=== PATIENT | male | born 1955 | race Caucasian/White ===

== ENCOUNTER 2016-09-02 08:07 | Emergency (ER) | payer MEDICAID ==
--- NOTE | 2016-09-02 08:26 | ER Document Report ---
ED General Pain - General Chief Complaint: Low Back Pain Stated Complaint: BACK PAIN Notes: The patient is a 61-year-old male, past medical history CAD, HTN, presents with her days of right lower back pain, worse when he presses and moves. He has had this in the past when he was lifting heavy weights. He denies any urinary symptoms, hematuria, dysuria, saddle anesthesia, change in bowel or bladder, difficulty walking, numbness, tingling, tearing sensation, fevers or history of IVDA. TRAVEL OUTSIDE OF THE [place] IN LAST 30 DAYS: No - Related Data Allergies/Adverse Reactions: No Known Allergies Allergy (Verified 09/02/16 08:11) Past Medical History - General Information source: Patient - Social History Smoking Status: Current Every Day Smoker Chew tobacco use (# tins/day): No Frequency of alcohol use: None Drug Abuse: None Family History: Reviewed & Not Pertinent Patient has suicidal ideation: No Patient has homicidal ideation: No - Past Medical History Cardiac Medical History: Reports: Hx Atrial Fibrillation, Hx Congestive Heart Failure, Hx Coronary Artery Disease, Hx Heart Attack, Hx Hypercholesterolemia, Hx Hypertension Past Surgical History: Reports: Hx Cardiac Catheterization, Hx Cholecystectomy, Hx Coronary Stent, Hx Oral Surgery, Hx Orthopedic Surgery, Hx Tonsillectomy - Immunizations Hx Diphtheria, Pertussis, Tetanus Vaccination: Yes Review of Systems - Review of Systems Notes: REVIEW OF SYSTEMS: CONSTITUTIONAL: -fevers, -chills EENT: -eye pain, -difficulty swallowing, -nasal congestion CARDIOVASCULAR:-chest pain, -syncope. RESPIRATORY: -cough, -SOB GASTROINTESTINAL: -abdominal pain, - nausea, -vomiting, -diarrhea GENITOURINARY: -dysuria, -hematuria MUSCULOSKELETAL: +back pain, -neck pain SKIN: -rash or skin lesions. HEMATOLOGIC: -easy bruising or bleeding. LYMPHATIC: -swollen, enlarged glands. NEUROLOGICAL: -altered mental status or loss of consciousness, -headache, - neurologic symptoms PSYCHIATRIC: -anxiety, -depression. ALL OTHER SYSTEMS REVIEWED AND NEGATIVE. Physical Exam - Vital signs Vitals: Temp Pulse Resp BP Pulse Ox 98.9 F 78 16 171/111 H 98 09/02/16 08:12 09/02/16 08:12 09/02/16 08:12 09/02/16 08:12 09/02/16 08:12 - Notes Notes: PHYSICAL EXAMINATION: GENERAL: Well-appearing, well-nourished and in no acute distress. HEAD: Atraumatic, normocephalic. EYES: Pupils equal round and reactive to light, extraocular movements intact, sclera anicteric, conjunctiva are normal. ENT: nares patent, oropharynx clear without exudates. Moist mucous membranes. NECK: Normal range of motion, supple without lymphadenopathy LUNGS: Breath sounds clear to auscultation bilaterally and equal. No wheezes rales or rhonchi. HEART: Regular rate and rhythm without murmurs ABDOMEN: Soft, nontender, normoactive bowel sounds. No guarding, no rebound. No masses appreciated. EXTREMITIES: Normal range of motion, no pitting or edema. No cyanosis. Tenderness over right lower back. No midline tenderness. NEUROLOGICAL: Cranial nerves grossly intact. Normal speech, normal gait. Normal sensory, motor, and reflex exams. PSYCH: Normal mood, normal affect. SKIN: Warm, Dry, normal turgor, no rashes or lesions noted. Course - Re-evaluation Re-evalutation: Symptoms atypical for kidney stone. Bedside ultrasound does not show any evidence of AAA or aortic dissection. No red flag signs for low back pain. We' ll treat with anti-inflammatories and lidocaine patch with follow-up at his primary care physician. Instructed patient to have his blood pressure checked by his primary care physician because it is high today. - Vital Signs Vital signs: Temp Pulse Resp BP Pulse Ox 98.9 F 78 16 171/111 H 98 09/02/16 08:12 09/02/16 08:12 09/02/16 08:12 09/02/16 08:12 09/02/16 08:12 Discharge - Discharge Clinical Impression: Back pain Qualifiers: Back pain location: low back pain Chronicity: unspecified Back pain laterality : right Sciatica presence: without sciatica Qualified Code(s): M54.5 - Low back pain Condition: Good Disposition: HOME, SELF-CARE Additional Instructions: LOW BACK PAIN: Three out of every four people will have an episode of disabling back pain during their lifetime. Most commonly the pain is due to straining of the muscles and ligaments in the low back. Usual treatment includes: (1) Rest on a firm surface. Avoid lying on your stomach. (2) Ice pack the painful area. After a few days, gentle heat may be used intermittently to relax the area, or ice packs can be continued. (3) Medication may be needed -- muscle relaxers and antiinflammatory medicines are commonly used. (4) As the back improves, exercises are prescribed to strengthen the back and abdominal muscles. Your doctor will advise you on the proper care for your back at each stage in your recovery. You may be better in a few days -- or healing may take several weeks. If new symptoms of a "herniated disc" (radiation of pain, numbness, or tingling down the back of the leg or weakness in the leg) occur, you should be re-examined. Further testing may be necessary. ICE PACKS: Apply ice packs frequently against the painful area. Many different schedules are recommended, such as "20 minutes on, 20 minutes off" or "one hour ice, two hours rest." If you need to work, you may need to go longer between ice treatments. You should plan to have the area ice packed AT LEAST one fourth of the time. The ice should be applied over the wrap, tape, or splint, or over a layer of cloth -- not directly against the skin. Some ice bags have a built-in cloth and can be put directly on the skin. WARM PACKS: After approximately two days, apply gentle heat (such as a heating pad or hot water bottle) for about 20 to 30 minutes about every two hours -- at least four times daily. Warmth and elevation will help you make a more rapid recovery , and will ease the pain considerably. Do not use HOT heat, and never apply heat for longer than 30 minutes. The continuous heat can invisibly damage skin and muscles -- even when no burn is seen on the surface. Damaged muscles can make you MORE sore. FOLLOW-UP CARE: If you have been referred to a physician for follow-up care, call the physician s office for an appointment as you were instructed or within the next two days. If you experience worsening or a significant change in your symptoms, notify the physician immediately or return to the Emergency Department at any time for re-evaluation. Prescriptions: Lidocaine [Lidoderm] 1 each TP DAILY PRN #10 adh..patch PRN Reason:
[2016-09-02] MEDS ORDERED: IBUPROFEN 600 MG TABLET PO ONE (08:39)
[2016-09-02 09:43] LABS: APPEARANCE,URINE SLIGHTLY-CLOUDY; BILIRUBIN,URINE NEGATIVE (NEGATIVE); GLUCOSE, URINE NEGATIVE (NEGATIVE); KETONES,URINE NEGATIVE (NEGATIVE); LEUKOCYTE ESTERASE,URINE NEGATIVE (NEGATIVE); NITRITE,URINE NEGATIVE (NEGATIVE); PROTEIN,URINE 30 mg/dL (NEGATIVE); URINE SPECIFIC GRAVITY 1.028; UROBILINOGEN,URINE NEGATIVE mg/dL (<2.0)
[2016-09-02 10:13] VITALS: BP 141/96
== END 2016-09-02 10:12 | disposition home or self-care (01) ==
LOC: ER 08:07
DX: M54.5 Low back pain (principal); I25.10 Atherosclerotic heart disease of native coronary artery without angina pectoris; I25.2 Old myocardial infarction; I10 Essential (primary) hypertension; F17.200 Nicotine dependence, unspecified, uncomplicated; Z98.61 Coronary angioplasty status
CPT/HCPCS: 99283; 81001; J3490

== ENCOUNTER → 2016-09-11 | Outpatient (CLI) | payer MEDICAID ==
[2016-09-11 12:27] LABS: APPEARANCE,URINE SLIGHTLY-CLOUDY; BILIRUBIN,URINE NEGATIVE (NEGATIVE); GLUCOSE, URINE NEGATIVE (NEGATIVE); KETONES,URINE NEGATIVE (NEGATIVE); LEUKOCYTE ESTERASE,URINE NEGATIVE (NEGATIVE); NITRITE,URINE NEGATIVE (NEGATIVE); PROTEIN,URINE 30 mg/dL (NEGATIVE); URINE SPECIFIC GRAVITY 1.017; UROBILINOGEN,URINE NEGATIVE mg/dL (<2.0)
[2016-09-11 12:38] LABS: ABSOLUTE BASOPHILS # (AUTO) 0.1 10^3/uL (0.0-0.2); ABSOLUTE EOSINOPHILS # (AUTO) 0.1 10^3/uL (0.0-0.6); ABSOLUTE MONOCYTES (AUTO) 0.6 10^3/uL (0.1-1.4); ABSOLUTE NEUT (AUTO) 4.8 10^3/uL (1.7-8.2); BASOPHILS % (AUTO) 0.8 % (0-2); EOSINOPHILS % (AUTO) 1.8 % (0-6); HEMATOCRIT 49.1 % (37.9-51.0); HEMOGLOBIN 16.2 g/dL (13.5-17.0); HGB HCT DIFFERENCE -0.5; LYMPHOCYTES % (AUTO) 26.1 % (13-45); MEAN CORPUSCULAR HEMOGLOBIN 31.4 pg (27.0-33.4); MEAN CORPUSCULAR VOLUME 95 fl (80-97); MONOCYTES % (AUTO) 7.9 % (3-13); RED BLOOD COUNT 5.17 10^6/uL (4.35-5.55); RED CELL DISTRIBUTION WIDTH 14.3 % (11.5-14.0); SEGMENTED NEUTROPHILS % (AUTO) 63.4 % (42-78); WHITE BLOOD COUNT 7.5 10^3/uL (4.0-10.5)
[2016-09-11 12:44] LABS: ANION GAP 13 (5-19); BLOOD UREA NITROGEN 16 mg/dL (7-20); CALCIUM 9.8 mg/dL (8.4-10.2); CARBON DIOXIDE 29 mmol/L (22-30); CHLORIDE 101 mmol/L (98-107); CREATININE RESULT 1.45 mg/dL (0.52-1.25); GLUCOSE 115 mg/dL (75-110); POTASSIUM 4.2 mmol/L (3.6-5.0)
--- NOTE | 2016-09-11 18:55 | EKG REPORT ---
SEVERITY:- ABNORMAL ECG - ATRIAL FIBRILLATION, V-RATE 67-99 BORDERLINE T WAVE ABNORMALITIES PROLONGED QT INTERVAL : Confirmed by: Elijah Adams MD 11-Sep-2016 18:54:38
== END ==
LOC: OD 11:14
PROVIDERS: ATTEND Orthopaedic Surgery
DX: Z01.810 Encounter for preprocedural cardiovascular examination (principal); Z01.811 Encounter for preprocedural respiratory examination; Z01.818 Encounter for other preprocedural examination; Z79.899 Other long term (current) drug therapy; M17.11 Unilateral primary osteoarthritis, right knee
CPT/HCPCS: 36415; 71020; 80048; 81001; 85025; 93005; 93010

== ENCOUNTER 2016-10-20 08:05 | Emergency (ER) | payer MEDICAID ==
[2016-10-20 09:05] LABS: APPEARANCE,URINE CLEAR; BILIRUBIN,URINE NEGATIVE (NEGATIVE); GLUCOSE, URINE NEGATIVE (NEGATIVE); KETONES,URINE NEGATIVE (NEGATIVE); LEUKOCYTE ESTERASE,URINE NEGATIVE (NEGATIVE); NITRITE,URINE NEGATIVE (NEGATIVE); PROTEIN,URINE NEGATIVE (NEGATIVE); URINE SPECIFIC GRAVITY 1.017; UROBILINOGEN,URINE NEGATIVE mg/dL (<2.0)
[2016-10-20] MEDS ORDERED: KETOROLAC TROMETHAMINE 60 MG/2 ML SDV IM ONE (09:46)
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
[2016-10-20 10:46] LABS: CHLAM PCR NOT DETECTED (NOT DETECT)
[2016-10-20 11:18] VITALS: BP 140/93
== END 2016-10-20 10:45 | disposition home or self-care (01) ==
LOC: ER 08:05
DX: N50.811 Right testicular pain (principal); N43.3 Hydrocele, unspecified; R30.0 Dysuria
CPT/HCPCS: 99284; 96372; 81001; 87491; 87591; 76870; 93976; J1885

== ENCOUNTER 2016-10-29 01:55 | Emergency (ER) | payer MEDICAID ==
[2016-10-29] MEDS ORDERED: LIDOCAINE 5% (700 MG) TRANSDERMAL ADH..PATCH TP ONE (03:44)
[2016-10-29] MEDS ORDERED: KETOROLAC TROMETHAMINE 60 MG/2 ML SDV IM ONE (03:45)
--- NOTE | 2016-10-29 03:45 | ER Document Report ---
ED General - General Chief Complaint: Knee Pain Stated Complaint: RIGHT KNEE PAIN Notes: Patient is a 61-year-old male who frequently visits the emergency department for pain-related complaints who presents with right knee pain. He is scheduled for surgery next month states that the pain was worse tonight and prevented him from sleeping so he came into the emergency department. He also complains of chronic bilateral perilumbar spine low back pain which she states is unchanged today but he thought he would mention it since he was here in the emergency department. She describes the pain as a radiating constant, dull, throbbing pain. States that walking on the knee or moving it worsens the pain. He has been trying tramadol for pain without improvement. Denies any urinary incontinence or retention, weakness, numbness, or difficulty with ambulation. He denies any fever or IV drug use. TRAVEL OUTSIDE OF THE [place] IN LAST 30 DAYS: No - Related Data Allergies/Adverse Reactions: No Known Allergies Allergy (Verified 10/20/16 08:11) Past Medical History - General Information source: Patient - Social History Smoking Status: Never Smoker Chew tobacco use (# tins/day): No Frequency of alcohol use: None Drug Abuse: None Lives with: Alone Family History: Reviewed & Not Pertinent Patient has suicidal ideation: No Patient has homicidal ideation: No - Past Medical History Cardiac Medical History: Reports: Hx Atrial Fibrillation, Hx Congestive Heart Failure, Hx Coronary Artery Disease, Hx Heart Attack, Hx Hypercholesterolemia, Hx Hypertension Renal/ Medical History: Denies: Hx Peritoneal Dialysis Past Surgical History: Reports: Hx Cardiac Catheterization, Hx Cholecystectomy, Hx Coronary Stent, Hx Oral Surgery, Hx Orthopedic Surgery, Hx Tonsillectomy - Immunizations Hx Diphtheria, Pertussis, Tetanus Vaccination: Yes Review of Systems - Review of Systems Notes: Constitutional: Negative for fever. HENT: Negative for sore throat. Eyes: Negative for visual changes. Cardiovascular: Negative for chest pain. Respiratory: Negative for shortness of breath. Gastrointestinal: Negative for abdominal pain, vomiting or diarrhea. Genitourinary: Negative for dysuria. Musculoskeletal: Positive for chronic back and right knee pain Skin: Negative for rash. Neurological: Negative for headaches, weakness or numbness. 10 point ROS negative except as marked above and in HPI. Physical Exam - Vital signs Vitals: Temp Pulse Resp BP Pulse Ox 97.4 F 89 17 101/64 96 10/29/16 02:14 10/29/16 02:14 10/29/16 02:14 10/29/16 02:14 10/29/16 02:14 Interpretation: Normal Notes: PHYSICAL EXAMINATION: GENERAL: Well-appearing, well-nourished and in no acute distress. HEAD: Atraumatic, normocephalic. EYES: sclera anicteric, conjunctiva are normal. ENT: Moist mucous membranes. NECK: Normal range of motion LUNGS: Normal work of breathing HEART: 2+ radial pulses bilaterally EXTREMITIES: no pitting or edema. No cyanosis. Normal flexion and extension of the knees bilaterally. Back: Diffuse bilateral dony-lumbar back pain without midline tenderness NEUROLOGICAL:5 out of 5 strength both distally and proximally bilateral lower extremities. 2+ patellar reflexes bilaterally. No clonus. Sensation grossly intact in the bilateral lower extremities. Patient is able to ambulate without difficulty. PSYCH: Normal mood, normal affect. SKIN: Warm, Dry, normal turgor, no rashes or lesions noted. Course - Re-evaluation Re-evalutation: 10/29/16 03:42 No evidence of a septic joint, gout flare, dislocation, or fracture on exam. This is patient's chronic right knee pain unchanged today. He is scheduled to have surgery next month. Vitals wnl. At this time, I do not see an indication for labs or further imaging. He does have trace edema in the bilateral lower extremities that is equal and symmetric and I do not suspect an acute DVT. I have reviewed our chronic pain policy with the patient. Will discharge with conservative measures, return precautions, and follow-up recommendations. - Vital Signs Vital signs: Temp Pulse Resp BP Pulse Ox 97.4 F 72 16 107/67 95 10/29/16 04:26 10/29/16 04:26 10/29/16 04:26 10/29/16 04:26 10/29/16 04:26 Discharge - Discharge Clinical Impression: Chronic pain of right knee Condition: Good Disposition: HOME, SELF-CARE Additional Instructions: You were seen today for chronic right knee pain. You should continue to take anti-inflammatories such as ibuprofen 600 mg every 6 hours. Continue to apply ice or heat to the area is much your able. Please follow-up with your primary care physician if you do not have improving your symptoms in the next 1-2 weeks. Please return immediately if you develop weakness, numbness, spreading redness from the area, or any other symptoms that are concerning to you. Referrals: CHEMA MARINELLI MD [Primary Care Provider] - Follow up as needed DAMARIS MINER MD [ACTIVE STAFF] - Follow up as needed
[2016-10-29 04:28] VITALS: BP 107/67
== END 2016-10-29 04:23 | disposition home or self-care (01) ==
LOC: ER 01:55
DX: G89.29 Other chronic pain (principal); M25.562 Pain in left knee; M54.9 Dorsalgia, unspecified; I48.91 Unspecified atrial fibrillation; I50.9 Heart failure, unspecified; I25.10 Atherosclerotic heart disease of native coronary artery without angina pectoris; E78.00 Pure hypercholesterolemia, unspecified; I11.0 Hypertensive heart disease with heart failure; Z90.49 Acquired absence of other specified parts of digestive tract; I25.2 Old myocardial infarction
CPT/HCPCS: 99283; 96372; J1885; J3490

== ENCOUNTER 2016-12-08 17:08 | Emergency (ER) | payer MEDICAID ==
--- NOTE | 2016-12-08 18:04 | ER Document Report ---
ED Medical Screen (RME) - General Chief Complaint: Fall Injury Stated Complaint: FALL BACK PAIN Notes: This 61-year-old male patient comes emergency room complaining of to 3 day history of weakness of the legs, and 1 day history of weakness to his arms. He said for last 2-3 days he has uses arms to get up. He was feeling short of breath and when he tried to get up today his legs gave out and he fell to the floor making his chronic back pain worse. He states he saw Dr. Stephen last week , and needs surgery on the right knee. The patient has 2 medical record numbers, this was found when looking at prior films. He stated he had had an MRI here recently, but I cannot find that under either of the medical record entries. The patient receives 60 oxycodone 5 mg tablets on a monthly basis from his primary care provider. I have greeted and performed a rapid initial assessment of this patient. A comprehensive ED assessment and evaluation of the patient, analysis of test results and completion of the medical decision making process will be conducted by additional ED providers. TRAVEL OUTSIDE OF THE [place] IN LAST 30 DAYS: No - Related Data Allergies/Adverse Reactions: No Known Allergies Allergy (Verified 12/08/16 17:36) Past Medical History - Past Medical History Cardiac Medical History: Reports: Hx Atrial Fibrillation, Hx Congestive Heart Failure, Hx Coronary Artery Disease, Hx Heart Attack, Hx Hypercholesterolemia, Hx Hypertension Renal/ Medical History: Denies: Hx Peritoneal Dialysis Past Surgical History: Reports: Hx Cardiac Catheterization, Hx Cholecystectomy, Hx Coronary Stent, Hx Oral Surgery, Hx Orthopedic Surgery, Hx Tonsillectomy - Immunizations Hx Diphtheria, Pertussis, Tetanus Vaccination: Yes Physical Exam - Vital signs Vitals: Temp Pulse Resp BP Pulse Ox 97.9 F 88 16 175/106 H 97 12/08/16 17:36 12/08/16 17:36 12/08/16 17:36 12/08/16 17:36 12/08/16 17:36 Course - Vital Signs Vital signs: Temp Pulse Resp BP Pulse Ox 97.9 F 88 16 175/106 H 97 12/08/16 17:36 12/08/16 17:36 12/08/16 17:36 12/08/16 17:36 12/08/16 17:36 - Laboratory Result Diagrams: 12/08/16 18:15 12/08/16 18:15 Laboratory results interpreted by me: 12/08/16 12/08/16 18:15 18:15 RDW 14.2 H Plt Count 115 L BUN 21 H Creatine Kinase 47 L Total Protein 5.8 L
[2016-12-08 18:29] LABS: ABSOLUTE BASOPHILS # (AUTO) 0.1 10^3/uL (0.0-0.2); ABSOLUTE EOSINOPHILS # (AUTO) 0.1 10^3/uL (0.0-0.6); ABSOLUTE LYMPHOCYTES (AUTO) 2.4 10^3/uL (0.5-4.7); ABSOLUTE MONOCYTES (AUTO) 0.7 10^3/uL (0.1-1.4); ABSOLUTE NEUT (AUTO) 5.7 10^3/uL (1.7-8.2); BASOPHILS % (AUTO) 0.6 % (0-2); EOSINOPHILS % (AUTO) 0.9 % (0-6); HEMATOCRIT 42.7 % (37.9-51.0); HEMOGLOBIN 14.9 g/dL (13.5-17.0); LYMPHOCYTES % (AUTO) 26.6 % (13-45); MEAN CORPUSCULAR HEMOGLOBIN 33.3 pg (27.0-33.4); MEAN CORPUSCULAR VOLUME 95 fl (80-97); MONOCYTES % (AUTO) 7.9 % (3-13); RED BLOOD COUNT 4.48 10^6/uL (4.35-5.55); RED CELL DISTRIBUTION WIDTH 14.2 % (11.5-14.0); WHITE BLOOD COUNT 8.9 10^3/uL (4.0-10.5)
[2016-12-08 18:45] LABS: ALANINE AMINOTRANSFERASE 45 U/L (21-72); ALBUMIN 4.1 g/dL (3.5-5.0); ALKALINE PHOSPHATASE 110 U/L (38-126); ANION GAP 14 (5-19); ASPARTATE AMINO TRANSFERASE 23 U/L (17-59); BILIRUBIN,DIRECT 0.2 mg/dL (0.0-0.4); BILIRUBIN,TOTAL 0.7 mg/dL (0.2-1.3); BLOOD UREA NITROGEN 21 mg/dL (7-20); CALCIUM 9.4 mg/dL (8.4-10.2); CARBON DIOXIDE 24 mmol/L (22-30); CHLORIDE 105 mmol/L (98-107); CREATINE KINASE 47 U/L (55-170); CREATININE RESULT 1.06 mg/dL (0.52-1.25); GLUCOSE 104 mg/dL (75-110); POTASSIUM 4.3 mmol/L (3.6-5.0); SODIUM 142.9 mmol/L (137-145); TOTAL PROTEIN 5.8 g/dL (6.3-8.2)
[2016-12-08] MEDS ORDERED: OXYCODONE-ACETAMINOPHEN 5-325 MG TABLET PO ONE (19:39)
[2016-12-08] MEDS ORDERED: OXYCODONE HCL IR 5 MG TABLET PO ONE (21:39)
--- NOTE | 2016-12-08 21:49 | ER Document Report ---
ED Fall - General Chief Complaint: Fall Injury Stated Complaint: FALL BACK PAIN Mode of Arrival: Ambulatory Information source: Patient TRAVEL OUTSIDE OF THE [place] IN LAST 30 DAYS: No - HPI Patient complains to provider of: weakness and pain Notes: Patient arrives today with complaints of generalized weakness for the last few days. He states that he just feels weak in general. He has a history of chronic neck and back pain. He sees a doctor prescribes him 60 Percocet each month here for his chronic pain. He states that earlier today was attempting to get up because he felt somewhat weak he fell to the ground and injured his lower back. He denies increased low back pain states the pain radiates down both of his legs. He denies any bowel or bladder dysfunction. He has a history of congestive heart failure and A. fib and is currently on Primaxin. He denies any fevers. He denies any numbness or tingling to the lower extremities. He denies any blurred or loss vision. No headache. He denies any chest pain. He does report some slightly worsening shortness of breath when he lays down. This been off for the last few days. He does report that his doctor recently increased his Lasix due to this. - Related data Allergies/Adverse Reactions: No Known Allergies Allergy (Verified 12/08/16 17:36) Past Medical History - Social History Smoking Status: Unknown if Ever Smoked Family History: Reviewed & Not Pertinent Patient has suicidal ideation: No Patient has homicidal ideation: No - Past Medical History Cardiac Medical History: Reports: Hx Atrial Fibrillation, Hx Congestive Heart Failure, Hx Coronary Artery Disease, Hx Heart Attack, Hx Hypercholesterolemia, Hx Hypertension Renal/ Medical History: Denies: Hx Peritoneal Dialysis Past Surgical History: Reports: Hx Cardiac Catheterization, Hx Cholecystectomy, Hx Coronary Stent, Hx Oral Surgery, Hx Orthopedic Surgery, Hx Tonsillectomy - Immunizations Hx Diphtheria, Pertussis, Tetanus Vaccination: Yes Review of Systems - Review of Systems -: Yes All other systems reviewed and negative Physical Exam - Vital signs Vitals: Temp Pulse Resp BP Pulse Ox 97.9 F 88 16 175/106 H 97 12/08/16 17:36 12/08/16 17:36 12/08/16 17:36 12/08/16 17:36 12/08/16 17:36 - Notes Notes: GENERAL: alert, cooperative, nontoxic, no distress. HEAD: normocephalic, atraumatic EYES: conjunctiva pink without discharge, no external redness or swelling. EARS: no external swelling, no external redness NOSE: atraumatic, no external swelling MOUTH/THROAT: mucous membranes moist and pink, posterior pharynx without erythema, swelling, exudate. No trismus or drooling. NECK: soft, supple, full range of motion, no meningismus. CHEST: no distress, lungs clear and equal throughout. No wheezing, rales, rhonchi. CARDIAC: Irregular rhythm, no murmur, normal capillary refill, normal pulses. No peripheral edema noted. ABDOMEN: Soft, nontender. No mass. RECTAL: Patient had light brown colored stool. The patient has normal rectal tone on exam. There was no mass or tenderness on rectal exam. BACK: full range of motion, no CVA tenderness. Patient has mild tenderness palpation in the midline lumbar spine. There is no step-offs or crepitus. Patient has 5 out of 5 flexion and extension of his lower extremities bilaterally. EXTREMITIES: full range of motion of all extremities. No redness, no swelling. NEURO: alert and oriented A&Ox3, no focal deficits, full range of motion of all extremities. Patellar and Achilles reflexes are +2 bilaterally. The patient has normal sensation with no saddle anesthesia. PYSCH: appropriate mood, affect. Patient is cooperative. SKIN: pink, warm, dry, no rash. Course - Re-evaluation Re-evalutation: 12/08/16 23:18 The patient is nontoxic. Stable vitals. Patient has a history of A. fib and congestive heart failure. He states that when he lays flat. What short of breath. He denies any chest pain. Tender fevers. Complains of some mild generalized weakness as well. He states that he fell and injured his back due to his generalized weakness. He has no bowel or bladder dysfunction and has no sign of cauda equina or epidural abscess or bleed. He normal rectal tone. No blood within his stool. EKG is unremarkable with A. fib without RVR. This is chronic for this patient. Chest x-ray shows no acute abnormality. CT of the lumbar spine shows no acute abnormality. Patient states that he is feeling better at this time and would like to go home. He needs to follow-up with his primary care doctor at next available appointment. Prescribe him prednisone for possible radiculopathy. She'll follow up sooner if he develops increased pain, high fever, difficulty controlling his bowels or his bladder, chest pain, severe difficulty breathing, or any further concerns. The patient is noted to have elevated blood pressure during today's emergency department visit. The patient was informed of this finding. The patient was instructed that this may be related to pre-hypertension and requires further evaluation with a primary care provider. The patient has no hypertensive symptoms at this time. The patient's emergency department workup and current diagnosis were explained to the patient and or family. Follow-up instructions were provided. Medications if prescribed were discussed. Instructions for when to return to the emergency department including specific worrisome symptoms were discussed with the patient and/or family. - Vital Signs Vital signs: Temp Pulse Resp BP Pulse Ox 97.9 F 88 16 186/124 H 95 12/08/16 17:36 12/08/16 17:36 12/08/16 22:31 12/08/16 22:31 12/08/16 22:31 - Laboratory Result Diagrams: 12/08/16 18:15 12/08/16 18:15 Laboratory results interpreted by me: 12/08/16 12/08/16 12/08/16 18:15 18:15 18:15 RDW 14.2 H Plt Count 115 L BUN 21 H Creatine Kinase 47 L NT-Pro-B Natriuret Pep 2790 H Total Protein 5.8 L - Diagnostic Test Radiology reviewed: Image reviewed, Reports reviewed - Chest x-ray negative. CT of the lumbar spine without acute findings. - EKG Interpretation by Sc EKG shows normal: QRS Complexes, ST-T Waves Rate: Normal Rhythm: A.Fib When compared to previous EKG there are: No significant change - 09/11/16 Discharge - Discharge Clinical Impression: Lumbar radiculopathy Chronic congestive heart failure Qualifiers: Congestive heart failure type: unspecified congestive heart failure type Qualified Code(s): I50.9 - Heart failure, unspecified Atrial fibrillation Qualifiers: Atrial fibrillation type: unspecified Qualified Code(s): I48.91 - Unspecified atrial fibrillation Disposition: HOME, SELF-CARE Instructions: Congestive Heart Failure ([facility]), Radiculopathy ([facility]) Additional Instructions: Take medications as prescribed. Follow-up with your doctor at the next available appointment for reevaluation. Follow-up sooner for chest pain, difficulty breathing, difficulty controlling her bowels or bladder, weakness in her legs, or any further concerns. Your blood pressure was elevated during today's visit. Have this rechecked with your doctor. Prescriptions: Prednisone 60 mg PO DAILY #15 tablet Forms: Elevated Blood Pressure
[2016-12-08 21:54] LABS: PROTHROMBIN TIME 13.3 SEC (11.4-15.4)
[2016-12-08 21:55] LABS: PARTIAL THROMBOPLASTIN TIME 33.6 SEC (23.5-35.8)
[2016-12-08 22:18] LABS: TROPONIN I 0.02 ng/mL
[2016-12-08] MEDS ORDERED: CLONIDINE HCL 0.1 MG TABLET PO ONE (22:47)
[2016-12-08] MEDS ORDERED: PREDNISONE 20 MG TABLET PO ONE (23:21)
--- NOTE | 2016-12-08 23:35 | EKG REPORT ---
SEVERITY:- ABNORMAL ECG - ATRIAL FIBRILLATION, V-RATE 75-103 : Confirmed by: Ernesto Schmitz 08-Dec-2016 23:34:51
[2016-12-08 23:50] VITALS: BP 172/126
== END 2016-12-08 23:49 | disposition home or self-care (01) ==
LOC: ER 17:08
DX: M54.16 Radiculopathy, lumbar region (principal); I50.9 Heart failure, unspecified; I48.91 Unspecified atrial fibrillation; R53.1 Weakness; G89.29 Other chronic pain; M54.9 Dorsalgia, unspecified; M54.2 Cervicalgia; E78.00 Pure hypercholesterolemia, unspecified; I11.0 Hypertensive heart disease with heart failure; I25.2 Old myocardial infarction
CPT/HCPCS: 93005; 99285; 36415; 82550; 85025; 85610; 85730; 82272; 80053; 84484; 83880; 71020; 72131; 93010; J3490 ×2; J7512

== ENCOUNTER 2016-12-23 11:39 | Emergency (ER) | payer MEDICAID ==
[2016-12-23 11:43] VITALS: BP 108/70
[2016-12-23] MEDS ORDERED: SULFAMETHOXAZOLE/TRIMETHOPRIM 800-160 MG TABLET PO ONE (12:22)
[2016-12-23] MEDS ORDERED: OXYCODONE-ACETAMINOPHEN 5-325 MG TABLET PO ONE (12:22)
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
== END 2016-12-23 12:33 | disposition home or self-care (01) ==
LOC: ER 11:39
DX: J40 Bronchitis, not specified as acute or chronic (principal); J32.9 Chronic sinusitis, unspecified; S80.212A Abrasion, left knee, initial encounter; V19.9XXA Pedal cyclist (driver) (passenger) injured in unspecified traffic accident, initial encounter; J02.9 Acute pharyngitis, unspecified; R05 Cough; R06.2 Wheezing; R09.81 Nasal congestion; R68.83 Chills (without fever); I25.10 Atherosclerotic heart disease of native coronary artery without angina pectoris; I25.2 Old myocardial infarction; I48.91 Unspecified atrial fibrillation; I10 Essential (primary) hypertension; Z79.02 Long term (current) use of antithrombotics/antiplatelets; Z86.14 Personal history of Methicillin resistant Staphylococcus aureus infection; Z72.0 Tobacco use; Z98.61 Coronary angioplasty status
CPT/HCPCS: 99282; J3490

== ENCOUNTER 2017-01-29 20:23 | Emergency (ER) | payer MEDICAID ==
--- NOTE | 2017-01-29 21:17 | RADIOLOGY REPORT (SQ) ---
EXAM DESCRIPTION: KNEE RIGHT 2 VIEWS COMPLETED DATE/TIME: 01/29/2017 9:00 pm REASON FOR STUDY: pain COMPARISON: 04/23/2016. NUMBER OF VIEWS: Two views. TECHNIQUE: AP and lateral radiographic images acquired of the right knee. LIMITATIONS: None. FINDINGS: MINERALIZATION: Normal. BONES: No acute fracture or dislocation. Degenerative changes with joint space narrowing and osteoph ytes, particularly in the medial compartment and patellofemoral compartment. No worrisome bone lesio ns. JOINT: No effusion. SOFT TISSUES: No soft tissue swelling. No radio-opaque foreign body. OTHER: No other significant finding. IMPRESSION: DEGENERATIVE JOINT DISEASE. NO ACUTE FINDINGS. TECHNICAL DOCUMENTATION: JOB ID: [id number] [employer]- All Rights Reserved
[2017-01-29] MEDS ORDERED: NAPROXEN 250 MG TABLET PO ONE (21:36)
--- NOTE | 2017-01-29 21:37 | ER Document Report ---
HPI - HPI Onset: Just prior to arrival Onset/Duration: Sudden Quality of pain: Achy, Sharp, Stabbing Pain Level: 5 Context: Patient is a 61-year-old male who presents emergency department complaining of right medial knee pain after buckled while he was walking today denies any fall or trauma. Been able to ambulate at his baseline. Patient with known osteoarthritis of the right knee requiring knee replacement scheduled with [facility] he states within a month. Otherwise he states that he can bend and extend his knee without any pain. Associated Symptoms: Body/muscle aches, Weakness. denies: Leg swelling - REPRODUCTIVE Reproductive: DENIES: : - DERM Skin Color: Normal Past Medical History - Social History Smoking Status: Never Smoker Chew tobacco use (# tins/day): No Frequency of alcohol use: None Drug Abuse: None Family History: Reviewed & Not Pertinent Patient has suicidal ideation: No Patient has homicidal ideation: No - Past Medical History Cardiac Medical History: Reports: Hx Atrial Fibrillation, Hx Congestive Heart Failure, Hx Coronary Artery Disease, Hx Heart Attack, Hx Hypercholesterolemia, Hx Hypertension Renal/ Medical History: Denies: Hx Peritoneal Dialysis Past Surgical History: Reports: Hx Cardiac Catheterization, Hx Cholecystectomy, Hx Coronary Stent, Hx Oral Surgery, Hx Orthopedic Surgery, Hx Tonsillectomy - Immunizations Hx Diphtheria, Pertussis, Tetanus Vaccination: Yes Vertical Provider Document - CONSTITUTIONAL Agree With Documented VS: Yes Exam Limitations: No Limitations General Appearance: WD/WN, No Apparent Distress - INFECTION CONTROL TRAVEL OUTSIDE OF THE [place] IN LAST 30 DAYS: No - RESPIRATORY O2 Sat by Pulse Oximetry: 99 - CARDIOVASCULAR Pulses: Normal: Popliteal, Dorsalis pedis - MUSCULOSKELETAL/EXTREMETIES Musculoskeletal/Extremeties: MAEW, FROM, Non-Tender, No Edema. negative: Eccymosis - NEURO Level of Consciousness: Awake, Alert, Appropriate Motor/Sensory: No Motor Deficit, No Sensory Deficit - DERM Integumentary: Warm, Dry, No Rash Course - Re-evaluation Re-evalutation: 01/30/17 08:39 Patient is a 61-year-old male who is hemodynamic stable, no acute distress and afebrile. No evidence of fracture or effusion on x-ray. Osteoarthritis evident. Discussed with patient to continue taking anti-inflammatories and follow-up with primary care and orthopedics. - Vital Signs Vital signs: Temp Pulse Resp BP Pulse Ox 97.5 F 98 16 168/89 H 99 01/29/17 20:30 01/29/17 20:30 01/29/17 20:30 01/29/17 20:32 01/29/17 20:30 - Diagnostic Test Radiology reviewed: Image reviewed, Reports reviewed Discharge - Discharge Clinical Impression: Knee pain, chronic Condition: Good Disposition: HOME, SELF-CARE Instructions: Ice & Elevation ([facility]), Arthritis ([facility]) Additional Instructions: Please follow up with Dr. Miner for scheduling regarding you knee replacement procedure Referrals: CHEMA MARINELLI MD [Primary Care Provider] - Follow up as needed DAMARIS MINER MD [ACTIVE STAFF] - Follow up in 1 week
[2017-01-29 22:54] VITALS: BP 173/105
== END 2017-01-29 21:55 | disposition home or self-care (01) ==
LOC: ER 20:23
DX: M25.561 Pain in right knee (principal); G89.29 Other chronic pain; M79.1 Myalgia; I48.91 Unspecified atrial fibrillation; I50.9 Heart failure, unspecified; I25.10 Atherosclerotic heart disease of native coronary artery without angina pectoris; E78.00 Pure hypercholesterolemia, unspecified; I11.0 Hypertensive heart disease with heart failure; I25.2 Old myocardial infarction; Z90.49 Acquired absence of other specified parts of digestive tract
CPT/HCPCS: 99283; 73560; J3490

== ENCOUNTER 2017-05-26 11:18 | Emergency (ER) | payer MEDICAID ==
--- NOTE | 2017-05-26 11:49 | ER Document Report ---
ED Medical Screen (RME) - General Chief Complaint: Low Back Pain Stated Complaint: BACK PAIN, HEADACHE Time Seen by Provider: 05/26/17 11:47 Notes: Patient is experiencing trouble breathing for the past couple of weeks. He was seen for the same problem here about 2 weeks ago and had his Lasix increased in dose. Patient also says he has been having left-sided chest pain for a long time and they continue. He is known to have atrial fibrillation. Also complains of back pain and headache, but these are chronic problems. No nausea or vomiting. No diarrhea. No fever. Never smoked. PMH atrial fibrillation and coronary stent. Hypertension. MRSA. TRAVEL OUTSIDE OF THE [place] IN LAST 30 DAYS: No - Related Data Allergies/Adverse Reactions: No Known Allergies Allergy (Verified 05/26/17 11:25) Past Medical History - Social History Frequency of alcohol use: None Drug Abuse: None Family history: Reviewed & Not Pertinent - Past Medical History Cardiac Medical History: Reports: Hx Atrial Fibrillation, Hx Congestive Heart Failure, Hx Coronary Artery Disease, Hx Heart Attack, Hx Hypercholesterolemia, Hx Hypertension Renal/ Medical History: Denies: Hx Peritoneal Dialysis Past Surgical History: Reports: Hx Cardiac Catheterization, Hx Cholecystectomy, Hx Coronary Stent, Hx Oral Surgery, Hx Orthopedic Surgery - Right Knee, Right Thumb, Hx Tonsillectomy - Immunizations Hx Diphtheria, Pertussis, Tetanus Vaccination: Yes History of Influenza Vaccine for 05/2017 - 10/2017 Season: No Physical Exam - Vital signs Vitals: Temp Pulse Resp BP Pulse Ox 97.5 F 66 20 182/114 H 100 05/26/17 11:29 05/26/17 11:29 05/26/17 11:29 05/26/17 11:29 05/26/17 11:29 Course - Vital Signs Vital signs: Temp Pulse Resp BP Pulse Ox 97.5 F 66 20 182/114 H 100 05/26/17 11:29 05/26/17 11:29 05/26/17 11:29 05/26/17 11:29 05/26/17 11:29
[2017-05-26 12:38] LABS: APPEARANCE,URINE CLEAR; BILIRUBIN,URINE NEGATIVE (NEGATIVE); GLUCOSE, URINE NEGATIVE (NEGATIVE); KETONES,URINE NEGATIVE (NEGATIVE); LEUKOCYTE ESTERASE,URINE NEGATIVE (NEGATIVE); NITRITE,URINE NEGATIVE (NEGATIVE); PROTEIN,URINE NEGATIVE (NEGATIVE); URINE SPECIFIC GRAVITY 1.009; UROBILINOGEN,URINE NEGATIVE mg/dL (<2.0)
[2017-05-26 12:48] LABS: ABSOLUTE EOSINOPHILS # (AUTO) 0.1 10^3/uL (0.0-0.6); ABSOLUTE LYMPHOCYTES (AUTO) 1.8 10^3/uL (0.5-4.7); ABSOLUTE MONOCYTES (AUTO) 0.6 10^3/uL (0.1-1.4); ABSOLUTE NEUT (AUTO) 3.1 10^3/uL (1.7-8.2); BASOPHILS % (AUTO) 0.7 % (0-2); EOSINOPHILS % (AUTO) 1.5 % (0-6); HEMOGLOBIN 15.6 g/dL (13.5-17.0); HGB HCT DIFFERENCE 2.8; LYMPHOCYTES % (AUTO) 31.9 % (13-45); MEAN CORPUSCULAR HEMOGLOBIN 33.5 pg (27.0-33.4); MEAN CORPUSCULAR HGB CONC 35.4 g/dL (32.0-36.0); MEAN CORPUSCULAR VOLUME 95 fl (80-97); MONOCYTES % (AUTO) 10.6 % (3-13); RED BLOOD COUNT 4.66 10^6/uL (4.35-5.55); RED CELL DISTRIBUTION WIDTH 13.6 % (11.5-14.0); SEGMENTED NEUTROPHILS % (AUTO) 55.3 % (42-78); WHITE BLOOD COUNT 5.7 10^3/uL (4.0-10.5)
--- NOTE | 2017-05-26 12:49 | ER Document Report ---
ED General - General Chief Complaint: Low Back Pain Stated Complaint: BACK PAIN, HEADACHE Time Seen by Provider: 05/26/17 11:47 Mode of Arrival: Ambulatory Information source: Patient Notes: 62-year-old male history of chronic neck pain back pain chest pain presents with complaints of chest back and neck pain. Patient states this is similar to his previous pains, he does note that his Lasix was increased 2 weeks prior for similar complaint. He denies any fevers or chills denies any trauma states the pain is a throbbing sensation in his chest TRAVEL OUTSIDE OF THE [place] IN LAST 30 DAYS: No - HPI Onset: Other - 2 week duration intermittent has happened before Onset/Duration: Intermittent Quality of pain: Achy Severity: Mild Pain Level: 1 Associated symptoms: Body/muscle aches, Chest pain, Headache Exacerbated by: Movement Relieved by: Denies Similar symptoms previously: Yes Recently seen / treated by doctor: Yes - Related Data Allergies/Adverse Reactions: No Known Allergies Allergy (Verified 05/26/17 11:25) Past Medical History - Social History Smoking Status: Never Smoker Cigarette use (# per day): No Chew tobacco use (# tins/day): No Smoking Education Provided: No Frequency of alcohol use: None Drug Abuse: None Family History: Reviewed & Not Pertinent Patient has suicidal ideation: No Patient has homicidal ideation: No - Past Medical History Cardiac Medical History: Reports: Hx Atrial Fibrillation, Hx Congestive Heart Failure, Hx Coronary Artery Disease, Hx Heart Attack, Hx Hypercholesterolemia, Hx Hypertension Renal/ Medical History: Denies: Hx Peritoneal Dialysis Past Surgical History: Reports: Hx Cardiac Catheterization, Hx Cholecystectomy, Hx Coronary Stent, Hx Oral Surgery, Hx Orthopedic Surgery - Right Knee, Right Thumb, Hx Tonsillectomy - Immunizations Hx Diphtheria, Pertussis, Tetanus Vaccination: Yes Review of Systems - Review of Systems Notes: REVIEW OF SYSTEMS: CONSTITUTIONAL : Denies fever, chills, or sweats. Denies recent illness. EENT: Denies eye, ear, throat, or mouth pain or symptoms. Denies nasal or sinus congestion or discharge. Denies throat, tongue, or mouth swelling or difficulty swallowing. CARDIOVASCULAR: Admits to chest pain RESPIRATORY: Denies cough, cold, or chest congestion. Denies shortness of breath, difficulty breathing, or wheezing. GASTROINTESTINAL: Denies abdominal pain or distention. Denies nausea, vomiting , or diarrhea. Denies blood in vomitus, stools, or per rectum. Denies black, tarry stools. Denies constipation. GENITOURINARY: Denies difficulty urinating, painful urination, burning, frequency, blood in urine, or discharge. MUSCULOSKELETAL: Admits neck and back pain SKIN: Denies rash, lesions or sores. HEMATOLOGIC : Denies easy bruising or bleeding. LYMPHATIC: Denies swollen, enlarged glands. NEUROLOGICAL: Denies confusion or altered mental status. Denies passing out or loss of consciousness. Denies dizziness or lightheadedness. Denies headache. Denies weakness or paralysis or loss of use of either side. Denies problems with gait or speech. Denies sensory loss, numbness, or tingling. Denies seizures. PSYCHIATRIC: Denies anxiety or stress. Denies depression, suicidal ideation, or homicidal ideation. ALL OTHER SYSTEMS REVIEWED AND NEGATIVE. Dictation was performed using [employer] voice recognition software PHYSICAL EXAMINATION: GENERAL: Well-appearing, well-nourished and in no acute distress. HEAD: Atraumatic, normocephalic. EYES: Pupils equal round and reactive to light, extraocular movements intact, sclera anicteric, conjunctiva are normal. ENT: Nares patent, oropharynx clear without exudates. Moist mucous membranes. NECK: Normal range of motion, supple without lymphadenopathy patient has tenderness with range of motion LUNGS: Breath sounds clear to auscultation bilaterally and equal. No wheezes rales or rhonchi. HEART: Regular rate and rhythm without murmurs ABDOMEN: Soft, nontender, nondistended abdomen. No guarding, no rebound. No masses appreciated. Musculoskeletal: Normal range of motion, no pitting or edema. No cyanosis. NEUROLOGICAL: Cranial nerves grossly intact. Normal speech, normal gait. Normal sensory, motor exams PSYCH: Normal mood, normal affect. SKIN: Warm, Dry, normal turgor, no rashes or lesions noted. Physical Exam - Vital signs Vitals: Temp Pulse Resp BP Pulse Ox 97.5 F 66 20 182/114 H 100 05/26/17 11:29 05/26/17 11:29 05/26/17 11:29 05/26/17 11:29 05/26/17 11:29 Course - Re-evaluation Re-evalutation: 05/26/17 12:49 Patient was initially seen in the hallway, given complaint of chest pain even though this is chronic he was immediately moved to a main side bed with monitor , nitroglycerin has been ordered for his chest pain 05/26/17 15:04 Patient has been evaluated in the emergency department cardiac enzymes were negative. Lab work otherwise is benign, patient repeatedly states that the only thing that gets rid of his chest pain is Dilaudid. Patient's main complaint when he arrived was a pinched nerve in the will be treated for this with anti-inflammatories and is otherwise stable for discharge Patient has been instructed that he must see a 1st pressman on web press immediately states he will do so he defers on admission at this time After performing a Medical Screening Examination, I estimate there is LOW risk for RUPTURED ESOPHAGUS, PNEUMOTHORAX, PULMONARY EMBOLISM, ACUTE CORONARY SYNDROME, OR THORACIC AORTIC DISSECTION, thus I consider the discharge disposition reasonable. I have reevaluated this patient multiple times and no significant life threatening changes are noted. The patient and I have discussed the diagnosis and risks, and we agree with discharging home with close follow-up. We also discussed returning to the Emergency Department immediately if new or worsening symptoms occur. We have discussed the symptoms which are most concerning (e.g., bloody sputum, worsening pain or shortness of breath) that necessitate immediate return. - Vital Signs Vital signs: Temp Pulse Resp BP Pulse Ox 97.5 F 66 20 154/100 H 97 05/26/17 11:29 05/26/17 11:29 05/26/17 14:30 05/26/17 14:30 05/26/17 14:30 - Laboratory Result Diagrams: 05/26/17 11:50 05/26/17 11:50 Laboratory results interpreted by me: 05/26/17 05/26/17 05/26/17 11:50 11:50 11:50 MCH 33.5 H Plt Count 87 L NT-Pro-B Natriuret Pep 1850 H Total Protein 6.1 L - Diagnostic Test Radiology reviewed: Image reviewed, Reports reviewed - EKG Interpretation by Me EKG shows normal: Sinus rhythm, [place], Intervals, QRS Complexes Discharge - Discharge Clinical Impression: Chronic chest pain, Neck pain Condition: Stable Disposition: HOME, SELF-CARE Instructions: Muscle Strain ([facility]), Chest Pain of Unclear Cause ([facility]) Referrals: SNEHAL VELÁSQUEZ MD [ACTIVE STAFF] - Follow up tomorrow
[2017-05-26 12:52] LABS: ALANINE AMINOTRANSFERASE 52 U/L (21-72); ALKALINE PHOSPHATASE 93 U/L (38-126); ANION GAP 9 (5-19); ASPARTATE AMINO TRANSFERASE 33 U/L (17-59); BILIRUBIN,DIRECT 0.4 mg/dL (0.0-0.4); BILIRUBIN,TOTAL 0.8 mg/dL (0.2-1.3); BLOOD UREA NITROGEN 13 mg/dL (7-20); CALCIUM 9.6 mg/dL (8.4-10.2); CARBON DIOXIDE 26 mmol/L (22-30); CHLORIDE 106 mmol/L (98-107); CREATININE RESULT 1.04 mg/dL (0.52-1.25); GLUCOSE 106 mg/dL (75-110); POTASSIUM 4.5 mmol/L (3.6-5.0); SODIUM 140.8 mmol/L (137-145); TOTAL PROTEIN 6.1 g/dL (6.3-8.2)
--- NOTE | 2017-05-26 13:05 | RADIOLOGY REPORT (SQ) ---
EXAM DESCRIPTION: CHEST PA/LAT COMPLETED DATE/TIME: 05/26/2017 12:53 pm REASON FOR STUDY: Short of breath COMPARISON: 04/26/2017 NUMBER OF VIEWS: Two view. TECHNIQUE: Frontal and lateral radiographic views of the chest acquired. LIMITATIONS: None. FINDINGS: LUNGS AND PLEURA: No opacities, masses or pneumothorax. No pleural effusion. MEDIASTINUM AND HILAR STRUCTURES: No masses. No contour abnormalities. HEART AND VASCULAR STRUCTURES: Heart enlarged without failure. Aorta normal for age. BONES: No acute findings. HARDWARE: None in the chest. OTHER: No other significant finding. IMPRESSION: CARDIAC ENLARGEMENT WITHOUT FAILURE. TECHNICAL DOCUMENTATION: JOB ID: [id number] [employer]- All Rights Reserved
[2017-05-26] MEDS: NITROGLYCERIN 0.4 MG/TAB 25 TAB/BOTTLE SL PRN ×2 (13:06→13:13)
[2017-05-26 13:10] LABS: CREATINE KINASE MB 1.56 ng/mL (<4.55); TROPONIN I 0.016 ng/mL
[2017-05-26] MEDS ORDERED: KETOROLAC TROMETHAMINE INJ/PF 30 MG/1 ML SDV IV ONE (13:33)
[2017-05-26] MEDS ORDERED: KETOROLAC TROMETHAMINE 60 MG/2 ML SDV IM ONE (13:41)
[2017-05-26] MEDS ORDERED: CYCLOBENZAPRINE HCL 10 MG TABLET PO ONE (15:07)
[2017-05-26 15:18] VITALS: BP 154/110
--- NOTE | 2017-05-26 18:15 | EKG REPORT ---
SEVERITY:- ABNORMAL ECG - ATRIAL FIBRILLATION, V-RATE 49-81 : Confirmed by: Stacia Woods MD 26-May-2017 18:14:58
== END 2017-05-26 15:18 | disposition home or self-care (01) ==
LOC: ER 11:18
DX: G89.29 Other chronic pain (principal); R07.9 Chest pain, unspecified; M54.2 Cervicalgia; M54.5 Low back pain; R51 Headache; G58.9 Mononeuropathy, unspecified; I50.9 Heart failure, unspecified; I11.0 Hypertensive heart disease with heart failure; Z79.899 Other long term (current) drug therapy; Z95.5 Presence of coronary angioplasty implant and graft
CPT/HCPCS: 93005; 99284; 96372; 36415; 82553; 85025; 80053; 81001; 84484; 83880; 71020; 93010; J3490 ×2; J1885

== ENCOUNTER 2017-07-23 10:11 | Emergency (ER) | payer MEDICAID ==
[2017-07-23 10:42] VITALS: BP 154/102
--- NOTE | 2017-07-23 10:54 | ER Document Report ---
ED Medical Screen (RME) - General Chief Complaint: Shortness Of Breath Stated Complaint: COUGH Time Seen by Provider: 07/23/17 10:44 Mode of Arrival: Ambulatory Information source: Patient Notes: Patient presents complaining of shortness of breath for the past 2 weeks with cough that started yesterday. Patient states cough is been occasionally productive. Patient additionally complains of right lower back pain and knee pain. Patient does have a history of congestive heart failure and does feel as though he is retaining some fluid. Patient does state that he feels like his clothes are fitting tighter. TRAVEL OUTSIDE OF THE [place] IN LAST 30 DAYS: No - Related Data Allergies/Adverse Reactions: No Known Allergies Allergy (Verified 07/23/17 10:14) Past Medical History - Social History Chew tobacco use (# tins/day): No Frequency of alcohol use: None Drug Abuse: None Family history: Reviewed & Not Pertinent - Past Medical History Cardiac Medical History: Reports: Hx Atrial Fibrillation, Hx Congestive Heart Failure, Hx Coronary Artery Disease, Hx Heart Attack, Hx Hypercholesterolemia, Hx Hypertension Renal/ Medical History: Denies: Hx Peritoneal Dialysis Past Surgical History: Reports: Hx Cardiac Catheterization, Hx Cholecystectomy, Hx Coronary Stent, Hx Oral Surgery, Hx Orthopedic Surgery - Right Knee, Right Thumb, Hx Tonsillectomy - Immunizations Hx Diphtheria, Pertussis, Tetanus Vaccination: Yes History of Influenza Vaccine for 05/2017 - 10/2017 Season: No Physical Exam - Vital signs Vitals: Temp Pulse Resp BP Pulse Ox 97.7 F 49 L 20 165/119 H 98 07/23/17 10:16 07/23/17 10:16 07/23/17 10:16 07/23/17 10:16 07/23/17 10:16 - Respiratory Respiratory status: No respiratory distress Chest status: Nontender Breath sounds: Nonproductive cough - Back Back: Tender - Right lower lumbar tenderness Course - Vital Signs Vital signs: Temp Pulse Resp BP Pulse Ox 97.7 F 56 L 18 154/102 H 99 07/23/17 10:16 07/23/17 10:41 07/23/17 10:41 07/23/17 10:41 07/23/17 10:41
[2017-07-23 11:24] LABS: ABSOLUTE BASOPHILS # (AUTO) 0.1 10^3/uL (0.0-0.2); ABSOLUTE EOSINOPHILS # (AUTO) 0.1 10^3/uL (0.0-0.6); ABSOLUTE LYMPHOCYTES (AUTO) 1.1 10^3/uL (0.5-4.7); ABSOLUTE MONOCYTES (AUTO) 0.5 10^3/uL (0.1-1.4); ABSOLUTE NEUT (AUTO) 3.5 10^3/uL (1.7-8.2); BASOPHILS % (AUTO) 1.1 % (0-2); HEMATOCRIT 42.6 % (37.9-51.0); HGB HCT DIFFERENCE 2.4; MEAN CORPUSCULAR HGB CONC 35.2 g/dL (32.0-36.0); MEAN CORPUSCULAR VOLUME 94 fl (80-97); MONOCYTES % (AUTO) 9.6 % (3-13); RED BLOOD COUNT 4.54 10^6/uL (4.35-5.55); RED CELL DISTRIBUTION WIDTH 13.7 % (11.5-14.0); SEGMENTED NEUTROPHILS % (AUTO) 66.3 % (42-78); WHITE BLOOD COUNT 5.3 10^3/uL (4.0-10.5)
--- NOTE | 2017-07-23 11:43 | RADIOLOGY REPORT (SQ) ---
EXAM DESCRIPTION: CHEST PA/LAT COMPLETED DATE/TIME: 07/23/2017 11:25 am REASON FOR STUDY: cough, dyspnea COMPARISON: 05/26/2017 EXAM PARAMETERS: NUMBER OF VIEWS: two views TECHNIQUE: Digital Frontal and Lateral radiographic views of the chest acquired. RADIATION DOSE: NA LIMITATIONS: none FINDINGS: LUNGS AND PLEURA: No opacities, masses or pneumothorax. No pleural effusion. MEDIASTINUM AND HILAR STRUCTURES: No masses or contour abnormalities. HEART AND VASCULAR STRUCTURES: Cardiomegaly. There is no failure BONES: No acute findings. HARDWARE: None in the chest. OTHER: No other significant finding. IMPRESSION: Cardiomegaly without failure. TECHNICAL DOCUMENTATION: JOB ID: [id number] [employer]- All Rights Reserved
[2017-07-23 11:50] LABS: ALANINE AMINOTRANSFERASE 45 U/L (21-72); ALBUMIN 3.9 g/dL (3.5-5.0); ALKALINE PHOSPHATASE 106 U/L (38-126); ANION GAP 13 (5-19); ASPARTATE AMINO TRANSFERASE 48 U/L (17-59); BILIRUBIN,DIRECT 0.5 mg/dL (0.0-0.4); BILIRUBIN,TOTAL 1.2 mg/dL (0.2-1.3); BLOOD UREA NITROGEN 17 mg/dL (7-20); CALCIUM 9.3 mg/dL (8.4-10.2); CARBON DIOXIDE 23 mmol/L (22-30); CHLORIDE 108 mmol/L (98-107); CREATINE KINASE 141 U/L (55-170); CREATININE RESULT 1.06 mg/dL (0.52-1.25); GLUCOSE 91 mg/dL (75-110); MAGNESIUM 1.8 mg/dL (1.6-2.3); POTASSIUM 4.3 mmol/L (3.6-5.0); SODIUM 143.9 mmol/L (137-145); TOTAL PROTEIN 6.2 g/dL (6.3-8.2)
[2017-07-23 12:00] LABS: CREATINE KINASE MB 1.34 ng/mL (<4.55); TROPONIN I 0.021 ng/mL
[2017-07-23 12:02] LABS: APPEARANCE,URINE SLIGHTLY-CLOUDY; BILIRUBIN,URINE NEGATIVE (NEGATIVE); GLUCOSE, URINE NEGATIVE (NEGATIVE); KETONES,URINE NEGATIVE (NEGATIVE); LEUKOCYTE ESTERASE,URINE NEGATIVE (NEGATIVE); NITRITE,URINE NEGATIVE (NEGATIVE); PROTEIN,URINE 30 mg/dL (NEGATIVE); URINE SPECIFIC GRAVITY 1.027
[2017-07-23] MEDS ORDERED: GUAIFENESIN/D-METHORPHAN (200-20 MG) SYRUP 10 ML PO ONE (12:40)
[2017-07-23] MEDS ORDERED: IPRATROPIUM/ALBUTEROL 0.5-2.5 MG/3 ML AMPUL NEB ONE (12:40)
[2017-07-23] MEDS ORDERED: KETOROLAC TROMETHAMINE 60 MG/2 ML SDV IM ONE (12:40)
--- NOTE | 2017-07-23 12:42 | ER Document Report ---
ED Respiratory Problem - General Chief Complaint: Shortness Of Breath Stated Complaint: COUGH Time Seen by Provider: 07/23/17 10:44 Mode of Arrival: Ambulatory Information source: Patient Notes: Patient is a 62-year-old male who presents to the ER today for cough, shortness of breath 1 week. Patient has a history of congestive heart failure states that he has been having to sleep on 3 pillows recently. He denies any lower extremity swelling, chest pain fever, chills, runny nose or sore throat. He denies having any breathing treatments at home or inhalers to use. TRAVEL OUTSIDE OF THE [place] IN LAST 30 DAYS: No - Related Data Allergies/Adverse Reactions: No Known Allergies Allergy (Verified 07/23/17 10:14) Past Medical History - General Information source: Patient - Social History Smoking Status: Never Smoker Chew tobacco use (# tins/day): No Frequency of alcohol use: None Drug Abuse: None Family History: Reviewed & Not Pertinent Patient has suicidal ideation: No Patient has homicidal ideation: No - Past Medical History Cardiac Medical History: Reports: Hx Atrial Fibrillation, Hx Congestive Heart Failure, Hx Coronary Artery Disease, Hx Heart Attack, Hx Hypercholesterolemia, Hx Hypertension Renal/ Medical History: Denies: Hx Peritoneal Dialysis Past Surgical History: Reports: Hx Cardiac Catheterization, Hx Cholecystectomy, Hx Coronary Stent, Hx Oral Surgery, Hx Orthopedic Surgery - Right Knee, Right Thumb, Hx Tonsillectomy - Immunizations Hx Diphtheria, Pertussis, Tetanus Vaccination: Yes Review of Systems - Review of Systems Constitutional: No symptoms reported EENT: No symptoms reported Cardiovascular: No symptoms reported Respiratory: See HPI Gastrointestinal: No symptoms reported Genitourinary: No symptoms reported Male Genitourinary: No symptoms reported Musculoskeletal: No symptoms reported Skin: No symptoms reported Hematologic/Lymphatic: No symptoms reported Neurological/Psychological: No symptoms reported Physical Exam - Vital signs Vitals: Temp Pulse Resp BP Pulse Ox 97.7 F 49 L 20 165/119 H 98 07/23/17 10:16 07/23/17 10:16 07/23/17 10:16 07/23/17 10:16 07/23/17 10:16 - Notes Notes: PHYSICAL EXAMINATION: GENERAL: Is in no acute distress. HEAD: Atraumatic, normocephalic. EYES: Pupils equal round and reactive to light, extraocular movements intact, sclera anicteric, conjunctiva are normal. ENT: ear canals without erythema or foreign body, TMs [place] with good bony landmarks, nares patent, oropharynx clear without exudates. Moist mucous membranes. airway patent NECK: Normal range of motion, supple without lymphadenopathy LUNGS: CTAB and equal. No wheezes rales or rhonchi. HEART: Regular rate and rhythm without murmurs ABDOMEN: Soft, no tenderness. No guarding, no rebound BACK: no vertebral tenderness, normal ROM GI/: no CVA tenderness EXTREMITIES: Normal range of motion, no pitting edema. No cyanosis. NEUROLOGICAL: Cranial nerves grossly intact. Normal sensory/motor exams. PSYCH: Normal mood, normal affect. SKIN: Warm, Dry, normal turgor, no rashes or lesions noted Course - Re-evaluation Re-evalutation: 07/23/17 14:03 Chest x-ray reports no acute vascularization or abnormality with cardiomegaly. BNP is elevated at 2000, however the rest of his blood work is unremarkable today. Patient feels better after breathing treatment and cough medication. I will advise him to continue cough medication and breathing treatments and follow -up with his primary care provider. - Vital Signs Vital signs: Temp Pulse Resp BP Pulse Ox 97.7 F 56 L 18 154/102 H 99 07/23/17 10:16 07/23/17 10:41 07/23/17 10:41 07/23/17 10:41 07/23/17 10:41 - Laboratory Result Diagrams: 07/23/17 11:06 07/23/17 11:06 Laboratory results interpreted by me: 07/23/17 07/23/17 07/23/17 11:06 11:06 11:06 Plt Count 105 L Chloride 108 H Direct Bilirubin 0.5 H NT-Pro-B Natriuret Pep 2010 H Total Protein 6.2 L Urine Protein Urine Urobilinogen 07/23/17 11:30 Plt Count Chloride Direct Bilirubin NT-Pro-B Natriuret Pep Total Protein Urine Protein 30 H Urine Urobilinogen 4.0 H Discharge - Discharge Clinical Impression: Bronchitis, Shortness of breath Condition: Stable Disposition: HOME, SELF-CARE Additional Instructions: Return immediately for any new or worsening symptoms. Follow up with primary care provider, call tomorrow to make followup appointment. Prescriptions: Hydrocodone Bit/Homatropine [Hycodan Syrup 5-1.5 mg/5 ml Ud Cup] 5 ml PO Q4HP PRN #120 ml PRN Reason:
--- NOTE | 2017-07-23 13:31 | EKG REPORT ---
SEVERITY:- ABNORMAL ECG - ATRIAL FIBRILLATION, V-RATE 50-71 : Confirmed by: Elijah Adams MD 23-Jul-2017 13:30:28
[2017-07-23] MEDS ORDERED: ALBUTEROL SULFATE HFA (90 MCG/PUFF) 8 GM MDI (1 MDI/ER DISP) IH PRN (14:04)
== END 2017-07-23 14:20 | disposition home or self-care (01) ==
LOC: ER 10:11
DX: J40 Bronchitis, not specified as acute or chronic (principal); R06.02 Shortness of breath; R05 Cough; I50.9 Heart failure, unspecified
CPT/HCPCS: 93005; 94640; 99285; 96372; 36415; 82553; 82550; 83735; 85025; 80053; 81001; 84484; 83880; 71020; 93010; J1885; J3490; J7620

== ENCOUNTER 2017-08-25 22:35 | Emergency (ER) | payer MEDICAID ==
--- NOTE | 2017-08-25 23:19 | ER Document Report ---
ED Medical Screen (RME) - General Chief Complaint: Leg Pain Stated Complaint: LEFT LEG PAIN,EYES BURNING Time Seen by Provider: 08/25/17 23:11 Notes: 62-year-old male, he states his chief complaint is itchy watery eyes, however when asked he admits that he has been feeling short of breath, he has had intermittent chest pain. He denies current chest pain but admits he feels a little bit short of breath. He states he was given a combination anti-cold/ allergy medication which he took 3 times a day because of his itchy eyes. TRAVEL OUTSIDE OF THE [place] IN LAST 30 DAYS: No - Related Data Allergies/Adverse Reactions: No Known Allergies Allergy (Verified 07/23/17 10:14) Past Medical History - Social History Family history: Reviewed & Not Pertinent - Past Medical History Cardiac Medical History: Reports: Hx Atrial Fibrillation, Hx Congestive Heart Failure, Hx Coronary Artery Disease, Hx Heart Attack, Hx Hypercholesterolemia, Hx Hypertension Renal/ Medical History: Denies: Hx Peritoneal Dialysis Past Surgical History: Reports: Hx Cardiac Catheterization, Hx Cholecystectomy, Hx Coronary Stent, Hx Oral Surgery, Hx Orthopedic Surgery - Right Knee, Right Thumb, Hx Tonsillectomy - Immunizations Hx Diphtheria, Pertussis, Tetanus Vaccination: Yes History of Influenza Vaccine for 05/2017 - 10/2017 Season: No Physical Exam - Vital signs Vitals: Temp Pulse Resp BP Pulse Ox 97.5 F 58 L 20 167/58 H 97 08/25/17 22:36 08/25/17 22:36 08/25/17 22:36 08/25/17 22:36 08/25/17 22:36 - Respiratory Respiratory status: No respiratory distress Breath sounds: Normal. No: Decreased air movement, Wheezing - Cardiovascular Rhythm: Irregularly irregular, Tachycardia Course - Re-evaluation Re-evalutation: On auscultation patient in atrial fibrillation with rapid ventricular response, probably the cause of his symptom of shortness of breath and chest pain. Patient probably has this aggravated by the fact that he took 3 separate doses of a once a day cold/allergy medication which also has Sudafed in addition to 10 mg of loratadine. - Vital Signs Vital signs: Temp Pulse Resp BP Pulse Ox 97.5 F 58 L 20 167/58 H 97 08/25/17 22:36 08/25/17 22:36 08/25/17 22:36 08/25/17 22:36 08/25/17 22:36
--- NOTE | 2017-08-25 23:54 | ER Document Report ---
ED General - General Chief Complaint: Leg Pain Stated Complaint: LEFT LEG PAIN,EYES BURNING Time Seen by Provider: 08/25/17 23:11 Notes: Patient is a 62-year-old male presents with complaint of his eyes burning for last several days. Also has a little left knee pain. Patient says regards any pain he has chronic right and left knee pain. He says usually his right knee is worse than his left but over last 24 hours his left knee has been hurting him more. He says he has chronic arthritis and has been told that he needs a replacement surgeries. He denies any new injuries. Denies any leg swelling or edema. He denies any history of DVTs. His eye pain he says been going for just over 24 hours. She said some redness of the eyes. This morning when he woke up he had matting and yellow drainage from his eyes. He has had some nasal congestion is well some cold-like symptoms. No recent trauma to the eyes. No foreign bodies. He does have a history of atrial fibrillation. He did take 3 Sudafed tablets as well as loratadine tablets today. Since taking the Sudafed is noticed that his heart rate and blood pressure have been much higher. He is not currently on blood thinning medications. He said he used to be on Pradaxa but at his last admission febrile he was told that he can no longer be on his blood thinners and therefore has been taken off of them. He said no strokelike symptoms in relation to this. He is found to have some A. fib with RVR in triage. Patient admits that she has been taking cold medicine. He said he took 3 tablets of pseudoephedrine earlier today because he thought it might help with his eye burning and pain but since then his heart has been racing and his blood pressure has been high. TRAVEL OUTSIDE OF THE [place] IN LAST 30 DAYS: No - Related Data Allergies/Adverse Reactions: No Known Allergies Allergy (Verified 07/23/17 10:14) Past Medical History - Social History Smoking Status: Never Smoker Chew tobacco use (# tins/day): No Frequency of alcohol use: None Drug Abuse: None Family History: Reviewed & Not Pertinent Patient has suicidal ideation: No Patient has homicidal ideation: No - Past Medical History Cardiac Medical History: Reports: Hx Atrial Fibrillation, Hx Congestive Heart Failure, Hx Coronary Artery Disease, Hx Heart Attack, Hx Hypercholesterolemia, Hx Hypertension Renal/ Medical History: Denies: Hx Peritoneal Dialysis Past Surgical History: Reports: Hx Cardiac Catheterization, Hx Cholecystectomy, Hx Coronary Stent, Hx Oral Surgery, Hx Orthopedic Surgery - Right Knee, Right Thumb, Hx Tonsillectomy - Immunizations Hx Diphtheria, Pertussis, Tetanus Vaccination: Yes Review of Systems - Review of Systems Notes: My Normal Review Basic REVIEW OF SYSTEMS: CONSTITUTIONAL : Denies fever, chills, or sweats. EENT: eye pain, nasal congestion CARDIOVASCULAR: Has chronic chest pain which he says is unchanged RESPIRATORY: Denies cough, cold, or chest congestion. Denies shortness of breath, difficulty breathing, or wheezing. GASTROINTESTINAL: Denies abdominal pain. Denies nausea, vomiting, or diarrhea. MUSCULOSKELETAL: Denies neck or back pain or joint pain or swelling. SKIN: Denies rash or skin lesions. NEUROLOGICAL: Denies altered mental status or loss of consciousness. Denies headache. Denies weakness or paralysis or loss of use of either side. Denies problems with gait or speech. Denies sensory or motor loss. ALL OTHER SYSTEMS REVIEWED AND NEGATIVE. Physical Exam - Vital signs Vitals: Temp Pulse Resp BP Pulse Ox 97.5 F 58 L 20 167/58 H 97 08/25/17 22:36 08/25/17 22:36 08/25/17 22:36 08/25/17 22:36 08/25/17 22:36 - Notes Notes: General Appearance: Well nourished, alert, cooperative, no acute distress, mild obvious discomfort. Vitals: reviewed, See vital signs table. Head: no swelling or tenderness to the head Eyes: No conjunctival erythema. Some yellowish drainage from both eyes is worse on the left. Corneas clear. Left intraocular pressure Via Kip-Pen is 18. Right intraocular pressure Via Kip-Pen 17. Mouth: No decreasd moisture Throat: No tonsillar inflammation, No airway obstruction, No lymphadenopathy Neck: Supple, no neck tenderness, No thyromegaly Lungs: No wheezing, No rales, No rhonci, No accessory muscle use, good air exchange bilaterally. Heart: Normal rate, Regular rythm, No murmur, no rub Abdomen: Normal BS, soft, No rigidity, No abdominal tenderness, No guarding, no rebound, no abdominal masses, no organomegaly Extremities: strength 5/5 in all extremities, good pulses in all extremities, no reproducible tenderness palpation in the left knee. Some pain with range of motion of left knee. No pain to palpation of thigh or calf or foot., no edema. Skin: warm, dry, appropriate color, no rash Neuro: speech clear, oriented x 3, normal affect, responds appropriately to questions. Course - Re-evaluation Re-evalutation: 08/26/17 06:18 I suspect that the patient's elevated heart rate and blood pressure related to all the Sudafed he took. I did give him a dose of Lopressor and this did help control his heart rate. He still has some hypertension. I will give him a dose hydrochlorothiazide. I talked about the importance of avoiding Sudafed. He does have what appears to be conjunctivitis. He has redness to his eyes with some drainage. I will give him Polytrim eyedrops to take at home. Patient did mention in triage she has chest pain when he was asked. Patient tells me this chest pain is chronic and he always has a. He says he used to actually take Dilaudid every day for it but then was recently switched to Ultram. Cardiac enzymes are negative. EKG does not show any concerning findings. He again says that his chest pain is like his chronic chest pain he has had for years and is not any worse than his baseline. Encouraged patient return to ER immediately if he has worsening chest pain or change in chest pain , difficulty breathing, or if he feels unwell. I encouraged him to avoid Sudafed. I encourage him return to ER if he has fevers or any further concerns. Patient agrees with plan will be discharged home. Dictation of this chart was performed using voice recognition software; therefore, there may be some unintended grammatical errors. - Vital Signs Vital signs: Temp Pulse Resp BP Pulse Ox 97.5 F 58 L 12 172/110 H 98 08/25/17 22:36 08/25/17 22:36 08/26/17 02:04 08/26/17 02:04 08/26/17 02:04 - Laboratory Result Diagrams: 08/26/17 00:14 08/26/17 00:14 Laboratory results interpreted by me: 08/26/17 08/26/17 00:14 00:14 Hgb 18.0 H Hct 52.0 H Plt Count 128 L Glucose 134 H Calcium 10.3 H - EKG Interpretation by Me Additional EKG results interpreted by me: 08/25/17 23:54 EKG is reviewed and interpreted by me. EKG shows A. fib with rate of [address] segment elevation or depression. Patient does have what appears to be an intraventricular conduction delay which is similar to what he had on his old EKG from July 23, 2017. QRS duration is within normal range. QTc interval is borderline. Discharge - Discharge Clinical Impression: Conjunctivitis Qualifiers: Conjunctivitis type: acute Acute conjunctivitis type: unspecified Laterality: bilateral Qualified Code(s): H10.33 - Unspecified acute conjunctivitis, bilateral Knee pain, acute Qualifiers: Laterality: left Qualified Code(s): M25.562 - Pain in left knee Hypertension Qualifiers: Hypertension type: unspecified Qualified Code(s): I10 - Essential (primary) hypertension Atrial fibrillation Qualifiers: Atrial fibrillation type: chronic Qualified Code(s): I48.2 - Chronic atrial fibrillation Condition: Good Disposition: HOME, SELF-CARE Additional Instructions: Please stop using the Sudafed cold medicine. This will make your blood pressure go up and make her heart rate fast. Please use eyedrops as one drop in each eye every 4 hours. Please return to the ER immediately if you have chest pain, difficulty breathing, or feel unwell. Please follow-up with your doctor in 2 days. Forms: Return to Work
[2017-08-26] MEDS ORDERED: TETRACAINE HCL 0.5% OPH SOLN 2 ML OU ONE (00:03)
[2017-08-26] MEDS ORDERED: METOPROLOL TARTRATE PF/INJ 5 MG/5 ML SDV IV ONE (00:05)
[2017-08-26 00:32] LABS: ABSOLUTE BASOPHILS # (AUTO) 0.1 10^3/uL (0.0-0.2); ABSOLUTE EOSINOPHILS # (AUTO) 0.1 10^3/uL (0.0-0.6); ABSOLUTE LYMPHOCYTES (AUTO) 2.1 10^3/uL (0.5-4.7); ABSOLUTE MONOCYTES (AUTO) 0.8 10^3/uL (0.1-1.4); EOSINOPHILS % (AUTO) 0.8 % (0-6); TOTAL CELLS COUNTED % (AUTO) 100 %
[2017-08-26 00:35] LABS: ABSOLUTE NEUT (AUTO) 5.7 10^3/uL (1.7-8.2); BASOPHILS % (AUTO) 0.7 % (0-2); LYMPHOCYTES % (AUTO) 24.3 % (13-45); MEAN CORPUSCULAR HEMOGLOBIN 32.7 pg (27.0-33.4); MEAN CORPUSCULAR HGB CONC 34.6 g/dL (32.0-36.0); MEAN CORPUSCULAR VOLUME 95 fl (80-97); MONOCYTES % (AUTO) 9.5 % (3-13); PLATELET COUNT 128 10^3/uL (150-450); RED BLOOD COUNT 5.51 10^6/uL (4.35-5.55); RED CELL DISTRIBUTION WIDTH 13.9 % (11.5-14.0); SEGMENTED NEUTROPHILS % (AUTO) 64.7 % (42-78); WHITE BLOOD COUNT 8.8 10^3/uL (4.0-10.5)
[2017-08-26 00:43] LABS: ALANINE AMINOTRANSFERASE 49 U/L (21-72); ALBUMIN 4.7 g/dL (3.5-5.0); ALKALINE PHOSPHATASE 117 U/L (38-126); ANION GAP 15 (5-19); ASPARTATE AMINO TRANSFERASE 39 U/L (17-59); BILIRUBIN,DIRECT 0.3 mg/dL (0.0-0.4); BILIRUBIN,TOTAL 1.1 mg/dL (0.2-1.3); BLOOD UREA NITROGEN 16 mg/dL (7-20); CALCIUM 10.3 mg/dL (8.4-10.2); CARBON DIOXIDE 26 mmol/L (22-30); CHLORIDE 101 mmol/L (98-107); CREATINE KINASE 60 U/L (55-170); GLUCOSE 134 mg/dL (75-110); MAGNESIUM 1.7 mg/dL (1.6-2.3); POTASSIUM 3.8 mmol/L (3.6-5.0); SODIUM 141.7 mmol/L (137-145); TOTAL PROTEIN 7.1 g/dL (6.3-8.2)
[2017-08-26 00:54] LABS: CREATINE KINASE MB 1.46 ng/mL (<4.55); TROPONIN I 0.025 ng/mL
--- NOTE | 2017-08-26 01:09 | RADIOLOGY REPORT (SQ) ---
EXAM DESCRIPTION: CHEST SINGLE VIEW CLINICAL HISTORY: 62 years, Male, shortness of breath, chest pain COMPARISON: 11.30.17 LIMITATIONS: None. FINDINGS: Adequate lung volume and clear parenchyma. Mild enlargement of the cardiac silhouette. IMPRESSION: No acute cardiopulmonary findings. 2011 [employer]- All Rights Reserved
[2017-08-26] MEDS ORDERED: HYDROCHLOROTHIAZIDE 25 MG TABLET PO ONE (02:02)
[2017-08-26] MEDS ORDERED: POLYMYXIN B SULFATE/TMP OPH SOLN (10 ML/ER DISP) OU PRN (02:05)
[2017-08-26 02:19] VITALS: BP 172/110
--- NOTE | 2017-08-26 10:26 | EKG REPORT ---
SEVERITY:- ABNORMAL ECG - ATRIAL FIBRILLATION, V-RATE 65-[address] DEPRESSION, ANTEROLATERAL LEADS : Confirmed by: Ernesto Schmitz 26-Aug-2017 10:26:01
== END 2017-08-26 02:26 | disposition home or self-care (01) ==
LOC: ER 22:35
DX: H10.33 Unspecified acute conjunctivitis, bilateral (principal); M25.562 Pain in left knee; I11.0 Hypertensive heart disease with heart failure; I48.2 Chronic atrial fibrillation; I48.91 Unspecified atrial fibrillation; I50.9 Heart failure, unspecified; E78.00 Pure hypercholesterolemia, unspecified; I25.2 Old myocardial infarction
CPT/HCPCS: 93005; 99284; 96374; 36415; 82553; 82550; 83735; 85025; 80053; 84484; 71045; 93010; J3490 ×4

== ENCOUNTER 2017-10-19 18:18 | Emergency (ER) | payer MEDICAID ==
[2017-10-19] MEDS ORDERED: PENICILLIN V POTASSIUM 500 MG TABLET PO ONE (19:47)
[2017-10-19] MEDS ORDERED: LIDOCAINE 2% VISCOUS SOLN 20 ML UDCUP PO ONE (19:47)
[2017-10-19 19:53] VITALS: BP 172/92
--- NOTE | 2017-10-19 19:55 | ER Document Report ---
ED Oral Problem - General Chief Complaint: Toothache Stated Complaint: TOOTHACE Time Seen by Provider: 10/19/17 18:55 Mode of Arrival: Ambulatory Information source: Patient Notes: 62-year-old male presents to ED for complaint of dental pain to tooth #8. He states the filling fell out of his tooth today and his pain has become severe. This tooth is obviously decayed not a recent filling dropped out. He states he has not been going to his primary doctor in at least 5 months. States he does not have insurance at this time. TRAVEL OUTSIDE OF THE [place] IN LAST 30 DAYS: No - HPI Patient complains to provider of: Toothache Onset: Yesterday Onset: Gradual Quality of pain: Sharp, Throbbing Severity: Severe Pain Level: 5 Context: Other - Dental decay tooth that Associated symptoms: Toothache Worsened by: Cold Similar symptoms previously: Yes Recently seen / treated by doctor/dentist: No - Related Data Allergies/Adverse Reactions: No Known Allergies Allergy (Verified 10/19/17 18:18) Past Medical History - General Information source: Patient - Social History Smoking Status: Never Smoker Cigarette use (# per day): No Chew tobacco use (# tins/day): No Smoking Education Provided: No Frequency of alcohol use: None Drug Abuse: None Occupation: Disabled Lives with: Alone Family History: Reviewed & Not Pertinent Patient has suicidal ideation: No Patient has homicidal ideation: No - Past Medical History Cardiac Medical History: Reports: Hx Atrial Fibrillation, Hx Congestive Heart Failure, Hx Coronary Artery Disease, Hx Heart Attack, Hx Hypercholesterolemia, Hx Hypertension Pulmonary Medical History: Reports: None EENT Medical History: Reports: None Neurological Medical History: Reports: None Endocrine Medical History: Reports: None Renal/ Medical History: Reports: None Malignancy Medical History: Reports None GI Medical History: Reports: None Musculoskeltal Medical History: Reports None Skin Medical History: Reports None Psychiatric Medical History: Reports: None Traumatic Medical History: Reports: None Infectious Medical History: Reports: None Past Surgical History: Reports: Hx Cardiac Catheterization, Hx Cholecystectomy, Hx Coronary Stent, Hx Oral Surgery, Hx Orthopedic Surgery - Right Knee, Right Thumb, Hx Tonsillectomy - Immunizations Hx Diphtheria, Pertussis, Tetanus Vaccination: Yes Review of Systems - Review of Systems Notes: Constitutional: [PRESENT: as per HPI. ABSENT: chills, fever(s), headache(s), weight gain, weight loss] Eyes: [ABSENT: visual disturbances] Ears: [ABSENT: hearing changes] Nasopharyngeal: Dental decay to tooth #8. Patient has redness to the gums confounding tooth #8. Patient states he lost a filling out of this tooth. This does not look like a filling but the actual decayed tooth. Cardiovascular: [ABSENT: chest pain, dyspnea on exertion, edema, orthropnea, palpitations] Respiratory: [ABSENT: cough, hemoptysis] Gastrointestinal: [ABSENT: abdominal pain, constipation, diarrhea, hematemesis, hematochezia, nausea, vomiting] Genitourinary: [ABSENT: dysuria, hematuria] Musculoskeletal: [ABSENT: joint swelling] Integumentary: [ABSENT: rash, wounds] Neurological: [ABSENT: abnormal gait, abnormal speech, confusion, dizziness, focal weakness, syncope] Psychiatric: [ABSENT: anxiety, depression, homicidal ideation, suicidal ideation ] Endocrine: [ABSENT: cold intolerance, heat intolerance, menstrual abnormalities , polydipsia, polyuria] Hematologic/Lymphatic: [ABSENT: easy bleeding, easy bruising, lymphadenopathy] Physical Exam - Vital signs Vitals: Temp Pulse Resp BP Pulse Ox 97.7 F 70 18 181/122 H 98 10/19/17 18:44 10/19/17 18:44 10/19/17 18:44 10/19/17 18:44 10/19/17 18:44 - Notes Notes: PHYSICAL EXAMINATION: GENERAL: Well-appearing, well-nourished and in no acute distress. HEAD: Atraumatic, normocephalic. EYES: Pupils equal round and reactive to light, extraocular movements intact, sclera anicteric, conjunctiva are normal. ENT: Nares patent, oropharynx clear without exudates. Moist mucous membranes. Tooth #8 dictate large portion of the tooth missing. NECK: Normal range of motion, supple without lymphadenopathy LUNGS: Breath sounds clear to auscultation bilaterally and equal. No wheezes rales or rhonchi. HEART: Regular rate and rhythm without murmurs ABDOMEN: Soft, nontender, nondistended abdomen. No guarding, no rebound. No masses appreciated. Musculoskeletal: Normal range of motion, no pitting or edema. No cyanosis. NEUROLOGICAL: Cranial nerves grossly intact. Normal speech, normal gait. Normal sensory, motor exams PSYCH: Normal mood, normal affect. SKIN: Warm, Dry, normal turgor, no rashes or lesions noted. Course - Re-evaluation Re-evalutation: 10/20/17 01:05 Patient treated with Penicillin VK and viscous lidocaine for his dental pain. Patient was instructed on use of the lidocaine by placing small amount on his finger and rub it to the tooth and around the gums. Patient verbalized understanding of this instructions. Patient did receive relief from his dental pain with his lidocaine. Patient states he will follow-up with the dentist as soon as possible. - Vital Signs Vital signs: Temp Pulse Resp BP Pulse Ox 97.7 F 70 18 172/92 H 98 10/19/17 18:44 10/19/17 18:44 10/19/17 18:44 10/19/17 19:44 10/19/17 18:44 Discharge - Discharge Clinical Impression: dental pain tooth #8 HTN (hypertension) Qualifiers: Hypertension type: unspecified Qualified Code(s): I10 - Essential (primary) hypertension Condition: Stable Disposition: HOME, SELF-CARE Instructions: Family Physicians / Practices Additional Instructions: HIGH BLOOD PRESSURE, NOT TREAT: When your blood pressure was taken today it was elevated. Today's reading was __171/102 . We do not think you need to have your blood pressure treated today. Sometimes, stress or illness causes a temporary elevation of your blood pressure. We suggest that you get your blood pressure measured again during the next few days to see if this elevated blood pressure is more than a temporary abnormality. If your blood pressure is greater than 150/90 on each occasion, you must have treatment. Some simple things you can do to help are: If you have blood pressure medicine but aren't using it regularly, start taking it again. Get some aerobic exercise for at least 20 minutes on a daily basis. (See your doctor before beginning a new exercise program.) Eat a low-fat diet. Lose excess weight. Avoid salty foods and avoid adding salt to any of the foods you eat. Avoid diet pills, decongestants, "energizing" herbs, and other medicines that elevate blood pressure. If left untreated, hypertension greatly enhances your risk for developing heart disease and strokes. Please don't ignore this problem. TOOTHACHE: Your pain is due to dental decay. The tooth must be repaired in order for you to feel better. You will, therefore, be referred to a dentist. We do not have dentists on the staff at [facility]. Severe swelling or drainage around a tooth usually means a dental abscess. This also requires evaluation and treatment by the dentist, but antibiotics may be prescribed while awaiting dental treatment. You should be rechecked immediately if you develop major swelling of the face, increasing pain, a lump in the jaw or gums, headache, difficulty swallowing, or fever. PENICILLIN V K: You have been given a prescription for Penicillin VK. Your physician has determined that this is the best antibiotic for your condition. Pen VK can be taken with meals, however more of the antibiotic gets into the bloodstream if it's taken on an empty stomach. Penicillin usually has no side effects. However, allergy to penicillins is common. If you have had an allergic reaction to any drug of the penicillin family, you should never take any other penicillin. Notify your doctor at once if you develop hives, itching, swelling, faintness, or shortness of breath. You have been given a syringe full of viscous lidocaine pit. Please put a small amount on your finger and rub it on the gums and tooth that is hurting. You can do this every 3-4 hours. Please follow-up with the dentist as soon as possible. FOLLOW-UP CARE: You have been referred for follow-up care to the dentists listed below. Call the dentists office for an appointment as you were instructed or within the next two days. If you experience worsening or a significant change in your symptoms, notify the physician immediately or return to the Emergency Department at any time for re-evaluation. [facility] [address] [place], [place] [facility] [address] [place] [address] Formerly [facility] [address] [facility] [address] [facility]. [facility] [address] [email or web address] [address] [address] [place] [address] Thursday- 8:00am to 5:00 pm Will see patients from other [facility]. Charges based on income and family size and accepts Medicare, Medicaid, and Insurances Will pull molars [facility], [facility]. [id number] Hours of Operation 8:00 am - 4:30 pm weekdays The following dental offices accept Medicaid: [facility] Dr. Blood Dr. Islas Dr. Vaz Dr. Neal Prem Harrell, Jaky, and Eric oral surgery Dr. Hills ([place]) Dr. Mayberry ([place]) [facility] Drs. Moreno ([place]) Dr. Lassiter ([place]) [facility] Dr. Agustin ([place]) Drs. Sepulveda and ([place]) Medicaid Care Line Prescriptions: Penicillin V Potassium [Penicillin Vk 500 mg Tablet] 500 mg PO QID #28 tablet Forms: Elevated Blood Pressure
== END 2017-10-19 20:09 | disposition home or self-care (01) ==
LOC: ER 18:18
DX: K08.9 Disorder of teeth and supporting structures, unspecified (principal); I11.0 Hypertensive heart disease with heart failure; I48.91 Unspecified atrial fibrillation; I50.9 Heart failure, unspecified; I25.2 Old myocardial infarction; Z90.49 Acquired absence of other specified parts of digestive tract
CPT/HCPCS: 99282; J3490 ×2

== ENCOUNTER 2017-12-16 11:27 | Emergency (ER) | payer MEDICAID ==
[2017-12-16 11:37] VITALS: BP 144/94
--- NOTE | 2017-12-16 12:12 | ER Document Report ---
ED Medical Screen (RME) - General Chief Complaint: Chest Pain Stated Complaint: CHEST PAIN Time Seen by Provider: 12/16/17 12:10 Notes: Patient states that he feels he has a MRSA lesion on his face. He also states that he has had chest pain and shortness of breath and has had to sleep sitting up. He states he does have a history of congestive heart failure. TRAVEL OUTSIDE OF THE [place] IN LAST 30 DAYS: No - Related Data Allergies/Adverse Reactions: No Known Allergies Allergy (Verified 10/19/17 18:18) Past Medical History - Social History Chew tobacco use (# tins/day): No Frequency of alcohol use: None Family history: Reviewed & Not Pertinent - Past Medical History Cardiac Medical History: Reports: Hx Atrial Fibrillation, Hx Congestive Heart Failure, Hx Coronary Artery Disease, Hx Heart Attack, Hx Hypercholesterolemia, Hx Hypertension Renal/ Medical History: Denies: Hx Peritoneal Dialysis Past Surgical History: Reports: Hx Cardiac Catheterization, Hx Cholecystectomy, Hx Coronary Stent, Hx Oral Surgery, Hx Orthopedic Surgery - Right Knee, Right Thumb, Hx Tonsillectomy - Immunizations Hx Diphtheria, Pertussis, Tetanus Vaccination: Yes History of Influenza Vaccine for 05/2017 - 10/2017 Season: No Physical Exam - Vital signs Vitals: Temp Pulse Resp BP Pulse Ox 97.5 F 55 L 17 144/94 H 97 12/16/17 11:35 12/16/17 11:35 12/16/17 11:35 12/16/17 11:35 12/16/17 11:35 Course - Vital Signs Vital signs: Temp Pulse Resp BP Pulse Ox 97.5 F 55 L 17 144/94 H 97 12/16/17 11:35 12/16/17 11:35 12/16/17 11:35 12/16/17 11:35 12/16/17 11:35
[2017-12-16 12:42] LABS: ABSOLUTE BASOPHILS # (AUTO) 0.1 10^3/uL (0.0-0.2); ABSOLUTE EOSINOPHILS # (AUTO) 0.1 10^3/uL (0.0-0.6); ABSOLUTE MONOCYTES (AUTO) 0.7 10^3/uL (0.1-1.4); BASOPHILS % (AUTO) 0.9 % (0-2); EOSINOPHILS % (AUTO) 1.4 % (0-6); HEMATOCRIT 48.2 % (37.9-51.0); HEMOGLOBIN 16.7 g/dL (13.5-17.0); LYMPHOCYTES % (AUTO) 25.1 % (13-45); MEAN CORPUSCULAR HEMOGLOBIN 32.9 pg (27.0-33.4); MEAN CORPUSCULAR HGB CONC 34.6 g/dL (32.0-36.0); MEAN CORPUSCULAR VOLUME 95 fl (80-97); MONOCYTES % (AUTO) 8.7 % (3-13); PLATELET COUNT 119 10^3/uL (150-450); RED BLOOD COUNT 5.08 10^6/uL (4.35-5.55); RED CELL DISTRIBUTION WIDTH 14.4 % (11.5-14.0); SEGMENTED NEUTROPHILS % (AUTO) 63.9 % (42-78); TOTAL CELLS COUNTED % (AUTO) 100 %; WHITE BLOOD COUNT 7.8 10^3/uL (4.0-10.5)
--- NOTE | 2017-12-16 12:50 | EKG REPORT ---
SEVERITY:- ABNORMAL ECG - ATRIAL FIBRILLATION, V-RATE 42-57 : Confirmed by: Elijah Adams MD 16-Dec-2017 12:49:52
[2017-12-16 13:00] LABS: ALANINE AMINOTRANSFERASE 45 U/L (21-72); ALBUMIN 4.2 g/dL (3.5-5.0); ALKALINE PHOSPHATASE 106 U/L (38-126); ANION GAP 12 (5-19); ASPARTATE AMINO TRANSFERASE 29 U/L (17-59); BILIRUBIN,DIRECT 0.3 mg/dL (0.0-0.4); BILIRUBIN,TOTAL 0.7 mg/dL (0.2-1.3); BLOOD UREA NITROGEN 21 mg/dL (7-20); CALCIUM 10.1 mg/dL (8.4-10.2); CARBON DIOXIDE 25 mmol/L (22-30); CHLORIDE 105 mmol/L (98-107); GLUCOSE 108 mg/dL (75-110); POTASSIUM 4.9 mmol/L (3.6-5.0); SODIUM 142.4 mmol/L (137-145); TOTAL PROTEIN 6.6 g/dL (6.3-8.2)
--- NOTE | 2017-12-16 13:06 | RADIOLOGY REPORT (SQ) ---
EXAM DESCRIPTION: CHEST 2 VIEWS COMPLETED DATE/TIME: 12/16/2017 12:34 pm REASON FOR STUDY: cp/sob COMPARISON: 07/23/2017 and EXAM PARAMETERS: NUMBER OF VIEWS: two views TECHNIQUE: Digital Frontal and Lateral radiographic views of the chest acquired. RADIATION DOSE: NA LIMITATIONS: none FINDINGS: LUNGS AND PLEURA: No opacities, masses or pneumothorax. No pleural effusion. MEDIASTINUM AND HILAR STRUCTURES: No masses or contour abnormalities. HEART AND VASCULAR STRUCTURES: Stable cardiomegaly. No overt CHF or pleural fluid. BONES: No acute findings. HARDWARE: None in the chest. OTHER: No other significant finding. IMPRESSION: Stable cardiomegaly. No overt CHF. TECHNICAL DOCUMENTATION: JOB ID: [id number] [employer]- All Rights Reserved Reading location - IP/workstation name: [email or web address]
[2017-12-16 13:12] LABS: TROPONIN I 0.024 ng/mL
== END 2017-12-16 15:30 | disposition left against medical advice (07) ==
LOC: ER 11:27
DX: R07.9 Chest pain, unspecified (principal); R06.02 Shortness of breath; I10 Essential (primary) hypertension; I25.10 Atherosclerotic heart disease of native coronary artery without angina pectoris; I25.2 Old myocardial infarction; Z95.5 Presence of coronary angioplasty implant and graft; Z53.20 Procedure and treatment not carried out because of patient's decision for unspecified reasons
CPT/HCPCS: 36415; 71046; 80053; 83880; 84484; 85025; 93005; 93010; 99281

== ENCOUNTER 2017-12-17 12:00 | Emergency (ER) | payer MEDICAID ==
[2017-12-17] MEDS ORDERED: FUROSEMIDE 40 MG TABLET PO ONE (12:50)
--- NOTE | 2017-12-17 12:53 | ER Document Report ---
ED Medical Screen (RME) - General Chief Complaint: Skin Problem Stated Complaint: POSSIBLE FACIAL SORES Time Seen by Provider: 12/17/17 12:50 Notes: RME DISCLOSURE I have seen this patient as part of a Rapid Medical Evaluation and, if applicable, placed any initially appropriate orders. The patient will be seen and fully evaluated, including a full history and physical exam, by a provider ( in Main ED or Fast Track) when a room becomes available. 62-year-old male PMH CHF MRSA here with complaints of shortness of breath progressively worsening for about 1 week now. He states that the symptoms started when he stopped taking his "water pill" approximately 1-2 weeks ago. He also states that he took a tizanidine yesterday and has noticed his breathing significantly worsened. He has no chest pain discomfort or tightness. He came here yesterday and had blood work and chest x-ray performed however he got tired of waiting so he walked out and left before seeing the main provider. He was called this morning and told to come back. He also complains of a sore to the left side of his face and is concerned it may be MRSA. The sore has been there for 2 months now. TRAVEL OUTSIDE OF THE [place] IN LAST 30 DAYS: No - Related Data Allergies/Adverse Reactions: No Known Allergies Allergy (Verified 10/19/17 18:18) Past Medical History - Social History Family history: Reviewed & Not Pertinent - Past Medical History Cardiac Medical History: Reports: Hx Atrial Fibrillation, Hx Congestive Heart Failure, Hx Coronary Artery Disease, Hx Heart Attack, Hx Hypercholesterolemia, Hx Hypertension Renal/ Medical History: Denies: Hx Peritoneal Dialysis Past Surgical History: Reports: Hx Cardiac Catheterization, Hx Cholecystectomy, Hx Coronary Stent, Hx Oral Surgery, Hx Orthopedic Surgery - Right Knee, Right Thumb, Hx Tonsillectomy - Immunizations Hx Diphtheria, Pertussis, Tetanus Vaccination: Yes History of Influenza Vaccine for 05/2017 - 10/2017 Season: No Physical Exam - Vital signs Vitals: Pulse Resp BP Pulse Ox 40 L 17 124/81 96 12/17/17 12:05 12/17/17 12:05 12/17/17 12:05 12/17/17 12:05 Course - Vital Signs Vital signs: Temp Pulse Resp BP Pulse Ox 40 L 17 124/81 96 12/17/17 12:05 12/17/17 12:05 12/17/17 12:05 12/17/17 12:05
[2017-12-17 13:42] LABS: TROPONIN I 0.035 ng/mL
--- NOTE | 2017-12-17 14:51 | ER Document Report ---
ED General - General Chief Complaint: Skin Problem Stated Complaint: POSSIBLE FACIAL SORES Time Seen by Provider: 12/17/17 12:50 Mode of Arrival: Ambulatory Information source: Patient Notes: History of complain: 62 years old male, call back to come to the ED because of elevated BNP. He was seen yesterday and triaged but could not come back for a time of 3 hours, he said he left without being seen. But the blood work were done, BNP came back elevated therefore he was called back. He states that he has been having shortness of breath on laying down for the last few weeks. He has stopped taking his Lasix 2 weeks ago, because he was urinating too much. Otherwise denies any chest pain. Denies any other constitutional symptoms. He also on blood thinner for atrial fibrillation. Has a small chronic wound on the left side of the face. REVIEW OF SYSTEMS: CONSTITUTIONAL : Denies fever, chills, or sweats. Denies recent illness. EENT: Denies eye, ear, throat, or mouth pain or symptoms. Denies nasal or sinus congestion or discharge. Denies throat, tongue, or mouth swelling or difficulty swallowing. CARDIOVASCULAR: Denies chest pain. Denies palpitations or racing or irregular heart beat. Denies ankle edema. RESPIRATORY: Denies cough, cold, or chest congestion. Denies shortness of breath, difficulty breathing, or wheezing. GASTROINTESTINAL: Denies abdominal pain or distention. Denies nausea, vomiting , or diarrhea. Denies blood in vomitus, stools, or per rectum. Denies black, tarry stools. Denies constipation. GENITOURINARY: Denies difficulty urinating, painful urination, burning, frequency, blood in urine, or discharge. MUSCULOSKELETAL: Denies back or neck pain or stiffness. Denies joint pain or swelling. SKIN: Denies rash, lesions or sores. HEMATOLOGIC : Denies easy bruising or bleeding. LYMPHATIC: Denies swollen, enlarged glands. NEUROLOGICAL: Denies confusion or altered mental status. Denies passing out or loss of consciousness. Denies dizziness or lightheadedness. Denies headache. Denies weakness or paralysis or loss of use of either side. Denies problems with gait or speech. Denies sensory loss, numbness, or tingling. Denies seizures. PSYCHIATRIC: Denies anxiety or stress. Denies depression, suicidal ideation, or homicidal ideation. ALL OTHER SYSTEMS REVIEWED AND NEGATIVE. Dictation was performed using [employer] voice recognition software PHYSICAL EXAMINATION: GENERAL: Well-appearing, well-nourished and in no acute distress. HEAD: Atraumatic, normocephalic. EYES: Pupils equal round and reactive to light, extraocular movements intact, sclera anicteric, conjunctiva are normal. ENT: Nares patent, oropharynx clear without exudates. Moist mucous membranes. NECK: Normal range of motion, supple without lymphadenopathy LUNGS: Breath sounds clear to auscultation bilaterally and equal. No wheezes rales or rhonchi. HEART: Regular rate and rhythm without murmurs ABDOMEN: Soft, nontender, nondistended abdomen. No guarding, no rebound. No masses appreciated. Musculoskeletal: Normal range of motion, no pitting or edema. No cyanosis. NEUROLOGICAL: Cranial nerves grossly intact. Normal speech, normal gait. Normal sensory, motor exams PSYCH: Normal mood, normal affect. SKIN: Warm, Dry, normal turgor, no rashes or lesions noted. TRAVEL OUTSIDE OF THE [place] IN LAST 30 DAYS: No - HPI Onset: Last week Onset/Duration: Gradual Quality of pain: denies: No pain, Achy, Burning, Cramping, Dull, Fullness, Pressure, Sharp, Stabbing, Throbbing, Other Severity: None Pain Level: Denies Associated symptoms: denies: None, Allergy/hay fever, Body/muscle aches, Chest pain, Chills, Nonproductive cough, Productive cough, Diarrhea, Drooling, Earache , Fever, Headache, Hoarseness, Hurts to breath, Leg swelling, Nausea, Vomiting, Rhinnorhea, Sinus pain/drainage, Shortness of breath, Slow to respond, Sore throat, Sweating, Weakness, Other Relieved by: denies: Denies, Supine, Sitting, Standing, Remaining still, Antacids, Food, Other - Related Data Allergies/Adverse Reactions: No Known Allergies Allergy (Verified 10/19/17 18:18) Past Medical History - General Information source: Patient - Social History Smoking Status: Never Smoker Frequency of alcohol use: None Drug Abuse: None Family History: Reviewed & Not Pertinent Patient has suicidal ideation: No Patient has homicidal ideation: No - Past Medical History Cardiac Medical History: Reports: Hx Atrial Fibrillation, Hx Congestive Heart Failure, Hx Coronary Artery Disease, Hx Heart Attack, Hx Hypercholesterolemia, Hx Hypertension Renal/ Medical History: Denies: Hx Peritoneal Dialysis Past Surgical History: Reports: Hx Cardiac Catheterization, Hx Cholecystectomy, Hx Coronary Stent, Hx Oral Surgery, Hx Orthopedic Surgery - Right Knee, Right Thumb, Hx Tonsillectomy - Immunizations Hx Diphtheria, Pertussis, Tetanus Vaccination: Yes Review of Systems - Review of Systems Constitutional: denies: No symptoms reported, See HPI, Chills, Diaphoresis, Fever, Malaise, Weakness, Other, Weight gain, Weight loss, Recent illness EENT: denies: No symptoms reported, See HPI, Eye pain, Eye discharge, Blurred vision, Tearing, Double vision, Ear pain, Ear discharge, Nose pain, Nose congestion, Nose discharge, Sinus pressure, Sinus discharge, Throat pain, Difficulty swallowing, Throat swelling, Mouth pain, Mouth swelling, Dental problem, Vertigo, Other Cardiovascular: Orthopnea, Dyspnea. denies: No symptoms reported, See HPI, Chest pain, Palpitations, Heart racing, Syncope, Dizziness, Lightheaded, Edema, Other, Paroxysmal Nocturnal Dysp Respiratory: denies: No symptoms reported, See HPI, Cough, Hurts to breathe, Hemoptysis, Short of breath, Sputum, Stridor, Wheezing, Other Gastrointestinal: denies: No symptoms reported, See HPI, Abdomen distended, Abdominal pain, Diarrhea, Nausea, Vomiting, Constipation, Blood streaked bowels , Poor appetite, Poor fluid intake, Blood in vomit, Black stools, Rectal bleeding, Last bowel movement, Fecal incontinence, Other Genitourinary: denies: No symptoms reported, See HPI, Burning, Dysuria, Discharge, Frequency, Flank pain, Hematuria, Incontinence, Pain, Urgency, Retention, Other Hematologic/Lymphatic: denies: No symptoms reported, See HPI, Anemia, Blood clots, Easy bleeding, Easy bruising, Enlarged lymph nodes, Swollen glands, Other Neurological/Psychological: denies: No symptoms reported, See HPI, Confusion, Dementia, Depression, Hallucinations, Anxiety, Homicidal ideation, Sensory change, Weakness, Gait changes, Loss of power, Paralysis, Seizure, Lost consciousness, Headaches, Speech impairment, Numbness, Suicidal ideation, Tingling, Tremor, Other Physical Exam - Vital signs Vitals: Pulse Resp BP Pulse Ox 40 L 17 124/81 96 12/17/17 12:05 12/17/17 12:05 12/17/17 12:05 12/17/17 12:05 Course - Re-evaluation Re-evalutation: 12/17/17 14:49 He was given Lasix in the ER and had urinated multiple times. Does not feel any chest pain or shortness of breath and wished to go home. - Vital Signs Vital signs: Temp Pulse Resp BP Pulse Ox 40 L 17 124/81 96 12/17/17 12:05 12/17/17 12:05 12/17/17 12:05 12/17/17 12:05 - Laboratory Laboratory results interpreted by me: 12/17/17 13:04 NT-Pro-B Natriuret Pep 2540 H - EKG Interpretation by Me Rhythm: A.Fib - Atrial fibrillation at the rate of 54 bpm normal axis, no acute ST elevation ST depression T-wave inversion noted. Discharge - Discharge Clinical Impression: Chronic congestive heart failure Qualifiers: Heart failure type: combined systolic and diastolic Qualified Code(s): I50.42 - Chronic combined systolic (congestive) and diastolic (congestive) heart failure Atrial fibrillation Qualifiers: Atrial fibrillation type: chronic Qualified Code(s): I48.2 - Chronic atrial fibrillation Open wound of face Qualifiers: Encounter type: initial encounter Qualified Code(s): S01.80XA - Unspecified open wound of other part of head, initial encounter Condition: Fair Disposition: HOME, SELF-CARE Instructions: Congestive Heart Failure ([facility]) Prescriptions: Cephalexin Monohydrate [Keflex 500 mg Capsule] 500 mg PO QID #20 capsule Furosemide [Lasix 40 mg Tablet] 40 mg PO QAM #30 tablet Rivaroxaban [Xarelto 15 mg Tablet] 15 mg PO DAILY #30 tablet
[2017-12-17 15:30] VITALS: BP 108/86
--- NOTE | 2017-12-17 18:53 | EKG REPORT ---
SEVERITY:- ABNORMAL ECG - ATRIAL FIBRILLATION, V-RATE 41-64 PROLONGED QT INTERVAL : Confirmed by: Elijah Adams MD 17-Dec-2017 18:52:48
== END 2017-12-17 15:30 | disposition home or self-care (01) ==
LOC: ER 12:00
DX: S01.80XA Unspecified open wound of other part of head, initial encounter (principal); I48.2 Chronic atrial fibrillation; I50.42 Chronic combined systolic (congestive) and diastolic (congestive) heart failure; R06.02 Shortness of breath; R79.89 Other specified abnormal findings of blood chemistry; X58.XXXA Exposure to other specified factors, initial encounter; Z79.01 Long term (current) use of anticoagulants; I10 Essential (primary) hypertension; I25.2 Old myocardial infarction
CPT/HCPCS: 93005; 99284; 36415; 84484; 83880; 93010; J3490

== ENCOUNTER 2018-01-17 16:22 | Emergency (ER) | payer MEDICAID ==
[2018-01-17] MEDS ORDERED: ONDANSETRON 4 MG TAB.RAPDIS PO ONE (16:56)
[2018-01-17] MEDS ORDERED: OXYCODONE HCL IR 5 MG TABLET PO ONE (16:56)
--- NOTE | 2018-01-17 16:57 | ER Document Report ---
ED Medical Screen (RME) - General Chief Complaint: Abdominal Pain Stated Complaint: ABDOMINAL PAIN Time Seen by Provider: 01/17/18 16:53 Notes: RAPID MEDICAL EVALUATION DISCLOSURE I have seen this patient as part of a Rapid Medical Evaluation and, if applicable, placed any initially appropriate orders. The patient will be seen and fully evaluated, including a full history and physical exam, by a provider ( in Main ED or Fast Track) when a room becomes available. 62-year-old male PMH pancreatitis here with complaints of epigastric abdominal pain that started this morning when he woke up. He has not had any nausea vomiting diarrhea fevers chills with it. It is not worse with eating. His gallbladder was removed several years ago. EXAM Mild epigastric TTP No peritoneal signs TRAVEL OUTSIDE OF THE [place] IN LAST 30 DAYS: No - Related Data Allergies/Adverse Reactions: No Known Allergies Allergy (Verified 10/19/17 18:18) Past Medical History - Social History Family history: Reviewed & Not Pertinent - Past Medical History Cardiac Medical History: Reports: Hx Atrial Fibrillation, Hx Congestive Heart Failure, Hx Coronary Artery Disease, Hx Heart Attack, Hx Hypercholesterolemia, Hx Hypertension Renal/ Medical History: Denies: Hx Peritoneal Dialysis Past Surgical History: Reports: Hx Cardiac Catheterization, Hx Cholecystectomy, Hx Coronary Stent, Hx Oral Surgery, Hx Orthopedic Surgery - Right Knee, Right Thumb, Hx Tonsillectomy - Immunizations Hx Diphtheria, Pertussis, Tetanus Vaccination: Yes History of Influenza Vaccine for 05/2017 - 10/2017 Season: No Physical Exam - Vital signs Vitals: Temp Pulse Resp BP Pulse Ox 97.7 F 84 20 126/67 H 97 01/17/18 16:28 01/17/18 16:28 01/17/18 16:28 01/17/18 16:28 01/17/18 16:28 Course - Vital Signs Vital signs: Temp Pulse Resp BP Pulse Ox 97.7 F 84 20 126/67 H 97 01/17/18 16:28 01/17/18 16:28 01/17/18 16:28 01/17/18 16:28 01/17/18 16:28
[2018-01-17 18:01] LABS: ABSOLUTE BASOPHILS # (AUTO) 0.1 10^3/uL (0.0-0.2); ABSOLUTE EOSINOPHILS # (AUTO) 0.1 10^3/uL (0.0-0.6); ABSOLUTE LYMPHOCYTES (AUTO) 2.2 10^3/uL (0.5-4.7); BASOPHILS % (AUTO) 0.6 % (0-2); EOSINOPHILS % (AUTO) 0.8 % (0-6); HEMATOCRIT 48.5 % (37.9-51.0); HEMOGLOBIN 16.7 g/dL (13.5-17.0); LYMPHOCYTES % (AUTO) 18.1 % (13-45); MEAN CORPUSCULAR HEMOGLOBIN 32.5 pg (27.0-33.4); MEAN CORPUSCULAR HGB CONC 34.5 g/dL (32.0-36.0); MEAN CORPUSCULAR VOLUME 94 fl (80-97); MONOCYTES % (AUTO) 7.9 % (3-13); PLATELET COUNT 113 10^3/uL (150-450); RED BLOOD COUNT 5.15 10^6/uL (4.35-5.55); RED CELL DISTRIBUTION WIDTH 13.6 % (11.5-14.0); SEGMENTED NEUTROPHILS % (AUTO) 72.6 % (42-78); TOTAL CELLS COUNTED % (AUTO) 100 %; WHITE BLOOD COUNT 12.4 10^3/uL (4.0-10.5)
[2018-01-17] MEDS ORDERED: MORPHINE SULFATE 10 MG/ML INJ IV ONE (18:01)
--- NOTE | 2018-01-17 18:08 | ER Document Report ---
ED GI/ - General Chief Complaint: Abdominal Pain Stated Complaint: ABDOMINAL PAIN Time Seen by Provider: 01/17/18 16:53 Notes: The patient is a 62-year-old male, past medical history hypertension, CHF, cholecystectomy 5 years ago, presents with worsening midline abdominal pain that started after he flexed his abdomen. He tried Excedrin without much relief of his symptoms. He felt similar pain when he required gallbladder removal. Patient denies nausea, vomiting, fevers, diarrhea, constipation, flank pain, urinary symptoms or rash. TRAVEL OUTSIDE OF THE [place] IN LAST 30 DAYS: No - Related Data Allergies/Adverse Reactions: No Known Allergies Allergy (Verified 10/19/17 18:18) Past Medical History - General Information source: Patient - Social History Smoking Status: Never Smoker Chew tobacco use (# tins/day): No Frequency of alcohol use: None Drug Abuse: None Family History: Reviewed & Not Pertinent Patient has suicidal ideation: No Patient has homicidal ideation: No - Past Medical History Cardiac Medical History: Reports: Hx Atrial Fibrillation, Hx Congestive Heart Failure, Hx Coronary Artery Disease, Hx Heart Attack, Hx Hypercholesterolemia, Hx Hypertension Renal/ Medical History: Denies: Hx Peritoneal Dialysis Past Surgical History: Reports: Hx Cardiac Catheterization, Hx Cholecystectomy, Hx Coronary Stent, Hx Oral Surgery, Hx Orthopedic Surgery - Right Knee, Right Thumb, Hx Tonsillectomy - Immunizations Hx Diphtheria, Pertussis, Tetanus Vaccination: Yes Review of Systems - Review of Systems Notes: REVIEW OF SYSTEMS: CONSTITUTIONAL: -fevers, -chills EENT: -eye pain, -difficulty swallowing, -nasal congestion CARDIOVASCULAR: -chest pain, -syncope. RESPIRATORY: -cough, -SOB GASTROINTESTINAL: +abdominal pain, -nausea, -vomiting, -diarrhea GENITOURINARY: -dysuria, -hematuria MUSCULOSKELETAL: -back pain, -neck pain SKIN: -rash or skin lesions. HEMATOLOGIC: -easy bruising or bleeding. LYMPHATIC: -swollen, enlarged glands. NEUROLOGICAL: -altered mental status or loss of consciousness, -headache, - neurologic symptoms PSYCHIATRIC: -anxiety, -depression. ALL OTHER SYSTEMS REVIEWED AND NEGATIVE. Physical Exam - Vital signs Vitals: Temp Pulse Resp BP Pulse Ox 97.7 F 84 20 126/67 H 97 01/17/18 16:28 01/17/18 16:28 01/17/18 16:28 01/17/18 16:28 01/17/18 16:28 - Notes Notes: PHYSICAL EXAMINATION: GENERAL: Well-appearing, well-nourished and in no acute distress. HEAD: Atraumatic, normocephalic. EYES: Pupils equal round and reactive to light, extraocular movements intact, sclera anicteric, conjunctiva are normal. ENT: nares patent, oropharynx clear without exudates. Moist mucous membranes. NECK: Normal range of motion, supple without lymphadenopathy LUNGS: Breath sounds clear to auscultation bilaterally and equal. No wheezes rales or rhonchi. HEART: Regular rate and rhythm without murmurs ABDOMEN: Soft, moderate midline abdominal tenderness, reducible ventral hernia, normoactive bowel sounds. No guarding, no rebound. No masses appreciated. EXTREMITIES: Normal range of motion, no pitting or edema. No cyanosis. NEUROLOGICAL: Cranial nerves grossly intact. Normal speech, normal gait. Normal sensory and motor exams. PSYCH: Normal mood, normal affect. SKIN: Warm, Dry, normal turgor, no rashes or lesions noted. Course - Re-evaluation Re-evalutation: Patient with midline tenderness and guarding on exam. CT of the pelvis did not show any acute intra-abdominal abnormalities. It did show evidence of a possible pancreatic mass versus cyst and ultrasound was recommended. Ultrasound was unable to visualize the pancreas and MRI as an outpatient was recommended. This was discussed extensively with the patient, especially about the possibility of pancreatic cancer and the need for an MRI. He understands and will follow up with his primary care physician, Dr. Marinelli, Thursday. Provided him a copy of his CAT scan and ultrasound reads. Rest of blood work is unremarkable, other than a slight leukocytosis, which is nonspecific at this time without fever or focal source of infection. Patient's pain is under control and he is tolerating fluids by mouth without any nausea or vomiting. He does have a ventral hernia since his surgery 5 years ago and this is reducible. Told him to follow-up with the surgeon if this becomes an issue. - Vital Signs Vital signs: Temp Pulse Resp BP Pulse Ox 97.7 F 84 20 126/67 H 97 01/17/18 16:28 01/17/18 16:28 01/17/18 16:48 01/17/18 16:28 01/17/18 16:28 - Laboratory Result Diagrams: 01/17/18 17:44 01/17/18 17:44 Laboratory results interpreted by me: 01/17/18 01/17/18 01/17/18 17:44 17:44 18:35 WBC 12.4 H Plt Count 113 L Absolute Neutrophils 9.0 H Creatinine 1.29 H Est GFR (Non-Af Amer) 56 L Urine Protein 30 H Urine Bilirubin SMALL H Urine Urobilinogen 4.0 H - Diagnostic Test Radiology reviewed: Image reviewed, Reports reviewed Radiology results interpreted by me: CT A/P: 1. 3 CM LOW-ATTENUATION LESION IN THE DISTAL BODY OF THE PANCREAS. DIFFICULT TO DETERMINE IF THIS IS A CYST OR SOLID LESION. WOULD RECOMMEND ULTRASOUND OF THE ABDOMEN TO EVALUATE THE PANCREAS. IF ULTRASOUND IS NOT DEFINITIVE, THEN OUTPATIENT MRI OF THE PANCREAS MAY BE NECESSARY. 2. CORTICAL CYSTS IN BOTH KIDNEYS. 3. FATTY INFILTRATION OF THE LIVER. 4. NO OTHER SIGNIFICANT OR ACUTE FINDING IN THE ABDOMEN OR PELVIS ON CT SCAN WITH IV CONTRAST. RUQ US: Discharge - Discharge Clinical Impression: Pancreatic mass Abdominal pain Qualifiers: Abdominal location: unspecified location Qualified Code(s): R10.9 - Unspecified abdominal pain Condition: Stable Disposition: HOME, SELF-CARE Additional Instructions: Your CAT scan shows a possible pancreatic mass. You may have pancreatic cancer or a pancreatic cyst and you must schedule a outpatient MRI with your primary care physician on Thursday. Take Motrin for pain and oral morphine for severe pain. Return for any worsening pain or any other concerns. ABDOMINAL PAIN: There are many causes of abdominal pain. Pain can mean a serious problem requiring surgery (such as appendicitis). It can also be an innocent problem that goes away on its own (such as a viral infection). Often, time must pass to determine the cause of pain. The physician does not feel that hospitalization is necessary, at present. Things may change within the next 24 hours. Call the doctor or come back for re- examination if any problems occur, such as: (1) Pain that becomes more severe, steady, or becomes concentrated in one specific area. Also, pain that is more severe with movement or coughing. (2) Vomiting that persists or becomes more frequent. (3) Blood in the vomitus, urine, or bowel movements. Blood in the stool may have a tarry or black appearance. (4) Shaking chills or fever greater than 100 degrees F. (5) The abdomen becomes more distended or swollen. (6) Bowel movements cease. (7) Failure to improve as expected. NORMAL EXAM AND WORKUP: At this time, your examination and workup show no significant abnormality. No significant abnormal physical findings are noted. All laboratory, EKG, and imaging (x-ray, CT scans, ultrasound) studies that were ordered show no significant abnormality. Although your examination and all studies that were ordered showed no significant abnormal finding, there are no examinations and no studies that are 100% accurate. There is always the possibility that some abnormality could exist and not be detected with physical examination or within the limits and capabilities of laboratory and other studies. You should return or follow up as you were instructed on your visit today for further evaluation if your symptoms do not resolve. PAIN MEDICATION INJECTION: You have received an injection of a pain medication. You should experience significant pain relief within 45 minutes. This drug is a narcotic - - it will impair your judgement, slow your reaction time and make you sleepy ( as well as relieve your pain). Narcotics also can cause nausea. You should not drive, work with machinery, or perform any task requiring mental alertness until all effects of the medication are gone -- six to eight hours. Do not take any alcohol, or sedatives, and do not take any other medication without checking with your physician. ORAL NARCOTIC MEDICATION: You have been given a prescription for pain control. This medication is a narcotic. It's best taken with food, as nausea can result if taken on an empty stomach. Don't operate machinery or drive within six hours of taking this medication. Do not combine this medicine with alcohol, or with any medication which can cause sedation (such as cold tablets or sleeping pills) unless you get permission from the physician. Narcotics tend to cause constipation. If possible, drink plenty of fluids and eat a diet high in fiber and fruits. Please be aware that prescription narcotics also have the potential for abuse. People become addicted to these medications because of the general sense of wellbeing that they induce. This feeling along with a significant reduction in tension, anxiety, and aggression provides a stimulating seductive quality to these drugs. Once your pain is under control, we encourage you to discard your unused narcotics. FOLLOW-UP CARE: If you have been referred to a physician for follow-up care, call the physician s office for an appointment as you were instructed or within the next two days. If you experience worsening or a significant change in your symptoms, notify the physician immediately or return to the Emergency Department at any time for re-evaluation. Prescriptions: Morphine Sulfate [Morphine Ir 15 Mg Tablet] 15 mg PO Q4H PRN #10 tablet PRN Reason: Forms: Elevated Blood Pressure Referrals: CHEMA MARINELLI MD [Primary Care Provider] - Follow up tomorrow
[2018-01-17 18:13] LABS: ALANINE AMINOTRANSFERASE 48 U/L (21-72); ALBUMIN 3.9 g/dL (3.5-5.0); ALKALINE PHOSPHATASE 111 U/L (38-126); ASPARTATE AMINO TRANSFERASE 32 U/L (17-59); BILIRUBIN,DIRECT 0.3 mg/dL (0.0-0.4); BILIRUBIN,TOTAL 0.8 mg/dL (0.2-1.3); BLOOD UREA NITROGEN 19 mg/dL (7-20); CALCIUM 9.6 mg/dL (8.4-10.2); CARBON DIOXIDE 26 mmol/L (22-30); GLUCOSE 110 mg/dL (75-110); LIPASE 104.1 U/L (23-300); POTASSIUM 4.6 mmol/L (3.6-5.0); SODIUM 142.1 mmol/L (137-145); TOTAL PROTEIN 6.3 g/dL (6.3-8.2)
[2018-01-17 18:15] LABS: ANION GAP 10 (5-19); CHLORIDE 106 mmol/L (98-107)
[2018-01-17 19:00] LABS: APPEARANCE,URINE CLEAR; BILIRUBIN,URINE SMALL (NEGATIVE); COLOR,URINE AMBER; GLUCOSE, URINE NEGATIVE (NEGATIVE); KETONES,URINE NEGATIVE (NEGATIVE); LEUKOCYTE ESTERASE,URINE NEGATIVE (NEGATIVE); NITRITE,URINE NEGATIVE (NEGATIVE); PROTEIN,URINE 30 mg/dL (NEGATIVE); URINE SPECIFIC GRAVITY 1.028
--- NOTE | 2018-01-17 19:04 | RADIOLOGY REPORT (SQ) ---
EXAM DESCRIPTION: CT ABD/PELVIS WITH IV ONLY COMPLETED DATE/TIME: 01/17/2018 6:45 pm REASON FOR STUDY: Sudden onset of midline abd pain COMPARISON: None. TECHNIQUE: CT scan of the abdomen and pelvis performed using helical scanning technique with dynamic intravenous contrast injection. No oral contrast. Images reviewed with lung, soft tissue, and bone windows. Reconstructed coronal and sagittal MPR images reviewed. Delayed images for evaluation of the urinary system also acquired. All images stored on PACS. All CT scanners at this facility use dose modulation, iterative reconstruction, and/or weight based d osing when appropriate to reduce radiation dose to as low as reasonably achievable (ALARA). [facility]: Dose Right [facility]: CareDose [facility]: Dose Right [facility]: Teradose 4D [facility]: Acousticeye CONTRAST TYPE AND DOSE: contrast/concentration: Isovue 370.00 mg/ml; Total Contrast Delivered: 99.0 ml; Total Saline Delivered: 62.0 ml RENAL FUNCTION: BUN 19 creatinine 1.29. RADIATION DOSE: CT Rad equipment meets quality standard of care and radiation dose reduction techniq ues were employed. CTDIvol: 17.0 - 19.4 mGy. DLP: 2066 mGy-cm.. LIMITATIONS: None. FINDINGS: LOWER CHEST: No significant findings. No nodules or infiltrates. LIVER: Normal size. Diffuse fatty infiltration. No masses. No dilated ducts. SPLEEN: Normal size. No focal lesions. PANCREAS: 3 cm low-attenuation lesion in the distal body (axial series 3, image 30 and series 5, imag e 33). . No significant calcifications. No adjacent inflammation or peripancreatic fluid collections . Pancreatic duct not dilated. GALLBLADDER: Surgically absent. ADRENAL GLANDS: No significant masses or asymmetry. RIGHT KIDNEY AND URETER: Cortical cyst. No solid masses. No significant calcifications. No hydro nephrosis or hydroureter. LEFT KIDNEY AND URETER: Cortical cyst. No solid masses. No significant calcifications. No hydron ephrosis or hydroureter. AORTA AND VESSELS: No aneurysm. No dissection. Renal arteries, SMA, celiac without stenosis. RETROPERITONEUM: No retroperitoneal adenopathy, hemorrhage or masses. BOWEL AND PERITONEAL CAVITY: No masses or inflammatory changes. No free fluid or peritoneal masses. APPENDIX: Not visualized. PELVIS: No mass. No free fluid. Normal bladder. ABDOMINAL WALL: No masses. No hernias. BONES: No significant or acute findings. OTHER: No other significant finding. IMPRESSION: 1. 3 CM LOW-ATTENUATION LESION IN THE DISTAL BODY OF THE PANCREAS. DIFFICULT TO DETERMINE IF THIS IS A CYST OR SOLID LESION. WOULD RECOMMEND ULTRASOUND OF THE ABDOMEN TO EVALUATE THE PANCREAS. IF ULT RASOUND IS NOT DEFINITIVE, THEN OUTPATIENT MRI OF THE PANCREAS MAY BE NECESSARY. 2. CORTICAL CYSTS IN BOTH KIDNEYS. 3. FATTY INFILTRATION OF THE LIVER. 4. NO OTHER SIGNIFICANT OR ACUTE FINDING IN THE ABDOMEN OR PELVIS ON CT SCAN WITH IV CONTRAST. TECHNICAL DOCUMENTATION: JOB ID: [id number] Quality ID # [id number]: Final reports with documentation of one or more dose reduction techniques (e.g., Au tomated exposure control, adjustment of the mA and/or kV according to patient size, use of iterative reconstruction technique) 2010 [employer]- All Rights Reserved Reading location - IP/workstation name: [email or web address]
--- NOTE | 2018-01-17 20:24 | RADIOLOGY REPORT (SQ) ---
EXAM DESCRIPTION: U/S ABDOMEN LTD W/DOPPLER COMPLETED DATE/TIME: 01/17/2018 8:11 pm REASON FOR STUDY: pancreatic mass vs. cyst on CT COMPARISON: CT dated 01/17/2018. TECHNIQUE: Dynamic and static grayscale images acquired of the right upper quadrant and recorded on PACS. Additional selected color Doppler and spectral images recorded. LIMITATIONS: Study limited due to acoustical interference from fat or from air in the bowel. FINDINGS: PANCREAS: Obscured. LIVER: Echotexture is coarse with increased echogenicity consistent with fatty infiltration. No mass es. LIVER VASCULATURE: Normal directional flow of the main portal vein and hepatic veins. GALLBLADDER: Surgically absent. ULTRASOUND-DETECTED MCNALLY'S SIGN: Negative. INTRAHEPATIC DUCTS AND COMMON DUCT: CBD and intrahepatic ducts normal caliber. No filling defects. INFERIOR VENA CAVA: Normal flow. AORTA: Obscured. RIGHT KIDNEY: Normal size. Normal echogenicity. No solid or suspicious masses. No hydronephros is. No calcifications. PERITONEAL CAVITY AND RIGHT PLEURAL SPACE: No ascites or effusions. OTHER: No other significant finding. IMPRESSION: LIMITED STUDY. FATTY LIVER. THE PANCREAS IS COMPLETELY OBSCURED. WOULD CONSIDER OUTPA TIENT MRI OF THE PANCREAS FOR FURTHER EVALUATION OF THE CT FINDINGS. TECHNICAL DOCUMENTATION: JOB ID: [id number] [employer]- All Rights Reserved Reading location - IP/workstation name: [email or web address]
[2018-01-17] MEDS ORDERED: MORPHINE SULFATE SR 15 MG TABLET PO ONE (20:41)
[2018-01-17 21:12] VITALS: BP 138/83
== END 2018-01-17 21:04 | disposition home or self-care (01) ==
LOC: ER 16:22
DX: K86.9 Disease of pancreas, unspecified (principal); R10.9 Unspecified abdominal pain; I10 Essential (primary) hypertension; I11.0 Hypertensive heart disease with heart failure; E78.00 Pure hypercholesterolemia, unspecified; I48.91 Unspecified atrial fibrillation; Z90.49 Acquired absence of other specified parts of digestive tract; I25.2 Old myocardial infarction
CPT/HCPCS: 99284; 96374; 36415; 83690; 85025; 80053; 81001; 76705; 93976; 74177; S0119; J3490 ×2; J2270

== ENCOUNTER 2018-01-19 15:22 | Emergency (ER) | payer MEDICAID ==
[2018-01-19 15:28] VITALS: BP 142/87
[2018-01-19] MEDS ORDERED: FENTANYL CITRATE INJ/PF 100 MCG/2 ML AMPUL IM ONE (16:32)
--- NOTE | 2018-01-19 16:34 | ER Document Report ---
ED GI/ - General Chief Complaint: Abdominal Pain Stated Complaint: ABDOMINAL PAIN, LOW BACK PAIN Time Seen by Provider: 01/19/18 16:23 Notes: 62 years old male with a history of pancreatic lesion, presents with abdominal pain. This is his third visit within a week. He states he ran out of his morphine 15 mg tablet. Subsequently started having increasing pain over the mid abdomen. No nausea vomiting diarrhea fever chills or other constitutional symptoms. I have greeted and performed a rapid initial assessment of this patient. A comprehensive ED assessment and evaluation of the patient, analysis of test results and completion of the medical decision making process will be conducted by additional ED providers. PHYSICAL EXAMINATION: GENERAL: Well-appearing, well-nourished and in no acute distress. HEAD: Atraumatic, normocephalic. EYES: Pupils equal round extraocular movements intact, conjunctiva are normal. ENT: Nares patent NECK: Normal range of motion LUNGS: No respiratory distress Musculoskeletal: Normal range of motion NEUROLOGICAL: Normal speech, normal gait. PSYCH: Normal mood, normal affect. SKIN: Warm, Dry, normal turgor, no rashes or lesions noted. TRAVEL OUTSIDE OF THE [place] IN LAST 30 DAYS: No - Related Data Allergies/Adverse Reactions: No Known Allergies Allergy (Verified 01/19/18 16:11) Past Medical History - Social History Smoking Status: Unknown if Ever Smoked Chew tobacco use (# tins/day): No Smoking Education Provided: No Frequency of alcohol use: Rare Drug Abuse: None Lives with: Family Family History: Reviewed & Not Pertinent - Past Medical History Cardiac Medical History: Reports: Hx Atrial Fibrillation, Hx Congestive Heart Failure, Hx Coronary Artery Disease, Hx Heart Attack, Hx Hypercholesterolemia, Hx Hypertension Renal/ Medical History: Denies: Hx Peritoneal Dialysis Past Surgical History: Reports: Hx Cardiac Catheterization, Hx Cholecystectomy, Hx Coronary Stent, Hx Oral Surgery, Hx Orthopedic Surgery - Right Knee, Right Thumb, Hx Tonsillectomy - Immunizations Hx Diphtheria, Pertussis, Tetanus Vaccination: Yes Physical Exam - Vital signs Vitals: Temp Pulse Resp BP Pulse Ox 97.7 F 85 18 142/87 H 97 01/19/18 15:27 01/19/18 15:27 01/19/18 15:27 01/19/18 15:27 01/19/18 15:27 Course - Vital Signs Vital signs: Temp Pulse Resp BP Pulse Ox 97.7 F 85 18 142/87 H 97 01/19/18 15:27 01/19/18 15:27 01/19/18 15:27 01/19/18 15:27 01/19/18 15:27 - Laboratory Result Diagrams: 01/19/18 16:45 01/19/18 16:45 Laboratory results interpreted by me: 01/19/18 01/19/18 16:45 16:45 Plt Count 106 L Glucose 144 H Discharge - Discharge Clinical Impression: Abdominal pain Disposition: ELOPED Referrals: CHEMA MARINELLI MD [Primary Care Provider] - Follow up as needed
[2018-01-19 17:00] LABS: ABSOLUTE BASOPHILS # (AUTO) 0.1 10^3/uL (0.0-0.2); ABSOLUTE EOSINOPHILS # (AUTO) 0.1 10^3/uL (0.0-0.6); ABSOLUTE MONOCYTES (AUTO) 0.9 10^3/uL (0.1-1.4); ABSOLUTE NEUT (AUTO) 5.5 10^3/uL (1.7-8.2); BASOPHILS % (AUTO) 1.1 % (0-2); EOSINOPHILS % (AUTO) 1.1 % (0-6); HEMATOCRIT 48.7 % (37.9-51.0); HEMOGLOBIN 16.9 g/dL (13.5-17.0); LYMPHOCYTES % (AUTO) 23.6 % (13-45); MEAN CORPUSCULAR HEMOGLOBIN 32.7 pg (27.0-33.4); MEAN CORPUSCULAR HGB CONC 34.6 g/dL (32.0-36.0); MEAN CORPUSCULAR VOLUME 94 fl (80-97); MONOCYTES % (AUTO) 10.5 % (3-13); PLATELET COUNT 106 10^3/uL (150-450); RED BLOOD COUNT 5.16 10^6/uL (4.35-5.55); RED CELL DISTRIBUTION WIDTH 13.8 % (11.5-14.0); SEGMENTED NEUTROPHILS % (AUTO) 63.7 % (42-78); TOTAL CELLS COUNTED % (AUTO) 100 %; WHITE BLOOD COUNT 8.7 10^3/uL (4.0-10.5)
[2018-01-19] MEDS ORDERED: MORPHINE SULFATE IR 15 MG TABLET PO ONE (17:06)
[2018-01-19 17:31] LABS: ALANINE AMINOTRANSFERASE 39 U/L (21-72); ALBUMIN 4.3 g/dL (3.5-5.0); ALKALINE PHOSPHATASE 105 U/L (38-126); ANION GAP 14 (5-19); ASPARTATE AMINO TRANSFERASE 30 U/L (17-59); BILIRUBIN,DIRECT 0.3 mg/dL (0.0-0.4); BILIRUBIN,TOTAL 1.3 mg/dL (0.2-1.3); BLOOD UREA NITROGEN 20 mg/dL (7-20); CALCIUM 9.7 mg/dL (8.4-10.2); CARBON DIOXIDE 29 mmol/L (22-30); CHLORIDE 99 mmol/L (98-107); GLUCOSE 144 mg/dL (75-110); LIPASE 93.1 U/L (23-300); POTASSIUM 4.1 mmol/L (3.6-5.0); SODIUM 142.1 mmol/L (137-145); TOTAL PROTEIN 6.8 g/dL (6.3-8.2)
--- NOTE | 2018-01-20 03:19 | ER Document Report ---
ED General - General Chief Complaint: Abdominal Pain Stated Complaint: ABDOMINAL PAIN, LOW BACK PAIN Time Seen by Provider: 01/19/18 16:23 TRAVEL OUTSIDE OF THE [place] IN LAST 30 DAYS: No - HPI Patient complains to provider of: Abdominal pain Notes: Patient coming in for epigastric abdominal pain ongoing for greater than the last 24 hours. Patient was recently seen in the ER had a CT scan performed showing pancreatic mass cancer versus cyst patient states that he was given morphine for his pain control however is taken of the morphine at this time and is requesting more states he did see his PCP today however his PCP did not give him any further pain medication. Patient denies any fever chills nausea vomiting diarrhea denies any recent travel. Patient is resting comfortably in her hallway bed without any signs of obvious distress - Related Data Allergies/Adverse Reactions: No Known Allergies Allergy (Verified 01/19/18 16:11) Past Medical History - Social History Smoking Status: Never Smoker Chew tobacco use (# tins/day): No Frequency of alcohol use: None Drug Abuse: None Family History: Reviewed & Not Pertinent Patient has suicidal ideation: No Patient has homicidal ideation: No - Past Medical History Cardiac Medical History: Reports: Hx Atrial Fibrillation, Hx Congestive Heart Failure, Hx Coronary Artery Disease, Hx Heart Attack, Hx Hypercholesterolemia, Hx Hypertension Renal/ Medical History: Denies: Hx Peritoneal Dialysis Past Surgical History: Reports: Hx Cardiac Catheterization, Hx Cholecystectomy, Hx Coronary Stent, Hx Oral Surgery, Hx Orthopedic Surgery - Right Knee, Right Thumb, Hx Tonsillectomy - Immunizations Hx Diphtheria, Pertussis, Tetanus Vaccination: Yes Review of Systems - Review of Systems Constitutional: No symptoms reported EENT: No symptoms reported Cardiovascular: No symptoms reported Respiratory: No symptoms reported Gastrointestinal: Abdominal pain Genitourinary: No symptoms reported Male Genitourinary: No symptoms reported Musculoskeletal: No symptoms reported Skin: No symptoms reported Hematologic/Lymphatic: No symptoms reported Neurological/Psychological: No symptoms reported -: Yes All other systems reviewed and negative Physical Exam - Vital signs Vitals: Temp Pulse Resp BP Pulse Ox 97.7 F 85 18 142/87 H 97 01/19/18 15:27 01/19/18 15:27 01/19/18 15:27 01/19/18 15:27 01/19/18 15:27 Interpretation: Normal - General General appearance: Appears well, Alert - HEENT Head: Normocephalic, Atraumatic Eyes: Normal Pupils: PERRL - Respiratory Respiratory status: No respiratory distress Chest status: Nontender Breath sounds: Normal Chest palpation: Normal - Cardiovascular Rhythm: Regular Heart sounds: Normal auscultation Murmur: No - Abdominal Inspection: Normal Distension: No distension Bowel sounds: Normal Tenderness: Nontender Organomegaly: No organomegaly - Back Back: Normal, Nontender - Extremities General upper extremity: Normal inspection, Nontender, Normal color, Normal ROM , Normal temperature General lower extremity: Normal inspection, Nontender, Normal color, Normal ROM , Normal temperature, Normal weight bearing. No: Riddhi's sign - Neurological Neuro grossly intact: Yes Cognition: Normal Orientation: AAOx4 [place] Coma Scale Eye Opening: Spontaneous [place] Coma Scale Verbal: Oriented [place] Coma Scale Motor: Obeys Commands [place] Coma Scale Total: 15 Speech: Normal Motor strength normal: LUE, RUE, LLE, RLE Sensory: Normal - Psychological Associated symptoms: Normal affect, Normal mood - Skin Skin Temperature: Warm Skin Moisture: Dry Skin Color: Normal Course - Re-evaluation Re-evalutation: 01/20/18 03:17 Patient states he is mostly here in ER for refill of his pain medications. I explained to the patient he recently received narcotic pain medications here that we would not be able to refill those however I did offer to the patient did contact his PCP to set up a pain management schedule. I did discuss the patient with Dr. Sol who does admit that he saw the patient today and did not give him certain about drug-seeking behavior. Reviewed patient's Patient presents with a painful complaint patients history was evaluated on [place] database for prescription medications. Database that should patient receive Ultram at the beginning of the month and has multiple refills PCP states that he could continue with these refills for Ultram and continue with the MRI of his pancreas. Prior to explained to the patient that we would not be able to give any more pain medication patient eloped from the ER. Laboratory studies did not show any significant pathology. The patient presents with abdominal pain without signs of peritonitis or other life- threatening or serious etiology. The patient appears stable for discharge and has been instructed to return immediately if the symptoms worsen in any way, or in 8-12hr if not improved for re-evaluation. The patient has been instructed to return if the symptoms worsen or change in any way. - Vital Signs Vital signs: Temp Pulse Resp BP Pulse Ox 97.7 F 85 18 142/87 H 97 01/19/18 15:27 01/19/18 15:27 01/19/18 15:27 01/19/18 15:27 01/19/18 15:27 - Laboratory Result Diagrams: 01/19/18 16:45 01/19/18 16:45 Laboratory results interpreted by me: 01/19/18 01/19/18 16:45 16:45 Plt Count 106 L Glucose 144 H Discharge - Discharge Clinical Impression: Abdominal pain Qualifiers: Abdominal location: epigastric Qualified Code(s): R10.13 - Epigastric pain Disposition: ELOPED Referrals: CHEMA MARINELLI MD [Primary Care Provider] - Follow up as needed
== END 2018-01-19 22:40 | disposition left against medical advice (07) ==
LOC: ER 15:22
DX: R10.13 Epigastric pain (principal); I25.10 Atherosclerotic heart disease of native coronary artery without angina pectoris; I10 Essential (primary) hypertension; Z90.49 Acquired absence of other specified parts of digestive tract; Z95.5 Presence of coronary angioplasty implant and graft; Z53.20 Procedure and treatment not carried out because of patient's decision for unspecified reasons
CPT/HCPCS: 99281; 96372; 36415; 83690; 85025; 80076; 80048; 84484; J3010

== ENCOUNTER → 2018-01-21 | Outpatient (CLI) | payer MEDICAID ==
--- NOTE | 2018-01-22 13:54 | RADIOLOGY REPORT (SQ) ---
EXAM DESCRIPTION: MRI ABDOMEN COMBO COMPLETED DATE/TIME: 01/21/2018 9:15 pm REASON FOR STUDY: D49.0 NEOPLASM OF UNSPECIFIED BEHAVIOR OF DIGESTIVE SYSTEM D49.0 NEOPLASM OF UNSP ECIFIED BEHAVIOR OF DIGESTIVE SYSTEM COMPARISON: CT abdomen pelvis 01/17/2018 Abdominal ultrasound 01/17/2018 TECHNIQUE: Multiplanar multisequence imaging performed without and with contrast including sagittal, axial and coronal T2, axial T1, axial gradient fat sat T1, axial, sagittal and coronal fat sat T1 po st contrast. CONTRAST TYPE AND DOSE: 20 mL Prohance. RENAL FUNCTION: GFR > 60. LIMITATIONS: None. FINDINGS: LIVER: Normal size. No masses. No dilated ducts. CBD normal. SPLEEN: Normal size. Remnant of an old splenic laceration with a band of hemosiderin signal along th e mid 3rd of the spleen best shown on coronal image 67. PANCREAS: No peripancreatic fluid or inflammation on today's study. Along the inferior aspect of the pancreatic tail, a 3.5 x 2.7 cm complex cyst with peripheral rim enhancement is present. There is i ntermediate signal on T1, intermediate to high signal on T2 with peripheral rim enhancement. This co uld represent sequela of old pancreatitis with complex residual cyst. Sequela of trauma is possible. Pancreatic tail neoplasm could not be excluded. GALLBLADDER: Surgically absent ADRENAL GLANDS: No significant masses or asymmetry. RIGHT KIDNEY AND URETER: No masses. No hydronephrosis. 4 cm cyst right lower pole kidney. LEFT KIDNEY AND URETER: No masses. No hydronephrosis. 3.4 cm cyst left mid pole kidney AORTA AND VESSELS: No aneurysm. No dissection. Renal arteries, SMA, celiac without stenosis. RETROPERITONEUM: No retroperitoneal adenopathy, hemorrhage or masses. BOWEL: Limited view unremarkable ABDOMINAL WALL AND PERITONEUM: No hernias. No free fluid. BONES: No acute or significant findings. OTHER: No other significant finding. IMPRESSION: Old splenic laceration with hemosiderin staining. 3.5 x 2.7 cm complex cystic lesion in the inferior aspect pancreatic tail. This could represent a pa ncreatic chronic pseudocyst. Sequela of pancreatic trauma is possible. Pancreatic neoplasm could no t be excluded. Comparison with any old or outside CT exams would be useful TECHNICAL DOCUMENTATION: JOB ID: [id number] [employer]- All Rights Reserved Reading location - IP/workstation name: [email or web address]
== END ==
LOC: RAD 20:20
PROVIDERS: ATTEND Family Medicine
DX: D49.0 Neoplasm of unspecified behavior of digestive system (principal)
CPT/HCPCS: 74183; 82565

== ENCOUNTER 2018-03-26 08:32 | Emergency (ER) | payer MEDICAID ==
[2018-03-26 08:38] VITALS: BP 131/91
--- NOTE | 2018-03-26 08:47 | ER Document Report ---
HPI - HPI Patient complains to provider of: Dental pain Onset: Other Onset/Duration: Persistent Quality of pain: Achy Severity: Severe Pain Level: 5 Context: Patient presents to the emergency department with complaints of upper front dental pain. He reports that he has been evaluated and treated by the dentist for the past few weeks for a toothache. He was given antibiotics and Tylenol with codeine for the pain. Yesterday he had 2 teeth pulled at [facility]. Today he is hurting, the dentist is closed. He reports he was not given anything for pain after the teeth were pulled yesterday. No complaints of fever vomiting or diarrhea. Associated Symptoms: None Exacerbated by: Denies Relieved by: Denies Similar symptoms previously: Yes Recently seen / treated by doctor: Yes - CONSTITUTIONAL Constitutional: DENIES: Fever, Chills - EENT EENT: DENIES: Sore Throat, Ear Pain, Eye problems - NEURO Neurology: DENIES: Headache, Weakness, Vision blurred, Dizzinesss / Vertigo - CARDIOVASCULAR Cardiovascular: DENIES: Chest pain - RESPIRATORY Respiratory: DENIES: Trouble Breathing, Coughing - GASTROINTESTINAL Gastrointestinal: DENIES: Abdominal Pain, Black / Bloody Stools - URINARY Urinary: DENIES: Dysuria, Urgency, Frequency - REPRODUCTIVE Reproductive: DENIES: : - MUSCULOSKELETAL Musculoskeletal: DENIES: Extremity pain Past Medical History - General Information source: Patient - Social History Smoking Status: Current Every Day Smoker Cigarette use (# per day): Yes Chew tobacco use (# tins/day): No Frequency of alcohol use: Heavy Drug Abuse: None Family History: Reviewed & Not Pertinent Patient has suicidal ideation: No Patient has homicidal ideation: No - Past Medical History Cardiac Medical History: Reports: Hx Atrial Fibrillation, Hx Congestive Heart Failure, Hx Coronary Artery Disease, Hx Heart Attack, Hx Hypercholesterolemia, Hx Hypertension Renal/ Medical History: Denies: Hx Peritoneal Dialysis Past Surgical History: Reports: Hx Cardiac Catheterization, Hx Cholecystectomy, Hx Coronary Stent, Hx Oral Surgery, Hx Orthopedic Surgery - Right Knee, Right Thumb, Hx Tonsillectomy - Immunizations Hx Diphtheria, Pertussis, Tetanus Vaccination: Yes Vertical Provider Document - CONSTITUTIONAL Agree With Documented VS: Yes Exam Limitations: No Limitations General Appearance: WD/WN, No Apparent Distress - Nontoxic looking - INFECTION CONTROL TRAVEL OUTSIDE OF THE [place] IN LAST 30 DAYS: No - HEENT HEENT: Atraumatic, Normocephalic Mouth Diagram: 1 - Reports pain no obvious swelling or erythema no warmth no discharge opens mouth wide clear airway clear voice - NECK Neck: Supple - RESPIRATORY Respiratory: No Respiratory Distress - CARDIOVASCULAR Cardiovascular: Regular Rate - MUSCULOSKELETAL/EXTREMETIES Musculoskeletal/Extremeties: ALETHEA SHELDON - NEURO Level of Consciousness: Awake, Alert, Appropriate Motor/Sensory: No Motor Deficit - DERM Integumentary: Warm, Dry Course - Re-evaluation Re-evalutation: 03/26/18 08:59 Patient denies allergies. Will be given a shot of Toradol for the pain and a prescription for Tylenol with Codeine. Shailesh Hernandez was called and a message was left by this provider regarding patient's concerns. Patient was instructed to call the dentist on Thursday when they open. Signs and symptoms of infection were discussed. - Vital Signs Vital signs: Temp Pulse Resp BP Pulse Ox 97.6 F 91 20 131/91 H 96 03/26/18 08:36 03/26/18 08:36 03/26/18 08:36 03/26/18 08:36 03/26/18 08:36 Discharge - Discharge Clinical Impression: dental concern Condition: Stable Disposition: HOME, SELF-CARE Instructions: Acetaminophen with Codeine ([facility]), Toothache ([facility]) Additional Instructions: *You have been evaluated for dental concern *Take medication as prescribed *Follow up with your dentist Thursday- call them at [phone]- I have also called and left a message on the voice mail of Cash Dyana *Return to ED for worsening condition, changes, needs Monitor your blood pressure. Your blood pressure was elevated today. This may be because you were anxious, in pain or because you need medication. It is important to follow up with your primary care provider for full evaluation. Prescriptions: Acetaminophen with Codeine [Tylenol with Codeine #3 Tablet] 2 each PO QID #20 tablet Forms: Elevated Blood Pressure Referrals: CHEMA MARINELLI MD [Primary Care Provider] - Follow up in 3-5 days
[2018-03-26] MEDS ORDERED: KETOROLAC TROMETHAMINE 60 MG/2 ML SDV IM ONE (08:50)
== END 2018-03-26 09:06 | disposition home or self-care (01) ==
LOC: ER 08:32
DX: K08.9 Disorder of teeth and supporting structures, unspecified (principal); F17.210 Nicotine dependence, cigarettes, uncomplicated; I48.91 Unspecified atrial fibrillation; I50.9 Heart failure, unspecified; I11.0 Hypertensive heart disease with heart failure; I25.2 Old myocardial infarction; Z90.49 Acquired absence of other specified parts of digestive tract
CPT/HCPCS: 99282; 96372; J1885

== ENCOUNTER 2018-03-27 13:19 | Emergency (ER) | payer MEDICAID ==
[2018-03-27 13:28] VITALS: BP 99/68
--- NOTE | 2018-03-27 13:48 | ER Document Report ---
HPI - HPI Patient complains to provider of: Dental pain after extraction Onset: Other - Onset/Duration: Sudden Pain Level: 5 Context: 63-year-old male had 2 teeth extracted from the top right by Dr. Cash and he is post extraction pain. No fever. No swelling. But he does state that the gum is swollen. He was given Toradol and Tylenol with codeine the other day but he needs something stronger and he did not get any antibiotics. Associated Symptoms: None Exacerbated by: Denies Relieved by: Denies Similar symptoms previously: No Recently seen / treated by doctor: No - ROS ROS below otherwise negative: Yes Systems Reviewed and Negative: Yes All other systems reviewed and negative - CARDIOVASCULAR Cardiovascular: DENIES: Chest pain - GASTROINTESTINAL Gastrointestinal: DENIES: Abdominal Pain - URINARY Urinary: DENIES: Dysuria - REPRODUCTIVE Reproductive: DENIES: : Past Medical History - General Information source: Patient - Social History Smoking Status: Former Smoker Chew tobacco use (# tins/day): No Frequency of alcohol use: None Drug Abuse: None Lives with: Family Family History: Reviewed & Not Pertinent Patient has suicidal ideation: No Patient has homicidal ideation: No - Past Medical History Cardiac Medical History: Reports: Hx Atrial Fibrillation, Hx Congestive Heart Failure, Hx Coronary Artery Disease, Hx Heart Attack, Hx Hypercholesterolemia, Hx Hypertension Renal/ Medical History: Denies: Hx Peritoneal Dialysis Past Surgical History: Reports: Hx Cardiac Catheterization, Hx Cholecystectomy, Hx Coronary Stent, Hx Oral Surgery, Hx Orthopedic Surgery - Right Knee, Right Thumb, Hx Tonsillectomy - Immunizations Hx Diphtheria, Pertussis, Tetanus Vaccination: Yes Vertical Provider Document - CONSTITUTIONAL Agree With Documented VS: Yes Exam Limitations: No Limitations General Appearance: No Apparent Distress - INFECTION CONTROL TRAVEL OUTSIDE OF THE [place] IN LAST 30 DAYS: No - HEENT Notes: Swelling and inflammation to the gums adjacent to to teeth extractions top right. There is other decay in his mouth. no dry socket - NECK Neck: Supple. negative: Lymphadenopathy-Left, Lymphadenopathy-Right Course - Re-evaluation Re-evalutation: 03/27/18 16:05 Pharmacy called the patient is on Xarelto so we did not fill the Motrin. - Vital Signs Vital signs: Temp Pulse Resp BP Pulse Ox 91 20 99/68 L 94 03/27/18 13:25 03/27/18 13:25 03/27/18 13:25 03/27/18 13:25 Discharge - Discharge Clinical Impression: dental pain and decay Condition: Good Disposition: HOME, SELF-CARE Instructions: Acetaminophen, Ibuprofen (General) ([facility]), Penicillin V K ([facility]), Toothache ([facility]) Additional Instructions: warm compress see you dentist on thursday Lidocaine to numb the area Tylenol up to 4000 mg a day Motrin for pain Prescriptions: Ibuprofen [Motrin 600 mg Tablet] 600 mg PO Q8HP PRN #30 tablet PRN Reason: Penicillin V Potassium [Penicillin Vk 500 mg Tablet] 500 mg PO QID #40 tablet Referrals: CHEMA MARINELLI MD [Primary Care Provider] - Follow up as needed
[2018-03-27] MEDS ORDERED: PENICILLIN V POTASSIUM 500 MG TABLET PO ONE (14:23)
[2018-03-27] MEDS ORDERED: IBUPROFEN 400 MG TABLET PO ONE (14:23)
[2018-03-27] MEDS ORDERED: LIDOCAINE 2% VISCOUS SOLN 20 ML UDCUP PO ONE (14:23)
[2018-03-27] MEDS ORDERED: ACETAMINOPHEN 325 MG TABLET PO ONE (14:23)
== END 2018-03-27 14:37 | disposition home or self-care (01) ==
LOC: ER 13:19
DX: G89.18 Other acute postprocedural pain (principal); K08.89 Other specified disorders of teeth and supporting structures; K02.9 Dental caries, unspecified; I25.10 Atherosclerotic heart disease of native coronary artery without angina pectoris; I10 Essential (primary) hypertension; I48.91 Unspecified atrial fibrillation; Z79.01 Long term (current) use of anticoagulants; Z95.5 Presence of coronary angioplasty implant and graft; Z87.891 Personal history of nicotine dependence
CPT/HCPCS: 99282; J3490 ×4

== ENCOUNTER 2018-04-12 05:12 | Inpatient (IN) | payer MEDICAID ==
[2018-04-12] MEDS ORDERED: ASPIRIN 81 MG TABLET, CHEWABLE PO ONE (05:47)
--- NOTE | 2018-04-12 05:49 | ER Document Report ---
ED Medical Screen (RME) - General Chief Complaint: Shortness Of Breath Stated Complaint: SHORTNESS OF BREATH Time Seen by Provider: 04/12/18 05:47 Notes: 63-year-old male with a history of MA, stents, CHF comes emergency department for chief complaint of worsening dyspnea on exertion and difficulty lying flat with intermittent chest pains for the past 2 weeks. He reports minimal chest pain and dyspnea at this time. No fever or cough. On diuretics. TRAVEL OUTSIDE OF THE [place] IN LAST 30 DAYS: No - Related Data Allergies/Adverse Reactions: No Known Allergies Allergy (Verified 03/26/18 08:35) Past Medical History - Social History Family history: Reviewed & Not Pertinent - Past Medical History Cardiac Medical History: Reports: Hx Atrial Fibrillation, Hx Congestive Heart Failure, Hx Coronary Artery Disease, Hx Heart Attack, Hx Hypercholesterolemia, Hx Hypertension Renal/ Medical History: Denies: Hx Peritoneal Dialysis Past Surgical History: Reports: Hx Cardiac Catheterization, Hx Cholecystectomy, Hx Coronary Stent, Hx Oral Surgery, Hx Orthopedic Surgery - Right Knee, Right Thumb, Hx Tonsillectomy - Immunizations Hx Diphtheria, Pertussis, Tetanus Vaccination: Yes History of Influenza Vaccine for 05/2017 - 10/2017 Season: No Physical Exam - Vital signs Vitals: Temp Pulse Resp BP Pulse Ox 97.7 F 64 22 H 142/93 H 98 04/12/18 05:23 04/12/18 05:23 04/12/18 05:23 04/12/18 05:23 04/12/18 05:23 - General General appearance: Appears well In distress: None - Respiratory Respiratory status: No respiratory distress Breath sounds: No: Decreased air movement, Rales, Wheezing Course - Vital Signs Vital signs: Temp Pulse Resp BP Pulse Ox 97.7 F 64 22 H 142/93 H 98 04/12/18 05:23 04/12/18 05:23 04/12/18 05:23 04/12/18 05:23 04/12/18 05:23 Doctor's Discharge - Discharge Referrals: CHEMA MARINELLI MD [Primary Care Provider] - Follow up as needed
[2018-04-12] MEDS ORDERED: FUROSEMIDE INJ/PF 40 MG/4 ML SDV IV ONE (06:28)
[2018-04-12 06:43] LABS: ABSOLUTE BASOPHILS # (AUTO) 0.1 10^3/uL (0.0-0.2); ABSOLUTE EOSINOPHILS # (AUTO) 0.1 10^3/uL (0.0-0.6); ABSOLUTE LYMPHOCYTES (AUTO) 2.3 10^3/uL (0.5-4.7); ABSOLUTE MONOCYTES (AUTO) 0.6 10^3/uL (0.1-1.4); ABSOLUTE NEUT (AUTO) 4.4 10^3/uL (1.7-8.2); EOSINOPHILS % (AUTO) 1.2 % (0-6); HEMOGLOBIN 14.2 g/dL (13.5-17.0); LYMPHOCYTES % (AUTO) 30.8 % (13-45); MEAN CORPUSCULAR HEMOGLOBIN 33.8 pg (27.0-33.4); MEAN CORPUSCULAR HGB CONC 35.4 g/dL (32.0-36.0); MEAN CORPUSCULAR VOLUME 96 fl (80-97); MONOCYTES % (AUTO) 8.3 % (3-13); PLATELET COUNT 109 10^3/uL (150-450); RED BLOOD COUNT 4.18 10^6/uL (4.35-5.55); RED CELL DISTRIBUTION WIDTH 14.6 % (11.5-14.0); SEGMENTED NEUTROPHILS % (AUTO) 58.7 % (42-78); TOTAL CELLS COUNTED % (AUTO) 100 %; WHITE BLOOD COUNT 7.6 10^3/uL (4.0-10.5)
[2018-04-12 06:54] LABS: ALANINE AMINOTRANSFERASE 39 U/L (21-72); ALBUMIN 3.4 g/dL (3.5-5.0); ALKALINE PHOSPHATASE 89 U/L (38-126); ANION GAP 10 (5-19); ASPARTATE AMINO TRANSFERASE 23 U/L (17-59); BILIRUBIN,DIRECT 0.2 mg/dL (0.0-0.4); BILIRUBIN,TOTAL 0.7 mg/dL (0.2-1.3); BLOOD UREA NITROGEN 24 mg/dL (7-20); CALCIUM 9.1 mg/dL (8.4-10.2); CARBON DIOXIDE 23 mmol/L (22-30); CHLORIDE 108 mmol/L (98-107); CREATINE KINASE 40 U/L (55-170); GLUCOSE 117 mg/dL (75-110); POTASSIUM 4.2 mmol/L (3.6-5.0); SODIUM 141.3 mmol/L (137-145); TOTAL PROTEIN 5.8 g/dL (6.3-8.2)
[2018-04-12 07:06] LABS: CREATINE KINASE MB 0.84 ng/mL (<4.55); NT PRO BNP 3040 pg/mL (5-900)
[2018-04-12 07:11] LABS: TROPONIN I < 0.012 ng/mL
--- NOTE | 2018-04-12 07:39 | RADIOLOGY REPORT (SQ) ---
EXAM DESCRIPTION: CHEST SINGLE VIEW COMPLETED DATE/TIME: 04/12/2018 7:01 am REASON FOR STUDY: shortness of breath, chest pain COMPARISON: Chest films 09/11/2016, 05/26/2017, 07/23/2017, 12/16/2017 EXAM PARAMETERS: NUMBER OF VIEWS: One view. TECHNIQUE: Single frontal radiographic view of the chest acquired. RADIATION DOSE: NA LIMITATIONS: None. FINDINGS: LUNGS AND PLEURA: No opacities, masses or pneumothorax. No pleural effusion. MEDIASTINUM AND HILAR STRUCTURES: No masses. Contour normal. HEART AND VASCULAR STRUCTURES: Stable mild cardiomegaly BONES: No acute findings. HARDWARE: None in the chest. OTHER: No other significant finding. IMPRESSION: Stable mild cardiomegaly. No acute infiltrates TECHNICAL DOCUMENTATION: JOB ID: [id number] [employer]- All Rights Reserved Reading location - IP/workstation name: [email or web address]
--- NOTE | 2018-04-12 07:42 | EKG REPORT ---
SEVERITY:- BORDERLINE ECG - A FIB : Confirmed by: Ernesto Schmitz 12-Apr-2018 07:42:04
--- NOTE | 2018-04-12 09:43 | ER Document Report ---
ED Respiratory Problem - General Chief Complaint: Shortness Of Breath Stated Complaint: SHORTNESS OF BREATH Time Seen by Provider: 04/12/18 05:47 Mode of Arrival: Ambulatory Information source: Patient TRAVEL OUTSIDE OF THE [place] IN LAST 30 DAYS: No - HPI Patient complains to provider of: CHF, Short of breath Onset: Other - 2 weeks Duration: Continuous Initiating Event: URI Quality of pain: No pain Severity: Severe Context: Hx CHF Short of Breath: Severe Chest pain/discomfort: Constant Cough: Productive Sputum amount: Scant Sputum color: Clear Sputum consistency: Mucoid Associated symptoms: Ankle/leg swelling, Cough, Short of breath Similar symptoms previously: Yes Recently seen / treated by doctor: No - Related Data Allergies/Adverse Reactions: No Known Allergies Allergy (Verified 03/26/18 08:35) Past Medical History - Social History Smoking Status: Unknown if Ever Smoked Family History: Reviewed & Not Pertinent Patient has suicidal ideation: No Patient has homicidal ideation: No - Past Medical History Cardiac Medical History: Reports: Hx Atrial Fibrillation, Hx Congestive Heart Failure, Hx Coronary Artery Disease, Hx Heart Attack, Hx Hypercholesterolemia, Hx Hypertension Renal/ Medical History: Denies: Hx Peritoneal Dialysis Past Surgical History: Reports: Hx Cardiac Catheterization, Hx Cholecystectomy, Hx Coronary Stent, Hx Oral Surgery, Hx Orthopedic Surgery - Right Knee, Right Thumb, Hx Tonsillectomy - Immunizations Hx Diphtheria, Pertussis, Tetanus Vaccination: Yes Review of Systems - Review of Systems Constitutional: denies: Chills, Fever EENT: No symptoms reported Cardiovascular: Chest pain, Dyspnea Respiratory: Cough, Short of breath Gastrointestinal: No symptoms reported Genitourinary: No symptoms reported Male Genitourinary: No symptoms reported Musculoskeletal: No symptoms reported Skin: No symptoms reported Hematologic/Lymphatic: No symptoms reported Neurological/Psychological: No symptoms reported -: Yes All other systems reviewed and negative Physical Exam - Vital signs Vitals: Temp Pulse Resp BP Pulse Ox 97.7 F 64 22 H 142/93 H 98 04/12/18 05:23 04/12/18 05:23 04/12/18 05:23 04/12/18 05:23 04/12/18 05:23 - General General appearance: Appears well, Alert In distress: None - HEENT Head: Normocephalic, Atraumatic Eyes: Normal Pupils: PERRL - Respiratory Respiratory status: Respiratory distress, Tachypnea Chest status: Nontender Breath sounds: Rales, Rhonchi Chest palpation: Normal - Cardiovascular Rhythm: Regular Heart sounds: Normal auscultation Murmur: No - Abdominal Inspection: Normal Distension: No distension Bowel sounds: Normal Tenderness: Nontender Organomegaly: No organomegaly - Back Back: Normal, Nontender - Extremities General upper extremity: Normal inspection, Nontender, Normal color, Normal ROM , Normal temperature General lower extremity: Normal inspection, Nontender, Normal color, Normal ROM , Normal temperature, Normal weight bearing. No: Riddhi's sign - Neurological Neuro grossly intact: Yes Cognition: Normal Orientation: AAOx4 [place] Coma Scale Eye Opening: Spontaneous [place] Coma Scale Verbal: Oriented [place] Coma Scale Motor: Obeys Commands [place] Coma Scale Total: 15 Speech: Normal Motor strength normal: LUE, RUE, LLE, RLE Sensory: Normal - Psychological Associated symptoms: Normal affect, Normal mood - Skin Skin Temperature: Warm Skin Moisture: Dry Skin Color: Normal Course - Re-evaluation Re-evalutation: 04/12/18 15:42 I discussed patient care with his PCP Dr Mae. He will admit patient to the hospital for further evaluation and management. - Vital Signs Vital signs: Temp Pulse Resp BP Pulse Ox 97.7 F 36 L 18 133/100 H 98 04/12/18 05:23 04/12/18 08:46 04/12/18 14:01 04/12/18 14:01 04/12/18 14:01 - Laboratory Result Diagrams: 04/12/18 06:30 04/12/18 06:30 Laboratory results interpreted by me: 04/12/18 04/12/18 04/12/18 06:30 06:30 06:30 RBC 4.18 L MCH 33.8 H RDW 14.6 H Plt Count 109 L Chloride 108 H BUN 24 H Glucose 117 H Creatine Kinase 40 L NT-Pro-B Natriuret Pep 3040 H Total Protein 5.8 L Albumin 3.4 L - EKG Interpretation by Me Rate: Bradycardia - 54 Heart block present: 1st Degree When compared to previous EKG there are: Previous EKG unavailable Additional EKG results interpreted by me: 04/12/18 10:04 No STEMI - Transfer of Care Notes: 04/12/18 15:43 CHF Exacerbation. Critical Care Note - Critical Care Note Total time excluding time spent on procedures (mins): 35 Comments: Time was spent on evaluating the patient's multiple times, reviewing labs/x-ray and consulting the primary care doctor Discharge - Discharge Clinical Impression: CHF exacerbation Qualifiers: Heart failure type: unspecified Qualified Code(s): I50.9 - Heart failure, unspecified Chest pain Qualifiers: Chest pain type: unspecified Qualified Code(s): R07.9 - Chest pain, unspecified Condition: Stable Disposition: ADMITTED INPATIENT Admitting Provider: [facility] Admitted: Telemetry
[2018-04-12] MEDS ORDERED: MORPHINE SULFATE 10 MG/ML INJ IV ONE (10:03)
[2018-04-12] MEDS ORDERED: ONDANSETRON HCL INJ/PF 4 MG/2 ML SDV IV ONE (10:03)
[2018-04-12] MEDS ORDERED: GABAPENTIN 300 MG CAPSULE PO SCH (14:00)
[2018-04-12] MEDS ORDERED: (PENDING PHARMACY ID) (Clonidine Hcl [Catapres 0.3 Mg Tablet] 0.3 MG) PO SCH (14:00)
[2018-04-12] MEDS ORDERED: HYDRALAZINE HCL 50 MG TABLET PO SCH (14:00)
--- NOTE | 2018-04-12 14:11 | PDOC H&P ---
History of Present Illness Admission Date/PCP: 04/12/18 10:04 CHEMA MARINELLI MD Patient complains of: orthopnea History of Present Illness: MERARY WARNER is a 63 year old male with chronic combined heart failure on furosemide 40mg qd with 2w crockett pnd. Past Medical History Cardiac Medical History: Reports: Atrial Fibrillation, Congestive Heart Failure , Coronary Artery Disease, Myocardial Infarction, Hyperlipidema, Hypertension Pulmonary Medical History: Reports: Chronic Obstructive Pulmonary Disease (COPD) EENT Medical History: Reports: Nose - hf Neurological Medical History: Reports: Other - dementia Endocrine Medical History: Reports: None Malignancy Medical History: Reports: None Musculoskeltal Medical History: Reports: Arthritis - lbp, Gout - neck lbp R knee Skin Medical History: Reports: None Psychiatric Medical History: Reports: Bipolar Disorder, Substance Abuse Traumatic Medical History: Reports: None Hematology: Reports: None Infectious Medical History: Reports: None, Methicillin-Resistant Staph Aureus - L knee Past Surgical History Past Surgical History: Reports: Cardiac Catheterization, Cholecystectomy, Coronary Stent, Orthopedic Surgery - Right Knee, Right Thumb, Tonsillectomy Social History Information Source: Dr. Lucero Lives with: Alone Smoking Status: Never Smoker Frequency of Alcohol Use: None Hx Recreational Drug Use: No - previously Drugs: Cocaine Hx Prescription Drug Abuse: Yes - continous opiod dependence - Advance Directive Resuscitation Status: Full Code Family History Family History: CAD, Hypertension Parental Family History Reviewed: Yes Children Family History Reviewed: Yes Sibling(s) Family History Reviewed.: Yes Medication/Allergy Home Medications: Lisinopril [Prinivil 10 mg Tablet] 40 mg PO DAILY 06/23/16 Furosemide [Lasix 40 mg Tablet] 40 mg PO DAILY 12/16/17 Rivaroxaban [Xarelto 15 mg Tablet] 15 mg PO DAILY #30 tablet 12/17/17 Atorvastatin Calcium [Lipitor 80 mg Tablet] 80 mg PO DAILY 04/12/18 Clonidine HCl [Catapres 0.3 mg Tablet] 0.3 mg PO TID 04/12/18 Gabapentin [Neurontin 300 mg Capsule] 600 mg PO QID 04/12/18 Hydralazine HCl [Apresoline 50 mg Tablet] 50 mg PO TID 04/12/18 Lactulose 30 ml PO DAILY 04/12/18 Ranitidine HCl 150 mg PO BID 04/12/18 Tramadol HCl [Ultram 50 mg Tablet] 50 mg PO BID 04/12/18 Allergies/Adverse Reactions: No Known Allergies Allergy (Verified 03/26/18 08:35) Review of Systems Constitutional: PRESENT: weight gain - 6# in 3w. ABSENT: fever(s), headache(s) Nose, Mouth, and Throat: ABSENT: sore throat Cardiovascular: PRESENT: chest pain - pleuritic, dyspnea on exertion, orthropnea Respiratory: PRESENT: dyspnea. ABSENT: cough Gastrointestinal: PRESENT: constipation. ABSENT: abdominal pain, diarrhea, hematochezia, vomiting Genitourinary: ABSENT: dysuria, hematuria Musculoskeletal: PRESENT: back pain Physical Exam Vital Signs: Temp Pulse Resp BP Pulse Ox 97.7 F 36 L 22 H 123/93 H 99 04/12/18 05:23 04/12/18 08:46 04/12/18 10:31 04/12/18 10:31 04/12/18 10:31 Intake & Output 04/11/18 04/12/18 04/13/18 07:59 07:59 07:59 Output Total 550 Balance -550 General appearance: PRESENT: no acute distress Eye exam: ABSENT: conjunctival injection, scleral icterus Mouth exam: PRESENT: moist, neck supple Neck exam: ABSENT: lymphadenopathy, tenderness, thyromegaly, tracheal deviation Respiratory exam: PRESENT: clear to auscultation lee Cardiovascular exam: PRESENT: irregular rhythm. ABSENT: diastolic murmur, systolic murmur GI/Abdominal exam: ABSENT: mass, organolmegaly, tenderness Extremities exam: ABSENT: pedal edema Musculoskeletal exam: PRESENT: tenderness - back movement Neurological exam: PRESENT: oriented to situation Psychiatric exam: PRESENT: appropriate affect Results Laboratory Results: Abnormal - 24 hr 04/12/18 04/12/18 04/12/18 06:30 06:30 06:30 RBC 4.18 L MCH 33.8 H RDW 14.6 H Plt Count 109 L Chloride 108 H BUN 24 H Glucose 117 H Creatine Kinase 40 L NT-Pro-B Natriuret Pep 3040 H Total Protein 5.8 L Albumin 3.4 L Impressions: Chest X-Ray 04/12/18 05:48 IMPRESSION: Stable mild cardiomegaly. No acute infiltrates Assessment & Plan - Diagnosis (1) Acute on chronic combined systolic and diastolic congestive heart failure Is this a current diagnosis for this admission?: Yes (2) Old myocardial infarction Is this a current diagnosis for this admission?: Yes (3) Slow transit constipation Is this a current diagnosis for this admission?: Yes (4) Gastro-esophageal reflux disease without esophagitis Is this a current diagnosis for this admission?: Yes (5) Sciatica of right side Is this a current diagnosis for this admission?: Yes (6) Chronic atrial fibrillation Is this a current diagnosis for this admission?: Yes (7) Opioid dependence, uncomplicated Is this a current diagnosis for this admission?: Yes - Inpatient Certification Based on my medical assessment, after consideration of the patient's comorbidities, presenting symptoms, or acuity I expect that the services needed warrant INPATIENT care.: Yes I certify that my determination is in accordance with my understanding of Medicare's requirements for reasonable and necessary INPATIENT services [42 CFR 412.3e].: Yes Medical Necessity: Failure to Improve With Outpatient Therapy, Significant Comorbidiites Make Outpatient Treatment Too Risky, Need Close Monitoring Due to Risk of Patient Decompensation, Need For Continuous Telemetry Monitoring, Need for Pain Control, Risk of Complication if Not Cared For in Hospital, Risk of Diagnosis Which Will Require Inpatient Eval/Care/Monitoring - Plan Summary Plan Summary: echo furosemide bid
[2018-04-12] MEDS ORDERED: CLONIDINE HCL 0.2 MG TABLET PO SCH (15:00)
[2018-04-12] MEDS: FUROSEMIDE INJ/PF 40 MG/4 ML SDV IV SCH (17:22)
[2018-04-12] MEDS: TRAMADOL HCL 50 MG TABLET PO SCH (17:23)
[2018-04-12] MEDS: GABAPENTIN 300 MG CAPSULE PO SCH ×2 (17:23→23:39)
[2018-04-12] MEDS ORDERED: (PENDING PHARMACY ID) (Ranitidine Hcl [Ranitidine Hcl] 150 MG) PO SCH (18:00)
[2018-04-12] MEDS: FAMOTIDINE 20 MG TABLET PO SCH (22:13)
[2018-04-12] MEDS: HYDRALAZINE HCL 50 MG TABLET PO SCH (22:13)
[2018-04-13 04:35] LABS: ANION GAP 13 (5-19); BLOOD UREA NITROGEN 21 mg/dL (7-20); CARBON DIOXIDE 27 mmol/L (22-30); CHLORIDE 101 mmol/L (98-107); CHOLESTEROL 65.05 mg/dL (0-200); GLUCOSE 101 mg/dL (75-110); POTASSIUM 3.8 mmol/L (3.6-5.0); SODIUM 141.2 mmol/L (137-145); TRIGLYCERIDES 139 mg/dL (<150)
[2018-04-13 04:48] LABS: DIRECT LDL < 30 mg/dL (<100)
[2018-04-13] MEDS: GABAPENTIN 300 MG CAPSULE PO SCH ×3 (05:05→18:54)
[2018-04-13] MEDS: HYDRALAZINE HCL 50 MG TABLET PO SCH ×3 (05:05→23:08)
[2018-04-13] MEDS: FUROSEMIDE INJ/PF 40 MG/4 ML SDV IV SCH (05:05)
--- NOTE | 2018-04-13 06:47 | PDOC PROGRESS REPORT ---
Subjective Progress Note for:: 04/13/18 Subjective:: less orthopnea. Still chest pain. Wants stronger opioid Reason For Visit: ACUTE ON CHRONIC DIASTOLIC HEART FAILURE Physical Exam Vital Signs: Temp Pulse Resp BP Pulse Ox 97.2 F 54 L 17 150/102 H 98 04/13/18 03:52 04/13/18 03:52 04/13/18 03:52 04/13/18 05:00 04/13/18 03:52 Intake & Output 04/11/18 04/12/18 04/13/18 07:59 07:59 07:59 Intake Total 645 Output Total 1150 Balance -505 Weight 223 lb 5.252 oz General appearance: PRESENT: no acute distress Respiratory exam: PRESENT: clear to auscultation lee Cardiovascular exam: PRESENT: irregular rhythm. ABSENT: diastolic murmur, systolic murmur GI/Abdominal exam: ABSENT: mass, organolmegaly, tenderness Extremities exam: ABSENT: pedal edema Neurological exam: PRESENT: alert Psychiatric exam: PRESENT: appropriate affect Results Laboratory Results: 04/13/18 03:43 04/13/18 03:43 Sodium 141.2 Potassium 3.8 Chloride 101 Carbon Dioxide 27 Anion Gap 13 BUN 21 H Creatinine 1.21 Est GFR ( Amer) > 60 Est GFR (Non-Af Amer) > 60 Glucose 101 Calcium 9.0 Triglycerides 139 Cholesterol 65.05 LDL Cholesterol Direct < 30 VLDL Cholesterol 28.0 HDL Cholesterol 29 L 04/12/18 04/12/18 04/13/18 15:25 21:34 03:43 Troponin I < 0.012 0.015 0.014 Impressions: Chest X-Ray 04/12/18 05:48 IMPRESSION: Stable mild cardiomegaly. No acute infiltrates Assessment & Plan - Diagnosis (1) Acute on chronic combined systolic and diastolic congestive heart failure Is this a current diagnosis for this admission?: Yes Plan: diuresed 2.5L. Switch po. BP150/102. Added amlodipine. (2) Old myocardial infarction Is this a current diagnosis for this admission?: Yes Plan: 5 troponins ok (3) Slow transit constipation Is this a current diagnosis for this admission?: Yes Plan: increase lactulose (4) Gastro-esophageal reflux disease without esophagitis Is this a current diagnosis for this admission?: Yes (5) Sciatica of right side Is this a current diagnosis for this admission?: Yes Plan: has tramadol (6) Chronic atrial fibrillation Is this a current diagnosis for this admission?: Yes Plan: rate still low off clonidine. Not sure if it slows rate when not in sinus. Consulted Dr Villareal. (7) Opioid dependence, uncomplicated Is this a current diagnosis for this admission?: Yes - Inpatient Certification Medical Necessity: Significant Comorbidiites Make Outpatient Treatment Too Risky , Need Close Monitoring Due to Risk of Patient Decompensation, Need For Continuous Telemetry Monitoring, Need for Pain Control, Risk of Complication if Not Cared For in Hospital, Risk of Diagnosis Which Will Require Inpatient Eval/ Care/Monitoring
[2018-04-13] MEDS ORDERED: LACTULOSE SYRUP 20 GM/30 ML UDCUP PO SCH (10:00)
[2018-04-13] MEDS ORDERED: LISINOPRIL 10 MG TABLET PO SCH ×2 (10:00→22:00)
[2018-04-13] MEDS ORDERED: RIVAROXABAN 15 MG TABLET PO SCH (10:00)
[2018-04-13] MEDS ORDERED: AMLODIPINE BESYLATE 10 MG TABLET PO SCH (10:00)
[2018-04-13] MEDS ORDERED: ATORVASTATIN CALCIUM 80 MG TABLET PO SCH (10:00)
[2018-04-13] MEDS: LACTULOSE SYRUP 20 GM/30 ML UDCUP PO SCH ×2 (10:39→18:54)
[2018-04-13] MEDS: TRAMADOL HCL 50 MG TABLET PO SCH ×2 (10:39→18:54)
[2018-04-13] MEDS: FAMOTIDINE 20 MG TABLET PO SCH ×2 (10:39→23:08)
[2018-04-13] MEDS: FUROSEMIDE 40 MG TABLET PO SCH ×2 (10:42→18:54)
[2018-04-13] MEDS ORDERED: ISOSORBIDE MONONITRATE 60 MG TAB.ER.24H PO SCH (16:00)
[2018-04-14] MEDS: GABAPENTIN 300 MG CAPSULE PO SCH (00:15)
[2018-04-14 04:11] VITALS: BP 150/104
--- NOTE | 2018-04-14 05:26 | PDOC DISCHARGE SUMMARY ---
General - Admit/Disc Date/PCP Admission Date/Primary Care Provider: 04/12/18 10:04 CHEMA MARINELLI MD Discharge Date: 04/14/18 - Discharge Diagnosis (1) Acute on chronic combined systolic and diastolic congestive heart failure Is this a current diagnosis for this admission?: Yes (2) Old myocardial infarction Is this a current diagnosis for this admission?: Yes (3) Slow transit constipation Is this a current diagnosis for this admission?: Yes (4) Gastro-esophageal reflux disease without esophagitis Is this a current diagnosis for this admission?: Yes (5) Sciatica of right side Is this a current diagnosis for this admission?: Yes (6) Chronic atrial fibrillation Is this a current diagnosis for this admission?: Yes (7) Opioid dependence, uncomplicated Is this a current diagnosis for this admission?: Yes - Additional Information Resuscitation Status: Full Code Discharge Diet: Cardiac Discharge Activity: Activity As Tolerated, Balance Activity w/Rest, Weigh Daily Home Medications: Lisinopril [Prinivil 10 mg Tablet] 40 mg PO DAILY 06/23/16 Rivaroxaban [Xarelto 15 mg Tablet] 15 mg PO DAILY #30 tablet 12/17/17 Atorvastatin Calcium [Lipitor 80 mg Tablet] 80 mg PO DAILY 04/12/18 Gabapentin [Neurontin 300 mg Capsule] 600 mg PO QID 04/12/18 Hydralazine HCl [Apresoline 50 mg Tablet] 50 mg PO TID 04/12/18 Lactulose 30 ml PO DAILY 04/12/18 Ranitidine HCl 150 mg PO BID 04/12/18 Tramadol HCl [Ultram 50 mg Tablet] 50 mg PO BID 04/12/18 Furosemide [Lasix 40 mg Tablet] 40 mg PO BID #0 04/14/18 History of Present Illness Patient complains of: pnd History of Present Illness: MERARY WARNER is a 63 year old male with chronic combined heart failure on furosemide 40mg qd with 2w crockett pnd. Hospital Course Hospital Course: mi rulled out. Diuresed. Cloninide switched to amlodipine for jax. Left AMA when I did not increase his opioids knowing he would have to find new doc. Physical Exam Vital Signs: Temp Pulse Resp BP Pulse Ox 98.5 F 78 16 150/104 H 98 04/14/18 03:35 04/14/18 03:35 04/14/18 03:35 04/14/18 03:35 04/14/18 03:35 Intake & Output 04/12/18 04/13/18 04/14/18 07:59 07:59 07:59 Intake Total 645 949 Output Total 6801 1925 Balance -505 -826 Weight 223 lb 5.252 oz Results Laboratory Results: 04/13/18 03:43 04/12/18 04/12/18 04/13/18 15:25 21:34 03:43 Troponin I < 0.012 0.015 0.014 Labs- Last Values WBC 7.6 10^3/uL (4.0-10.5) 04/12/18 06:30 RBC 4.18 10^6/uL (4.35-5.55) L 04/12/18 06:30 Hgb 14.2 g/dL (13.5-17.0) 04/12/18 06:30 Hct 40.0 % (37.9-51.0) 04/12/18 06:30 MCV 96 fl (80-97) 04/12/18 06:30 MCH 33.8 pg (27.0-33.4) H 04/12/18 06:30 MCHC 35.4 g/dL (32.0-36.0) 04/12/18 06:30 RDW 14.6 % (11.5-14.0) H 04/12/18 06:30 Plt Count 109 10^3/uL (150-450) L 04/12/18 06:30 Seg Neutrophils % 58.7 % (42-78) 04/12/18 06:30 Lymphocytes % 30.8 % (13-45) 04/12/18 06:30 Monocytes % 8.3 % (3-13) 04/12/18 06:30 Eosinophils % 1.2 % (0-6) 04/12/18 06:30 Basophils % 1.0 % (0-2) 04/12/18 06:30 Absolute Neutrophils 4.4 10^3/uL (1.7-8.2) 04/12/18 06:30 Absolute Lymphocytes 2.3 10^3/uL (0.5-4.7) 04/12/18 06:30 Absolute Monocytes 0.6 10^3/uL (0.1-1.4) 04/12/18 06:30 Absolute Eosinophils 0.1 10^3/uL (0.0-0.6) 04/12/18 06:30 Absolute Basophils 0.1 10^3/uL (0.0-0.2) 04/12/18 06:30 Sodium 141.2 mmol/L (137-145) 04/13/18 03:43 Potassium 3.8 mmol/L (3.6-5.0) 04/13/18 03:43 Chloride 101 mmol/L (98-107) 04/13/18 03:43 Carbon Dioxide 27 mmol/L (22-30) 04/13/18 03:43 Anion Gap 13 (5-19) 04/13/18 03:43 BUN 21 mg/dL (7-20) H 04/13/18 03:43 Creatinine 1.21 mg/dL (0.52-1.25) 04/13/18 03:43 Est GFR ( Amer) > 60 (>60) 04/13/18 03:43 Est GFR (Non-Af Amer) > 60 (>60) 04/13/18 03:43 Glucose 101 mg/dL (75-110) 04/13/18 03:43 Hemoglobin A1c % 5.6 % (4.7-6.0) 04/13/18 03:43 Calcium 9.0 mg/dL (8.4-10.2) 04/13/18 03:43 Total Bilirubin 0.7 mg/dL (0.2-1.3) 04/12/18 06:30 Direct Bilirubin 0.2 mg/dL (0.0-0.4) 04/12/18 06:30 Neonat Total Bilirubin Not Reportable 04/12/18 06:30 Neonat Direct Bilirubin Not Reportable 04/12/18 06:30 Neonat Indirect Bili Not Reportable 04/12/18 06:30 AST 23 U/L (17-59) 04/12/18 06:30 ALT 39 U/L (21-72) 04/12/18 06:30 Alkaline Phosphatase 89 U/L (38-126) 04/12/18 06:30 Creatine Kinase 40 U/L (55-170) L 04/12/18 06:30 CK-MB (CK-2) 0.84 ng/mL (<4.55) 04/12/18 06:30 Troponin I 0.014 ng/mL 04/13/18 03:43 NT-Pro-B Natriuret Pep 3040 pg/mL (5-900) H 04/12/18 06:30 Total Protein 5.8 g/dL (6.3-8.2) L 04/12/18 06:30 Albumin 3.4 g/dL (3.5-5.0) L 04/12/18 06:30 Triglycerides 139 mg/dL (<150) 04/13/18 03:43 Cholesterol 65.05 mg/dL (0-200) 04/13/18 03:43 LDL Cholesterol Direct < 30 mg/dL (<100) 04/13/18 03:43 VLDL Cholesterol 28.0 mg/dL (10-31) 04/13/18 03:43 HDL Cholesterol 29 mg/dL (>40) L 04/13/18 03:43 Impressions: Chest X-Ray 04/12/18 05:48 IMPRESSION: Stable mild cardiomegaly. No acute infiltrates Qualifiers - * PATIENT BEING DISCHARGED WITH ANY OF THE FOLLOWING DIAGNOSIS: Heart Failure HF Pt being discharged on ACEI for LVEF less than 40%?: Yes HF Pt being discharged on ARBS for LVEF less than 40%?: No Reason(s) for not prescribing ARBS:: Contraindicated HF Pt with Afib discharged with Warfarin?: No Reason(s) for not prescribing Warfarin:: Medical Contraindication - on xarelto HF Pt discharged on evidence-based Beta Alba:: No Reason(s) for not prescribing evidence-based Beta Alba:: Medical Contraindication - jax
== END 2018-04-14 03:50 | disposition left against medical advice (07) | DRG 292 ==
LOC: ER 05:12 → EH 10:04 → 4N 14:58
PROVIDERS: ADMIT Family Medicine; ATTEND Family Medicine
DX: I11.0 Hypertensive heart disease with heart failure (principal); F11.20 Opioid dependence, uncomplicated; I50.43 Acute on chronic combined systolic (congestive) and diastolic (congestive) heart failure; K21.9 Gastro-esophageal reflux disease without esophagitis; I48.2 Chronic atrial fibrillation; M54.31 Sciatica, right side; K59.01 Slow transit constipation; I25.10 Atherosclerotic heart disease of native coronary artery without angina pectoris; F03.90 Unspecified dementia, unspecified severity, without behavioral disturbance, psychotic disturbance, mood disturbance, and anxiety; I25.2 Old myocardial infarction; Z90.49 Acquired absence of other specified parts of digestive tract; Z95.5 Presence of coronary angioplasty implant and graft; Z86.14 Personal history of Methicillin resistant Staphylococcus aureus infection; Z82.49 Family history of ischemic heart disease and other diseases of the circulatory system; Z79.899 Other long term (current) drug therapy
CPT/HCPCS: 36415; 71045; 80048; 80053; 80061; 82550; 82553; 83036; 83880; 84484; 85025; 93005; 93010; 96374; 99291; J1940; J2270; J2405; J3490

== ENCOUNTER 2018-09-17 10:39 | Emergency (ER) | payer MEDICAID ==
[2018-09-17] MEDS ORDERED: ASPIRIN 81 MG TABLET, CHEWABLE PO ONE (10:50)
[2018-09-17] MEDS ORDERED: ASPIRIN 81 MG TABLET, CHEWABLE ONE (11:09)
[2018-09-17 11:22] LABS: ABSOLUTE BASOPHILS # (AUTO) 0.1 10^3/uL (0.0-0.2); ABSOLUTE LYMPHOCYTES (AUTO) 2.5 10^3/uL (0.5-4.7); ABSOLUTE NEUT (AUTO) 7.2 10^3/uL (1.7-8.2); BASOPHILS % (AUTO) 1.2 % (0-2); EOSINOPHILS % (AUTO) 0.3 % (0-6); HEMATOCRIT 53.4 % (37.9-51.0); HEMOGLOBIN 19.1 g/dL (13.5-17.0); LYMPHOCYTES % (AUTO) 23.5 % (13-45); MEAN CORPUSCULAR HGB CONC 35.8 g/dL (32.0-36.0); MEAN CORPUSCULAR VOLUME 92 fl (80-97); MONOCYTES % (AUTO) 8.9 % (3-13); PLATELET COUNT 153 10^3/uL (150-450); RED BLOOD COUNT 5.79 10^6/uL (4.35-5.55); RED CELL DISTRIBUTION WIDTH 13.9 % (11.5-14.0); SEGMENTED NEUTROPHILS % (AUTO) 66.1 % (42-78); TOTAL CELLS COUNTED % (AUTO) 100 %; WHITE BLOOD COUNT 10.8 10^3/uL (4.0-10.5)
[2018-09-17 11:25] LABS: INTERNATIONAL RATION (INR) 1.94; PROTHROMBIN TIME 23.1 SEC (11.4-15.4)
--- NOTE | 2018-09-17 11:34 | RADIOLOGY REPORT (SQ) ---
EXAM DESCRIPTION: CHEST SINGLE VIEW COMPLETED DATE/TIME: 09/17/2018 11:26 am REASON FOR STUDY: took speed, now has chest pain COMPARISON: 12/16/2017 EXAM PARAMETERS: NUMBER OF VIEWS: One view. TECHNIQUE: Single frontal radiographic view of the chest acquired. RADIATION DOSE: NA LIMITATIONS: None. FINDINGS: LUNGS AND PLEURA: No opacities, masses or pneumothorax. No pleural effusion. MEDIASTINUM AND HILAR STRUCTURES: No masses. Contour normal. HEART AND VASCULAR STRUCTURES: Cardiomegaly. BONES: No acute findings. HARDWARE: None in the chest. OTHER: No other significant finding. IMPRESSION: Cardiomegaly without acute abnormality of the lungs in frontal projection. TECHNICAL DOCUMENTATION: JOB ID: [id number] [employer]- All Rights Reserved Reading location - IP/workstation name: [email or web address]
--- NOTE | 2018-09-17 11:38 | ER Document Report ---
Addendum entered and electronically signed by DAMARIS CUNNINGHAM PA-C 09/17/18 16:43: Discharge - Discharge Clinical Impression: Chest wall pain, Atypical chest pain Condition: Stable Disposition: HOME, SELF-CARE Instructions: Chest Wall Pain ([facility]), Chest Pain of Unclear Cause ([facility]) Additional Instructions: Maintain adequate fluid and food intake Take home medications as directed healthy diet Avoid drugs* Monitor blood pressure daily and keep a log Monitor symptoms for any acute changes Recheck with your PCM in 3-5 days Consider a follow-up with cardiology Return to the ED with any worsening symptoms and/or development of fever, headache, chest pain, palpitations, syncope, shortness of breath, trouble breathing, abdominal pain, n/v/d, blood in stool/urine, loss of control of bowel/bladder, urinary retention, muscle weakness/paralysis, numbness/tingling, or other worsening symptoms that are concerning to you. Prescriptions: Hydroxyzine Pamoate [Vistaril 25 mg Capsule] 25 mg PO TID PRN #15 capsule PRN Reason: Forms: Smoking Cessation Education Referrals: CHEMA MARINELLI MD [Primary Care Provider] - Follow up in 3-5 days TOMASZ MALDONADO MD [ACTIVE STAFF] - Follow up as needed Original Note: ED General - General Chief Complaint: Chest Pain Stated Complaint: CHEST PAIN Time Seen by Provider: 09/17/18 10:49 Primary Care Provider: CHEMA MARINELLI MD [Primary Care Provider] - Follow up as needed TRAVEL OUTSIDE OF THE [place] IN LAST 30 DAYS: No - HPI Notes: Patient is a 63-year-old male with a history of hypertension, coronary artery disease, A. fib and on Xarelto, drug abuse, anxiety who presents to the emergency department complaining of chest throbbing on the left side and trouble sleeping over the last 2 days after taking "ice" which is described as something like meth. Patient states that he has had this throbbing pain constantly for the last 2 days. Patient states that he had the same pain previously over the last 4-5 years which he used to take chronic narcotics for. The pain does not radiate. It is not worsened by ambulation or exacerbation. Patient states that he can push on the spot on his chest to make the pain worse. Patient states that he was taking it for the pain in his finger that he has been following orthopedics for. Patient states that he did not sleep 2 nights ago when he smoked the ice, but was able to get 6 hours this past night with the help of a sleeping aid. Patient states that he did have a stent placed about 3-4 years a go and had a negative stress test a few months ago. No other concerns or complaints at this time. He is eating and drinking without difficulty. He is urinating normally and having normal bowel movements. Pt states that he does not have any SOB that is outside of his normal. Denies any headache, fever, neck pain, URI, sore throat, syncope, cough, shortness of breath, wheeze, dyspnea, abdominal pain, nausea/vomiting/diarrhea, urinary retention, dysuria, hematuria, loss of control of bowel or bladder, numbness/tingling, saddle anesthesia, muscle paralysis/weakness, or rash. - Related Data Allergies/Adverse Reactions: No Known Allergies Allergy (Verified 09/17/18 10:42) Past Medical History - Social History Smoking Status: Smoker,Current Status Unk Frequency of alcohol use: Rare Drug Abuse: Cocaine, Methamphetamine Family History: Reviewed & Not Pertinent Patient has suicidal ideation: No Patient has homicidal ideation: No - Past Medical History Cardiac Medical History: Reports: Hx Atrial Fibrillation, Hx Congestive Heart Failure, Hx Coronary Artery Disease, Hx Heart Attack, Hx Hypercholesterolemia, Hx Hypertension Pulmonary Medical History: Reports: Hx COPD Renal/ Medical History: Denies: Hx Peritoneal Dialysis Musculoskeletal Medical History: Reports Hx Arthritis - lbp, Reports Hx Gout - neck lbp R knee Psychiatric Medical History: Reports: Hx Bipolar Disorder Infectious Medical History: Reports: Hx MRSA - L knee Past Surgical History: Reports: Hx Cardiac Catheterization, Hx Cholecystectomy, Hx Coronary Stent, Hx Oral Surgery, Hx Orthopedic Surgery - Right Knee, Right Thumb, Hx Tonsillectomy - Immunizations Hx Diphtheria, Pertussis, Tetanus Vaccination: Yes Review of Systems - Review of Systems -: Yes All other systems reviewed and negative Physical Exam - Vital signs Vitals: Pulse Ox 98 09/17/18 10:50 - Notes Notes: PHYSICAL EXAMINATION: GENERAL: Well-appearing, well-nourished and in no acute distress. A&Ox4. Answers questions appropriately. HEAD: Atraumatic, normocephalic. EYES: Pupils equal round and reactive to light, extraocular movements intact, sclera anicteric, conjunctiva are normal. ENT: Nares patent and without discharge. oropharynx clear without exudates. No tonsilar hypertrophy or erythema. Moist mucous membranes. NECK: Normal range of motion, supple without lymphadenopathy Chest: + reproducible tenderness to palpation of the ltt pectoral area. LUNGS: Breath sounds clear to auscultation bilaterally and equal. No wheezes rales or rhonchi. HEART: Regular rate and rhythm without murmurs, rubs, gallops. ABDOMEN: Soft, nontender, nondistended abdomen. No guarding, no rebound. No masses appreciated. Normal bowel sounds present. No CVA tenderness bilaterally. Musculoskeletal: FROM to passive/active. Strength 5+/5. Riddhi neg. No asymmetry to LE's. Extremities: No cyanosis, clubbing, or edema b/l. Peripheral pulses 2+. Capillary refill less than 3 seconds. NEUROLOGICAL: Normal speech, normal gait. PSYCH: Normal mood, normal affect. SKIN: Warm, Dry, normal turgor, no rashes or lesions noted. Course - Re-evaluation Re-evalutation: 09/17/18 16:34 Patient is an afebrile, well-hydrated 63-year-old male who presents to the ED with atypical chest pain, suspect chest wall pain and possible relation to his recent drug use. Vitals are acceptable without any significant tachycardia, tachypnea, or hypoxia. PE is otherwise unremarkable aside from the reproducible lateral chest wall tenderness. Patient is nontoxic-appearing and is tolerating p.o. without any difficulties. Pt is currently asymptomatic. CBC, CMP, EKG/cardiac enzymes 2, chest x-ray are all unremarkable for any acute pathology. Patient has a heart score of 3, Wells score of 0. Patient does not have any chest pain, dyspnea, or shortness of breath. Pt had a negative stress test 3-4mos ago. Patient's presentation and symptomatology creates low suspicion for ACS, PE, pneumothorax, pericarditis, dissection, respiratory compromise, severe dehydration, sepsis, meningitis, or other systemic emergent condition at this time. Patient is aware that his condition can change from initial presentation and he needs to monitor symptoms closely and seek medical attention for any acute changes. Pt is feeling better and would like to go home. Recommend conservative measures for symptoms. Recheck with your PCM in 3-5 days. Consider consult with Cardiology. Return to the ED with any worsening/concerning symptoms otherwise as reviewed in discharge. Patient is in agreement. - Vital Signs Vital signs: Temp Pulse Resp BP Pulse Ox 97.8 F 111 H 19 118/56 L 96 09/17/18 10:51 09/17/18 10:51 09/17/18 14:02 09/17/18 14:02 09/17/18 14:02 - Laboratory Result Diagrams: 09/17/18 11:08 09/17/18 11:08 Laboratory results interpreted by me: 09/17/18 09/17/18 09/17/18 11:08 11:08 11:08 WBC 10.8 H RBC 5.79 H Hgb 19.1 H Hct 53.4 H PT 23.1 H BUN 25 H Creatinine 1.76 H Est GFR ( Amer) 48 L Est GFR (Non-Af Amer) 39 L Glucose 138 H Calcium 10.4 H Total Bilirubin 1.7 H Discharge - Discharge Clinical Impression: Chest wall pain, Atypical chest pain Condition: Stable Disposition: HOME, SELF-CARE Instructions: Chest Pain of Unclear Cause ([facility]), Chest Wall Pain ([facility]) Additional Instructions: Maintain adequate fluid and food intake Take home medications as directed healthy diet Avoid drugs* Monitor blood pressure daily and keep a log Monitor symptoms for any acute changes Recheck with your PCM in 3-5 days Consider a follow-up with cardiology Return to the ED with any worsening symptoms and/or development of fever, headache, chest pain, palpitations, syncope, shortness of breath, trouble breathing, abdominal pain, n/v/d, blood in stool/urine, loss of control of bowel/bladder, urinary retention, muscle weakness/paralysis, numbness/tingling, or other worsening symptoms that are concerning to you. Forms: Smoking Cessation Education Referrals: CHEMA MARINELLI MD [Primary Care Provider] - Follow up in 3-5 days TOMASZ MALDONADO MD [ACTIVE STAFF] - Follow up as needed
[2018-09-17 11:40] LABS: ALANINE AMINOTRANSFERASE 55 U/L (21-72); ALKALINE PHOSPHATASE 113 U/L (38-126); ANION GAP 12 (5-19); ASPARTATE AMINO TRANSFERASE 51 U/L (17-59); BILIRUBIN,DIRECT 0.4 mg/dL (0.0-0.4); BILIRUBIN,TOTAL 1.7 mg/dL (0.2-1.3); BLOOD UREA NITROGEN 25 mg/dL (7-20); CALCIUM 10.4 mg/dL (8.4-10.2); CARBON DIOXIDE 28 mmol/L (22-30); CHLORIDE 98 mmol/L (98-107); CREATINE KINASE 131 U/L (55-170); GLUCOSE 138 mg/dL (75-110); POTASSIUM 3.9 mmol/L (3.6-5.0); SODIUM 138.4 mmol/L (137-145); TOTAL PROTEIN 7.6 g/dL (6.3-8.2)
[2018-09-17 11:41] LABS: ALCOHOL < 10 mg/dL (NONE DETECTED)
[2018-09-17 11:51] LABS: CREATINE KINASE MB 3.19 ng/mL (<4.55)
[2018-09-17 12:04] LABS: TROPONIN I 0.05 ng/mL
--- NOTE | 2018-09-17 12:44 | ER Document Report ---
Entered by MELANIE ACUÑA SCRIBE 09/17/18 1109 Acting as scribe for:SEGUNDO DELGADO DO ED Medical Screen (RME) - General Chief Complaint: Chest Pain Stated Complaint: CHEST PAIN Time Seen by Provider: 09/17/18 10:49 Primary Care Provider: CHEMA MARINELLI MD [Primary Care Provider] - Follow up as needed Notes: 63-year-old male with coronary artery disease on Xarelto who presents to the emergency department today with complaints of chest pain, shortness of breath, and a heart racing sensation for the last 2 days. Patient states that he "let a homeless friend stay over and gave her $10 to go buy some crack" two nights ago. Patient states that the friend came back with ice and he smoked it. Patient states he did not get any sleep 2 nights ago and last night he only got minimal sleep with taking OTC sleeping medication. Patient states he is a recovering alcoholic and has not had any alcohol in 3 years but does admit to using crack and ice. Patient states he has x1 stent that was placed x3-4 years ago at "[place] [facility]". Patient states he had a stress test x3-4 months ago which was normal. Patient denies a history of COPD. Patient does mention that he has been doubling up on his blood pressure medications the last 2 days to "slow his heart down". I have greeted and performed a rapid initial assessment of this patient. A comprehensive ED assessment and evaluation of the patient, analysis of test results, and completion of the medical decision making process will be conducted by additional ED providers. Review of systems: Constitutional: No symptoms reported EENT: No symptoms reported Cardiovascular: Chest pain. Heart racing. Respiratory: Shortness of breath. Gastrointestinal: No symptoms reported Genitourinary: No symptoms reported Musculoskeletal: No symptoms reported Skin: No symptoms reported Hematologic/Lymphatic: No symptoms reported Neurological/Psychological: No symptoms reported Yes All other systems reviewed and negative PHYSICAL EXAM GENERAL: Alert, interacts well. Appears anxious. HEAD: Normocephalic, atraumatic. EYES: Pupils equal, round, and reactive to light. Extraocular movements intact. ENT: Oral mucosa moist, tongue midline. NECK: Full range of motion. Supple. Trachea midline. LUNGS: Clear to auscultation bilaterally, no wheezes, rales, or rhonchi. Tachypneic. HEART: Regular rhythm, tachycardic. No murmurs, gallops, or rubs. EXTREMITIES: Moves all 4 extremities spontaneously. NEUROLOGICAL: Alert and oriented x3. Normal speech. Left-sided facial droop that corrects with smile. PSYCH: Normal affect, normal mood. SKIN: Warm and diaphoretic. TRAVEL OUTSIDE OF THE [place] IN LAST 30 DAYS: No - Related Data Allergies/Adverse Reactions: No Known Allergies Allergy (Verified 09/17/18 10:42) Past Medical History - Social History Frequency of alcohol use: Rare Drug Abuse: Cocaine, Methamphetamine Family history: Reviewed & Not Pertinent - Past Medical History Cardiac Medical History: Reports: Hx Atrial Fibrillation, Hx Congestive Heart Failure, Hx Coronary Artery Disease, Hx Heart Attack, Hx Hypercholesterolemia, Hx Hypertension Pulmonary Medical History: Reports: Hx COPD Renal/ Medical History: Denies: Hx Peritoneal Dialysis Musculoskeltal Medical History: Reports Hx Arthritis - lbp, Reports Hx Gout - neck lbp R knee Psychiatric Medical History: Reports: Hx Bipolar Disorder Infectious Medical History: Reports: Hx MRSA - L knee Past Surgical History: Reports: Hx Cardiac Catheterization, Hx Cholecystectomy, Hx Coronary Stent, Hx Oral Surgery, Hx Orthopedic Surgery - Right Knee, Right Thumb, Hx Tonsillectomy - Immunizations Hx Diphtheria, Pertussis, Tetanus Vaccination: Yes History of Influenza Vaccine for 05/2017 - 10/2017 Season: No Influenza Administration Date for 05/2017 - 10/2017 Season: 05/24/17 Physical Exam - Vital signs Vitals: Temp Pulse Resp BP Pulse Ox 97.8 F 111 H 22 H 115/75 98 09/17/18 10:51 09/17/18 10:51 09/17/18 10:51 09/17/18 10:51 09/17/18 10:51 Course - Vital Signs Vital signs: Temp Pulse Resp BP Pulse Ox 97.8 F 111 H 22 H 115/75 98 09/17/18 10:51 09/17/18 10:51 09/17/18 10:51 09/17/18 10:51 09/17/18 10:51 Doctor's Discharge - Discharge Referrals: CHEMA MARINELLI MD [Primary Care Provider] - Follow up as needed I personally performed the services described in the documentation, reviewed and edited the documentation which was dictated to the scribe in my presence, and it accurately records my words and actions.
[2018-09-17] MEDS ORDERED: MORPHINE SULFATE 10 MG/ML INJ IV ONE (12:45)
[2018-09-17] MEDS ORDERED: HYDROXYZINE PAMOATE 25 MG CAPSULE PO ONE (12:45)
[2018-09-17] MEDS: NORMAL SALINE 1000 ML 1,000 ML IV PRN ×2 (13:12→14:43)
[2018-09-17 15:11] LABS: URINE AMPHETAMINES SCREEN UNCONFIRMED POSITIVE; URINE BARBITURATES SCREEN NEGATIVE; URINE BENZODIAZEPINES SCREEN NEGATIVE; URINE COCAINE SCREEN UNCONFIRMED POSITIVE; URINE MARIJUANA (THC) SCREEN NEGATIVE; URINE METHADONE SCREEN NEGATIVE; URINE PHENCYCLIDINE SCREEN NEGATIVE
[2018-09-17 22:55] VITALS: BP 122/83
--- NOTE | 2018-09-17 22:55 | EKG REPORT ---
SEVERITY:- ABNORMAL ECG - ATRIAL FIBRILLATION, V-RATE 71-129 NONSPECIFIC REPOL ABNORMALITY, LATERAL LEADS PROLONGED QT INTERVAL LEADS V2 AND V3 INTERCHANGED. : Confirmed by: Stacia Woods MD 17-Sep-2018 22:54:30
== END 2018-09-17 17:01 | disposition home or self-care (01) ==
LOC: ER 10:39
DX: R07.89 Other chest pain (principal); R06.02 Shortness of breath; F14.10 Cocaine abuse, uncomplicated; F15.10 Other stimulant abuse, uncomplicated; Z79.01 Long term (current) use of anticoagulants; I50.9 Heart failure, unspecified; I25.10 Atherosclerotic heart disease of native coronary artery without angina pectoris; I11.0 Hypertensive heart disease with heart failure
CPT/HCPCS: 93005; 99285; 96361; 96374; 36415; 82553; 80307 ×2; 82550; 85025; 85610; 80053; 84484; 71045; 93010; J3490; J2270; J7030

== ENCOUNTER 2018-11-07 09:28 | Observation (INO) | payer MEDICAID ==
[2018-11-07] MEDS ORDERED: NITROGLYCERIN 2% OINTMENT 1 GM PACKET TP ONE (10:12)
--- NOTE | 2018-11-07 10:16 | ER Document Report ---
ED Cardiac - General Chief Complaint: Chest Pain Stated Complaint: CHEST PAIN Time Seen by Provider: 11/07/18 10:12 Primary Care Provider: CHEMA MARINELLI MD [Primary Care Provider] - Follow up as needed Information source: Patient Notes: Patient is a 63-year-old male with past medical history of atrial fibrillation on Xarelto, high blood pressure, congestive heart failure, cardiac stent 4 years ago who presents today with the onset 2 days ago of some left-sided nonradiating intermittent "throbbing" chest discomfort. No aggravating or relieving factors. It is not exertional. No calf pain, leg swelling, recent trips or travel. No runny nose, congestion, or cough. Patient states he has had an unremarkable stress test after the patient was having chest discomfort in July, 3 months ago. TRAVEL OUTSIDE OF THE [place] IN LAST 30 DAYS: No - Related Data Allergies/Adverse Reactions: No Known Allergies Allergy (Verified 09/17/18 10:42) Past Medical History - Social History Smoking Status: Never Smoker Family History: Reviewed & Not Pertinent Patient has suicidal ideation: No Patient has homicidal ideation: No - Past Medical History Cardiac Medical History: Reports: Hx Atrial Fibrillation, Hx Congestive Heart Failure, Hx Coronary Artery Disease, Hx Heart Attack, Hx Hypercholesterolemia, Hx Hypertension Pulmonary Medical History: Reports: Hx COPD Renal/ Medical History: Denies: Hx Peritoneal Dialysis Musculoskeletal Medical History: Reports Hx Arthritis - lbp, Reports Hx Gout - neck lbp R knee Psychiatric Medical History: Reports: Hx Bipolar Disorder Infectious Medical History: Reports: Hx MRSA - L knee Past Surgical History: Reports: Hx Cardiac Catheterization, Hx Cholecystectomy, Hx Coronary Stent, Hx Oral Surgery, Hx Orthopedic Surgery - Right Knee, Right Thumb, Hx Tonsillectomy - Immunizations Hx Diphtheria, Pertussis, Tetanus Vaccination: Yes Review of Systems - Review of Systems Constitutional: denies: Fever EENT: denies: Eye discharge, Nose discharge Cardiovascular: denies: Palpitations Respiratory: Short of breath. denies: Hurts to breathe, Hemoptysis Gastrointestinal: denies: Vomiting Genitourinary: denies: Dysuria Musculoskeletal: denies: Leg swelling Skin: Other - no hives. denies: Rash Neurological/Psychological: Other - no slurred speech -: Yes All other systems reviewed and negative Physical Exam - Vital signs Vitals: Temp Pulse Resp BP Pulse Ox 98.3 F 85 18 163/84 H 100 11/07/18 09:40 11/07/18 09:40 11/07/18 09:40 11/07/18 09:40 11/07/18 09:40 Notes: Reviewed vital signs and nursing note as charted by RN. CONSTITUTIONAL: Alert and oriented and responds appropriately to questions. Well-appearing; well-nourished HEAD: Normocephalic; atraumatic EYES: PERRL; Conjunctivae clear, sclerae non-icteric CARD: Irregularly irregular; no murmurs; symmetric distal pulses RESP: Normal chest excursion without splinting or tachypnea; breath sounds clear and equal bilaterally; no wheezes, no rhonchi, no rales ABD/GI: Normal bowel sounds; non-distended; soft, non-tender; no palpable o rganomegaly or masses BACK: The back appears normal and is non-tender to palpation EXT: Normal ROM in all joints; non-tender to palpation; no edema SKIN: No acute lesions noted NEURO: CN 2-12 intact; 5/5 bilateral upper and lower extremity strength with sensation intact to light touch PSYCH: The patient's mood and manner are appropriate. Grooming and personal hygiene are appropriate. Course - Re-evaluation Re-evalutation: 11/07/18 10:15 Given the history and physical examination, we will obtain basic labs, cardiac labs, EKG, and an x-ray of the chest. Patient is not tachycardic or hypoxic. No calf pain or leg swelling. No recent trips or travel. No pleuritic chest discomfort. He is already on Xarelto. I do believe pulmonary embolism to be unlikely. EKG shows a heart of 80, atrial fibrillation, normal axis, no obvious ST elevation or depression, LVH is present. Inverted T waves in leads V3 and V4. Old EKG does not show much appreciable change. 11/07/18 11:00 Initial troponin and labs as otherwise recorded. Elevated BNP. Troponin 0 0.030. Pain is much improved. Blood pressure is still elevated. I will give 5 mg Lopressor. I have consulted cardiology and the patient will be admitted to the hospitalist service with cardiology consultation. - Vital Signs Vital signs: Temp Pulse Resp BP Pulse Ox 98.3 F 85 14 153/126 H 99 11/07/18 09:40 11/07/18 09:40 11/07/18 10:07 11/07/18 10:07 11/07/18 10:07 - Laboratory Result Diagrams: 11/07/18 10:06 11/07/18 10:06 Laboratory results interpreted by me: 11/07/18 11/07/18 11/07/18 10:06 10:06 10:06 Hgb 17.8 H RDW 14.3 H Plt Count 113 L Chloride 97 L BUN 21 H Glucose 173 H Calcium 10.3 H NT-Pro-B Natriuret Pep 1300 H Discharge - Discharge Clinical Impression: Hypertensive urgency Chest pain Qualifiers: Chest pain type: unspecified Qualified Code(s): R07.9 - Chest pain, unspecified Condition: Fair Disposition: ADMITTED OBSERVATION Admitting Provider: Hospitalist Unit Admitted: Telemetry Referrals: CHEMA MARINELLI MD [Primary Care Provider] - Follow up as needed
[2018-11-07 10:21] LABS: ABSOLUTE BASOPHILS # (AUTO) 0.1 10^3/uL (0.0-0.2); ABSOLUTE EOSINOPHILS # (AUTO) 0.1 10^3/uL (0.0-0.6); ABSOLUTE LYMPHOCYTES (AUTO) 2.2 10^3/uL (0.5-4.7); ABSOLUTE MONOCYTES (AUTO) 0.6 10^3/uL (0.1-1.4); ABSOLUTE NEUT (AUTO) 4.6 10^3/uL (1.7-8.2); BASOPHILS % (AUTO) 1.1 % (0-2); EOSINOPHILS % (AUTO) 1.5 % (0-6); HEMATOCRIT 50.6 % (37.9-51.0); HEMOGLOBIN 17.8 g/dL (13.5-17.0); LYMPHOCYTES % (AUTO) 28.3 % (13-45); MEAN CORPUSCULAR HGB CONC 35.1 g/dL (32.0-36.0); MEAN CORPUSCULAR VOLUME 94 fl (80-97); MONOCYTES % (AUTO) 8.3 % (3-13); PLATELET COUNT 113 10^3/uL (150-450); RED BLOOD COUNT 5.38 10^6/uL (4.35-5.55); RED CELL DISTRIBUTION WIDTH 14.3 % (11.5-14.0); SEGMENTED NEUTROPHILS % (AUTO) 60.8 % (42-78); TOTAL CELLS COUNTED % (AUTO) 100 %; WHITE BLOOD COUNT 7.6 10^3/uL (4.0-10.5)
[2018-11-07] MEDS: NITROGLYCERIN 0.4 MG/TAB 25 TAB/BOTTLE SL PRN ×2 (10:30→10:49)
--- NOTE | 2018-11-07 10:36 | RADIOLOGY REPORT (SQ) ---
EXAM DESCRIPTION: CHEST 2 VIEWS COMPLETED DATE/TIME: 11/07/2018 10:27 am REASON FOR STUDY: 4; chest pain COMPARISON: 09/17/2018 EXAM PARAMETERS: NUMBER OF VIEWS: two views TECHNIQUE: Digital Frontal and Lateral radiographic views of the chest acquired. RADIATION DOSE: NA LIMITATIONS: none FINDINGS: LUNGS AND PLEURA: No opacities, masses or pneumothorax. No pleural effusion. MEDIASTINUM AND HILAR STRUCTURES: No masses or contour abnormalities. HEART AND VASCULAR STRUCTURES: Cardiomegaly. BONES: Disc degenerative disease of the thoracic spine. HARDWARE: None in the chest. OTHER: No other significant finding. IMPRESSION: Cardiomegaly without acute abnormality of the lungs. No focal airspace opacity. TECHNICAL DOCUMENTATION: JOB ID: [id number] [employer]- All Rights Reserved Reading location - IP/workstation name: [email or web address]
[2018-11-07 10:40] LABS: ANION GAP 15 (5-19); BLOOD UREA NITROGEN 21 mg/dL (7-20); CALCIUM 10.3 mg/dL (8.4-10.2); CARBON DIOXIDE 28 mmol/L (22-30); CHLORIDE 97 mmol/L (98-107); GLUCOSE 173 mg/dL (75-110); POTASSIUM 3.8 mmol/L (3.6-5.0); SODIUM 139.9 mmol/L (137-145)
[2018-11-07 10:52] LABS: TROPONIN I 0.03 ng/mL
[2018-11-07] MEDS: METOPROLOL TARTRATE PF/INJ 5 MG/5 ML SDV IV ONE ×2 (11:14→11:47)
[2018-11-07] MEDS ORDERED: MORPHINE SULFATE 10 MG/ML INJ IV ONE ×2 (12:11→17:00)
[2018-11-07] MEDS ORDERED: ONDANSETRON HCL INJ/PF 4 MG/2 ML SDV IV PRN (12:12)
--- NOTE | 2018-11-07 12:12 | PDOC H&P ---
History of Present Illness Admission Date/PCP: 11/07/18 11:21 RENE VILLA MD History of Present Illness: MERARY WARNER is a 63 year old male with past medical history of chronic atrial fibrillation, coronary artery disease status post stent placement 4 years ago, history of MS, hypertension, hyperlipidemia and history of CHF presents with chief complaint of chest pain. Current report is he has been in his usual baseline state of health up until 2 days when he started to have chest pain described as "something squeezed my heart". The chest pain is localized to his left side it is nonradiating and is not associated with deep breathing. The chest pain happened at rest. Patient denies any chills fever, cough, palpitation or diaphoresis. He has an episode of nausea but no vomiting. No abdominal pain or change in bowel habits. No urinary complaints. No dizziness blurry of vision or any seizure activity. She reports he had cardiac stress test which was done at Dr. Woods's office about 3 months ago and reportedly it was negative. His first set of cardiac enzymes 0.03. Past Medical History Cardiac Medical History: Reports: Atrial Fibrillation, Congestive Heart Failure, Coronary Artery Disease, Myocardial Infarction, Hyperlipidema, Hypertension Pulmonary Medical History: Reports: Chronic Obstructive Pulmonary Disease (COPD) Musculoskeltal Medical History: Reports: Arthritis - lbp, Gout - neck lbp R knee Psychiatric Medical History: Reports: Bipolar Disorder Infectious Medical History: Reports: Methicillin-Resistant Staph Aureus - L knee Past Surgical History Past Surgical History: Reports: Cardiac Catheterization, Cholecystectomy, Coronary Stent, Orthopedic Surgery - Right Knee, Right Thumb, Tonsillectomy Social History Smoking Status: Never Smoker Frequency of Alcohol Use: None Hx Recreational Drug Use: No Drugs: None Hx Prescription Drug Abuse: No - Advance Directive Resuscitation Status: Full Code Family History Family History: Reviewed & Not Pertinent, CAD, Hypertension Parental Family History Reviewed: Yes Children Family History Reviewed: Yes Sibling(s) Family History Reviewed.: Yes Medication/Allergy Home Medications: Lisinopril [Prinivil 10 mg Tablet] 40 mg PO DAILY 06/23/16 Rivaroxaban [Xarelto 15 mg Tablet] 15 mg PO DAILY #30 tablet 12/17/17 Atorvastatin Calcium [Lipitor 80 mg Tablet] 80 mg PO DAILY 04/12/18 Gabapentin [Neurontin 300 mg Capsule] 600 mg PO QID 04/12/18 Hydralazine HCl [Apresoline 50 mg Tablet] 50 mg PO TID 04/12/18 Lactulose 30 ml PO DAILY 04/12/18 Ranitidine HCl 150 mg PO BID 04/12/18 Tramadol HCl [Ultram 50 mg Tablet] 50 mg PO BID 04/12/18 Furosemide [Lasix 40 mg Tablet] 40 mg PO BID #0 04/14/18 Hydroxyzine Pamoate [Vistaril 25 mg Capsule] 25 mg PO TID PRN #15 capsule 09/17/18 Allergies/Adverse Reactions: No Known Allergies Allergy (Verified 09/17/18 10:42) Review of Systems Constitutional: ABSENT: chills, fever(s), headache(s), weight gain, weight loss Eyes: ABSENT: visual disturbances Ears: ABSENT: hearing changes Cardiovascular: PRESENT: chest pain Respiratory: ABSENT: cough, hemoptysis Gastrointestinal: PRESENT: nausea Genitourinary: ABSENT: dysuria, hematuria Musculoskeletal: ABSENT: joint swelling Integumentary: ABSENT: rash, wounds Neurological: ABSENT: abnormal gait, abnormal speech, confusion, dizziness, focal weakness, syncope Psychiatric: ABSENT: anxiety, depression, homidical ideation, suicidal ideation Endocrine: ABSENT: cold intolerance, heat intolerance, polydipsia, polyuria Hematologic/Lymphatic: ABSENT: easy bleeding, easy bruising Physical Exam Vital Signs: Temp Pulse Resp BP Pulse Ox 98.3 F 85 12 132/88 H 95 11/07/18 09:40 11/07/18 09:40 11/07/18 11:01 11/07/18 11:01 11/07/18 11:01 Intake & Output 11/06/18 11/07/18 11/08/18 06:59 06:59 06:59 Weight 108.8 kg General appearance: PRESENT: no acute distress, well-developed, well-nourished Head exam: PRESENT: atraumatic, normocephalic Eye exam: PRESENT: conjunctiva pink, EOMI, PERRLA. ABSENT: scleral icterus Ear exam: PRESENT: normal external ear exam Mouth exam: PRESENT: moist, tongue midline Neck exam: ABSENT: carotid bruit, JVD, lymphadenopathy, thyromegaly Respiratory exam: PRESENT: clear to auscultation lee. ABSENT: rales, rhonchi, wheezes Cardiovascular exam: PRESENT: RRR. ABSENT: diastolic murmur, rubs, systolic murmur Pulses: PRESENT: normal dorsalis pedis pul Vascular exam: PRESENT: normal capillary refill GI/Abdominal exam: PRESENT: normal bowel sounds, soft. ABSENT: distended, guarding, mass, organolmegaly, rebound, tenderness Rectal exam: PRESENT: deferred Extremities exam: PRESENT: full ROM. ABSENT: calf tenderness, clubbing, pedal edema Neurological exam: PRESENT: alert, awake, oriented to person, oriented to place, oriented to time, oriented to situation, CN II-XII grossly intact. ABSENT: motor sensory deficit Psychiatric exam: PRESENT: appropriate affect, normal mood. ABSENT: homicidal ideation, suicidal ideation Skin exam: PRESENT: dry, intact, warm. ABSENT: cyanosis, rash Results Laboratory Results: 11/07/18 10:06 11/07/18 10:06 11/07/18 11/07/18 10:06 10:06 WBC 7.6 RBC 5.38 Hgb 17.8 H Hct 50.6 MCV 94 MCH 33.0 MCHC 35.1 RDW 14.3 H Plt Count 113 L Seg Neutrophils % 60.8 Lymphocytes % 28.3 Monocytes % 8.3 Eosinophils % 1.5 Basophils % 1.1 Absolute Neutrophils 4.6 Absolute Lymphocytes 2.2 Absolute Monocytes 0.6 Absolute Eosinophils 0.1 Absolute Basophils 0.1 Sodium 139.9 Potassium 3.8 Chloride 97 L Carbon Dioxide 28 Anion Gap 15 BUN 21 H Creatinine 1.19 Est GFR ( Amer) > 60 Est GFR (Non-Af Amer) > 60 Glucose 173 H Calcium 10.3 H 11/07/18 10:06 Troponin I 0.030 NT-Pro-B Natriuret Pep 1300 H Impressions: Chest X-Ray 11/07/18 10:13 IMPRESSION: Cardiomegaly without acute abnormality of the lungs. No focal airspace opacity. Assessment & Plan - Diagnosis (1) Chest pain Qualifiers: Chest pain type: other chest pain Qualified Code(s): R07.89 - Other chest pain; R07.8 - Other chest pain Is this a current diagnosis for this admission?: Yes Plan: We will trend his cardiac enzymes. Cardiac stress test in the morning. We will control his chest pain. (2) Chronic atrial fibrillation Is this a current diagnosis for this admission?: Yes Plan: Rate controlled. Continue his home medication (3) Coronary artery disease Is this a current diagnosis for this admission?: Yes Plan: Status post stent placement. Continue his home cardiac protective medications. (4) Hyperlipidemia Qualifiers: Hyperlipidemia type: unspecified Qualified Code(s): E78.5 - Hyperlipidemia, unspecified Is this a current diagnosis for this admission?: Yes Plan: Continue his home medication (5) Hx of systolic congestive heart failure Is this a current diagnosis for this admission?: Yes Plan: Compensated. Continue home medications. (6) Bipolar disorder Is this a current diagnosis for this admission?: Yes Plan: In remission
[2018-11-07] MEDS: ENOXAPARIN SODIUM INJ 40 MG/0.4 ML DISP.SYRIN SUBCUT SCH (13:04)
--- NOTE | 2018-11-07 13:23 | PDOC CONSULTATION ---
Consultation Consult Date: 11/07/18 Consult reason:: chest pain History of Present Illness Admission Date/PCP: 11/07/18 11:21 RENE VILLA MD History of Present Illness: MERARY WARNER is a 63 year old male With past medical history of CAD status post PCI few years ago, paroxysmal atrial fibrillation on anticoagulation, hypertension comes in with complaints of midsternal chest pain/twisting sensation which he has had on and off for the last few days. He also reports shortness of breath on exertion but none at rest. He has been on chronic anticoagulation and denies any bleeding per rectum or black stools. He denies any palpitations or dizziness or any passing out episodes. He denies any active cigarette smoking or alcohol abuse. He claims that he quit alcohol intake few years ago. He is single and lives by himself. He claims that his mother had some heart disease. He follows with Dr. Woods as an outpatient and had a stress test in July 2018 per patient which was negative. He denies having ever had any cardioversion for his atrial fibrillation. He admits to having sleep apnea but claims that he has not been using his CPAP for many years. Past Medical History Cardiac Medical History: Reports: Atrial Fibrillation, Congestive Heart Failure, Coronary Artery Disease, Myocardial Infarction, Hyperlipidema, Hypertension Musculoskeltal Medical History: Reports: Arthritis - lbp, Gout - neck lbp R knee Psychiatric Medical History: Reports: Bipolar Disorder Infectious Medical History: Reports: Methicillin-Resistant Staph Aureus - L knee Past Surgical History Past Surgical History: Reports: Cardiac Catheterization, Cholecystectomy, Coronary Stent, Orthopedic Surgery - Right Knee, Right Thumb, Tonsillectomy Social History Smoking Status: Never Smoker Frequency of Alcohol Use: None Hx Recreational Drug Use: No Drugs: None Hx Prescription Drug Abuse: No - Advance Directive Resuscitation Status: Full Code Family History Family History: Reviewed & Not Pertinent, CAD, Hypertension Parental Family History Reviewed: Yes Children Family History Reviewed: No Sibling(s) Family History Reviewed.: Yes Medication/Allergy Home Medications: Rivaroxaban [Xarelto 15 mg Tablet] 15 mg PO DAILY #30 tablet 12/17/17 Atorvastatin Calcium [Lipitor 80 mg Tablet] 80 mg PO DAILY 04/12/18 Gabapentin [Neurontin 300 mg Capsule] 600 mg PO QID 04/12/18 Hydralazine HCl [Apresoline 50 mg Tablet] 50 mg PO TID 04/12/18 Ranitidine HCl 150 mg PO BID 04/12/18 Buspirone HCl [Buspar 10 mg Tablet] 10 mg PO BID 11/07/18 Furosemide [Lasix 40 mg Tablet] 40 mg PO DAILY 11/07/18 Lisinopril [Prinivil 40 mg Tablet] 40 mg PO BID 11/07/18 Allergies/Adverse Reactions: No Known Allergies Allergy (Verified 09/17/18 10:42) Review of Systems Cardiovascular: PRESENT: chest pain, dyspnea on exertion Physical Exam Vital Signs: Temp Pulse Resp BP Pulse Ox 98.3 F 85 12 152/106 H 96 11/07/18 09:40 11/07/18 09:40 11/07/18 11:31 11/07/18 12:46 11/07/18 12:46 Intake & Output 11/06/18 11/07/18 11/08/18 06:59 06:59 06:59 Weight 108.8 kg General appearance: PRESENT: no acute distress Head exam: PRESENT: atraumatic, normocephalic Neck exam: PRESENT: full ROM Respiratory exam: PRESENT: clear to auscultation lee Cardiovascular exam: PRESENT: irregular rhythm Pulses: PRESENT: normal radial pulses, normal dorsalis pedis pul GI/Abdominal exam: PRESENT: soft Neurological exam: PRESENT: alert, altered, awake, oriented to person, oriented to place, oriented to time, oriented to situation, CN II-XII grossly intact Results Laboratory Results: 11/07/18 10:06 11/07/18 10:06 11/07/18 11/07/18 10:06 10:06 WBC 7.6 RBC 5.38 Hgb 17.8 H Hct 50.6 MCV 94 MCH 33.0 MCHC 35.1 RDW 14.3 H Plt Count 113 L Seg Neutrophils % 60.8 Lymphocytes % 28.3 Monocytes % 8.3 Eosinophils % 1.5 Basophils % 1.1 Absolute Neutrophils 4.6 Absolute Lymphocytes 2.2 Absolute Monocytes 0.6 Absolute Eosinophils 0.1 Absolute Basophils 0.1 Sodium 139.9 Potassium 3.8 Chloride 97 L Carbon Dioxide 28 Anion Gap 15 BUN 21 H Creatinine 1.19 Est GFR ( Amer) > 60 Est GFR (Non-Af Amer) > 60 Glucose 173 H Calcium 10.3 H 11/07/18 10:06 Troponin I 0.030 NT-Pro-B Natriuret Pep 1300 H Impressions: Chest X-Ray 11/07/18 10:13 IMPRESSION: Cardiomegaly without acute abnormality of the lungs. No focal airspace opacity. Assessment & Plan - Diagnosis (1) Chest pain Qualifiers: Chest pain type: unspecified Qualified Code(s): R07.9 - Chest pain, unspecified Is this a current diagnosis for this admission?: Yes (2) Chronic atrial fibrillation Is this a current diagnosis for this admission?: Yes (3) Coronary artery disease Is this a current diagnosis for this admission?: Yes (5) Hyperlipidemia Qualifiers: Hyperlipidemia type: unspecified Qualified Code(s): E78.5 - Hyperlipidemia, unspecified Is this a current diagnosis for this admission?: Yes - Notes Notes: Reviewed EKG, labs and imaging test. Patient with known history of CAD and atrial fibrillation presents with chest pain/pressure in setting of uncontrolled hypertension. Initial cardiac biomarkers negative for acute coronary syndrome but proBNP is elevated. Agree with inpatient admission and recommend serial cardiac enzymes and a transthoracic echocardiogram of no recent echocardiogram done in the last few months. Recommend beta-fany therapy for rate control and continued statin therapy for risk factor reduction. Continue anticoagulation with Xarelto for now. Dr. Woods will assume care of patient from tomorrow for his cardiology needs and will decide further management depending upon his serial enzymes and clinical course in the hospital. Patient urged to resume using his CPAP therapy for management of his sleep apnea and also was to try and lose weight. Discussed risk/benefits of anticoagulation with patient. He will also benefit from diuretic therapy in view of his elevated proBNP and likely diastolic dysfunction. - Time Time Spent: 50 to 70 Minutes
[2018-11-07] MEDS ORDERED: METOPROLOL TARTRATE 100 MG TABLET PO ONE (14:00)
[2018-11-07] MEDS ORDERED: HYDRALAZINE HCL 50 MG TABLET PO ONE (14:00)
[2018-11-07] MEDS: OXYCODONE-ACETAMINOPHEN 5-325 MG TABLET PO PRN ×2 (14:29→19:42)
--- NOTE | 2018-11-07 16:36 | EKG REPORT ---
SEVERITY:- ABNORMAL ECG - ATRIAL FIBRILLATION : Confirmed by: Elijah Adams MD 07-Nov-2018 16:36:05
[2018-11-07] MEDS: METOPROLOL TARTRATE 50 MG TABLET PO SCH (21:20)
[2018-11-07] MEDS: FAMOTIDINE 20 MG TABLET PO SCH (21:20)
[2018-11-07] MEDS: HYDRALAZINE HCL 50 MG TABLET PO SCH (21:20)
[2018-11-08 04:30] LABS: ANION GAP 10 (5-19); BLOOD UREA NITROGEN 26 mg/dL (7-20); CALCIUM 9.3 mg/dL (8.4-10.2); CARBON DIOXIDE 26 mmol/L (22-30); CHLORIDE 99 mmol/L (98-107); GLUCOSE 126 mg/dL (75-110); POTASSIUM 3.7 mmol/L (3.6-5.0); SODIUM 135.3 mmol/L (137-145)
[2018-11-08] MEDS: HYDRALAZINE HCL 50 MG TABLET PO SCH (06:12)
[2018-11-08] MEDS: OXYCODONE-ACETAMINOPHEN 5-325 MG TABLET PO PRN ×2 (06:12→10:29)
[2018-11-08] MEDS: FAMOTIDINE 20 MG TABLET PO SCH (10:29)
[2018-11-08] MEDS: ENOXAPARIN SODIUM INJ 40 MG/0.4 ML DISP.SYRIN SUBCUT SCH ×2 (10:30→10:33)
[2018-11-08] MEDS: METOPROLOL TARTRATE 50 MG TABLET PO SCH (10:30)
[2018-11-08 12:33] VITALS: BP 127/87
--- NOTE | 2018-11-08 23:37 | Progress Note ---
Provider Note Provider Note: CARDIOLOGY PROGRESS NOTE by Dr. Stacia Nava on 11/08/2018. SUBJECTIVE: Patient well-known to me, has a long history of noncardiac chest pain. He still has some mild discomfort in the left front of the chest which is reproduced by pressing on the chest. The patient has no clear-cut anginal symptoms. His stress test in July 2018 was negative for ischemia or scar. The patient denies any shortness of breath at present. There is no PND orthopnea. The patient states that since he had the stent put in he has had musculoskeletal pain in the left front of the chest. It is relieved with Toradol and not nitroglycerin. There is no leg edema. There is no palpitations. There is no syncope or near syncope. There is no TIA CVA symptoms. There is no recurrence of atrial fibrillation. There is no ventricular arrhythmias on the monitor. PHYSICAL EXAMINATION: The patient is mildly obese. At present in no acute distress. He is well-groomed. Selected Entries 11/08/18 08:02 Temperature 97.4 F Temperature Oral Source Pulse Rate 73 Respiratory 15 Rate Blood Pressure 140/90 H Blood Pressure 106 Mean BP Location Left Arm BP Position Supine O2 Sat by Pulse 97 Oximetry Oxygen Delivery Room Air Method HEAD: Head is atraumatic normocephalic. Eyes: Pupils are equal round regular reactive light accommodation extraocular movements are normal there is no congenital pallor there is no scleral icterus. Ears: External auditory canals are clear, there are no lesions of the pinna. Nose: No deviated nasal septum and no inflammation of the nasal mucous membrane. Mouth: Mucous membranes of mouth are moist tongue is moist there is no ulcers there is no bleeding from the gums. Throat: There is no redness of the oropharynx there is no exudates. Skin: There is no petechia or ecchymosis there is no skin lesions or skin rashes. Neck: Neck is supple there is no JVD carotids equal there is no bruit there is no lymphadenopathy there is no neck stiffness. There is no goiter trachea central lungs: Lungs are clear to auscultation percussion there is no accessory muscles of respiration in use. There is no rhonchi rales or wheezing. There is no chest wall tenderness. HEART: S1-S2 is heard there is no S3 gallop there is no S4 gallop S1 is of normal intensity. There is no rub. The systolic murmur in the left sternal border and apex without radiation. Abdomen: Abdomen is soft nontender there is no paraspinal megaly bowel sounds well heard there is no tender areas of masses. There is no rebound guarding or rigidity. Extremities: Femorals are well felt there is no femoral bruits neck pulses are well felt there is no pedal edema there is no DVT or cellulitis there is no cyanosis or clubbing there is no DVT or cellulitis. There is no calf tenderness. QUALIFICATIONS EXAMINER: The patient is awake alert oriented 3 with no focal deficits. Psychiatric: The patient judgment and insight are intact and her affect is normal. Labs- Entire Visit 11/07/18 11/07/18 11/07/18 10:06 10:06 10:06 WBC 7.6 RBC 5.38 Hgb 17.8 H Hct 50.6 MCV 94 MCH 33.0 MCHC 35.1 RDW 14.3 H Plt Count 113 L Seg Neutrophils % 60.8 Lymphocytes % 28.3 Monocytes % 8.3 Eosinophils % 1.5 Basophils % 1.1 Absolute Neutrophils 4.6 Absolute Lymphocytes 2.2 Absolute Monocytes 0.6 Absolute Eosinophils 0.1 Absolute Basophils 0.1 Sodium 139.9 Potassium 3.8 Chloride 97 L Carbon Dioxide 28 Anion Gap 15 BUN 21 H Creatinine 1.19 Est GFR ( Amer) > 60 Est GFR (Non-Af Amer) > 60 Glucose 173 H Calcium 10.3 H Troponin I 0.030 NT-Pro-B Natriuret Pep 1300 H 11/08/18 11/08/18 11/08/18 04:01 04:01 10:55 WBC RBC Hgb Hct MCV MCH MCHC RDW Plt Count Seg Neutrophils % Lymphocytes % Monocytes % Eosinophils % Basophils % Absolute Neutrophils Absolute Lymphocytes Absolute Monocytes Absolute Eosinophils Absolute Basophils Sodium 135.3 L Potassium 3.7 Chloride 99 Carbon Dioxide 26 Anion Gap 10 BUN 26 H Creatinine 1.31 H Est GFR ( Amer) > 60 Est GFR (Non-Af Amer) 55 L Glucose 126 H Calcium 9.3 Troponin I 0.027 0.019 NT-Pro-B Natriuret Pep Chest X-Ray 11/07/18 10:13 IMPRESSION: Cardiomegaly without acute abnormality of the lungs. No focal airspace opacity. IMPRESSION/RECOMMENDATION: 1. Chest pain: Negative for RI this admission. Chest pain is noncardiac. Hence would discharge patient home, to follow-up in the office. 2. Coronary artery disease. History of prior stent in the coronary artery. No clear-cut anginal symptoms. 3. Paroxysmal atrial fibrillation: No recurrence 4. Hypertension: Blood pressure well controlled 5. Chronic pain syndrome: Continue Toradol as needed. Will later as an outpatient referral to pain management. Medications reviewed management plan discussed with the patient with the att ending physician on the case. Patient cardiac status is stable. We will recommend discharge patient home. We will follow the patient in the office. We will cancel the patient's stress test since the patient did have a negative IV Lexiscan cardiac stress test in July 2018. Note medical decision making is of moderate complexity. More 40 minutes spent on this patient more 50% of time spent in direct patient care. Patient is a full code. His daughter is his surrogate healthcare decision maker. We will follow the patient in the office. Will sign off.
--- NOTE | 2018-11-09 13:48 | PDOC DISCHARGE SUMMARY ---
General - Admit/Disc Date/PCP Admission Date/Primary Care Provider: 11/07/18 11:21 RENE VILLA MD Discharge Date: 11/08/18 - Discharge Diagnosis (1) Chest pain Is this a current diagnosis for this admission?: Yes Summary: Patient presented with atypical chest pain; likely chest wall as pain increased with movements and was reporducable on exam. Chest xray revealed cardiomegaly without acute findings. EKG demonstrated atrial fibrillation without ST segment changes. proBNP 1300; no evidence of CHF exacerbation Troponins were negative x3 Patient had a negative stress test and echocardiogram completed at Dr. Villareal's office in July. Spoke with Dr. Villareal; advises to discharge patient home on current medication regiment with outpatient follow up. At time of discharge, patient is in stable condition and asymptomatic. He is discharged to home with a prescription for tramadol and instructions to resume his home medication regiment. He is advised to follow up with his PCP within 1 week and with his customer project manager, Dr. Villareal, within 2-4 weeks or sooner as needed. He encouraged to return to the emergency department as needed for concerning symptoms. (2) Chronic atrial fibrillation Is this a current diagnosis for this admission?: Yes Summary: Rate controlled. Continue Xarelto for chronic anticoagulation. Recommend follow up with established customer project manager, Dr. Villareal, within 2-4 weeks. (3) Coronary artery disease Is this a current diagnosis for this admission?: Yes Summary: Continue Xarelto, atorvastating, [place]-3 Dietary and lifestyle modifications encouraged. May benefit from overnight sleep study to assess for STEVEN (4) Hyperlipidemia Is this a current diagnosis for this admission?: Yes Summary: Continue cardiac diet, atorvastatin, and [place]-3 - Additional Information Resuscitation Status: Full Code Discharge Diet: Cardiac Discharge Activity: Activity As Tolerated, Balance Activity w/Rest, Slowly Increase Activity, Weigh Daily Prescriptions: Tramadol HCl [Ultram] 1 - 2 tab PO Q6HP PRN #20 tablet PRN Reason: Home Medications: Rivaroxaban [Xarelto 15 mg Tablet] 15 mg PO DAILY #30 tablet 12/17/17 Atorvastatin Calcium [Lipitor 80 mg Tablet] 80 mg PO DAILY 04/12/18 Gabapentin [Neurontin 300 mg Capsule] 600 mg PO QID 04/12/18 Hydralazine HCl [Apresoline 50 mg Tablet] 50 mg PO TID 04/12/18 Ranitidine HCl 150 mg PO BID 04/12/18 Aspirin/Acetaminophen/Caffeine [Excedrin Extra Strength Caplet] 1 tab PO BIDP PRN 11/07/18 Buspirone HCl [Buspar 10 mg Tablet] 10 mg PO BID 11/07/18 Furosemide [Lasix 40 mg Tablet] 40 mg PO DAILY 11/07/18 Krill/Om-3/Dha/Epa/Phospho/Ast [Megared [place]-3 Krill Oil Sfgl] 1 cap PO DAILY 11/07/18 Lisinopril [Prinivil 40 mg Tablet] 40 mg PO BID 11/07/18 Tramadol HCl [Ultram] 1 - 2 tab PO Q6HP PRN #20 tablet 11/08/18 History of Present Illness History of Present Illness: Per H&P by Dr. Mark: MERARY WARNER is a 63 year old male with past medical history of chronic atrial fibrillation, coronary artery disease status post stent placement 4 years ago, history of VA, hypertension, hyperlipidemia and history of CHF presents with chief complaint of chest pain. Current report is he has been in his usual baseline state of health up until 2 days when he started to have chest pain described as "something squeezed my heart". The chest pain is localized to his left side it is nonradiating and is not associated with deep breathing. The chest pain happened at rest. Patient denies any chills fever, cough, palpitation or diaphoresis. He has an episode of nausea but no vomiting. No abdominal pain or change in bowel habits. No urinary complaints. No dizziness blurry of vision or any seizure activity. She reports he had cardiac stress test which was done at Dr. Woods's office about 3 months ago and reportedly it was negative. His first set of cardiac enzymes 0.03. Physical Exam Vital Signs: Temp Pulse Resp BP Pulse Ox 97.4 F 73 15 144/99 H 97 11/08/18 12:23 11/08/18 12:23 11/08/18 12:23 11/08/18 12:23 11/08/18 12:23 Intake & Output 11/08/18 11/09/18 11/10/18 06:59 06:59 06:59 Intake Total 744 Balance 744 Weight 109.6 kg General appearance: PRESENT: no acute distress, well-developed, well-nourished - overweight Head exam: PRESENT: atraumatic, normocephalic Eye exam: PRESENT: conjunctiva pink, EOMI, PERRLA. ABSENT: scleral icterus Ear exam: PRESENT: normal external ear exam Mouth exam: PRESENT: moist, tongue midline Neck exam: ABSENT: carotid bruit, JVD, lymphadenopathy, thyromegaly Respiratory exam: PRESENT: clear to auscultation lee. ABSENT: rales, rhonchi, wheezes Cardiovascular exam: PRESENT: irregular rhythm, +S1, +S2. ABSENT: diastolic murmur, rubs, systolic murmur Pulses: PRESENT: normal dorsalis pedis pul Vascular exam: PRESENT: normal capillary refill GI/Abdominal exam: PRESENT: normal bowel sounds, soft. ABSENT: distended, guarding, mass, organolmegaly, rebound, tenderness Rectal exam: PRESENT: deferred Extremities exam: PRESENT: full ROM. ABSENT: calf tenderness, clubbing, pedal edema Neurological exam: PRESENT: alert, awake, oriented to person, oriented to place, oriented to time, oriented to situation, CN II-XII grossly intact. ABSENT: motor sensory deficit Psychiatric exam: PRESENT: appropriate affect, normal mood. ABSENT: homicidal ideation, suicidal ideation Skin exam: PRESENT: dry, intact, warm. ABSENT: cyanosis, rash Results Laboratory Results: 11/07/18 10:06 11/08/18 04:01 11/07/18 11/08/18 11/08/18 10:06 04:01 10:55 Troponin I 0.030 0.027 0.019 NT-Pro-B Natriuret Pep 1300 H Impressions: Chest X-Ray 11/07/18 10:13 IMPRESSION: Cardiomegaly without acute abnormality of the lungs. No focal airspace opacity. Qualifiers - * PATIENT BEING DISCHARGED WITH ANY OF THE FOLLOWING DIAGNOSIS: No, Heart Failure HF Pt being discharged on ACEI for LVEF less than 40%?: Yes HF Pt being discharged on ARBS for LVEF less than 40%?: No Reason(s) for not prescribing ARBS:: Not indicated - on MITZI HF Pt with Afib discharged with Warfarin?: No Reason(s) for not prescribing Warfarin:: Medical Contraindication - On Xarelto HF Pt discharged on evidence-based Beta Alba:: No Reason(s) for not prescribing evidence-based Beta Alba:: Not indicated Plan Discharge Plan: Discharge to home. Follow up with PCP within 1 week. Follow up with Dr. Villareal as scheduled, or sooner as needed. Return to the Emergency Department as needed for concerning symptoms. Time Spent: Less than 30 Minutes
== END 2018-11-08 13:10 | disposition home or self-care (01) ==
LOC: ER 09:28 → EH 11:21 → 5 14:00
PROVIDERS: ADMIT Internal Medicine; ATTEND Internal Medicine
DX: R07.89 Other chest pain (principal); I48.2 Chronic atrial fibrillation; I25.10 Atherosclerotic heart disease of native coronary artery without angina pectoris; E78.5 Hyperlipidemia, unspecified; I11.0 Hypertensive heart disease with heart failure; I50.20 Unspecified systolic (congestive) heart failure; I16.0 Hypertensive urgency; R06.02 Shortness of breath; G47.30 Sleep apnea, unspecified; F31.70 Bipolar disorder, currently in remission, most recent episode unspecified; R11.0 Nausea; E66.9 Obesity, unspecified; R01.1 Cardiac murmur, unspecified; G89.4 Chronic pain syndrome; I25.2 Old myocardial infarction; Z79.01 Long term (current) use of anticoagulants; Z90.49 Acquired absence of other specified parts of digestive tract; Z95.5 Presence of coronary angioplasty implant and graft; Z79.899 Other long term (current) drug therapy; Z79.82 Long term (current) use of aspirin; Z82.49 Family history of ischemic heart disease and other diseases of the circulatory system
CPT/HCPCS: 93005; 99285; 96374; 96375; 36415 ×2; 85025; 80048 ×2; 84484 ×2; 83880; 71046; 93010; J3490 ×10; J2270; G0378; J1650

== ENCOUNTER 2018-11-18 00:29 | Emergency (ER) | payer MEDICAID ==
[2018-11-18 01:01] VITALS: BP 176/101
--- NOTE | 2018-11-18 02:35 | ER Document Report ---
ED Substance Abuse / Acc. OD - General Chief Complaint: Drug Abuse Stated Complaint: WITHDRAWALS/LEG CRAMPING Time Seen by Provider: 11/18/18 01:38 Primary Care Provider: RENE VILLA MD [Primary Care Provider] - Follow up as needed Mode of Arrival: Ambulatory Information source: Patient Notes: Patient said he is withdrawing from cocaine. The last time he abused cocaine was 6 days ago. He said today he started having cramps on both feet. And he thinks is because he has not taking cocaine in the past 6 days. He denies any chest pain, shortness of breath, abdominal pain, nausea or vomiting. TRAVEL OUTSIDE OF THE [place] IN LAST 30 DAYS: No - HPI Patient complains to provider of: Drug abuse - Cocaine Onset: Last week Onset/Duration: Sudden Quality of pain: Cramping Severity: Mild Pain Level: 1 Associated Symptoms: Other - Bilateral foot cramping Similar symptoms previously: No Recently seen / treated by doctor: No - Related Data Allergies/Adverse Reactions: No Known Allergies Allergy (Verified 09/17/18 10:42) Past Medical History - Social History Smoking Status: Unknown if Ever Smoked Family History: Reviewed & Not Pertinent, CAD, Hypertension - Past Medical History Cardiac Medical History: Reports: Hx Atrial Fibrillation, Hx Congestive Heart Failure, Hx Coronary Artery Disease, Hx Heart Attack, Hx Hypercholesterolemia, Hx Hypertension Pulmonary Medical History: Reports: Hx COPD Renal/ Medical History: Denies: Hx Peritoneal Dialysis Musculoskeletal Medical History: Reports Hx Arthritis - lbp, Reports Hx Gout - neck lbp R knee Psychiatric Medical History: Reports: Hx Bipolar Disorder, Hx Depression Infectious Medical History: Reports: Hx MRSA - L knee Past Surgical History: Reports: Hx Cardiac Catheterization, Hx Cholecystectomy, Hx Coronary Stent, Hx Oral Surgery, Hx Orthopedic Surgery - Right Knee, Right Thumb, Hx Tonsillectomy - Immunizations Hx Diphtheria, Pertussis, Tetanus Vaccination: Yes Review of Systems - Review of Systems Constitutional: No symptoms reported EENT: No symptoms reported Cardiovascular: No symptoms reported Respiratory: No symptoms reported Gastrointestinal: No symptoms reported Genitourinary: No symptoms reported Male Genitourinary: No symptoms reported Musculoskeletal: Other - Bilateral foot cramping. Skin: No symptoms reported Hematologic/Lymphatic: No symptoms reported Neurological/Psychological: No symptoms reported -: Yes All other systems reviewed and negative Physical Exam - Vital signs Vitals: Temp Resp BP Pulse Ox 97.7 F 20 176/101 H 96 11/18/18 01:00 11/18/18 01:00 11/18/18 01:00 11/18/18 01:00 Interpretation: Normal - General General appearance: Appears well, Alert - HEENT Head: Normocephalic, Atraumatic Eyes: Normal Pupils: PERRL - Respiratory Respiratory status: No respiratory distress Chest status: Nontender Breath sounds: Normal Chest palpation: Normal - Cardiovascular Rhythm: Regular Heart sounds: Normal auscultation Murmur: No - Abdominal Inspection: Normal Distension: No distension Bowel sounds: Normal Tenderness: Nontender Organomegaly: No organomegaly - Back Back: Normal, Nontender - Extremities General upper extremity: Normal inspection, Nontender, Normal color, Normal ROM, Normal temperature General lower extremity: Normal inspection, Nontender, Normal color, Normal ROM, Normal temperature, Normal weight bearing. No: Riddhi's sign - Neurological Neuro grossly intact: Yes Cognition: Normal Orientation: AAOx4 [place] Coma Scale Eye Opening: Spontaneous [place] Coma Scale Verbal: Oriented [place] Coma Scale Motor: Obeys Commands [place] Coma Scale Total: 15 Speech: Normal Motor strength normal: LUE, RUE, LLE, RLE Sensory: Normal - Psychological Associated symptoms: Normal affect, Normal mood - Skin Skin Temperature: Warm Skin Moisture: Dry Skin Color: Normal Course - Vital Signs Vital signs: Temp Pulse Resp BP Pulse Ox 97.7 F 20 176/101 H 96 11/18/18 01:00 11/18/18 01:00 11/18/18 01:00 11/18/18 01:00 Discharge - Discharge Clinical Impression: Cocaine abuse, Foot cramps Condition: Stable Disposition: ELOPED Referrals: RENE VILLA MD [Primary Care Provider] - Follow up as needed
== END 2018-11-18 02:30 | disposition left against medical advice (07) ==
LOC: ER 00:29
DX: F14.10 Cocaine abuse, uncomplicated (principal); R25.2 Cramp and spasm; I50.9 Heart failure, unspecified; I25.10 Atherosclerotic heart disease of native coronary artery without angina pectoris; I11.0 Hypertensive heart disease with heart failure; J44.9 Chronic obstructive pulmonary disease, unspecified
CPT/HCPCS: 99281

== ENCOUNTER 2018-12-11 07:25 | Emergency (ER) | payer MEDICAID, OTHER ==
[2018-12-11] MEDS ORDERED: LIDOCAINE 1% INJ (10 MG/ML) 10 ML MDV ONE (09:15)
[2018-12-11] MEDS ORDERED: BUPIVACAINE HCL 0.5 % INJ/PF 30 ML SDV INJ ONE (09:20)
[2018-12-11] MEDS ORDERED: LIDOCAINE 1% INJ (10 MG/ML) 10 ML MDV INJ ONE (09:20)
[2018-12-11] MEDS ORDERED: ERYTHROMYCIN 0.5% OPH OINTMENT 3.5 GM TUBE OU ONE (09:43)
[2018-12-11 10:24] VITALS: BP 154/98
--- NOTE | 2018-12-11 15:02 | ER Document Report ---
Entered by MELANIE ACUÑA SCRIBE 12/11/18 0849 Acting as scribe for:SEGUNDO DELGADO DO ED Oral Problem - General Chief Complaint: Toothache Stated Complaint: TOOTH PAIN Time Seen by Provider: 12/11/18 08:40 Primary Care Provider: RENE VILLA MD [Primary Care Provider] - Follow up as needed Mode of Arrival: Ambulatory Information source: Patient Notes: 63-year-old male who presents to the emergency department today with complaints of bilateral eye redness/itchiness as well as dental pain. Patient states he has been unable to sleep for the last x2 days due to his eyes itching and his tooth hurting. Patient states that he noticed this fractured tooth when looking in the mirror x3 days ago after eating. Patient states he did not have any pain while eating and would not have known he fractured his tooth had he not looked in the mirror. Patient states that he has used Visine with no change. Patient states he has not had symptoms like this in the past. Patient states he is not aware of any season allergies that he may have. Patient states his vision has been slightly blurry but denies any injury to his eyes or sensation that there is a foreign body. TRAVEL OUTSIDE OF THE [place] IN LAST 30 DAYS: No - Related Data Allergies/Adverse Reactions: No Known Allergies Allergy (Verified 12/11/18 07:27) Past Medical History - General Information source: Patient, [facility] Records - Social History Smoking Status: Current Every Day Smoker Cigarette use (# per day): No - VAPE Lives with: Family Family History: Reviewed & Not Pertinent, CAD, Hypertension - Past Medical History Cardiac Medical History: Reports: Hx Atrial Fibrillation, Hx Congestive Heart Failure, Hx Coronary Artery Disease, Hx Heart Attack, Hx Hypercholesterolemia, Hx Hypertension Pulmonary Medical History: Reports: Hx COPD Musculoskeletal Medical History: Reports Hx Arthritis - lbp, Reports Hx Gout - neck lbp R knee Psychiatric Medical History: Reports: Hx Bipolar Disorder, Hx Depression Infectious Medical History: Reports: Hx MRSA - L knee Past Surgical History: Reports: Hx Cardiac Catheterization, Hx Cholecystectomy, Hx Coronary Stent, Hx Oral Surgery, Hx Orthopedic Surgery - Right Knee, Right Thumb, Hx Tonsillectomy - Immunizations Hx Diphtheria, Pertussis, Tetanus Vaccination: Yes Review of Systems - Review of Systems Constitutional: No symptoms reported EENT: See HPI, Eye pain, Eye discharge, Blurred vision, Mouth pain, Dental problem Cardiovascular: No symptoms reported Respiratory: No symptoms reported Gastrointestinal: No symptoms reported Genitourinary: No symptoms reported Male Genitourinary: No symptoms reported Musculoskeletal: No symptoms reported Skin: No symptoms reported Hematologic/Lymphatic: No symptoms reported Neurological/Psychological: No symptoms reported -: Yes All other systems reviewed and negative Physical Exam - Vital signs Vitals: Temp Pulse Resp BP Pulse Ox 98.9 F 84 20 149/107 H 98 12/11/18 07:40 12/11/18 07:40 12/11/18 07:40 12/11/18 07:40 12/11/18 07:40 - Notes Notes: PHYSICAL EXAM GENERAL: Alert, interacts well. No acute distress. HEAD: Normocephalic, atraumatic. EYES: Pupils equal, round, and reactive to light. Extraocular movements intact. Scleral injection bilaterally. Small amount of thick discharge from bilateral eyes when putting in tetracaine. No fluorescein uptake in either eye. No foreign body in either eye. No cell and flare in the anterior chambers. DENTAL: Tooth #10 is fractured. The stump of the tooth is yellow in color and dull, does not appear to be a newly fractured tooth. There is mild tenderness to palpation of this tooth. There is no swelling, erythema, or abscess formation. ENT: Oral mucosa moist, tongue midline. NECK: Full range of motion. Supple. Trachea midline. LUNGS: No respiratory distress. EXTREMITIES: Moves all 4 extremities spontaneously. NEUROLOGICAL: Alert and oriented x3. Normal speech. PSYCH: Normal affect, normal mood. SKIN: Warm, dry, normal turgor. No rashes or lesions noted. Course - Re-evaluation Re-evalutation: 12/11/18 09:40 Eye exam consistent with EKC, will treat with erythromycin ointment just in case this is bacterial. No evidence of foreign body or abrasion. Patient will also be given daily antihistamine in the form of Claritin to treat any component of this that might be allergic. Tooth has been blocked. Discharged home. - Vital Signs Vital signs: Temp Pulse Resp BP Pulse Ox 98 F 73 18 154/98 H 98 12/11/18 10:23 12/11/18 10:23 12/11/18 10:23 12/11/18 10:23 12/11/18 10:23 Discharge - Discharge Clinical Impression: EKC (epidemic keratoconjunctivitis) Broken tooth Qualifiers: Encounter type: initial encounter Fracture type: closed Qualified Code(s): S02.5XXA - Fracture of tooth (traumatic), initial encounter for closed fracture Condition: Stable Disposition: HOME, SELF-CARE Additional Instructions: Conjunctivitis You have an infection in your eye, commonly known as "pink eye." Conjunctivitis causes redness, mild discomfort, itching, and mattering on the eyelids. It is very contagious, so you must be careful to wash your hands after touching your face so you don't pass the infection on to others. Conjunctivitis is caused by both viruses and bacteria. It usually responds quickly to treatment with antibiotic drops. These should be placed in the eye as prescribed (usually every three to four hours while you're awake). If you wear contact lenses, don't put them in your eyes until the infection is cleared and you are no longer using the drops (unless your doctor advises you otherwise). Should you develop increasing eye pain, severe swelling, decreased vision, or fail to improve as expected, please return for re-examination. Apply the ointment to your eyes 3 times a day for the next 5 days. Please see a dentist for your tooth. Prescriptions: Loratadine [Claritin] 10 mg PO DAILY #30 tablet Referrals: RENE VILLA MD [Primary Care Provider] - Follow up as needed I personally performed the services described in the documentation, reviewed and edited the documentation which was dictated to the scribe in my presence, and it accurately records my words and actions.
== END 2018-12-11 10:23 | disposition home or self-care (01) ==
LOC: ER 07:25
DX: B30.0 Keratoconjunctivitis due to adenovirus (principal); S02.5XXA Fracture of tooth (traumatic), initial encounter for closed fracture; X58.XXXA Exposure to other specified factors, initial encounter; K08.9 Disorder of teeth and supporting structures, unspecified; F17.200 Nicotine dependence, unspecified, uncomplicated; I48.91 Unspecified atrial fibrillation; I50.9 Heart failure, unspecified; I11.0 Hypertensive heart disease with heart failure; I25.10 Atherosclerotic heart disease of native coronary artery without angina pectoris; E78.00 Pure hypercholesterolemia, unspecified; I25.2 Old myocardial infarction; Z86.14 Personal history of Methicillin resistant Staphylococcus aureus infection
CPT/HCPCS: 99283; 64400; J3490 ×2

== ENCOUNTER 2019-01-16 22:49 | Emergency (ER) | payer MEDICAID ==
--- NOTE | 2019-01-17 00:02 | EKG REPORT ---
SEVERITY:- ABNORMAL ECG - ATRIAL FIBRILLATION BORDERLINE T ABNORMALITIES, LATERAL LEADS BORDERLINE PROLONGED QT INTERVAL : Confirmed by: Ernesto Schmitz 17-Jan-2019 00:01:53
[2019-01-17] MEDS ORDERED: ERYTHROMYCIN 0.5% OPH OINTMENT 3.5 GM (ER DISP) OU PRN (01:32)
[2019-01-17] MEDS ORDERED: TETRACAINE HCL 0.5% OPH SOLN 4 ML OU ONE (01:33)
[2019-01-17] MEDS ORDERED: LISINOPRIL 10 MG TABLET PO ONE (01:35)
[2019-01-17 02:07] LABS: ABSOLUTE BASOPHILS # (AUTO) 0.1 10^3/uL (0.0-0.2); ABSOLUTE EOSINOPHILS # (AUTO) 0.1 10^3/uL (0.0-0.6); ABSOLUTE LYMPHOCYTES (AUTO) 2.9 10^3/uL (0.5-4.7); ABSOLUTE MONOCYTES (AUTO) 0.8 10^3/uL (0.1-1.4); ABSOLUTE NEUT (AUTO) 6.1 10^3/uL (1.7-8.2); BASOPHILS % (AUTO) 1.1 % (0-2); EOSINOPHILS % (AUTO) 1.2 % (0-6); HEMATOCRIT 47.2 % (37.9-51.0); HEMOGLOBIN 16.3 g/dL (13.5-17.0); LYMPHOCYTES % (AUTO) 29.3 % (13-45); MEAN CORPUSCULAR HEMOGLOBIN 32.1 pg (27.0-33.4); MEAN CORPUSCULAR HGB CONC 34.5 g/dL (32.0-36.0); MEAN CORPUSCULAR VOLUME 93 fl (80-97); MONOCYTES % (AUTO) 7.5 % (3-13); PLATELET COUNT 120 10^3/uL (150-450); RED BLOOD COUNT 5.08 10^6/uL (4.35-5.55); RED CELL DISTRIBUTION WIDTH 13.8 % (11.5-14.0); SEGMENTED NEUTROPHILS % (AUTO) 60.9 % (42-78); TOTAL CELLS COUNTED % (AUTO) 100 %
[2019-01-17] MEDS ORDERED: MORPHINE SULFATE 10 MG/ML INJ IV ONE (02:13)
[2019-01-17 02:24] LABS: ANION GAP 14 (5-19); BLOOD UREA NITROGEN 14 mg/dL (7-20); CALCIUM 9.8 mg/dL (8.4-10.2); CARBON DIOXIDE 25 mmol/L (22-30); CHLORIDE 104 mmol/L (98-107); GLUCOSE 106 mg/dL (75-110); POTASSIUM 3.5 mmol/L (3.6-5.0); SODIUM 142.6 mmol/L (137-145)
--- NOTE | 2019-01-17 03:31 | ER Document Report ---
ED General - General Chief Complaint: Drainage from Eye Stated Complaint: ITCHY WATERY EYES Time Seen by Provider: 01/17/19 01:28 Primary Care Provider: NIELS BULLOCK MD [ACTIVE STAFF] - 01/19/19 Notes: Patient is a 63-year-old male presents with complaint of pain. Main complaint is that he has been burning sensation in his eyes that woke him up tonight. He says that started in his left eye and then he started getting some in his right eye. He does have matting of the left eye with some yellowish drainage. He denies any trauma or injuries to his eyes. He said this happened a few months ago and it eventually resolved. Denies any fevers. No runny nose cough or congestion. Patient second complaint is of chest pain. Patient has chronic chest pain which she says worsens when he runs out of his blood pressure medication. He said he did recently run out of his lisinopril. He also has some upper back pain which he says is chronic due to disc issues in his back. No focal weakness or numbness into the extremities. No vomiting. No abdominal pain. He did have a negative stress test with Dr. Woods just this past July. He was recently admitted for chest pain in October and had a negative work-up. Came to the patient's records he does have a history of cocaine use but patient denies using any cocaine as of recently. TRAVEL OUTSIDE OF THE [place] IN LAST 30 DAYS: No - Related Data Allergies/Adverse Reactions: No Known Allergies Allergy (Verified 12/11/18 07:27) Past Medical History - Social History Smoking Status: Unknown if Ever Smoked Frequency of alcohol use: None Drug Abuse: None Family History: Reviewed & Not Pertinent, CAD, Hypertension Patient has suicidal ideation: No Patient has homicidal ideation: No - Past Medical History Cardiac Medical History: Reports: Hx Atrial Fibrillation, Hx Congestive Heart Failure, Hx Coronary Artery Disease, Hx Heart Attack, Hx Hypercholesterolemia, Hx Hypertension Pulmonary Medical History: Reports: Hx COPD Renal/ Medical History: Denies: Hx Peritoneal Dialysis Musculoskeletal Medical History: Reports Hx Arthritis - lbp, Reports Hx Gout - neck lbp R knee Psychiatric Medical History: Reports: Hx Bipolar Disorder, Hx Depression Infectious Medical History: Reports: Hx MRSA - L knee Past Surgical History: Reports: Hx Cardiac Catheterization, Hx Cholecystectomy, Hx Coronary Stent, Hx Oral Surgery, Hx Orthopedic Surgery - Right Knee, Right Thumb, Hx Tonsillectomy - Immunizations Hx Diphtheria, Pertussis, Tetanus Vaccination: Yes Review of Systems - Review of Systems Notes: My Normal Review Basic REVIEW OF SYSTEMS: CONSTITUTIONAL : Denies fever, chills, or sweats. Denies recent illness. EENT: Eye itching and burning. CARDIOVASCULAR: has chest pain. RESPIRATORY: Denies cough, cold, or chest congestion. Denies shortness of breath, difficulty breathing, or wheezing. GASTROINTESTINAL: Denies abdominal pain. Denies nausea, vomiting, or diarrhea. MUSCULOSKELETAL: Upper back pain SKIN: Denies rash or skin lesions. NEUROLOGICAL: Denies altered mental status or loss of consciousness. Denies headache. Denies weakness or paralysis or loss of use of either side. Denies problems with gait or speech. Denies sensory or motor loss. ALL OTHER SYSTEMS REVIEWED AND NEGATIVE. Physical Exam - Vital signs Vitals: Temp Pulse Resp BP Pulse Ox 97.8 F 83 20 157/116 H 97 01/16/19 23:46 01/16/19 23:46 01/16/19 23:46 01/16/19 23:46 01/16/19 23:46 - Notes Notes: General Appearance: Well nourished, alert, cooperative, no acute distress, no obvious discomfort. Vitals: reviewed, See vital signs table. Head: no swelling or tenderness to the head Eyes: Patient's pupils are equal reactive to light and accommodation. Patient's left eye has Kip-Pen pressure of 23. Patient's right eye has a Kip-Pen pressure of 20. He has conjunctive erythema to the left eye with some yellowish drainage. He has mild erythema to the right conjunctiva. No hypopyon in either eye. Good extraocular motion without pain. Mouth: No decreasd moisture Throat: No tonsillar inflammation, No airway obstruction Neck: Supple, no neck tenderness, No thyromegaly Lungs: No wheezing, No rales, No rhonci, No accessory muscle use, good air exchange bilaterally. Heart: Normal rate, Regular rythm, No murmur, no rub Back: Some mild pain to palpation over the left upper thoracic paraspinal musculature. Abdomen: Normal BS, soft, No rigidity, No abdominal tenderness, No guarding, no rebound, no abdominal masses, no organomegaly Extremities: strength 5/5 in all extremities, good pulses in all extremities, no swelling or tenderness in the extremities, no edema. Skin: warm, dry, appropriate color, no rash Neuro: speech clear, oriented x 3, normal affect, responds appropriately to questions. Course - Re-evaluation Re-evalutation: 01/17/19 06:18 Patient's eyes are consistent with conjunctivitis that started in one eye with yellowish drainage conjunctive erythema. He then developed swelling to the other eye. I will place me the erythromycin ointment. He is not a contact user. Chest pain appears to be a chronic issue. He has had recent negative stress test as well as recent negative inpatient work-up for his chest pain. He admits that the pain gets worse when he runs out of his lisinopril which she is currently ran out of. I have represcribed his lisinopril for him. At this time for the patient safe to be discharged home. Encouraged to return to ER immediately if he has worsening chest pain, difficulty breathing, fevers, worsening redness of his eyes, or if he feels unwell. I referred him to the cupola operator for evaluation of his eyes are not improving in 2 days. Patient agrees with plan will be discharged home. Dictation of this chart was performed using voice recognition software; therefore, there may be some unintended grammatical errors. - Vital Signs Vital signs: Temp Pulse Resp BP Pulse Ox 97.8 F 83 17 154/102 H 95 01/16/19 23:46 01/16/19 23:46 01/17/19 04:01 01/17/19 04:57 01/17/19 04:01 - Laboratory Result Diagrams: 01/17/19 01:56 01/17/19 01:56 Laboratory results interpreted by me: 01/17/19 01/17/19 01:56 01:56 Plt Count 120 L Potassium 3.5 L Discharge - Discharge Clinical Impression: Conjunctivitis Qualifiers: Conjunctivitis type: unspecified Laterality: bilateral Qualified Code(s): H10.9 - Unspecified conjunctivitis Chest pain Qualifiers: Chest pain type: unspecified Qualified Code(s): R07.9 - Chest pain, unspecified Hypertension Qualifiers: Hypertension type: unspecified Qualified Code(s): I10 - Essential (primary) hypertension Condition: Good Disposition: HOME, SELF-CARE Additional Instructions: Your work-up looking at your heart did not show any evidence of a heart attack at this time. Your eyes are red and your left eye has some yellowish type drainage from suggesting that you probably have conjunctivitis. I have prescribed you an ointment called Erythromycin ointment. We gave you the tube o f ointment here in the ER. Please apply a very small amount of the ointment to both eyes 6 times a day for 7 days. You should follow-up with the cupola operator, Dr. Bullock, on Thursday if you are still having redness or itching to your eyes despite treatment with the ointment. Please return to ER immediately if you have worsening chest pain, difficulty breathing, increasing redness or swelling to the eyes, fevers, or if you feel unwell in any way. Please follow-up with Dr. Woods, your liquor grinding mill operator, for reevaluation. Prescriptions: RX: Lisinopril [Prinivil 30 mg Tablet] 30 mg PO BID #30 tablet Referrals: NIELS BULLOCK MD [ACTIVE STAFF] - 01/19/19
[2019-01-17 04:57] VITALS: BP 154/102
== END 2019-01-17 04:57 | disposition home or self-care (01) ==
LOC: ER 22:49
DX: H10.9 Unspecified conjunctivitis (principal); R07.9 Chest pain, unspecified; I11.0 Hypertensive heart disease with heart failure; I48.91 Unspecified atrial fibrillation; I50.9 Heart failure, unspecified; I25.10 Atherosclerotic heart disease of native coronary artery without angina pectoris; I25.2 Old myocardial infarction; E78.00 Pure hypercholesterolemia, unspecified; Z86.14 Personal history of Methicillin resistant Staphylococcus aureus infection; Z90.49 Acquired absence of other specified parts of digestive tract
CPT/HCPCS: 93005; 99283; 96374; 36415; 85025; 80048; 84484; 93010; J2270; J3490 ×2

== ENCOUNTER 2019-02-14 21:37 | Emergency (ER) | payer MEDICAID ==
[2019-02-14 22:32] VITALS: BP 127/97
[2019-02-15] MEDS ORDERED: LIDOCAINE 5% (700 MG) TRANSDERMAL ADH..PATCH TP ONE (00:07)
[2019-02-15] MEDS ORDERED: KETOROLAC TROMETHAMINE 60 MG/2 ML SDV IM ONE (00:07)
--- NOTE | 2019-02-15 00:09 | ER Document Report ---
HPI - HPI Patient complains to provider of: back pain Time Seen by Provider: 02/15/19 00:00 Pain Level: 5 Context: Patient is a 63-year-old male presents to the emergency department with generalized lower back pain. Patient states he has a pinched nerve and has chronic back pain. Patient states this morning he had difficulty getting out of bed which is why presents to the emergency room. Patient's denying numbness or tingling in any extremity, denying any urinary retention or loss of bowel or bladder. Patient is asking for a "shot of Dilaudid." Patient states he has an appointment with pain management in the next week. - REPRODUCTIVE Reproductive: DENIES: : - DERM Skin Color: Normal Past Medical History - General Information source: Patient - Social History Smoking Status: Current Every Day Smoker Chew tobacco use (# tins/day): No Frequency of alcohol use: None Drug Abuse: None Family History: Reviewed & Not Pertinent, CAD, Hypertension Patient has suicidal ideation: No Patient has homicidal ideation: No - Past Medical History Cardiac Medical History: Reports: Hx Atrial Fibrillation, Hx Congestive Heart Failure, Hx Coronary Artery Disease, Hx Heart Attack, Hx Hypercholesterolemia, Hx Hypertension Pulmonary Medical History: Reports: Hx COPD Renal/ Medical History: Denies: Hx Peritoneal Dialysis Musculoskeletal Medical History: Reports Hx Arthritis - lbp, Reports Hx Gout - neck lbp R knee Psychiatric Medical History: Reports: Hx Bipolar Disorder, Hx Depression Infectious Medical History: Reports: Hx MRSA - L knee Past Surgical History: Reports: Hx Cardiac Catheterization, Hx Cholecystectomy, Hx Coronary Stent, Hx Oral Surgery, Hx Orthopedic Surgery - Right Knee, Right Thumb, Hx Tonsillectomy - Immunizations Hx Diphtheria, Pertussis, Tetanus Vaccination: Yes Vertical Provider Document - CONSTITUTIONAL Agree With Documented VS: Yes Notes: GENERAL: Alert, interacts well. No acute distress. HEAD: Normocephalic, atraumatic. EYES: Pupils equal, round, and reactive to light. Extraocular movements intact. ENT: Oral mucosa moist, tongue midline. NECK: Full range of motion. Supple. Trachea midline. LUNGS: Clear to auscultation bilaterally, no wheezes, rales, or rhonchi. No respiratory distress. HEART: Regular rate and rhythm. No murmur ABDOMEN: Soft, non-tender. Non-distended. Bowel sounds present in all 4 quadrants. EXTREMITIES: Moves all 4 extremities spontaneously. No edema, normal radial and dorsalis pedis pulses bilaterally. No cyanosis. 5 out of 5 strength noted all 4 extremities. BACK: no cervical, thoracic, lumbar midline tenderness. No saddle anesthesia, normal distal neurovascular exam. Paraspinal bilateral lumbar pain noted. NEUROLOGICAL: Alert and oriented x3. Normal speech. cranial nerves II through XII grossly intact PSYCH: Normal affect, normal mood. SKIN: Warm, dry, normal turgor. No rashes or lesions noted. - INFECTION CONTROL TRAVEL OUTSIDE OF THE [place] IN LAST 30 DAYS: No Course - Re-evaluation Re-evalutation: 02/15/19 00:08 Patient is specifically asking for a shot of Dilaudid. When I have discussed w ith him I am unable to give him narcotic pain medicines for chronic pain he is in requesting a shot of morphine. As again discussed with patient and unable to treat his chronic pain with narcotic pain medicines. Patient states "they always give me narcotics." In reviewing past charts it does appear the patient is a drug abuser has been here for cocaine withdrawal in the past. Discussed with patient use of Toradol and Lidoderm. Discussed close follow-up with primary care provider, orthopedics and pain management. Presentation of a well appearing patient complaining of acute on chronic back p ain. No rapid progression of symptoms, systemic symptoms including fevers, chills, weight loss, history of recent bacterial infection, bilateral symptoms, numbness, weakness, difficulty walking, urinary retention or bowel incontinence, personal history of cancer, immunosuppression, diabetes, known AAA, or history of IV drug use. Exam is without point tenderness over vertebral bodies, pulsatile abdominal mass, and patient has symmetric and intact lower extremity strength, sensation, and reflexes without clonus. 2+ symmetric medial malleolar and dorsalis pedis pulses Based on history and physical, I have a very low suspicion of a concerning etiology of pain including epidural compression syndrome, spinal infection, transverse myelitis, malignancy, abdominal aortic aneurysm, renal colic, acute lower extremity claudication, neurogenic claudication, ankylosing spondylitis, or other intra-abdominal process. Due to absence of concerning risk factors in history and physical as well as absence of rapidly progressive, severe, or bilateral symptoms, will defer imaging at this point. Plan to manage conservatively with outpatient analgesia, analgesia, and physical therapy. - Acetaminophen 1000 q 4 + ibuprofen 800 q 6 - Continue normal daily activities as tolerated by pain - Provide with standard musculoskeletal back pain exercise instructions - Instruct to follow up with primary care provider if symptoms not improving - Provide careful return precautions and concerning symptoms to watch for. - Vital Signs Vital signs: Temp Pulse Resp BP Pulse Ox 97.6 F 106 H 16 127/97 H 96 02/14/19 22:30 02/14/19 22:30 02/14/19 22:30 02/14/19 22:30 02/14/19 22:30 Discharge - Discharge Clinical Impression: Lumbar back pain Condition: Stable Disposition: HOME, SELF-CARE Instructions: Low Back Pain ([facility]) Additional Instructions: You have been seen in the Emergency Department (ED) today for back pain. Your workup and exam have not shown any acute abnormalities and you are likely suffering from muscle strain or possible problems with your discs, but there is no treatment that will fix your symptoms at this time. Please take the naproxen that has been prescribed as directed. You should also purchase a local lidocaine cream such as "aspercreme with lidocaine" and use per bottle instructions to the affected area. Apply heat to the area as often as you are able. Continue to keep active and avoid prolonged periods of bed rest. Please follow up with your doctor as soon as possible regarding today's ED visit and your back pain. Return to the ED for worsening back pain, fever, weakness or numbness of either leg, or if you develop either (1) an inability to urinate or have bowel movements, or (2) loss of your ability to control your bathroom functions (if you start having "accidents"), or if you develop other new symptoms that concern you.concern you. Stretching Exercises for the Back The physician has recommended that you begin stretching exercises for your back. These are often used even while the back is painful. However, you should notify the physician if the activities seem to increase your pain. PELVIC TILT: Lie flat on your back with knees bent. Tighten your stomach and buttock muscles so it flattens your lower back against the floor. Hold 10 seconds. Repeat 10 times, twice daily. KNEE RAISE: Lying on the back with knees bent, raise one knee to your chest, then the other. Hold both knees against the chest 10 seconds, then lower one knee at a time. Repeat 10 times, twice daily. PARTIAL TRUNK RAISE: Lie face down, arms at your sides. Keeping your waist on the floor, use your arms raise your chest up. Support yourself on your elbows for 30 seconds. Repeat twice daily, increasing the time to two minutes as you recover.
== END 2019-02-15 00:29 | disposition home or self-care (01) ==
LOC: ER 21:37
DX: M54.5 Low back pain (principal); G89.29 Other chronic pain; F17.200 Nicotine dependence, unspecified, uncomplicated; I48.91 Unspecified atrial fibrillation; I11.0 Hypertensive heart disease with heart failure; I50.9 Heart failure, unspecified; I25.10 Atherosclerotic heart disease of native coronary artery without angina pectoris; E78.00 Pure hypercholesterolemia, unspecified; I25.2 Old myocardial infarction; J44.9 Chronic obstructive pulmonary disease, unspecified; M19.90 Unspecified osteoarthritis, unspecified site; M10.9 Gout, unspecified; F31.9 Bipolar disorder, unspecified; Z90.49 Acquired absence of other specified parts of digestive tract; Z95.5 Presence of coronary angioplasty implant and graft
CPT/HCPCS: 99283; 96372; J1885; J3490

== ENCOUNTER 2019-02-20 05:43 | Emergency (ER) | payer MEDICAID ==
[2019-02-20 06:45] LABS: ABSOLUTE BASOPHILS # (AUTO) 0.1 10^3/uL (0.0-0.2); ABSOLUTE MONOCYTES (AUTO) 0.7 10^3/uL (0.1-1.4); ABSOLUTE NEUT (AUTO) 5.1 10^3/uL (1.7-8.2); BASOPHILS % (AUTO) 0.7 % (0-2); EOSINOPHILS % (AUTO) 0.6 % (0-6); HEMATOCRIT 42.5 % (37.9-51.0); HEMOGLOBIN 14.9 g/dL (13.5-17.0); LYMPHOCYTES % (AUTO) 25.1 % (13-45); MEAN CORPUSCULAR HEMOGLOBIN 32.7 pg (27.0-33.4); MEAN CORPUSCULAR HGB CONC 35.2 g/dL (32.0-36.0); MEAN CORPUSCULAR VOLUME 93 fl (80-97); MONOCYTES % (AUTO) 9.2 % (3-13); RED BLOOD COUNT 4.57 10^6/uL (4.35-5.55); RED CELL DISTRIBUTION WIDTH 14.3 % (11.5-14.0); SEGMENTED NEUTROPHILS % (AUTO) 64.4 % (42-78); TOTAL CELLS COUNTED % (AUTO) 100 %; WHITE BLOOD COUNT 7.9 10^3/uL (4.0-10.5)
[2019-02-20] MEDS ORDERED: ASPIRIN 81 MG TABLET, CHEWABLE PO ONE (06:49)
[2019-02-20] MEDS ORDERED: MORPHINE SULFATE 10 MG/ML INJ IV ONE (06:50)
[2019-02-20] MEDS ORDERED: ONDANSETRON HCL INJ/PF 4 MG/2 ML SDV IV ONE (06:50)
[2019-02-20 06:52] LABS: PLATELET COUNT 92 10^3/uL (150-450)
[2019-02-20 06:54] LABS: ALANINE AMINOTRANSFERASE 71 U/L (21-72); ALBUMIN 3.9 g/dL (3.5-5.0); ALKALINE PHOSPHATASE 78 U/L (38-126); ANION GAP 10 (5-19); ASPARTATE AMINO TRANSFERASE 47 U/L (17-59); BILIRUBIN,DIRECT 0.3 mg/dL (0.0-0.4); BILIRUBIN,TOTAL 1.3 mg/dL (0.2-1.3); BLOOD UREA NITROGEN 26 mg/dL (7-20); CALCIUM 9.3 mg/dL (8.4-10.2); CARBON DIOXIDE 22 mmol/L (22-30); CHLORIDE 107 mmol/L (98-107); CREATINE KINASE 70 U/L (55-170); GLUCOSE 152 mg/dL (75-110); POTASSIUM 3.7 mmol/L (3.6-5.0); SODIUM 139.2 mmol/L (137-145); TOTAL PROTEIN 6.1 g/dL (6.3-8.2)
--- NOTE | 2019-02-20 06:57 | ER Document Report ---
ED Cardiac - General Chief Complaint: Chest Pain Stated Complaint: CHEST PAIN Time Seen by Provider: 02/20/19 06:35 Primary Care Provider: CHEMA MARINELLI MD [Primary Care Provider] - Follow up as needed TRAVEL OUTSIDE OF THE [place] IN LAST 30 DAYS: No - HPI Notes: Patient is a 63-year-old male with multiple medical issues who presents to the emergency department for evaluation of chest pain and dyspnea. He states that he has just been "so tired" over the last week. He states he is short of breath with exertion. He has been waking up in the middle the night short of breath. He denies any weight gain. States his been taking his medications as prescribed. He states he has had a "throbbing pain" in the left side of his chest. It does not radiate. He states this started while he was doing dishes last night. It is been constant since onset. Nothing seems to change it. He does note that his mood has been very depressed as of late. His brother moved to [place] last week. He is tearful discussing this. - Related Data Allergies/Adverse Reactions: No Known Allergies Allergy (Verified 02/20/19 05:47) Past Medical History - General Information source: Patient - Social History Smoking Status: Never Smoker Chew tobacco use (# tins/day): No Frequency of alcohol use: heavy drinker, but quit 3 years ago Drug Abuse: None Family History: Reviewed & Not Pertinent, CAD, Hypertension Patient has suicidal ideation: No Patient has homicidal ideation: No - Past Medical History Cardiac Medical History: Reports: Hx Atrial Fibrillation, Hx Congestive Heart Failure, Hx Coronary Artery Disease, Hx Heart Attack, Hx Hypercholesterolemia, Hx Hypertension Endocrine Medical History: Reports: Hx Diabetes Mellitus Type 2 Renal/ Medical History: Denies: Hx Peritoneal Dialysis GI Medical History: Reports: Hx Gastroesophageal Reflux Disease Musculoskeletal Medical History: Reports Hx Arthritis - lbp, Reports Hx Gout - neck lbp R knee Psychiatric Medical History: Reports: Hx Bipolar Disorder, Hx Depression Infectious Medical History: Reports: Hx MRSA - L knee Past Surgical History: Reports: Hx Cardiac Catheterization, Hx Cholecystectomy, Hx Coronary Stent, Hx Oral Surgery, Hx Orthopedic Surgery - Right Knee, Right Thumb, Hx Tonsillectomy - Immunizations Hx Diphtheria, Pertussis, Tetanus Vaccination: Yes Review of Systems - Review of Systems Constitutional: See HPI EENT: No symptoms reported Cardiovascular: See HPI Respiratory: See HPI Gastrointestinal: No symptoms reported Genitourinary: No symptoms reported Musculoskeletal: No symptoms reported Skin: No symptoms reported Neurological/Psychological: No symptoms reported Physical Exam - Vital signs Vitals: Resp BP Pulse Ox 24 H 164/118 H 92 02/20/19 06:11 02/20/19 06:11 02/20/19 06:11 - Notes Notes: Vital signs reviewed, please refer to chart. Head is normocephalic, atraumatic. Pupils equal round, reactive to light. Neck is supple without meningismus. Hea rt is irregularly irregular. Chest pain is reproducible with palpation. Lungs reveal mild bibasilar rales. Abdomen is soft, nontender, normoactive bowel sounds throughout. Extremities without cyanosis, clubbing. Posterior calves are nontender. +1 pitting edema to the ankles bilaterally. Peripheral pulses are equal. Skin is warm and dry. Patient is awake, alert, neurological exam is nonfocal. Course - Re-evaluation Re-evalutation: 02/20/19 08:29 Patient presents emergency department for evaluation of difficulty breathing, chest pain. His chest pain is reproducible. His x-ray is unremarkable. His laboratory investigations show mildly elevated proBNP, but it is significantly improved. He was medicated with nitroglycerin and had absolutely no improvement in his pain or blood pressure. He continued to lean on his right arm, stating that his back was hurting. I believe this was artificially increasing his blood pressure. His blood pressure was only mildly elevated when his arm was appropriately relaxed, 150s over 90s. During the course of his stay, he became very tearful again. He stated he believes he "needs something for depression." I discussed options with him, but stated that this is usually more appropriately handled by primary care. He states that he used to "get 150 percs and Xanax" which was very helpful for his depression and anxiety. I explained to him that this medication combination was not appropriate, and did not address depression. He is awaiting referral on to the pain clinic, but states that is not until March. He denies any suicidal or homicidal ideation. He denies any visual or auditory hallucination. He had a negative stress test and echocardiogram back in July. My suspicion is that all of his symptoms are psychiatrically related. He is medically cleared at this time, awaiting psych consult. 02/20/19 10:33 Psychiatric consult was obtained. During this interview, it was found that he has a very strong family history of both bipolar disorder as well as substance abuse. Possible recommendations for treatment of this depression included Zyprexa. Unfortunately the patient does have a prolonged QT interval on EKG. While we were awaiting education recommendations per psychiatry, the patient became agitated, asked to have his IV removed. He stated that he had been "waiting for ever for a shot." He stated that he expected to get a second shot of morphine, although this was never mentioned. He states "you hospitals usually do that for me." I do have a very strong suspicion of substance dependence and abuse, in this patient who asks repeatedly for referral to get his "Percs and Xanax." I still do believe his chest pain to be chest wall pain, he had negative cardiac evaluation within the year. He is strongly encouraged to quit smoking. He is told to follow-up with his primary care provider as well as grader tender tomorrow. He is to return to the ED with worsening or new concerning symptoms of any sort. - Vital Signs Vital signs: Temp Pulse Resp BP Pulse Ox 26 H 191/134 H 84 L 02/20/19 10:01 02/20/19 10:01 02/20/19 10:01 - Laboratory Result Diagrams: 02/20/19 06:20 02/20/19 06:20 Laboratory results interpreted by me: 02/20/19 02/20/19 02/20/19 06:20 06:20 06:20 RDW 14.3 H Plt Count 92 L BUN 26 H Glucose 152 H NT-Pro-B Natriuret Pep 935 H Total Protein 6.1 L - Diagnostic Test Radiology reviewed: Reports reviewed Radiology results interpreted by me: 02/20/19 08:39 Chest X-Ray 02/20/19 06:37 IMPRESSION: 1. No definite acute intrathoracic disease. 2. Enlarged cardiac silhouette. - EKG Interpretation by Me Additional EKG results interpreted by me: 02/20/19 06:57 Atrial fibrillation with a rate of 109 bpm. PVC noted. Normal axis. Nonspecific ST changes, but no acute changes concerning for ischemia or infarction. No significant change compared to prior study. Discharge - Discharge Clinical Impression: Shortness of breath Chest pain Qualifiers: Chest pain type: other chest pain Qualified Code(s): R07.89 - Other chest pain Depression Qualifiers: Depression Type: unspecified Qualified Code(s): F32.9 - Major depressive disorder, single episode, unspecified Condition: Stable Disposition: AGAINST MEDICAL ADVICE Instructions: Chest Pain of Unclear Cause ([facility]), Depression ([facility]), Dyspnea, Nonspecific ([facility]) Additional Instructions: You have elected to leave AGAINST MEDICAL ADVICE, prior to medication recommendations by psychiatry. No clear etiology was found for your chest pain today, but it is similar to chest pain you have had in the past, which was found to be chest wall pain. Your laboratory investigations were largely unremarkable. If you change your mind regarding medication for depression, or if you develop worsening or new concerning symptoms of any sort, return immediately to the emergency department for reevaluation. Referrals: CHEMA MARINELLI MD [Primary Care Provider] - Follow up as needed
[2019-02-20] MEDS: NITROGLYCERIN 0.4 MG/TAB 25 TAB/BOTTLE SL PRN ×2 (07:04→07:12)
[2019-02-20 07:06] LABS: CREATINE KINASE MB 1.9 ng/mL (<4.55); TROPONIN I 0.02 ng/mL
--- NOTE | 2019-02-20 07:30 | RADIOLOGY REPORT (SQ) ---
EXAM DESCRIPTION: X-ray single view chest. CLINICAL HISTORY: 63 years Male, chest pain, dyspnea COMPARISON: 09/17/2018 TECHNIQUE: Single portable x-ray view of the chest performed on 02/20/2019 at 7:00 AM FINDINGS: The lungs are well expanded and are clear. There is no evidence of a pneumothorax. The cardiac silhouette appears enlarged and may be accentuated by the portable technique. The mediastinal contours are normal. No acute osseous abnormality is identified. No focal soft tissue abnormalities are seen. Lines and tubes: None. IMPRESSION: 1. No definite acute intrathoracic disease. 2. Enlarged cardiac silhouette.
[2019-02-20 10:35] VITALS: BP 191/134
--- NOTE | 2019-02-20 22:19 | EKG REPORT ---
SEVERITY:- ABNORMAL ECG - ATRIAL FIBRILLATION, V-RATE 83-136 VENTRICULAR PREMATURE COMPLEX BORDERLINE PROLONGED QT INTERVAL : Confirmed by: Ernesto Schmitz 20-Feb-2019 22:18:20
== END 2019-02-20 10:43 | disposition left against medical advice (07) ==
LOC: ER 05:43
DX: R07.9 Chest pain, unspecified (principal); F32.9 Major depressive disorder, single episode, unspecified; R06.02 Shortness of breath; I48.91 Unspecified atrial fibrillation; I25.10 Atherosclerotic heart disease of native coronary artery without angina pectoris; I10 Essential (primary) hypertension; E11.9 Type 2 diabetes mellitus without complications; Z95.5 Presence of coronary angioplasty implant and graft; R60.0 Localized edema; R79.89 Other specified abnormal findings of blood chemistry; M54.9 Dorsalgia, unspecified; Z81.8 Family history of other mental and behavioral disorders
CPT/HCPCS: 93005; 99283; 36415; 82553; 82550; 85025; 80053; 84484; 83880; 71045; 93010; J2270; J3490; J2405

== ENCOUNTER 2019-03-08 15:36 | Emergency (ER) | payer MEDICAID ==
[2019-03-08 15:46] VITALS: BP 99/72
[2019-03-08] MEDS ORDERED: ASPIRIN 81 MG TABLET, CHEWABLE PO ONE (17:07)
--- NOTE | 2019-03-08 17:10 | ER Document Report ---
ED Medical Screen (RME) - General Chief Complaint: Chest Pain Stated Complaint: CHEST PAIN Time Seen by Provider: 03/08/19 17:02 Primary Care Provider: CHEMA MARINELLI MD [Primary Care Provider] - Follow up as needed Mode of Arrival: Ambulatory Information source: Patient Notes: This 64-year-old male presents to the emergency department sent over by Dr. Dalal's office for chest pain. Reports he has had the chest pain for the last couple days. On the left side of his chest with some shortness of breath. Patient reports feels a throbbing then every now and then sharp pains. Denies nausea vomiting sweating. Patient has history of CHF diabetes atrial fibrillation MA stent placed and hypertension. Patient reports he did try to take a sublingual nitro but he thinks it was out of date because it did not help. Respiratory rate even unlabored. Patient reports he has lost weight not gained weight lately. I have greeted and performed a rapid initial assessment of this patient. A comprehensive ED assessment and evaluation of the patient, analysis of test results and completion of the medical decision making process will be conducted by additional ED providers. Dictation of this chart was performed using voice recognition software; therefore, there may be some unintended grammatical errors. TRAVEL OUTSIDE OF THE [place] IN LAST 30 DAYS: No - Related Data Allergies/Adverse Reactions: No Known Allergies Allergy (Verified 03/08/19 15:36) Past Medical History - Social History Family history: Reviewed & Not Pertinent - Past Medical History Cardiac Medical History: Reports: Hx Atrial Fibrillation, Hx Congestive Heart Failure, Hx Coronary Artery Disease, Hx Heart Attack, Hx Hypercholesterolemia, Hx Hypertension Endocrine Medical History: Reports: Hx Diabetes Mellitus Type 2 Renal/ Medical History: Denies: Hx Peritoneal Dialysis GI Medical History: Reports: Hx Gastroesophageal Reflux Disease Musculoskeltal Medical History: Reports Hx Arthritis - lbp, Reports Hx Gout - neck lbp R knee Psychiatric Medical History: Reports: Hx Bipolar Disorder, Hx Depression Infectious Medical History: Reports: Hx MRSA - L knee Past Surgical History: Reports: Hx Cardiac Catheterization, Hx Cholecystectomy, Hx Coronary Stent, Hx Oral Surgery, Hx Orthopedic Surgery - Right Knee, Right Thumb, Hx Tonsillectomy - Immunizations Hx Diphtheria, Pertussis, Tetanus Vaccination: Yes History of Influenza Vaccine for 05/2017 - 10/2017 Season: No Influenza Administration Date for 05/2017 - 10/2017 Season: 05/24/17 Physical Exam - Vital signs Vitals: Temp Pulse Resp BP Pulse Ox 97.4 F 95 16 99/72 L 97 03/08/19 15:44 03/08/19 15:44 03/08/19 15:44 03/08/19 15:44 03/08/19 15:44 Course - Vital Signs Vital signs: Temp Pulse Resp BP Pulse Ox 97.4 F 95 16 99/72 L 97 03/08/19 15:44 03/08/19 15:44 03/08/19 15:44 03/08/19 15:44 03/08/19 15:44 Doctor's Discharge - Discharge Referrals: CHEMA MARINELLI MD [Primary Care Provider] - Follow up as needed
--- NOTE | 2019-03-08 17:47 | RADIOLOGY REPORT (SQ) ---
EXAM DESCRIPTION: CHEST 2 VIEWS COMPLETED DATE/TIME: 03/08/2019 5:34 pm REASON FOR STUDY: cp COMPARISON: 02/20/2019 TECHNIQUE: Frontal and lateral radiographic views of the chest acquired. NUMBER OF VIEWS: Two view. LIMITATIONS: None. FINDINGS: LUNGS AND PLEURA: No pneumothorax. No consolidation or pleural effusion. MEDIASTINUM AND HILAR STRUCTURES: Stable. HEART AND VASCULAR STRUCTURES: Stable. BONES: No acute findings. HARDWARE: None in the chest. OTHER: No other significant finding. IMPRESSION: NO ACUTE FINDINGS. TECHNICAL DOCUMENTATION: JOB ID: [id number] [email or web address]- All Rights Reserved Reading location - IP/workstation name: [email or web address]
[2019-03-08 17:52] LABS: ABSOLUTE BASOPHILS # (AUTO) 0.1 10^3/uL (0.0-0.2); ABSOLUTE EOSINOPHILS # (AUTO) 0.1 10^3/uL (0.0-0.6); ABSOLUTE MONOCYTES (AUTO) 0.8 10^3/uL (0.1-1.4); ABSOLUTE NEUT (AUTO) 5.9 10^3/uL (1.7-8.2); BASOPHILS % (AUTO) 1.3 % (0-2); EOSINOPHILS % (AUTO) 0.8 % (0-6); HEMATOCRIT 51.2 % (37.9-51.0); HEMOGLOBIN 17.6 g/dL (13.5-17.0); LYMPHOCYTES % (AUTO) 29.9 % (13-45); MEAN CORPUSCULAR HGB CONC 34.4 g/dL (32.0-36.0); MEAN CORPUSCULAR VOLUME 96 fl (80-97); MONOCYTES % (AUTO) 8.4 % (3-13); PLATELET COUNT 162 10^3/uL (150-450); RED BLOOD COUNT 5.34 10^6/uL (4.35-5.55); RED CELL DISTRIBUTION WIDTH 14.8 % (11.5-14.0); SEGMENTED NEUTROPHILS % (AUTO) 59.6 % (42-78); TOTAL CELLS COUNTED % (AUTO) 100 %
[2019-03-08 18:00] LABS: APPEARANCE,URINE CLEAR; BILIRUBIN,URINE NEGATIVE (NEGATIVE); COLOR,URINE AMBER; GLUCOSE, URINE NEGATIVE (NEGATIVE); KETONES,URINE NEGATIVE (NEGATIVE); LEUKOCYTE ESTERASE,URINE NEGATIVE (NEGATIVE); NITRITE,URINE NEGATIVE (NEGATIVE); PROTEIN,URINE 30 mg/dL (NEGATIVE); URINE SPECIFIC GRAVITY 1.026
[2019-03-08 18:13] LABS: ALANINE AMINOTRANSFERASE 54 U/L (21-72); ALBUMIN 4.6 g/dL (3.5-5.0); ALKALINE PHOSPHATASE 93 U/L (38-126); ANION GAP 11 (5-19); ASPARTATE AMINO TRANSFERASE 46 U/L (17-59); BILIRUBIN,DIRECT 0.4 mg/dL (0.0-0.4); BILIRUBIN,TOTAL 0.9 mg/dL (0.2-1.3); BLOOD UREA NITROGEN 25 mg/dL (7-20); CALCIUM 10.3 mg/dL (8.4-10.2); CARBON DIOXIDE 27 mmol/L (22-30); CHLORIDE 103 mmol/L (98-107); CREATINE KINASE 79 U/L (55-170); GLUCOSE 103 mg/dL (75-110); LIPASE 230.3 U/L (23-300); POTASSIUM 3.7 mmol/L (3.6-5.0); SODIUM 140.5 mmol/L (137-145); TOTAL PROTEIN 7.1 g/dL (6.3-8.2)
[2019-03-08 18:25] LABS: TROPONIN I 0.017 ng/mL
--- NOTE | 2019-03-08 18:29 | EKG REPORT ---
SEVERITY:- ABNORMAL ECG - UNKNOWN RHYTHM, IRREGULAR RATE 75-116 LIKELY ATRIAL FIBRILLATION. PROLONGED QT INTERVAL NONSPECIFIC ST-T CHANGES ANTEROLATERAL LEADS. : Confirmed by: Elijah Adams MD 08-Mar-2019 18:29:10
== END 2019-03-08 21:05 | disposition left against medical advice (07) ==
LOC: ER 15:36
DX: R07.9 Chest pain, unspecified (principal); R06.02 Shortness of breath; I25.10 Atherosclerotic heart disease of native coronary artery without angina pectoris; I10 Essential (primary) hypertension; E11.9 Type 2 diabetes mellitus without complications; I25.2 Old myocardial infarction; Z95.5 Presence of coronary angioplasty implant and graft; Z53.20 Procedure and treatment not carried out because of patient's decision for unspecified reasons
CPT/HCPCS: 36415; 71046; 80053; 81001; 82550; 83690; 83880; 84484; 85025; 85610; 85730; 93005; 93010; 99281

== ENCOUNTER 2019-07-09 11:03 | Emergency (ER) | payer MEDICAID, OTHER ==
[2019-07-09 11:15] VITALS: BP 111/80
[2019-07-09] MEDS ORDERED: HYDROCODONE/ACETAMINOPHEN 5-325 MG (6 TAB/ER DISP) PO PRN (11:51)
--- NOTE | 2019-07-09 11:56 | ER Document Report ---
HPI - HPI Time Seen by Provider: 07/09/19 11:32 Pain Level: 5 Context: 64-year-old male presents the emergency department with chief complaint of generalized abdominal pain. Patient states he was discharged from [facility] 2 days ago after an acute rehab stent and states that they did not give him his oxycodone. I called [facility], clarified with them, and they do not send patients home with narcotic pain medication. Initially the patient stated that he did not get any of his meds but then when I reiterated to me he said "no I got all my stuff I just did not get that pain medication". Patient states that he started having some mild abdominal throbbing the day before last. Denies any blood in his stool, denies bloody vomitus, denies any nausea. - REPRODUCTIVE Reproductive: DENIES: : Past Medical History - Social History Smoking Status: Never Smoker Chew tobacco use (# tins/day): No Frequency of alcohol use: None Drug Abuse: None Family History: Reviewed & Not Pertinent, CAD, Hypertension Patient has suicidal ideation: No Patient has homicidal ideation: No - Past Medical History Cardiac Medical History: Reports: Hx Atrial Fibrillation, Hx Congestive Heart Failure, Hx Coronary Artery Disease, Hx Heart Attack, Hx Hypercholesterolemia, Hx Hypertension Endocrine Medical History: Reports: Hx Diabetes Mellitus Type 2 Renal/ Medical History: Denies: Hx Peritoneal Dialysis GI Medical History: Reports: Hx Gastroesophageal Reflux Disease Musculoskeletal Medical History: Reports Hx Arthritis - lbp, Reports Hx Gout - neck lbp R knee Psychiatric Medical History: Reports: Hx Bipolar Disorder, Hx Depression Infectious Medical History: Reports: Hx MRSA - L knee Past Surgical History: Reports: Hx Cardiac Catheterization, Hx Cholecystectomy, Hx Coronary Stent, Hx Oral Surgery, Hx Orthopedic Surgery - Right Knee, Right Thumb, Hx Tonsillectomy - Immunizations Hx Diphtheria, Pertussis, Tetanus Vaccination: Yes Vertical Provider Document - CONSTITUTIONAL Notes: PHYSICAL EXAMINATION: Reviewed vital signs and charting by RN GENERAL: Alert, interacts well. No acute distress. HEAD: Normocephalic, atraumatic. EYES: Pupils equal and round. Extraocular movements intact. ENT: Oral mucosa moist, tongue midline. NECK: Full range of motion. Trachea midline. LUNGS: Clear to auscultation bilaterally, no wheezes, rales, or rhonchi. No respiratory distress. HEART: Regular rate and rhythm. No murmur ABDOMEN: Mid sagittal linear surgical scar that is scabbing, no erythema, no warmth to the site, abdomen is soft, mild tenderness to palpation. No distention. Bowel sounds present EXTREMITIES: Moves all 4 extremities spontaneously. No edema, No cyanosis. PSYCH: Normal affect, normal mood. SKIN: Warm, dry, normal turgor. No rashes or lesions noted. - INFECTION CONTROL TRAVEL OUTSIDE OF THE [place] IN LAST 30 DAYS: No Course - Re-evaluation Re-evalutation: 07/09/19 11:55 Patient is presenting requesting a refill on pain medication. I told patient that we do not prescribe narcotic pain medications are the emergency department. After some confusion and clarification of the story the patient has been taking oxycodone daily for the past couple of months for post splenectomy pain and during an acute rehab stent and [facility]. They do not discharge with narcotic pain medications. I explained all this to the patient that he will need to go to his primary doctor and get a referral for pain management. His abdomen is soft and there is no evidence of an acute/surgical abdomen at this time. He is stable for discharge - Vital Signs Vital signs: Temp Pulse Resp BP Pulse Ox 97.8 F 106 H 16 111/80 97 07/09/19 11:14 07/09/19 11:14 07/09/19 11:14 07/09/19 11:14 07/09/19 11:14 Discharge - Discharge Clinical Impression: Abdominal pain Qualifiers: Abdominal location: unspecified location Qualified Code(s): R10.9 - Unspecified abdominal pain Condition: Good Disposition: HOME, SELF-CARE Additional Instructions: You were seen for abdominal pain. Please understand that [facility] does not discharge patients with narcotic pain medications. I understand you have been taking oxycodone daily for a long time you are starting to have some general achiness. I have prescribed you with a very short course of pain medications here in the emergency department. It is very important, though, that you follow-up with your appointment on Thursday to try to arrange pain management or other means to control your pain. Please return to the emergency department if you develop acute weakness, severe intractable abdominal pain, your abdomen becomes very stiff and painful, you have bloody diarrhea, blood in your stool, or bloody vomiting, or you have any other concerning symptoms. Referrals: SHERIE STAFFORD MD [Primary Care Provider] - Follow up as needed
== END 2019-07-09 13:26 | disposition home or self-care (01) ==
LOC: ER 11:03
DX: R10.9 Unspecified abdominal pain (principal); R10.84 Generalized abdominal pain; I48.91 Unspecified atrial fibrillation; I50.9 Heart failure, unspecified; I25.10 Atherosclerotic heart disease of native coronary artery without angina pectoris; I25.2 Old myocardial infarction; I11.0 Hypertensive heart disease with heart failure; E11.9 Type 2 diabetes mellitus without complications
CPT/HCPCS: 99283

== ENCOUNTER 2019-08-02 15:14 | Emergency (ER) | payer MEDICAID ==
--- NOTE | 2019-08-02 15:53 | ER Document Report ---
HPI - HPI Time Seen by Provider: 08/02/19 15:36 Pain Level: 4 Notes: 64-year-old male presents the emergency room with right hand pain specifically on his fifth digit started yesterday. Patient was seen by his hand surgeon this morning, was told he will not be able to have hand surgery until September 052019. Patient states he did not get any imaging when he was at his hand doctor. Reports pain is 7 out of 10, throbbing achy. Denies any weakness, denies any t rauma. Denies fevers, chills, chest pain,palpitations, shortness of breath, dyspnea, nausea, vomiting, diarrhea, abdominal pain, hematuria,blurred vision, double vision, loss of vision, speech changes, LH, dizziness, syncope, headaches, wheezing, ST, URI, neck pain, weakness, bowel or bladder dysfunction, saddle anesthesia, numbness or tingling in bilateral upper or lower extremities equally, muscle paralysis, weakness in bilateral lower extremities equally or rash. - REPRODUCTIVE Reproductive: DENIES: : Past Medical History - General Information source: Patient - Social History Smoking Status: Never Smoker Chew tobacco use (# tins/day): No Frequency of alcohol use: None Family History: Reviewed & Not Pertinent, CAD, Hypertension Patient has suicidal ideation: No Patient has homicidal ideation: No - Past Medical History Cardiac Medical History: Reports: Hx Atrial Fibrillation, Hx Congestive Heart Failure, Hx Coronary Artery Disease, Hx Heart Attack, Hx Hypercholesterolemia, Hx Hypertension Endocrine Medical History: Reports: Hx Diabetes Mellitus Type 2 Renal/ Medical History: Denies: Hx Peritoneal Dialysis GI Medical History: Reports: Hx Gastroesophageal Reflux Disease Musculoskeletal Medical History: Reports Hx Arthritis - lbp, Reports Hx Gout - neck lbp R knee Psychiatric Medical History: Reports: Hx Bipolar Disorder, Hx Depression Infectious Medical History: Reports: Hx MRSA - L knee Past Surgical History: Reports: Hx Cardiac Catheterization, Hx Cholecystectomy, Hx Coronary Stent, Hx Oral Surgery, Hx Orthopedic Surgery - Right Knee, Right Thumb, Hx Tonsillectomy - Immunizations Hx Diphtheria, Pertussis, Tetanus Vaccination: Yes Vertical Provider Document - CONSTITUTIONAL Agree With Documented VS: Yes Exam Limitations: No Limitations General Appearance: WD/WN Notes: PHYSICAL EXAMINATION:reviewed vital signs by RN GENERAL: Well-appearing, well-nourished and in no acute distress. HEAD: Atraumatic, normocephalic. EYES: Pupils equal round and reactive to light, extraocular movements intact, sclera anicteric, conjunctiva are normal. ENT: Nares patent, oropharynx clear without exudates. Moist mucous membranes. NECK: Normal range of motion, supple without lymphadenopathy LUNGS: Breath sounds clear to auscultation bilaterally and equal. No wheezes rales or rhonchi. HEART: Regular rate and rhythm without murmurs ABDOMEN: Soft, nontender, nondistended abdomen. No guarding, no rebound. No masses appreciated. Musculoskeletal: Normal range of motion, no pitting or edema. No cyanosis. NEUROLOGICAL: Cranial nerves grossly intact. Normal speech, normal gait. Normal sensory, motor exams PSYCH: Normal mood, normal affect. SKIN: Warm, Dry, normal turgor, no rashes or lesions noted. Pain to right 5th phalange. no pain to wrist with flexion, extension, inversion, eversion of wrist. digits in right and left with full aprom.. Branch Manager + 2 BUE equally. Snuffbox tenderness negative on left and right. radial pulses + 2 BUE equally. Negative kanavels sign. No open wounds or drainage from wrist. No vascular compromise.No body crepitus or focal area of TTP. no pain with opposition, flexion, extension, abduction and adduction on right. Motor and sensory function of ulnar, radial, medial nerves intact bilaterally and equally. strength 5/5 in BUE equally. - INFECTION CONTROL TRAVEL OUTSIDE OF THE [place] IN LAST 30 DAYS: No Course - Re-evaluation Re-evalutation: 08/02/19 16:45 Afebrile vital stable no distress. Nurse's notes reviewed. Patient given 60 mg Toradol IM, x-ray negative for any acute fracture showed mild osteoarthritis. Advised to follow-up with vaccine specialist. Patient placed in a cock-up splint. Consent by patient given to place right cock up splint,. cms intact, sensory motor function intact in bilateral upperextremities prior to splint application fiberglass splint placed without incident. cms intact 20 minutes after splint application. Splint is in good alignment. Bilateral upper extremities with motor and sensory function intact 20 minutes after application. Pt stated that splint felt comfortable. Alternate between Tylenol and ibuprofen follow-up with hand specialist as your DR established with her the one that is b een provided for further evaluation. after performing a Medical Screening Examination, I estimate there is LOW risk for OPEN FRACTURE, COMPARTMENT SYNDROME, DEEP VENOUS THROMBOSIS, ACUTE TENDON RUPTURE, or NEUROVASCULAR INJURY thus I consider the discharge disposition reasonable. I have reevaluated this patient multiple times and no significant life threatening changes are noted. The patient and I have discussed the diagnosis and risks, and we agree with discharging home to closely follow-up with their primary doctor or the referral orthopedist with the understanding that symptoms and presentations can change. We also discussed returning to the Emergency Department immediately if new or worsening symptoms occur. We have discussed the symptoms which are most concerning (e.g., changing or worsening pain, numbness, weakness) that necessitate immediate return - Vital Signs Vital signs: Temp Pulse Resp BP Pulse Ox 98.1 F 90 18 135/97 H 96 08/02/19 15:37 08/02/19 15:37 08/02/19 15:37 08/02/19 15:37 08/02/19 15:37 Discharge - Discharge Clinical Impression: Right hand pain, Carpal tunnel syndrome on right Condition: Stable Disposition: HOME, SELF-CARE Instructions: Sprained Finger ([facility]) Additional Instructions: X-ray showed arthritis. Please follow-up with hand surgeon as directed. Alternate between Tylenol and ibuprofen for pain. You were given a shot of Toradol while you are in the ER today. Return immediately for any new or worsening symptoms. Follow up with primary care provider, call tomorrow to make followup appointment. Forms: Return to Work Referrals: SHERIE STAFFORD MD [NO LOCAL MD] - Follow up as needed LETICIA OJEDA DO [ACTIVE STAFF] - Follow up as needed
--- NOTE | 2019-08-02 16:26 | RADIOLOGY REPORT (SQ) ---
EXAM DESCRIPTION: HAND RIGHT 3 VIEWS COMPLETED DATE/TIME: 08/02/2019 4:03 pm REASON FOR STUDY: hand pain on right COMPARISON: None. EXAM PARAMETERS: NUMBER OF VIEWS: Three views. TECHNIQUE: AP, lateral and oblique radiographic images acquired of the right hand. LIMITATIONS: None FINDINGS: MINERALIZATION: Decreased. BONES: No acute fracture dislocation. Mild degenerative change with scattered osteophytes at the int erphalangeal joints and 1st carpometacarpal joint. Chronic appearing ulnar styloid fracture. JOINTS: No effusions. SOFT TISSUES: Scattered vascular calcifications. No radiopaque foreign body. OTHER: No other significant finding. IMPRESSION: No evidence of acute bony abnormality. Mild scattered osteoarthritic change. TECHNICAL DOCUMENTATION: JOB ID: [id number] [email or web address]- All Rights Reserved Reading location - IP/workstation name: [email or web address]
[2019-08-02] MEDS ORDERED: KETOROLAC TROMETHAMINE 60 MG/2 ML SDV IM ONE (16:57)
[2019-08-02 17:01] VITALS: BP 128/86
== END 2019-08-02 17:05 | disposition home or self-care (01) ==
LOC: ER 15:14
DX: G56.01 Carpal tunnel syndrome, right upper limb (principal); M79.644 Pain in right finger(s); I48.91 Unspecified atrial fibrillation; I50.9 Heart failure, unspecified; I25.10 Atherosclerotic heart disease of native coronary artery without angina pectoris; I25.2 Old myocardial infarction; I11.0 Hypertensive heart disease with heart failure; E11.9 Type 2 diabetes mellitus without complications
CPT/HCPCS: 73130; L3908 ×2; J1885; 96374; 99283

== ENCOUNTER 2019-11-30 18:23 | Inpatient (IN) | payer MEDICAID ==
[2019-11-30 19:52] LABS: MEAN CORPUSCULAR HEMOGLOBIN 31.8 pg (27.0-33.4); TOTAL CELLS COUNTED % (AUTO) 100 %
[2019-11-30 19:55] LABS: ABSOLUTE BASOPHILS # (AUTO) 0.1 10^3/uL (0.0-0.2); ABSOLUTE EOSINOPHILS # (AUTO) 0.3 10^3/uL (0.0-0.6); ABSOLUTE LYMPHOCYTES (AUTO) 3.3 10^3/uL (0.5-4.7); ABSOLUTE MONOCYTES (AUTO) 1.5 10^3/uL (0.1-1.4); ABSOLUTE NEUT (AUTO) 9.5 10^3/uL (1.7-8.2); BASOPHILS % (AUTO) 0.8 % (0-2); EOSINOPHILS % (AUTO) 1.9 % (0-6); HEMATOCRIT 38.8 % (37.9-51.0); HEMOGLOBIN 13.2 g/dL (13.5-17.0); LYMPHOCYTES % (AUTO) 22.1 % (13-45); MEAN CORPUSCULAR VOLUME 94 fl (80-97); MONOCYTES % (AUTO) 10.3 % (3-13); PLATELET COUNT 253 10^3/uL (150-450); RED BLOOD COUNT 4.16 10^6/uL (4.35-5.55); RED CELL DISTRIBUTION WIDTH 17.1 % (11.5-14.0); SEGMENTED NEUTROPHILS % (AUTO) 64.9 % (42-78); WHITE BLOOD COUNT 14.7 10^3/uL (4.0-10.5)
[2019-11-30 20:16] LABS: ALBUMIN 3.6 g/dL (3.5-5.0); ALKALINE PHOSPHATASE 86 U/L (38-126); ANION GAP 9 (5-19); ASPARTATE AMINO TRANSFERASE 27 U/L (17-59); BILIRUBIN,DIRECT 0.2 mg/dL (0.0-0.4); BILIRUBIN,TOTAL 0.7 mg/dL (0.2-1.3); BLOOD UREA NITROGEN 39 mg/dL (7-20); CALCIUM 9.5 mg/dL (8.4-10.2); CARBON DIOXIDE 22 mmol/L (22-30); CHLORIDE 106 mmol/L (98-107); CREATINE KINASE 235 U/L (55-170); GLUCOSE 98 mg/dL (75-110); POTASSIUM 4.1 mmol/L (3.6-5.0); TOTAL PROTEIN 6.3 g/dL (6.3-8.2)
[2019-11-30 20:28] LABS: CREATINE KINASE MB 4.82 ng/mL (<4.55)
[2019-11-30 20:31] LABS: TROPONIN I 0.053 ng/mL
[2019-11-30] MEDS ORDERED: NORMAL SALINE 500 ML IV ONE ×2 (20:34→23:33)
[2019-11-30 21:00] LABS: PHOSPHORUS 4.7 mg/dL (2.5-4.5)
--- NOTE | 2019-11-30 21:31 | RADIOLOGY REPORT (SQ) ---
EXAM DESCRIPTION: XR CHEST 2 VIEWS COMPLETED DATE/TME: 11/30/2019 20:35 CLINICAL INDICATION: 64-year-old male with autonomic instability and chest pain. Rule out aortic dissection. TECHNIQUE: Two-view, PA and lateral projections of the chest were obtained. COMPARISON: 03/08/2019. FINDINGS: Unremarkable cardiac and mediastinal silhouette. Heart size is normal. Low lung volumes grossly clear without focal opacity, pneumothorax or pleural effusions. The visualized bones are within normal limits. IMPRESSION: 1. No acute cardiopulmonary abnormalities. Aortic dissection cannot be excluded on a noncontrast CT examination. CT chest angiography is recommended.
--- NOTE | 2019-11-30 21:33 | RADIOLOGY REPORT (SQ) ---
EXAM DESCRIPTION: XR SHOULDER 2 OR MORE VIEWS COMPLETED DATE/TME: 11/30/2019 20:35 CLINICAL INDICATION: 64-year-old male status post RIGHT shoulder trauma. TECHNIQUE: Three views RIGHT shoulder were obtained in AP, internal/external rotation and transcapular projections. COMPARISON: None. FINDINGS: There is no fracture or dislocation. Narrowing of the subacromial joint space, a finding which can be seen with chronic rotator cuff injury. No soft tissue abnormalities are seen. Degenerative changes noted at the acromioclavicular and glenohumeral joint. IMPRESSION: Degenerative change without acute radiographic abnormality.
--- NOTE | 2019-11-30 21:44 | EKG REPORT ---
SEVERITY:- ABNORMAL ECG - ATRIAL FIBRILLATION, V-RATE 70-99 BORDERLINE PROLONGED QT INTERVAL : Confirmed by: Stacia Woods MD 30-Nov-2019 21:43:37
--- NOTE | 2019-11-30 21:47 | RADIOLOGY REPORT (SQ) ---
CLINICAL INDICATION: cp autonomic instability concern for aortic dissection. CREAT 3.21. . TECHNIQUE: Noncontrast spiral axial CT images obtained through chest abdomen and pelvis with multiplanar reconstructions. This exam was performed according to our departmental dose-optimization program, which includes automated exposure control, adjustment of the mA and/or kV according to patient size and/or use of iterative reconstruction techniques. COMPARISON: None. CORRELATION: None. FINDINGS: Chest: The heart is enlarged with coronary calcification. No pericardial effusion. No bulky mediastinal adenopathy. The thoracic aorta is top normal at 4 cm in the ascending portion. The presence or absence of dissection cannot be assessed without intravascular contrast The lungs demonstrate chronic changes. Mild dependent atelectasis. No consolidation or edema. No effusion or pneumothorax. Abdomen: The liver is of normal size contour and attenuation. The gallbladder is surgically absent. The pancreas is of grossly normal contour on this noncontrast examination. The spleen is not identified. Presumed surgically absent. The adrenals are unremarkable. The kidneys appear grossly normal without evidence of urolithiasis or hydronephrosis. Simple cyst There is no evidence of free air. No free fluid. No bulky adenopathy. Abdominal aorta is calcified but nonaneurysmal. Pelvis: The bowel is nonobstructed. The bowel is unopacified with oral contrast. Pelvic contents are unremarkable. The appendix is not seen. Postsurgical change the colon. Please correlate with history. Visualized bones demonstrate age-appropriate osteoarthritis. Old posttraumatic change. Ankylosing arthropathy. IMPRESSION: No acute intrathoracic process. Mild dependent atelectasis. No acute intra-abdominal process The aorta is of normal caliber. The presence or absence of dissection cannot be assessed without administration of intravascular contrast.
--- NOTE | 2019-11-30 21:47 | RADIOLOGY REPORT (SQ) ---
EXAM DESCRIPTION: CT HEAD WITHOUT IV CONTRAST COMPLETED DATE/TME: 11/30/2019 20:35 CLINICAL INDICATION: 64-year-old male with autonomic instability. COMPARISON: 10/07/2015. TECHNIQUE: CT brain without contrast. This exam was performed according to our departmental dose optimization program which includes use of automated exposure control, adjustment of the mA and/or kV according to patient size and/or use of iterative reconstruction technique. FINDINGS: Motion limited examination. Multifocal regions of patchy hypoattenuation are present in a subcortical and periventricular deep white matter distribution, nonspecific; however, most likely represent small vessel ischemic disease, age indeterminate. Focal area of gliosis and encephalomalacia present at the level of the RIGHT inferior frontal lobe adjacent to the sylvian fissure compatible with sequela of prior infarction The ventricles, and sulci are enlarged compatible with underlying volume loss with slight interval increase in size since the previous examination. The buckley-white matter differentiation is preserved. There is no mass effect, midline shift, intra- or extra-axial fluid collection/acute hemorrhage. The osseous structures are unremarkable. The paranasal sinuses and mastoid air cells are clear. IMPRESSION: 1. No acute intracranial abnormalities. Nonspecific white matter change most likely small vessel ischemic disease, age indeterminate. 2. CT is insensitive for early evaluation of acute stroke. If there is clinical concern for acute ischemia, an MRI may be considered.
[2019-11-30 21:48] LABS: ALCOHOL < 10 mg/dL (NONE DETECTED)
[2019-11-30 22:05] LABS: TROPONIN I 0.049 ng/mL
[2019-11-30] MEDS ORDERED: DIPH/PERTUSS(ACELL)/TETANUS VAC/PF 0.5 ML SYR (>=10YO) IM ONE (22:16)
[2019-12-01] MEDS ORDERED: MORPHINE SULFATE 10 MG/ML INJ IV ONE (00:46)
--- NOTE | 2019-12-01 00:58 | ER Document Report ---
ED General - General Chief Complaint: Low Blood Pressure Stated Complaint: BLOOD PRESSURE ISSUES Time Seen by Provider: 11/30/19 20:10 Primary Care Provider: RENE VILLA MD [Primary Care Provider] - Follow up as needed Information source: Patient TRAVEL OUTSIDE OF THE [place] IN LAST 30 DAYS: No - HPI Notes: 64-year-old male history of hypertension, COPD, CHF, A. fib unknown if on anticoagulation presents with complaints of intermittent syncope over the past 4 days says that he suddenly feels lightheaded and has fallen several times over this period. One episode of falling and hitting head sustaining a hematoma on his forehead with abrasion. Patient very poor historian, unable to give insight into cardiac history, associated symptoms, prior work-up. Patient prescribed gabapentin which she says he started taking again this week and hydralazine lisinopril and Lasix which he says he has not been taking as for the past month. Says he was using that "street dirt" which may be crack but patient unclear. Says he last used this drug yesterday, unknown association with his symptoms. Patient denies any fever, shortness of breath, urinary symptoms, abdominal pain, alcohol use (previous alcoholic but no use in last year patient states). History limited by patient's poor history. - Related Data Allergies/Adverse Reactions: No Known Allergies Allergy (Verified 11/30/19 18:54) Past Medical History - Social History Smoking Status: Former Smoker Chew tobacco use (# tins/day): No Frequency of alcohol use: None Drug Abuse: None, Cocaine Lives with: Alone Family History: Reviewed & Not Pertinent, CAD, Hypertension Patient has suicidal ideation: No Patient has homicidal ideation: No - Past Medical History Cardiac Medical History: Reports: Hx Atrial Fibrillation, Hx Congestive Heart Failure, Hx Coronary Artery Disease, Hx Heart Attack, Hx Hypercholesterolemia, Hx Hypertension Endocrine Medical History: Reports: Hx Diabetes Mellitus Type 2 Renal/ Medical History: Denies: Hx Peritoneal Dialysis GI Medical History: Reports: Hx Gastroesophageal Reflux Disease Musculoskeletal Medical History: Reports Hx Arthritis - lbp, Reports Hx Gout - neck lbp R knee Psychiatric Medical History: Reports: Hx Bipolar Disorder, Hx Depression Infectious Medical History: Reports: Hx MRSA - L knee Past Surgical History: Reports: Hx Cardiac Catheterization, Hx Cholecystectomy, Hx Coronary Stent, Hx Oral Surgery, Hx Orthopedic Surgery - Right Knee, Right Thumb, Hx Tonsillectomy - Immunizations Hx Diphtheria, Pertussis, Tetanus Vaccination: Yes Review of Systems - Review of Systems Notes: REVIEW OF SYSTEMS: CONSTITUTIONAL : Denies fever, chills, or sweats. EENT: Denies recent cold/sinus symptoms, denies throat pain CARDIOVASCULAR: +chest pain, -OSCAR RESPIRATORY: Denies cough, denies shortness of breath. GASTROINTESTINAL: Denies abdominal pain, nausea/vomiting. GENITOURINARY: Denies difficulty urinating, painful urination, penile discharge/pain MUSCULOSKELETAL: Denies neck pain, back pain. SKIN: Denies rash or skin lesions. HEMATOLOGIC : Denies easy bruising or bleeding. LYMPHATIC: Denies swollen, enlarged glands. NEUROLOGICAL: Denies headache, denies change in gait. PSYCHIATRIC: Denies anxiety or stress or depression. Physical Exam - Vital signs Vitals: Resp 15 11/30/19 18:30 - Notes Notes: PHYSICAL EXAMINATION: GENERAL: Well-appearing adult male appearing older than stated age and in no acute distress. HEAD: Small frontal hematoma with superficial hemostatic abrasion, normoc ephalic. EYES: Pupils equal round and appropriate constriction, sclera anicteric, conjunctiva are normal. ENT: nares patent, moist mucous membranes. NECK: Normal range of motion, supple without lymphadenopathy LUNGS: Breath sounds clear to auscultation bilaterally and equal. No wheezes rales or rhonchi. HEART: Regular rate and rhythm, systolic ejection murmur ABDOMEN: Soft, nontender, no guarding, no masses, healed laparotomy scar, no CVAT EXTREMITIES: Normal range of motion, no pitting or edema. No cyanosis. NEUROLOGICAL: Awake, alert, conversing appropriately, moves all extremities spontaneously, CNII-XII intact b/l, 5 out of 5 strength in all extremities, normal sensation, [id number] within normal limits, oriented x3 PSYCH: Agitated mood, normal affect. SKIN: Warm, Dry, normal turgor, no rashes or lesions noted. Course - Re-evaluation Re-evalutation: 12/01/19 01:10 Patient presenting with numerous episodes of syncope and hypotension, very poor historian, differential wide including ACS, paroxysmal arrhythmia, symptomatic anemia, CHF exacerbation, valvular heart disease, aortic dissection causing autonomic instability, less likely sepsis as patient has no infectious symptoms and is afebrile. Possibly cocaine related vasospasm. Unclear if patient is continuing to take anticoagulation. Will obtain head CT CTA for dissection protocol chest x-ray Trope electrolytes CBC histologist technologist and admit. Patient complaining of chronic chest pain unchanged times years elicited by touching upper left chest, no new, exertional, or otherwise suspicious chest pain, although ACS high on differential for syncope presentation. Obtained right shoulder film secondary to complaints of shoulder pain after fall but no abnormal findings on exam. Will update Tdap. No other traumatic injuries found on head to toe undressed full trauma exam. CT a aortic dissection was ordered after initial evaluation, orthodontic lab technician refused to perform study, said he discussed with radiologist who said dissection could be diagnosed on noncontrast CT. Noncontrast CT obtained, on which radiologist said dissection could not be ruled out, so I had extensive discussion with patient regarding the need for CTA and the scientifically controversial but possible risks of contrast and presented the alternative of not obtaining exam and the risks thereof. Patient preferred to obtain exam, demonstrated understanding of the possible risks. After obtaining informed consent I discussed case with Dr. Seymour Malagon who agreed to perform CTA and I reordered CTA. Patient's blood pressure has improved since arrival and he remains stable pending this CTA which is now delayed for the aforementioned reasons. I ordered morphine for patient's chronic whole body pain x years to facilitate evaluation of patient in the ED, but patient has no acute pain complaints. 12/01/19 01:16 12/01/19 02:20 Patient's initial hypotension improved after crystalloid bolus, remains improved and patient has had a stable ED course on monitor. Lactate 2 likely secondary to tissue hypoperfusion from hypotension no signs of infection, will will continue to monitor inpatient. Repeat troponin down trended. Repeat EKG without any significant change. Performed bedside ultrasound which showed grossly normal LV function, no pericardial effusion, negative FAST exam, and A- line predominant lungs. Secondary to lack of signs of clinical volume overload given lack of lower extremity edema, no shortness of breath complaint, a lines on lung ultrasound did not administer Lasix as clinically patient is volume depleted despite BNP being markedly elevated. Discussed patient course with patient's primary doctor Dr. Villa who has accepted the patient as an admission to [facility] patient. Will sign out patient to Dr. Byrd pending CTA read. 12/01/19 02:28 - Vital Signs Vital signs: Temp Pulse Resp BP Pulse Ox 16 100/75 98 12/01/19 01:00 12/01/19 00:01 12/01/19 01:00 - Laboratory Result Diagrams: 11/30/19 19:35 11/30/19 19:35 Laboratory results interpreted by me: 11/30/19 11/30/19 11/30/19 19:35 19:35 19:35 WBC 14.7 H RBC 4.16 L Hgb 13.2 L RDW 17.1 H Absolute Neuts (auto) 9.5 H Absolute Monos (auto) 1.5 H BUN 39 H Creatinine 3.21 H Est GFR ( Amer) 24 L Est GFR (MDRD) Non-Af 20 L Phosphorus Creatine Kinase 235 H CK-MB (CK-2) 4.82 H NT-Pro-B Natriuret Pep Urine Protein Urine Urobilinogen 11/30/19 11/30/19 12/01/19 19:35 21:00 01:41 WBC RBC Hgb RDW Absolute Neuts (auto) Absolute Monos (auto) BUN Creatinine Est GFR ( Amer) Est GFR (MDRD) Non-Af Phosphorus 4.7 H Creatine Kinase CK-MB (CK-2) NT-Pro-B Natriuret Pep 2220 H Urine Protein 30 H Urine Urobilinogen 2.0 H - EKG Interpretation by Me EKG shows normal: Sinus rhythm Rate: Normal Rhythm: A.Fib P Waves: Absent When compared to previous EKG there are: No significant change - Transfer of Care Care transferred to following provider: Dr. Byrd Discharge - Discharge Clinical Impression: NSTEMI (non-ST elevated myocardial infarction) Syncope Qualifiers: Syncope type: unspecified Qualified Code(s): R55 - Syncope and collapse Acute kidney failure Qualifiers: Acute renal failure type: unspecified Qualified Code(s): N17.9 - Acute kidney f ailure, unspecified Condition: Fair Disposition: ADMITTED INPATIENT Admitting Provider: [facility] Unit Admitted: [facility] Referrals: RENE VILLA MD [Primary Care Provider] - Follow up as needed
[2019-12-01 02:02] LABS: APPEARANCE,URINE SLIGHTLY-CLOUDY; BILIRUBIN,URINE NEGATIVE (NEGATIVE); COLOR,URINE AMBER; GLUCOSE, URINE NEGATIVE (NEGATIVE); KETONES,URINE NEGATIVE (NEGATIVE); LEUKOCYTE ESTERASE,URINE NEGATIVE (NEGATIVE); NITRITE,URINE NEGATIVE (NEGATIVE); PROTEIN,URINE 30 mg/dL (NEGATIVE); URINE SPECIFIC GRAVITY 1.027
[2019-12-01 02:07] LABS: URINE AMPHETAMINES SCREEN NEGATIVE; URINE BARBITURATES SCREEN NEGATIVE; URINE MARIJUANA (THC) SCREEN NEGATIVE; URINE METHADONE SCREEN NEGATIVE; URINE PHENCYCLIDINE SCREEN NEGATIVE
[2019-12-01 02:09] LABS: URINE BENZODIAZEPINES SCREEN UNCONFIRMED POSITIVE; URINE COCAINE SCREEN UNCONFIRMED POSITIVE
[2019-12-01 02:13] LABS: URINE CREATININE 247.3 mg/dL (22-328)
--- NOTE | 2019-12-01 02:32 | RADIOLOGY REPORT (SQ) ---
CLINICAL INDICATION: r/o aortic dissection. Chest pain. TECHNIQUE: CT arteriography was obtained of the chest abdomen and pelvis with multiplanar MIP and/or 3-D angiographic reconstructions. This exam was performed according to our departmental dose-optimization program, which includes automated exposure control, adjustment of the mA and/or kV according to patient size and/or use of iterative reconstruction techniques. Renal dysfunction. This was discussed with referring physician preprocedure COMPARISON: None. CORRELATION: None. FINDINGS: Contrast bolus was optimized for pulmonary vasculature. Vascular: The thoracic aorta is of normal caliber. No evidence of aneurysm or dissection. No evidence of central pulmonary embolus. Average Hounsfield unit within thoracic aorta is of only 83. The abdominal aorta is of normal caliber. No evidence of aneurysm or dissection. The renal arteries are patent bilaterally. The celiac axis is patent. The superior mesenteric artery demonstrates proximal nonostial atherosclerosis, not likely hemodynamically significant. The inferior mesenteric artery is patent. The common iliac arteries are patent. The external iliac arteries are patent. The internal iliac arteries are patent. Visualized portion of the femoral system is patent. Chest: The heart is enlarged. No pericardial effusion. No bulky mediastinal adenopathy. The lungs demonstrate chronic change. No adverse change. Abdomen: The liver is of normal size contour and attenuation. The gallbladder is surgically absent. The pancreas is unremarkable. The spleen is unremarkable. The adrenals are unremarkable. The kidneys appear grossly normal without evidence of urolithiasis or hydronephrosis. Simple appearing renal cysts There is no evidence of free air. No free fluid. No bulky adenopathy. Abdominal aorta is of normal caliber. Pelvis: The bowel is nonobstructed. The bowel is unopacified with oral contrast. Pelvic contents denser Alves catheter. Fluid within the colon. The appendix is not seen. Visualized bones demonstrate age-appropriate osteoarthritis. IMPRESSION: The aorta is of normal caliber without evidence of aneurysm or dissection..
[2019-12-01] MEDS ORDERED: NORMAL SALINE 1000 ML 1,000 ML IV PRN (02:36)
[2019-12-01 03:57] LABS: INTERNATIONAL RATION (INR) 1.89
[2019-12-01 03:58] LABS: PARTIAL THROMBOPLASTIN TIME 38.7 SEC (23.5-35.8)
[2019-12-01 04:06] LABS: AMYLASE 35 U/L (30-110); ANION GAP 7 (5-19); BLOOD UREA NITROGEN 36 mg/dL (7-20); CALCIUM 8.8 mg/dL (8.4-10.2); CARBON DIOXIDE 23 mmol/L (22-30); CHLORIDE 106 mmol/L (98-107); GLUCOSE 90 mg/dL (75-110); POTASSIUM 3.5 mmol/L (3.6-5.0)
[2019-12-01 04:21] LABS: CREATINE KINASE MB 3.97 ng/mL (<4.55); TROPONIN I 0.033 ng/mL
[2019-12-01 04:23] LABS: FREE T4 (FREE THYROXINE) 1.54 ng/dL (0.78-2.19)
[2019-12-01 04:37] LABS: THYROID STIMULATING HORMONE 0.81 uIU/mL (0.47-4.68)
[2019-12-01] MEDS: HEPARIN SOD (PORCINE) 5,000 UNIT/ML 1 ML VIAL SUBCUT SCH ×3 (04:46→13:34)
[2019-12-01 04:48] LABS: ARTERIAL BLOOD H2CO3 1.32 mmol/L (1.05-1.35); ARTERIAL BLOOD HCO3 22.8 mmol/L (20-24); ARTERIAL BLOOD O2 SATURATION 95.8 % (94-98); ARTERIAL BLOOD PCO2 43.9 mmHg (35-45); ARTERIAL BLOOD PH 7.33 (7.35-7.45); ARTERIAL BLOOD PO2 85.3 mmHg (80-100); ARTERIAL BLOOD TOTAL CO2 24.2 mmol/L (23-27)
[2019-12-01 04:53] LABS: ARTERIAL BLOOD FIO2 ROOM AIR
[2019-12-01] MEDS ORDERED: ACETAMINOPHEN 325 MG TABLET PO PRN (05:19)
[2019-12-01] MEDS ORDERED: DEXTROSE 40% GEL 15 GM TUBE PO PRN ×2 (05:58)
[2019-12-01] MEDS ORDERED: GLUCAGON,HUMAN RECOMB 1 MG INJ IM PRN (05:58)
[2019-12-01] MEDS ORDERED: DEXTROSE 50%-WATER 25 GM/50 ML DISP.SYRIN IV PRN ×2 (05:58)
--- NOTE | 2019-12-01 08:42 | EKG REPORT ---
SEVERITY:- ABNORMAL ECG - ATRIAL FIBRILLATION BORDERLINE PROLONGED QT INTERVAL : Confirmed by: Stacia Woods MD 01-Dec-2019 08:42:15
[2019-12-01 09:38] LABS: CREATINE KINASE MB 3.43 ng/mL (<4.55)
[2019-12-01 09:41] LABS: TROPONIN I 0.028 ng/mL
[2019-12-01 14:39] VITALS: BP 133/78
--- NOTE | 2019-12-01 16:25 | XCELERA REPORT ---
[address] [address] Transthoracic Echocardiogram Report Name: MERARY WARNER Age: 64 yrs Gender: Male : 1955 Patient Status: Inpatient Patient Location: [address] [place], [place] [address] Study Date: 12/01/2019 09:44 AM Height: 69 in Weight: 197 lb BSA: 2.1 m2 Procedure: A two-dimensional transthoracic echocardiogram with color flow and Doppler was performed. The study was technically limited with all images being suboptimal in quality. Reason For Study: HTN,SYNCOPE History: HTN,SYNCOPE. Ordering Physician: RENE VILLA Performed By: Lizy Grier Interpretation Summary The left ventricle is normal in size. LV EF is 50% No LVH. Left ventricular systolic function is mildly reduced. There is mild global hypokinesis of the left ventricle. There is no thrombus. Cannot assess ASD ,VSD,or PFO. The right atrium is moderate to severely dilated. The left atrium is severely dilated. There is no evidence of mitral valve prolapse. There is no aortic valvular vegetation. There is no aortic valve stenosis No aortic regurgitation is present. There is no tricuspid stenosis. RVSP is 37 mm of Hg , with RA mean of 10. There is no pulmonic valvular stenosis. There is no pulmonic valvular regurgitation. The aortic root is normal size. The inferior vena cava was not visualized There is no pericardial effusion. MMode/2D Measurements & Calculations RVDd: 2.7 cm LVIDd: 4.9 cm FS: 23.8 % Ao root diam: 3.5 cm IVSd: 1.2 cm LVIDs: 3.8 cm EDV(Teich): 114.7 ml Ao root area: 9.7 cm2 LVPWd: 1.1 cm ESV(Teich): 60.3 ml EF(Teich): 47.4 % Doppler Measurements & Calculations MV E max beto: MV dec slope: Ao V2 max: LV V1 max P.5 cm/sec 517.2 cm/sec2 101.9 cm/sec 2.6 mmHg MV A max beto: MV dec time: 0.15 secAo max PG: LV V1 max: 36.1 cm/sec 4.2 mmHg 81.3 cm/sec MV E/A: 2.1 PA V2 max: TR max beto: 61.1 cm/sec 257.3 cm/sec PA max P.5 mmHg TR max P.5 mmHg Left Ventricle The left ventricle is normal in size. There is normal left ventricular wall thickness. LV EF is 50%. Left ventricular systolic function is mildly reduced. LV diastolic function could not be adequately assessed due to atrial fibrilation. There is mild global hypokinesis of the left ventricle. There is no thrombus. Cannot assess ASD ,VSD,or PFO. Right Ventricle The right ventricle is moderately dilated. The right ventricular systolic function is mildly reduced. Atria The right atrium is moderate to severely dilated. The left atrium is severely dilated. Mitral Valve There is no evidence of mitral valve prolapse. There is no mitral valve stenosis. There is a mild amount of mitral regurgitation. Aortic Valve There is no aortic valvular vegetation. There is no aortic valve stenosis. No aortic regurgitation is present. Tricuspid Valve There is no tricuspid stenosis. There is mild pulmonary hypertension by echo. RVSP is 37 mm of Hg , with RA mean of 10. There is a moderate amount of tricuspid regurgitation. Pulmonic Valve There is no pulmonic valvular stenosis. There is no pulmonic valvular regurgitation. Great Vessels The aortic root is normal size. The inferior vena cava was not visualized. Effusions There is no pericardial effusion. : RENE VILLA Lakshmi
--- NOTE | 2019-12-01 18:07 | PDOC H&P ---
History of Present Illness Admission Date/PCP: 12/01/19 02:39 RENE VILLA MD History of Present Illness: MERARY WARNER is a 64 year old male,He has multiple comorbid conditions inc luding chronic obstructive pulmonary disease, ischemic cardiomyopathy, chronic atrial fibrillation, ongoing cocaine abuse, nonadherence to medical management. He came to the emergency room last night for evaluation of multiple fall/syncope patient has been binging on cocaine, he is a cocaine addict, in the emergency room he was found to have serum creatinine of 3.0, the ER physician felt patient needed to be admitted to the hospital, in the emergency room the initial blood pressure was relatively low he underwent CTA of the chest abdomen and pelvis there was no pulmonary embolus noted aneurysm.I reviewed the emergency room record, part of the clinical impression was non-STEMI but I do not understand on what basis the diagnosis was madeThe serum troponin was not elevated in the [place] range, EKG was A. fib. He was given morphine in the emergency room for the control of pain, he has a strong penchant for opioid, he was requesting morphine on the floor which I refused to rob him especially with his history of ongoing cocaine abuse, he has been on the cocaine binging spells and that is probably the reason why he had multiple syncope this patient is on a slippery slope to Past Medical History Cardiac Medical History: Reports: Atrial Fibrillation, Congestive Heart Failure, Coronary Artery Disease, Myocardial Infarction, Hyperlipidema, Hypertension Endocrine Medical History: Reports: Diabetes Mellitus Type 2 GI Medical History: Reports: Gastroesophageal Reflux Disease Musculoskeltal Medical History: Reports: Arthritis - lbp, Gout - neck lbp R knee Psychiatric Medical History: Reports: Bipolar Disorder, Depression Infectious Medical History: Reports: Methicillin-Resistant Staph Aureus - L knee Past Surgical History Past Surgical History: Reports: Cardiac Catheterization, Cholecystectomy, Coronary Stent, Orthopedic Surgery - Right Knee, Right Thumb, Tonsillectomy Social History Lives with: Alone Smoking Status: Never Smoker Electronic Cigarette use?: No Frequency of Alcohol Use: None Hx Recreational Drug Use: Yes Drugs: Cocaine, Other Hx Prescription Drug Abuse: No Family History Family History: Reviewed & Not Pertinent, CAD, Hypertension Parental Family History Reviewed: Yes Children Family History Reviewed: Yes Sibling(s) Family History Reviewed.: Yes Medication/Allergy Home Medications: Atorvastatin Calcium [Lipitor 80 mg Tablet] 80 mg PO QHS 04/12/18 Gabapentin [Neurontin 300 mg Capsule] 600 mg PO Q12 04/12/18 Hydralazine HCl [Apresoline 50 mg Tablet] 50 mg PO TID 04/12/18 Furosemide [Lasix 40 mg Tablet] 20 mg PO DAILY 11/07/18 Lisinopril [Prinivil 40 mg Tablet] 20 mg PO DAILY 11/07/18 Allopurinol [Zyloprim 300 mg Tablet] 300 mg PO DAILY 12/01/19 Carvedilol [Coreg 12.5 mg Tablet] 12.5 mg PO BID 12/01/19 Docusate Sodium [Colace 100 mg Capsule] 100 mg PO DAILYP PRN 12/01/19 Ergocalciferol (Vitamin D2) [Vitamin D2] 50 mcg PO DAILY 12/01/19 Fluoxetine HCl [Prozac 20 mg Capsule] 20 mg PO DAILY 12/01/19 Hydroxyzine Pamoate [Vistaril 25 mg Capsule] 25 mg PO Q8HP PRN 12/01/19 Polyethylene Glycol 3350 [Miralax Powder 17 gm/Packet] 17 gm PO DAILYP PRN 12/01/19 Rivaroxaban [Xarelto] 20 mg PO WSUPPER 12/01/19 Sennosides [Senna] 17.2 mg PO HSP PRN 12/01/19 Tamsulosin HCl [Flomax 0.4 mg Cap.sr] 0.4 mg PO DAILY 12/01/19 Tramadol HCl [Ultram] 50 mg PO Q8HP PRN 12/01/19 Zolpidem Tartrate [Ambien] 10 mg PO HSP PRN 12/01/19 Allergies/Adverse Reactions: No Known Allergies Allergy (Verified 11/30/19 18:54) Review of Systems ROS unobtainable: Other Physical Exam Vital Signs: Temp Pulse Resp BP Pulse Ox 97.4 F 79 19 133/78 H 98 12/01/19 04:11 12/01/19 14:00 12/01/19 13:08 12/01/19 13:08 12/01/19 13:08 Intake & Output 11/30/19 12/01/19 12/02/19 06:59 06:59 06:59 Intake Total 1300 120 Output Total 425 600 Balance 875 -480 Weight 93.3 kg General appearance: PRESENT: no acute distress Eye exam: PRESENT: PERRLA Respiratory exam: PRESENT: clear to auscultation lee Cardiovascular exam: PRESENT: +S1, +S2 GI/Abdominal exam: PRESENT: soft Neurological exam: PRESENT: alert, CN II-XII grossly intact Results Laboratory Results: 11/30/19 19:35 12/01/19 03:26 11/30/19 11/30/19 11/30/19 19:35 19:35 19:35 WBC 14.7 H RBC 4.16 L Hgb 13.2 L Hct 38.8 MCV 94 MCH 31.8 MCHC 34.0 RDW 17.1 H Plt Count 253 Seg Neutrophils % 64.9 Carbonic Acid HCO3/H2CO3 Ratio ABG pH ABG pCO2 ABG pO2 ABG HCO3 ABG O2 Saturation ABG Base Excess FiO2 Sodium 137.1 Potassium 4.1 Chloride 106 Carbon Dioxide 22 Anion Gap 9 BUN 39 H Creatinine 3.21 H Est GFR ( Amer) 24 L Glucose 98 Lactic Acid Calcium 9.5 Phosphorus 4.7 H Magnesium 1.9 Total Bilirubin 0.7 AST 27 Alkaline Phosphatase 86 Ammonia Total Protein 6.3 Albumin 3.6 Amylase Lipase TSH Free T4 Urine Color Urine Appearance Urine pH Ur Specific [place] Urine Protein Urine Glucose (UA) Urine Ketones Urine Blood Urine Nitrite Ur Leukocyte Esterase Urine WBC (Auto) Urine RBC (Auto) Urine Osmolality 11/30/19 11/30/19 12/01/19 19:35 21:00 01:41 WBC RBC Hgb Hct MCV MCH MCHC RDW Plt Count Seg Neutrophils % Carbonic Acid HCO3/H2CO3 Ratio ABG pH ABG pCO2 ABG pO2 ABG HCO3 ABG O2 Saturation ABG Base Excess FiO2 Sodium Potassium Chloride Carbon Dioxide Anion Gap BUN Creatinine Est GFR ( Amer) Glucose Lactic Acid 2.0 Calcium Phosphorus Magnesium Total Bilirubin AST Alkaline Phosphatase Ammonia Total Protein Albumin Amylase Lipase TSH 1.01 Free T4 Urine Color Urine Appearance Urine pH Ur Specific [place] Urine Protein Urine Glucose (UA) Urine Ketones Urine Blood Urine Nitrite Ur Leukocyte Esterase Urine WBC (Auto) Urine RBC (Auto) Urine Osmolality 539 12/01/19 12/01/19 12/01/19 01:41 03:17 03:26 WBC RBC Hgb Hct MCV MCH MCHC RDW Plt Count Seg Neutrophils % Carbonic Acid HCO3/H2CO3 Ratio ABG pH ABG pCO2 ABG pO2 ABG HCO3 ABG O2 Saturation ABG Base Excess FiO2 Sodium 136.3 L Potassium 3.5 L Chloride 106 Carbon Dioxide 23 Anion Gap 7 BUN 36 H Creatinine 2.47 H Est GFR ( Amer) 32 L Glucose 90 Lactic Acid Calcium 8.8 Phosphorus 4.0 Magnesium 1.6 Total Bilirubin AST Alkaline Phosphatase Ammonia < 8.7 L Total Protein Albumin Amylase 35 Lipase 41.3 TSH Free T4 Urine Color MORENA Urine Appearance SLIGHTLY-CLOUDY Urine pH 5.0 Ur Specific [place] 1.027 Urine Protein 30 H Urine Glucose (UA) NEGATIVE Urine Ketones NEGATIVE Urine Blood NEGATIVE Urine Nitrite NEGATIVE Ur Leukocyte Esterase NEGATIVE Urine WBC (Auto) 4 Urine RBC (Auto) 5 Urine Osmolality 12/01/19 12/01/19 03:26 04:18 WBC RBC Hgb Hct MCV MCH MCHC RDW Plt Count Seg Neutrophils % Carbonic Acid 1.32 HCO3/H2CO3 Ratio 17:1 ABG pH 7.33 L ABG pCO2 43.9 ABG pO2 85.3 ABG HCO3 22.8 ABG O2 Saturation 95.8 ABG Base Excess -3.0 FiO2 ROOM AIR Sodium Potassium Chloride Carbon Dioxide Anion Gap BUN Creatinine Est GFR ( Amer) Glucose Lactic Acid Calcium Phosphorus Magnesium Total Bilirubin AST Alkaline Phosphatase Ammonia Total Protein Albumin Amylase Lipase TSH 0.81 Free T4 1.54 Urine Color Urine Appearance Urine pH Ur Specific [place] Urine Protein Urine Glucose (UA) Urine Ketones Urine Blood Urine Nitrite Ur Leukocyte Esterase Urine WBC (Auto) Urine RBC (Auto) Urine Osmolality 11/30/19 11/30/19 11/30/19 19:35 19:35 21:00 Creatine Kinase 235 H CK-MB (CK-2) 4.82 H Troponin I 0.053 0.049 NT-Pro-B Natriuret Pep 2220 H 12/01/19 12/01/19 12/01/19 03:17 03:17 03:26 Creatine Kinase 188 H CK-MB (CK-2) 3.97 Troponin I 0.033 NT-Pro-B Natriuret Pep 1110 H 12/01/19 12/01/19 08:35 08:35 Creatine Kinase 138 CK-MB (CK-2) 3.43 Troponin I 0.028 NT-Pro-B Natriuret Pep Impressions: Abdomen/Pelvis CT 11/30/19 20:35 IMPRESSION: No acute intrathoracic process. Mild dependent atelectasis. No acute intra-abdominal process The aorta is of normal caliber. The presence or absence of dissection cannot be assessed without administration of intravascular contrast. Chest CT 11/30/19 20:35 IMPRESSION: No acute intrathoracic process. Mild dependent atelectasis. No acute intra-abdominal process The aorta is of normal caliber. The presence or absence of dissection cannot be assessed without administration of intravascular contrast. Chest X-Ray 11/30/19 20:35 IMPRESSION: 1. No acute cardiopulmonary abnormalities. Aortic dissection cannot be excluded on a noncontrast CT examination. CT chest angiography is recommended. Head CT 11/30/19 20:35 IMPRESSION: 1. No acute intracranial abnormalities. Nonspecific white matter change most likely small vessel ischemic disease, age indeterminate. 2. CT is insensitive for early evaluation of acute stroke. If there is clinical concern for acute ischemia, an MRI may be considered. Shoulder X-Ray 11/30/19 20:35 IMPRESSION: Degenerative change without acute radiographic abnormality. Abdomen/Pelvis CTA 11/30/19 23:33 IMPRESSION: The aorta is of normal caliber without evidence of aneurysm or dissection.. Chest/Abdomen CTA 11/30/19 23:33 IMPRESSION: The aorta is of normal caliber without evidence of aneurysm or dissection.. Assessment & Plan - Diagnosis (1) Hypotension Qualifiers: Hypotension type: unspecified hypotension type Qualified Code(s): I95.9 - Hypotension, unspecified Is this a current diagnosis for this admission?: Yes Plan: The cause of the blood pressure is probably dehydration or could be related to the cocaine binge but the blood pressure was responsive to fluids, the blood pressure was normalized with fluid therapy (2) Acute kidney injury Is this a current diagnosis for this admission?: Yes Plan: Differential diagnosis include prerenal, or ATN, the CAT scan that was done in the emergency room did not reveal any hydronephrosis that would suggest post renal azotemia (3) Atrial fibrillation Qualifiers: Atrial fibrillation type: permanent Qualified Code(s): I48.21 - Permanent atrial fibrillation Is this a current diagnosis for this admission?: Yes (4) Cocaine abuse Is this a current diagnosis for this admission?: Yes
--- NOTE | 2019-12-01 18:10 | Left Against Medical Advice ---
Against Medical Advice Admission Date/Time: 12/01/19 02:39 Primary Care Provider: RENE VILLA MD Date of Patient Emigration: 12/01/19 - Diagnosis: (1) Hypotension Is this a current diagnosis for this admission?: Yes (2) Acute kidney injury Is this a current diagnosis for this admission?: Yes (3) Atrial fibrillation Is this a current diagnosis for this admission?: Yes (4) Cocaine abuse Is this a current diagnosis for this admission?: Yes - Summary: Summary: Please see Admission and Progress Notes as well. MERARY WARNER is a 64 M, who LEFT AGAINST MEDICAL ADVICE. The Patient was admitted on 12/01/19 02:39. MERARY WARNER is a 64 year old male,He has multiple comorbid conditions including chronic obstructive pulmonary disease, ischemic cardiomyopathy, chronic atrial fibrillation, ongoing cocaine abuse, nonadherence to medical management. He came to the emergency room last night for evaluation of multiple fall/syncope patient has been binging on cocaine, he is a cocaine addict, in the emergency room he was found to have serum creatinine of 3.0, the ER physician felt patient needed to be admitted to the hospital, in the emergency room the initial blood pressure was relatively low he underwent CTA of the chest abdomen and pelvis there was no pulmonary embolus noted aneurysm.I reviewed the emergency room record, part of the clinical impression was non-STEMI but I do not understand on what basis the diagnosis was madeThe serum troponin was not elevated in the [place] range, EKG was A. fib. He was given morphine in the emergency room for the control of pain, he has a strong penchant for opioid, he was requesting morphine on the floor which I refused to rob him especially with his history of ongoing cocaine abuse, he has been on the cocaine binging spells and that is probably the reason why he had multiple syncope this patient is on a slippery slope to , Patient left AMA today
== END 2019-12-01 15:54 | disposition left against medical advice (07) | DRG 894 ==
LOC: ER 18:23 → EH 12-01 02:39 → 3W 12-01 04:04
PROVIDERS: ADMIT Internal Medicine; ATTEND Internal Medicine
DX: F14.20 Cocaine dependence, uncomplicated (principal); N17.9 Acute kidney failure, unspecified; I48.21 Permanent atrial fibrillation; I95.9 Hypotension, unspecified; I11.0 Hypertensive heart disease with heart failure; I50.9 Heart failure, unspecified; R55 Syncope and collapse; E78.5 Hyperlipidemia, unspecified; E11.9 Type 2 diabetes mellitus without complications; Z95.5 Presence of coronary angioplasty implant and graft; J44.9 Chronic obstructive pulmonary disease, unspecified; I25.5 Ischemic cardiomyopathy; Z91.14 Patient's other noncompliance with medication regimen; I25.10 Atherosclerotic heart disease of native coronary artery without angina pectoris; K21.9 Gastro-esophageal reflux disease without esophagitis; M19.90 Unspecified osteoarthritis, unspecified site; M10.9 Gout, unspecified; F31.9 Bipolar disorder, unspecified; S00.83XA Contusion of other part of head, initial encounter; W19.XXXA Unspecified fall, initial encounter; R07.9 Chest pain, unspecified; R29.6 Repeated falls; Z53.29 Procedure and treatment not carried out because of patient's decision for other reasons; I25.2 Old myocardial infarction; Z86.14 Personal history of Methicillin resistant Staphylococcus aureus infection; Z82.49 Family history of ischemic heart disease and other diseases of the circulatory system; Z79.01 Long term (current) use of anticoagulants; Z87.891 Personal history of nicotine dependence
CPT/HCPCS: 36415; 70450; 71046; 71250; 71275; 74174; 74176; 80048; 80053; 80307; 81001; 82140; 82150; 82533; 82550; 82553; 82570; 82803; 82962; 83605; 83690; 83735; 83880; 83935; 84100; 84133; 84300; 84439; 84443; 84484; 85025; 85610; 85730; 87040; 90471; 90715; 93005; 93010; 93306; 96360; 99285; J2270; J7030; J7040

== ENCOUNTER 2020-01-04 10:09 | Emergency (ER) | payer MEDICAID, OTHER ==
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
[2020-01-04 10:56] LABS: ABSOLUTE BASOPHILS # (AUTO) 0.1 10^3/uL (0.0-0.2); ABSOLUTE EOSINOPHILS # (AUTO) 0.2 10^3/uL (0.0-0.6); BASOPHILS % (AUTO) 1.4 % (0-2); HEMOGLOBIN 12.9 g/dL (13.5-17.0); MEAN CORPUSCULAR VOLUME 94 fl (80-97); TOTAL CELLS COUNTED % (AUTO) 100 %
--- NOTE | 2020-01-04 10:56 | RADIOLOGY REPORT (SQ) ---
EXAM DESCRIPTION: CHEST 2 VIEWS IMAGES COMPLETED DATE/TIME: 01/04/2020 10:42 am REASON FOR STUDY: cp COMPARISON: AP and lateral views of the chest from 11/30/2019. EXAM PARAMETERS: NUMBER OF VIEWS: Two views. TECHNIQUE: PA and lateral views of the chest were obtained. RADIATION DOSE: NA LIMITATIONS: None. FINDINGS: LUNGS AND PLEURA: Mild prominence of the interstitium. The costophrenic sulci are blunted . There is no focal consolidation or pneumothorax. MEDIASTINUM AND HILAR STRUCTURES: No mediastinal or hilar contour abnormality. HEART AND VASCULAR STRUCTURES: The cardiac silhouette is enlarged. BONES: No acute findings. HARDWARE: Cholecystectomy clips. OTHER: No other finding. IMPRESSION: Cardiomegaly, prominence of the interstitium, and bilateral pleural effusions. Clinical correlation for signs and symptoms of CHF is recommended. TECHNICAL DOCUMENTATION: JOB ID: [id number] [employer]- All Rights Reserved Reading location - IP/workstation name: [email or web address]
[2020-01-04 11:15] LABS: ABSOLUTE LYMPHOCYTES (AUTO) 3.2 10^3/uL (0.5-4.7); ABSOLUTE MONOCYTES (AUTO) 1.1 10^3/uL (0.1-1.4); ABSOLUTE NEUT (AUTO) 4.9 10^3/uL (1.7-8.2); EOSINOPHILS % (AUTO) 2.5 % (0-6); HEMATOCRIT 37.9 % (37.9-51.0); LYMPHOCYTES % (AUTO) 33.8 % (13-45); MEAN CORPUSCULAR HEMOGLOBIN 31.8 pg (27.0-33.4); MONOCYTES % (AUTO) 11.6 % (3-13); PLATELET COUNT 299 10^3/uL (150-450); RED BLOOD COUNT 4.06 10^6/uL (4.35-5.55); RED CELL DISTRIBUTION WIDTH 16.5 % (11.5-14.0); SEGMENTED NEUTROPHILS % (AUTO) 50.7 % (42-78); WHITE BLOOD COUNT 9.6 10^3/uL (4.0-10.5)
[2020-01-04 11:16] LABS: ALBUMIN 3.9 g/dL (3.5-5.0); ALKALINE PHOSPHATASE 98 U/L (38-126); ANION GAP 7 (5-19); ASPARTATE AMINO TRANSFERASE 20 U/L (17-59); BILIRUBIN,DIRECT 0.1 mg/dL (0.0-0.4); BLOOD UREA NITROGEN 16 mg/dL (7-20); CALCIUM 8.9 mg/dL (8.4-10.2); CARBON DIOXIDE 28 mmol/L (22-30); CHLORIDE 102 mmol/L (98-107); GLUCOSE 102 mg/dL (75-110); POTASSIUM 3.7 mmol/L (3.6-5.0); TOTAL PROTEIN 6.7 g/dL (6.3-8.2)
[2020-01-04 11:39] LABS: TROPONIN I 0.023 ng/mL
[2020-01-04] MEDS ORDERED: ASPIRIN 81 MG TABLET, CHEWABLE PO ONE (12:09)
[2020-01-04 12:59] LABS: VENOUS BLOOD BASE EXCESS 0.5 mmol/L; VENOUS BLOOD HCO3 26.5 mmol/L (20-32); VENOUS BLOOD PCO2 48.2 mmHg (35-63); VENOUS BLOOD PH 7.36 (7.30-7.42)
[2020-01-04 13:11] LABS: ABSOLUTE BASOPHILS # (AUTO) 0.1 10^3/uL (0.0-0.2); ABSOLUTE EOSINOPHILS # (AUTO) 0.2 10^3/uL (0.0-0.6); ABSOLUTE LYMPHOCYTES (AUTO) 2.6 10^3/uL (0.5-4.7); ABSOLUTE MONOCYTES (AUTO) 1.2 10^3/uL (0.1-1.4); ABSOLUTE NEUT (AUTO) 6.4 10^3/uL (1.7-8.2); BASOPHILS % (AUTO) 1.4 % (0-2); EOSINOPHILS % (AUTO) 1.5 % (0-6); HEMATOCRIT 37.7 % (37.9-51.0); HEMOGLOBIN 12.7 g/dL (13.5-17.0); LYMPHOCYTES % (AUTO) 25.2 % (13-45); MEAN CORPUSCULAR HEMOGLOBIN 31.6 pg (27.0-33.4); MEAN CORPUSCULAR HGB CONC 33.7 g/dL (32.0-36.0); MEAN CORPUSCULAR VOLUME 94 fl (80-97); PLATELET COUNT 307 10^3/uL (150-450); RED BLOOD COUNT 4.03 10^6/uL (4.35-5.55); RED CELL DISTRIBUTION WIDTH 16.5 % (11.5-14.0); SEGMENTED NEUTROPHILS % (AUTO) 60.9 % (42-78); TOTAL CELLS COUNTED % (AUTO) 100 %; WHITE BLOOD COUNT 10.5 10^3/uL (4.0-10.5)
[2020-01-04 13:16] LABS: INTERNATIONAL RATION (INR) 3.52; PARTIAL THROMBOPLASTIN TIME 47.2 SEC (23.5-35.8); PROTHROMBIN TIME 36.1 SEC (11.4-15.4)
[2020-01-04 13:19] LABS: APPEARANCE,URINE CLEAR; BILIRUBIN,URINE NEGATIVE (NEGATIVE); COLOR,URINE YELLOW; GLUCOSE, URINE NEGATIVE (NEGATIVE); KETONES,URINE NEGATIVE (NEGATIVE); LEUKOCYTE ESTERASE,URINE NEGATIVE (NEGATIVE); NITRITE,URINE NEGATIVE (NEGATIVE); PROTEIN,URINE NEGATIVE (NEGATIVE); UROBILINOGEN,URINE NEGATIVE mg/dL (<2.0)
[2020-01-04 13:22] LABS: ALBUMIN 3.7 g/dL (3.5-5.0); ALKALINE PHOSPHATASE 94 U/L (38-126); ANION GAP 6 (5-19); ASPARTATE AMINO TRANSFERASE 18 U/L (17-59); BILIRUBIN,DIRECT 0.1 mg/dL (0.0-0.4); BILIRUBIN,TOTAL 1.1 mg/dL (0.2-1.3); BLOOD UREA NITROGEN 16 mg/dL (7-20); CALCIUM 8.9 mg/dL (8.4-10.2); CARBON DIOXIDE 29 mmol/L (22-30); CHLORIDE 101 mmol/L (98-107); CREATINE KINASE 49 U/L (55-170); GLUCOSE 112 mg/dL (75-110); TOTAL PROTEIN 6.4 g/dL (6.3-8.2)
[2020-01-04 13:31] LABS: URINE AMPHETAMINES SCREEN NEGATIVE; URINE BARBITURATES SCREEN NEGATIVE; URINE BENZODIAZEPINES SCREEN NEGATIVE; URINE MARIJUANA (THC) SCREEN NEGATIVE; URINE METHADONE SCREEN NEGATIVE; URINE PHENCYCLIDINE SCREEN NEGATIVE
[2020-01-04 13:35] LABS: URINE COCAINE SCREEN UNCONFIRMED POSITIVE
[2020-01-04 13:51] LABS: TROPONIN I 0.019 ng/mL
--- NOTE | 2020-01-04 14:54 | ER Document Report ---
Entered by TAWANNA ANDERSON SCRIBE 01/04/20 1137 Acting as scribe for:ELPIDIO ACOSTA MD ED General - General Chief Complaint: Chest Pain Stated Complaint: CHEST PAIN Time Seen by Provider: 01/04/20 10:14 Primary Care Provider: RENE VILLA MD [ACTIVE STAFF] - Follow up as needed Information source: Patient Notes: This 64-year-old male presents to the emergency department complaining of chest pain that began two days ago. Patient states that two nights ago, he woke up with shortness of breath and left-sided chest pain. Patient describes the pain as throbbing. Patient mentions he has not been able to sleep since the pain started. Patient states that no medication has provided relief but he has "had dilauded and oxycodone with this pain before" which worked. Patient states he "hasn't been able to get any opiates in this town". Patient reports chronic constipation. Patient denies fever, chills and cough. Patient shows his scar from where he had a splenectomy in March and expressed concern on how it was healing. TRAVEL OUTSIDE OF THE [place] IN LAST 30 DAYS: No - Related Data Allergies/Adverse Reactions: No Known Allergies Allergy (Verified 01/04/20 10:18) Past Medical History - General Information source: Patient - Social History Smoking Status: Never Smoker Cigarette use (# per day): No Chew tobacco use (# tins/day): No Frequency of alcohol use: None Drug Abuse: None Family History: Reviewed & Not Pertinent, CAD, Hypertension Patient has homicidal ideation: No - Past Medical History Cardiac Medical History: Reports: Hx Atrial Fibrillation, Hx Congestive Heart Failure, Hx Coronary Artery Disease, Hx Heart Attack, Hx Hypercholesterolemia, Hx Hypertension Endocrine Medical History: Reports: Hx Diabetes Mellitus Type 2 GI Medical History: Reports: Hx Gastroesophageal Reflux Disease Musculoskeletal Medical History: Reports Hx Arthritis - lbp, Reports Hx Gout - neck lbp R knee Psychiatric Medical History: Reports: Hx Bipolar Disorder, Hx Depression Infectious Medical History: Reports: Hx MRSA - L knee Past Surgical History: Reports: Hx Cardiac Catheterization, Hx Cholecystectomy, Hx Coronary Stent, Hx Oral Surgery, Hx Orthopedic Surgery - Right Knee, Right Thumb, Hx Tonsillectomy - Immunizations Hx Diphtheria, Pertussis, Tetanus Vaccination: Yes Review of Systems - Review of Systems Constitutional: See HPI. denies: Chills, Fever EENT: No symptoms reported Cardiovascular: See HPI, Chest pain Respiratory: See HPI, Short of breath. denies: Cough Gastrointestinal: See HPI, Constipation Genitourinary: No symptoms reported Male Genitourinary: No symptoms reported Musculoskeletal: No symptoms reported Skin: No symptoms reported Hematologic/Lymphatic: No symptoms reported Neurological/Psychological: No symptoms reported -: Yes All other systems reviewed and negative Physical Exam - Vital signs Vitals: Temp Pulse Resp BP Pulse Ox 97.5 F 76 18 130/85 H 97 01/04/20 10:12 01/04/20 10:12 01/04/20 10:12 01/04/20 10:12 01/04/20 10:12 - Notes Notes: Physical Exam: General: Alert, appears well. HEENT: Normocephalic. Atraumatic. PERRL. Extraocular movements intact. Oropharynx clear. Neck: Supple. Non-tender. Respiratory: No respiratory distress. Clear and equal breath sounds bilaterally. Reproducible left anterior chest wall tenderness to palpation. Cardiovascular: Irregularly irregular. Abdominal: Non-tender. No distension. Normal Bowel Sounds. Midline scarring that is healing. No warmth, erythema or discharge. Back: No gross abnormalities. Extremities: Moves all four extremities. Upper extremities: Normal inspection. Normal ROM. Lower extremities: Normal inspection. No edema. Normal ROM. Neurological: Normal cognition. AAOx4. Normal speech. Psychological: Normal affect. Normal Mood. Skin: Warm. Dry. Normal color. Course - Re-evaluation Re-evalutation: 01/04/20 14:46 Patient reports that he is feeling better and wants to be discharged home. I explained the patient that he has chronically elevated troponins as well as medical noncompliance of his medications and he has a substance abuse problem with cocaine. Also he shows a little worsening of his CHF. I explained the pat ient that he needs to be admitted to the hospital but patient refused to be admitted states that this condition is a chronic condition for him and that all of the symptoms that he has had are not new and that he admits that he will do better and take his medications as prescribed. I reviewed patient medication and he does have his medications with him so there is no reason for him not to take his medication. At the same time explained the patient he had chest pain which most likely is chest wall pain is reproducible but inasmuch as he is a coronary artery disease patient rather he be admitted to the hospital for further evaluation as well as to diuresis his fluid off his chest. Patient st ates again that he prefers to go home and I explained this will be against my advice and he agrees to be discharged on that that premise. Patient's understands the risk that he could go home and . - Vital Signs Vital signs: Temp Pulse Resp BP Pulse Ox 97.5 F 76 18 150/100 H 99 01/04/20 10:18 01/04/20 10:12 01/04/20 10:12 01/04/20 13:39 01/04/20 12:56 - Laboratory Result Diagrams: 01/04/20 12:37 01/04/20 12:37 Laboratory results interpreted by me: 01/04/20 01/04/20 01/04/20 10:31 10:31 10:31 RBC 4.06 L Hgb 12.9 L Hct RDW 16.5 H PT APTT Sodium 136.9 L Glucose Magnesium 1.5 L Creatine Kinase NT-Pro-B Natriuret Pep 3120 H 01/04/20 01/04/20 01/04/20 12:37 12:37 12:37 RBC 4.03 L Hgb 12.7 L Hct 37.7 L RDW 16.5 H PT 36.1 H APTT 47.2 H Sodium 136.3 L Glucose 112 H Magnesium Creatine Kinase 49 L NT-Pro-B Natriuret Pep 01/04/20 12:37 RBC Hgb Hct RDW PT APTT Sodium Glucose Magnesium Creatine Kinase NT-Pro-B Natriuret Pep 2770 H 01/04/20 14:48 Laboratories show an elevated BNP and a chronically elevated troponin. Patient also has an abnormal chest x-ray with some cardiomegaly and bilateral pleural effusions. All of this consistent with CHF. Patient is on medications that he is noncompliant with. - Diagnostic Test Radiology reviewed: Image reviewed, Reports reviewed Radiology results interpreted by me: 01/04/20 14:49 Chest x-ray shows cardiomegaly with bilateral pleural effusions. No defined infiltrate noted. - EKG Interpretation by Me Additional EKG results interpreted by me: 01/04/20 14:49 twelve-lead EKG today shows atrial fibrillation with a ventricular rate between 63 and 89. Consider old anterior septal infarct. Prolonged QT interval. Discharge - Discharge Clinical Impression: Atrial fibrillation, Cocaine abuse, Shortness of breath, CHF exacerbation, Coronary artery disease, Chest pain, Left against medical advice Condition: Fair Disposition: AGAINST MEDICAL ADVICE Referrals: RENE VILLA MD [ACTIVE STAFF] - Follow up as needed I personally performed the services described in the documentation, reviewed and edited the documentation which was dictated to the scribe in my presence, and it accurately records my words and actions.
[2020-01-04 16:26] VITALS: BP 160/108
--- NOTE | 2020-01-04 20:39 | EKG REPORT ---
SEVERITY:- ABNORMAL ECG - ATRIAL FIBRILLATION, V-RATE 63-89 CONSIDER ANTEROSEPTAL INFARCT PROLONGED QT INTERVAL : Confirmed by: Ernesto Schmitz 04-Jan-2020 20:39:20
== END 2020-01-04 16:26 | disposition left against medical advice (07) ==
LOC: ER 10:09
DX: I11.0 Hypertensive heart disease with heart failure (principal); I50.9 Heart failure, unspecified; I25.10 Atherosclerotic heart disease of native coronary artery without angina pectoris; E11.9 Type 2 diabetes mellitus without complications; I48.91 Unspecified atrial fibrillation; F14.10 Cocaine abuse, uncomplicated; R07.9 Chest pain, unspecified; R06.02 Shortness of breath; K59.09 Other constipation; I25.2 Old myocardial infarction; Z91.14 Patient's other noncompliance with medication regimen; Z95.5 Presence of coronary angioplasty implant and graft; Z90.81 Acquired absence of spleen; Z53.29 Procedure and treatment not carried out because of patient's decision for other reasons
CPT/HCPCS: 36415; 71046; 80053; 80307; 81001; 82550; 82803; 83690; 83735; 83880; 84484; 85025; 85610; 85730; 87070; 93005; 93010; 99285

== ENCOUNTER 2020-03-13 10:41 | Emergency (ER) | payer MEDICARE, MEDICAID ==
[2020-03-13] MEDS ORDERED: HYDROCODONE/ACETAMINOPHEN 5-325 MG TABLET PO ONE (11:22)
--- NOTE | 2020-03-13 11:37 | ER Document Report ---
ED Medical Screen (RME) - General Chief Complaint: Back Pain Stated Complaint: LOW BACK PAIN Time Seen by Provider: 03/13/20 10:50 Primary Care Provider: MOOSE RIVERA MD [Primary Care Provider] - Follow up as needed TRAVEL OUTSIDE OF THE [place] IN LAST 30 DAYS: No - HPI Notes: 03/13/20 11:20 65-year-old male with a history of hypertension diabetes presents to the emergency room for sudden onset lower back pain that woke him out of sleep around 6:00 this morning. Patient reports that he has lower back pain that is 10 out of 10. Has not tried any [id number]-sev-[id number] medication besides "dons back pill", which he states is an tkmt-[id number] anesthetic. Last bowel movement was yesterday, denies any issues with dysuria, denies any bowel or bladder dysfunction, no numbness or tingling down bilateral lower legs. Patient states pain is severe and came out of nowhere. Denies any IV drug abuse. Denies any nausea, vomiting, diarrhea. Denies any history of lower back pain in his life. I have greeted and performed a rapid initial assessment of this patient. A comprehensive ED assessment and evaluation of the patient, analysis of test results and completion of the medical decision making process will be conducted by additional ED providers. PHYSICAL EXAMINATION: GENERAL: Well-appearing, well-nourished and in moderate pain HEAD: Atraumatic, normocephalic. EYES: Pupils equal round extraocular movements intact, conjunctiva are normal. NECK: Normal range of motion CV: s1, s2 regular back: L1-L4 lumbar spine pain on palpation, noted right and left paraspinal tenderness. LUNGS: No respiratory distress Musculoskeletal: Normal range of motion NEUROLOGICAL: Normal speech, normal gait. SKIN: Warm, Dry, normal turgor, no rashes or lesions noted. 03/13/20 12:06 - Related Data Allergies/Adverse Reactions: No Known Allergies Allergy (Verified 01/04/20 10:18) Past Medical History - Social History Family history: Reviewed & Not Pertinent - Past Medical History Cardiac Medical History: Reports: Hx Atrial Fibrillation, Hx Congestive Heart Failure, Hx Coronary Artery Disease, Hx Heart Attack, Hx Hypercholesterolemia, Hx Hypertension Endocrine Medical History: Reports: Hx Diabetes Mellitus Type 2 Renal/ Medical History: Denies: Hx Peritoneal Dialysis GI Medical History: Reports: Hx Gastroesophageal Reflux Disease Musculoskeltal Medical History: Reports Hx Arthritis - lbp, Reports Hx Gout - neck lbp R knee Psychiatric Medical History: Reports: Hx Bipolar Disorder, Hx Depression Infectious Medical History: Reports: Hx MRSA - L knee Past Surgical History: Reports: Hx Cardiac Catheterization, Hx Cholecystectomy, Hx Coronary Stent, Hx Oral Surgery, Hx Orthopedic Surgery - Right Knee, Right Thumb, Hx Tonsillectomy - Immunizations Hx Diphtheria, Pertussis, Tetanus Vaccination: Yes Physical Exam - Vital signs Vitals: Temp Pulse Resp BP Pulse Ox 98.0 F 99 20 152/89 H 99 03/13/20 10:48 03/13/20 10:48 03/13/20 10:48 03/13/20 10:48 03/13/20 10:48 Course - Vital Signs Vital signs: Temp Pulse Resp BP Pulse Ox 98.0 F 99 20 152/89 H 99 03/13/20 10:48 03/13/20 10:48 03/13/20 10:48 03/13/20 10:48 03/13/20 10:48 - Laboratory Result Diagrams: 03/13/20 11:34 03/13/20 11:34 Laboratory results interpreted by me: 03/13/20 11:34 RDW 15.9 H Doctor's Discharge - Discharge Referrals: MOOSE RIVERA MD [Primary Care Provider] - Follow up as needed
[2020-03-13 11:55] LABS: ABSOLUTE BASOPHILS # (AUTO) 0.1 10^3/uL (0.0-0.2); ABSOLUTE EOSINOPHILS # (AUTO) 0.2 10^3/uL (0.0-0.6); ABSOLUTE LYMPHOCYTES (AUTO) 2.2 10^3/uL (0.5-4.7); ABSOLUTE MONOCYTES (AUTO) 0.7 10^3/uL (0.1-1.4); ABSOLUTE NEUT (AUTO) 4.6 10^3/uL (1.7-8.2); EOSINOPHILS % (AUTO) 2.2 % (0-6); HEMATOCRIT 41.5 % (37.9-51.0); HEMOGLOBIN 13.8 g/dL (13.5-17.0); LYMPHOCYTES % (AUTO) 28.7 % (13-45); MEAN CORPUSCULAR HEMOGLOBIN 29.5 pg (27.0-33.4); MEAN CORPUSCULAR HGB CONC 33.1 g/dL (32.0-36.0); MEAN CORPUSCULAR VOLUME 89 fl (80-97); MONOCYTES % (AUTO) 9.2 % (3-13); PLATELET COUNT 367 10^3/uL (150-450); RED BLOOD COUNT 4.66 10^6/uL (4.35-5.55); RED CELL DISTRIBUTION WIDTH 15.9 % (11.5-14.0); SEGMENTED NEUTROPHILS % (AUTO) 58.9 % (42-78); TOTAL CELLS COUNTED % (AUTO) 100 %; WHITE BLOOD COUNT 7.8 10^3/uL (4.0-10.5)
[2020-03-13 12:12] LABS: ALBUMIN 4.2 g/dL (3.5-5.0); ALKALINE PHOSPHATASE 112 U/L (38-126); ANION GAP 8 (5-19); ASPARTATE AMINO TRANSFERASE 22 U/L (17-59); BILIRUBIN,DIRECT 0.1 mg/dL (0.0-0.4); BILIRUBIN,TOTAL 0.5 mg/dL (0.2-1.3); BLOOD UREA NITROGEN 22 mg/dL (7-20); CALCIUM 9.9 mg/dL (8.4-10.2); CARBON DIOXIDE 27 mmol/L (22-30); CHLORIDE 104 mmol/L (98-107); GLUCOSE 172 mg/dL (75-110); POTASSIUM 4.3 mmol/L (3.6-5.0); TOTAL PROTEIN 7.1 g/dL (6.3-8.2)
--- NOTE | 2020-03-13 12:17 | RADIOLOGY REPORT (SQ) ---
EXAM DESCRIPTION: L SPINE WHOLE IMAGES COMPLETED DATE/TIME: 03/13/2020 11:57 am REASON FOR STUDY: new onset, sudden severeLBP, woke him out of sleep COMPARISON: 11/16/2015. NUMBER OF VIEWS: Five views including obliques. TECHNIQUE: AP, lateral, oblique, and sacral radiographic images acquired of the lumbar spine. LIMITATIONS: None. FINDINGS: MINERALIZATION: Normal. SEGMENTATION: Normal. No transitional anatomy. ALIGNMENT: Normal. VERTEBRAE: Maintained height. No fracture or worrisome bone lesion. DISCS: Multilevel disc space narrowing with osteophytes. POSTERIOR ELEMENTS: Pedicles and facets are intact. No pars defect or posterior arch defects. Facet arthropathy is present. HARDWARE: None in the spine. PARASPINAL SOFT TISSUES: Normal. PELVIS: Intact as visualized. No fractures or worrisome bone lesions. SI joints intact. OTHER: No other significant finding. IMPRESSION: SPONDYLOSIS WITHOUT BONE LESION OR FRACTURE. TECHNICAL DOCUMENTATION: JOB ID: [id number] 2010 [employer]- All Rights Reserved Reading location - IP/workstation name: [email or web address]
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
[2020-03-13 13:49] VITALS: BP 162/98
== END 2020-03-13 13:49 | disposition home or self-care (01) ==
LOC: ER 10:41
DX: S39.012A Strain of muscle, fascia and tendon of lower back, initial encounter (principal); X58.XXXA Exposure to other specified factors, initial encounter; M47.816 Spondylosis without myelopathy or radiculopathy, lumbar region; I25.10 Atherosclerotic heart disease of native coronary artery without angina pectoris; I10 Essential (primary) hypertension; E11.9 Type 2 diabetes mellitus without complications
CPT/HCPCS: 99283; 36415; 85025; 80053; 72110; A9270

== ENCOUNTER 2020-04-04 07:07 | Emergency (ER) | payer MEDICARE, MEDICAID ==
[2020-04-04 08:32] LABS: HEMOGLOBIN 10.8 g/dL (13.5-17.0); MEAN CORPUSCULAR HEMOGLOBIN 28.4 pg (27.0-33.4); MEAN CORPUSCULAR HGB CONC 32.6 g/dL (32.0-36.0); MEAN CORPUSCULAR VOLUME 87 fl (80-97); RED BLOOD COUNT 3.79 10^6/uL (4.35-5.55); RED CELL DISTRIBUTION WIDTH 16.6 % (11.5-14.0)
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
[2020-04-04 08:49] LABS: ABSOLUTE LYMPHOCYTES# (MANUAL) 4.4 10^3/uL (0.5-4.7); ABSOLUTE MONOCYTES # (MANUAL) 0.2 10^3/uL (0.1-1.4); BASOPHILS % (MANUAL) 0 % (0-2); EOSINOPHILS % (MANUAL) 5 % (0-6); LYMPHOCYTES % (MANUAL) 42 % (13-45); METAMYELOCYTES % (MANUAL) 1 % (0-1); MONOCYTES % (MANUAL) 2 % (3-13); SEGMENTED NEUTROPHILS % (MAN) 48 % (42-78); TOTAL CELLS COUNTED 100
[2020-04-04 08:50] LABS: ALKALINE PHOSPHATASE 101 U/L (38-126); ANION GAP 9 (5-19); ASPARTATE AMINO TRANSFERASE 22 U/L (17-59); BILIRUBIN,DIRECT 0.2 mg/dL (0.0-0.4); BILIRUBIN,TOTAL 0.7 mg/dL (0.2-1.3); BLOOD UREA NITROGEN 17 mg/dL (7-20); CALCIUM 8.9 mg/dL (8.4-10.2); CARBON DIOXIDE 27 mmol/L (22-30); CHLORIDE 105 mmol/L (98-107); CREATINE KINASE 75 U/L (55-170); GLUCOSE 119 mg/dL (75-110); POTASSIUM 3.8 mmol/L (3.6-5.0); TOTAL PROTEIN 6.7 g/dL (6.3-8.2)
[2020-04-04 08:57] LABS: ANISOCYTOSIS 1+; OVALOCYTES 1+; PLATELET CLUMPS PRESENT; PLATELET COMMENT ADEQUATE; POIKILOCYTOSIS 2+; POLYCHROMASIA 1+; SCHISTOCYTES 1+; TARGET CELLS SLIGHT
[2020-04-04 08:58] LABS: NUCLEATED RED BLOOD CELLS 9 /100 WBC (0)
[2020-04-04 09:00] LABS: PLATELET COUNT 358 10^3/uL (150-450)
[2020-04-04 09:36] LABS: APPEARANCE,URINE CLEAR; BILIRUBIN,URINE NEGATIVE (NEGATIVE); COLOR,URINE YELLOW; GLUCOSE, URINE NEGATIVE (NEGATIVE); KETONES,URINE NEGATIVE (NEGATIVE); LEUKOCYTE ESTERASE,URINE NEGATIVE (NEGATIVE); NITRITE,URINE NEGATIVE (NEGATIVE); PROTEIN,URINE 30 mg/dL (NEGATIVE); URINE SPECIFIC GRAVITY 1.025
[2020-04-04 09:47] LABS: URINE AMPHETAMINES SCREEN NEGATIVE; URINE BARBITURATES SCREEN NEGATIVE; URINE BENZODIAZEPINES SCREEN NEGATIVE; URINE COCAINE SCREEN UNCONFIRMED POSITIVE; URINE MARIJUANA (THC) SCREEN NEGATIVE; URINE METHADONE SCREEN NEGATIVE; URINE PHENCYCLIDINE SCREEN NEGATIVE
--- NOTE | 2020-04-04 09:55 | RADIOLOGY REPORT (SQ) ---
EXAM DESCRIPTION: CHEST SINGLE VIEW IMAGES COMPLETED DATE/TIME: 04/04/2020 9:43 am REASON FOR STUDY: SOB COMPARISON: 01/04/2020 NUMBER OF VIEWS: One view. TECHNIQUE: Single frontal radiographic view of the chest acquired. LIMITATIONS: None. FINDINGS: LUNGS AND PLEURA: No opacities, masses or pneumothorax. No pleural effusion. MEDIASTINUM AND HILAR STRUCTURES: No masses or contour abnormality. HEART AND VASCULATURE: Cardiac enlargement. Vascular congestion. BONES: No acute findings. HARDWARE: None in the chest. OTHER: No other significant finding. IMPRESSION: CARDIAC ENLARGEMENT. VASCULAR CONGESTION. TECHNICAL DOCUMENTATION: JOB ID: [id number] 2010 [employer]- All Rights Reserved Reading location - IP/workstation name: [email or web address]
[2020-04-04] MEDS: FUROSEMIDE INJ/PF 20 MG/2 ML SDV IV ONE (10:26)
[2020-04-04] MEDS: ACETAMINOPHEN 325 MG TABLET PO ONE (10:26)
[2020-04-04 10:28] VITALS: BP 160/90
--- NOTE | 2020-04-04 14:58 | EKG REPORT ---
SEVERITY:- ABNORMAL ECG - ATRIAL FIBRILLATION, V-RATE 64-96 CONSIDER ANTEROSEPTAL INFARCT BORDERLINE PROLONGED QT INTERVAL : Confirmed by: Almas Pham MD 04-Apr-2020 14:58:06
[2020-04-05 13:05] LABS: PATH REVIEW PATHOLOGIST REVIEWED
== END 2020-04-04 10:35 | disposition home or self-care (01) ==
LOC: ER 07:07
DX: I48.20 Chronic atrial fibrillation, unspecified (principal); I50.9 Heart failure, unspecified; R25.2 Cramp and spasm; F14.10 Cocaine abuse, uncomplicated; R06.02 Shortness of breath; K08.89 Other specified disorders of teeth and supporting structures; R51 Headache; Z98.890 Other specified postprocedural states; Z79.899 Other long term (current) drug therapy; I25.10 Atherosclerotic heart disease of native coronary artery without angina pectoris; I11.0 Hypertensive heart disease with heart failure; E11.9 Type 2 diabetes mellitus without complications
CPT/HCPCS: 93005; 99285; 96374; 36415; 82550; 85025; 80053; 81001; 84484; 80307; 71045; 93010; A9270; J1940

== ENCOUNTER 2020-06-22 17:11 | Emergency (ER) | payer MEDICARE, MEDICAID ==
[2020-06-22 17:17] VITALS: BP 112/62
--- NOTE | 2020-06-22 17:43 | ER Document Report ---
ED Medical Screen (RME) - General Chief Complaint: Pain All Over Stated Complaint: MUSCLE PAIN/SHORTNESS OF BREATH Time Seen by Provider: 06/22/20 17:39 Primary Care Provider: MOOSE RIVERA MD [Primary Care Provider] - Follow up as needed Mode of Arrival: Wheelchair Information source: Patient Notes: 65-year-old male presented to ED for shortness of breath and body aches times a week. He states he has not had any cough or congestion fever chills he just hurts all over and has been short of breath. He does have an extensive cardiac history but none of this is within the last week. Will get strep flu and Covid test as well as a chest x-ray. The patient was evaluated during the global Covid 19 pandemic, and that diagnosis was suspected/considered upon their initial presentation. Their evaluation, treatment and testing was consistent with current guidelines for patients who present with complaints or symptoms that may be related to Covid 19. I have greeted and performed a rapid initial assessment of this patient. A comprehensive ED assessment and evaluation of the patient, analysis of test results and completion of medical decision making process will be conducted by an additional ED providers. TRAVEL OUTSIDE OF THE [place] IN LAST 30 DAYS: No - Related Data Allergies/Adverse Reactions: No Known Allergies Allergy (Verified 01/04/20 10:18) Past Medical History - General Information source: Patient - Social History Cigarette use (# per day): No Frequency of alcohol use: None Drug Abuse: Cocaine - Last night t, Marijuana - Smoked marijuana laced with cocaine last night Lives with: Alone Family history: Reviewed & Not Pertinent - Past Medical History Cardiac Medical History: Reports: Hx Atrial Fibrillation, Hx Congestive Heart Failure, Hx Coronary Artery Disease, Hx Heart Attack, Hx Hypercholesterolemia, Hx Hypertension Pulmonary Medical History: Reports: None EENT Medical History: Reports: None Neurological Medical History: Reports: 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 Endocrine Medical History: Reports: Hx Diabetes Mellitus Type 2 Renal/ Medical History: Reports: None Malignancy Medical History: Reports None GI Medical History: Reports: Hx Gastroesophageal Reflux Disease Musculoskeltal Medical History: Reports Hx Arthritis - lbp, Reports Hx Gout - neck lbp R knee Skin Medical History: Reports None Psychiatric Medical History: Reports: Hx Bipolar Disorder, Hx Depression Traumatic Medical History: Reports: None, Hx Spleen Laceration/Rupture Infectious Medical History: Reports: Hx MRSA - L knee Past Surgical History: Reports: Hx Abdominal Surgery - Removal of spleen, Hx Cardiac Catheterization, Hx Cholecystectomy, Hx Coronary Stent, Hx Oral Surgery, Hx Orthopedic Surgery - Right Knee, Right Thumb, Hx Tonsillectomy - Immunizations Immunizations up to date: Yes Hx Diphtheria, Pertussis, Tetanus Vaccination: Yes Physical Exam - Vital signs Vitals: Temp Pulse Resp BP Pulse Ox 98.3 F 97 18 112/62 98 06/22/20 17:16 06/22/20 17:16 06/22/20 17:16 06/22/20 17:16 06/22/20 17:16 Course - Vital Signs Vital signs: Temp Pulse Resp BP Pulse Ox 98.3 F 97 18 112/62 98 06/22/20 17:16 06/22/20 17:16 06/22/20 17:16 06/22/20 17:16 06/22/20 17:16 Doctor's Discharge - Discharge Referrals: MOOSE RIVERA MD [Primary Care Provider] - Follow up as needed
--- NOTE | 2020-06-22 19:33 | RADIOLOGY REPORT (SQ) ---
EXAM DESCRIPTION: CHEST SINGLE VIEW IMAGES COMPLETED DATE/TIME: 06/22/2020 7:25 pm REASON FOR STUDY: Short of breath COMPARISON: 04/04/2020 EXAM PARAMETERS: NUMBER OF VIEWS: One view. TECHNIQUE: Single frontal radiographic view of the chest acquired. RADIATION DOSE: NA LIMITATIONS: None. FINDINGS: LUNGS AND PLEURA: No opacities, masses or pneumothorax. No pleural effusion. MEDIASTINUM AND HILAR STRUCTURES: No masses. Contour normal. HEART AND VASCULAR STRUCTURES: Heart normal in size. Normal vasculature. BONES: No acute findings. HARDWARE: None in the chest. OTHER: No other significant finding. IMPRESSION: NO ACUTE RADIOGRAPHIC FINDING IN THE CHEST. TECHNICAL DOCUMENTATION: JOB ID: [id number] 2010 [employer]- All Rights Reserved Reading location - IP/workstation name: [email or web address]
[2020-06-22 20:35] LABS: ABSOLUTE BASOPHILS # (AUTO) 0.3 10^3/uL (0.0-0.2); ABSOLUTE LYMPHOCYTES (AUTO) 3.7 10^3/uL (0.5-4.7); ABSOLUTE MONOCYTES (AUTO) 1.1 10^3/uL (0.1-1.4); ABSOLUTE NEUT (AUTO) 13.3 10^3/uL (1.7-8.2); BASOPHILS % (AUTO) 1.5 % (0-2); EOSINOPHILS % (AUTO) 0.1 % (0-6); HEMATOCRIT 42.4 % (37.9-51.0); HEMOGLOBIN 13.7 g/dL (13.5-17.0); LYMPHOCYTES % (AUTO) 20.3 % (13-45); MEAN CORPUSCULAR HGB CONC 32.4 g/dL (32.0-36.0); MEAN CORPUSCULAR VOLUME 80 fl (80-97); MONOCYTES % (AUTO) 5.9 % (3-13); PLATELET COUNT 426 10^3/uL (150-450); RED BLOOD COUNT 5.27 10^6/uL (4.35-5.55); RED CELL DISTRIBUTION WIDTH 20.7 % (11.5-14.0); SEGMENTED NEUTROPHILS % (AUTO) 72.2 % (42-78); TOTAL CELLS COUNTED % (AUTO) 100 %; WHITE BLOOD COUNT 18.3 10^3/uL (4.0-10.5)
[2020-06-22 20:41] LABS: APPEARANCE,URINE CLOUDY; BILIRUBIN,URINE NEGATIVE (NEGATIVE); COLOR,URINE AMBER; GLUCOSE, URINE NEGATIVE (NEGATIVE); KETONES,URINE TRACE mg/dL (NEGATIVE); LEUKOCYTE ESTERASE,URINE TRACE (NEGATIVE); NITRITE,URINE NEGATIVE (NEGATIVE); PROTEIN,URINE 100 mg/dL (NEGATIVE); URINE SPECIFIC GRAVITY 1.023
[2020-06-22 20:48] LABS: ALBUMIN 4.8 g/dL (3.5-5.0); ALKALINE PHOSPHATASE 108 U/L (38-126); ANION GAP 17 (5-19); ASPARTATE AMINO TRANSFERASE 45 U/L (17-59); BILIRUBIN,DIRECT 0.2 mg/dL (0.0-0.4); BILIRUBIN,TOTAL 0.9 mg/dL (0.2-1.3); BLOOD UREA NITROGEN 27 mg/dL (7-20); CALCIUM 10.3 mg/dL (8.4-10.2); CARBON DIOXIDE 24 mmol/L (22-30); CHLORIDE 99 mmol/L (98-107); GLUCOSE 102 mg/dL (75-110); POTASSIUM 3.8 mmol/L (3.6-5.0)
[2020-06-22 20:52] LABS: URINE AMPHETAMINES SCREEN NEGATIVE; URINE BARBITURATES SCREEN NEGATIVE; URINE BENZODIAZEPINES SCREEN NEGATIVE; URINE COCAINE SCREEN UNCONFIRMED POSITIVE; URINE MARIJUANA (THC) SCREEN NEGATIVE; URINE METHADONE SCREEN NEGATIVE; URINE PHENCYCLIDINE SCREEN NEGATIVE
[2020-06-22 21:03] LABS: A TYPE INFLUENZA AG NEGATIVE (NEGATIVE); B INFLUENZA AG NEGATIVE (NEGATIVE)
== END 2020-06-22 22:06 | disposition left against medical advice (07) ==
LOC: ER 17:11
DX: M79.10 Myalgia, unspecified site (principal); R06.02 Shortness of breath; I48.91 Unspecified atrial fibrillation; I50.9 Heart failure, unspecified; E78.00 Pure hypercholesterolemia, unspecified; I11.0 Hypertensive heart disease with heart failure; E11.9 Type 2 diabetes mellitus without complications; I25.2 Old myocardial infarction
CPT/HCPCS: 36415; 71045; 80053; 80307; 81001; 83690; 85025; 87070; 87086; 87088; 87804; 87880; 99281

== ENCOUNTER 2020-07-16 13:22 | Emergency (ER) | payer MEDICARE, MEDICAID ==
[2020-07-16 13:55] VITALS: BP 97/58
--- NOTE | 2020-07-16 14:48 | ER Document Report ---
ED Medical Screen (RME) - General Chief Complaint: Nausea/Vomiting Stated Complaint: VOMITED YESTERDAY Time Seen by Provider: 07/16/20 14:38 Primary Care Provider: KAY SPICER PA-C [Primary Care Provider] - Follow up as needed TRAVEL OUTSIDE OF THE [place] IN LAST 30 DAYS: No - HPI Notes: Patient is a 65-year-old male who presents with an episode of abdominal pain and vomiting that occurred yesterday patient states he vomited a "worm" that was about 6 to 8 inches long and "looked like a noodle". Patient states he feels fine and has no other complaints. Patient mildly hypotensive with a BP of 97/58. 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 Endocrine Medical History: Reports: Hx Diabetes Mellitus Type 2 GI Medical History: Reports: Hx Gastroesophageal Reflux Disease Musculoskeltal Medical History: Reports Hx Arthritis - lbp, Reports Hx Gout - neck lbp R knee Psychiatric Medical History: Reports: Hx Bipolar Disorder, Hx Depression Traumatic Medical History: Reports: Hx Spleen Laceration/Rupture Infectious Medical History: Reports: Hx MRSA - L knee Past Surgical History: Reports: Hx Abdominal Surgery - Removal of spleen, Hx Cardiac Catheterization, Hx Cholecystectomy, Hx Coronary Stent, Hx Oral Surgery, Hx Orthopedic Surgery - Right Knee, Right Thumb, Hx Tonsillectomy - Immunizations Immunizations up to date: Yes Hx Diphtheria, Pertussis, Tetanus Vaccination: Yes Physical Exam - Vital signs Vitals: Temp Pulse Resp BP Pulse Ox 97.8 F 90 19 97/58 L 96 07/16/20 13:54 07/16/20 13:54 07/16/20 13:54 07/16/20 13:54 07/16/20 13:54 Interpretation: Hypotensive - Abdominal Tenderness: Nontender Course - Re-evaluation Re-evalutation: I have greeted and performed a rapid initial assessment of this patient. A comprehensive ED assessment and evaluation of the patient, analysis of test results and completion of medical decision making process will be conducted by an additional ED providers. - Vital Signs Vital signs: Temp Pulse Resp BP Pulse Ox 97.8 F 90 19 97/58 L 96 07/16/20 13:54 07/16/20 13:54 07/16/20 13:54 07/16/20 13:54 07/16/20 13:54 Doctor's Discharge - Discharge Referrals: KAY SPICER PA-C [Primary Care Provider] - Follow up as needed
[2020-07-16 15:15] LABS: ABSOLUTE BASOPHILS # (AUTO) 0.2 10^3/uL (0.0-0.2); ABSOLUTE EOSINOPHILS # (AUTO) 0.3 10^3/uL (0.0-0.6); ABSOLUTE LYMPHOCYTES (AUTO) 3.9 10^3/uL (0.5-4.7); ABSOLUTE NEUT (AUTO) 5.7 10^3/uL (1.7-8.2); BASOPHILS % (AUTO) 2.2 % (0-2); EOSINOPHILS % (AUTO) 2.4 % (0-6); HEMATOCRIT 37.5 % (37.9-51.0); LYMPHOCYTES % (AUTO) 35.1 % (13-45); MEAN CORPUSCULAR HEMOGLOBIN 25.6 pg (27.0-33.4); MEAN CORPUSCULAR HGB CONC 31.9 g/dL (32.0-36.0); MEAN CORPUSCULAR VOLUME 80 fl (80-97); MONOCYTES % (AUTO) 9.2 % (3-13); PLATELET COUNT 370 10^3/uL (150-450); RED BLOOD COUNT 4.68 10^6/uL (4.35-5.55); RED CELL DISTRIBUTION WIDTH 20.8 % (11.5-14.0); SEGMENTED NEUTROPHILS % (AUTO) 51.1 % (42-78); TOTAL CELLS COUNTED % (AUTO) 100 %; WHITE BLOOD COUNT 11.2 10^3/uL (4.0-10.5)
[2020-07-16 15:47] LABS: ANISOCYTOSIS 2+; BURR CELLS 1+; OVALOCYTES SLIGHT; PLATELET COMMENT ADEQUATE; POIKILOCYTOSIS 1+; POLYCHROMASIA SLIGHT; SCHISTOCYTES 1+; TARGET CELLS SLIGHT
[2020-07-16 16:04] LABS: ALBUMIN 4.2 g/dL (3.5-5.0); ALKALINE PHOSPHATASE 106 U/L (38-126); ANION GAP 13 (5-19); ASPARTATE AMINO TRANSFERASE 39 U/L (17-59); BILIRUBIN,DIRECT 0.3 mg/dL (0.0-0.4); BILIRUBIN,TOTAL 0.7 mg/dL (0.2-1.3); BLOOD UREA NITROGEN 33 mg/dL (7-20); CALCIUM 9.8 mg/dL (8.4-10.2); CARBON DIOXIDE 27 mmol/L (22-30); CHLORIDE 97 mmol/L (98-107); GLUCOSE 133 mg/dL (75-110); POTASSIUM 3.6 mmol/L (3.6-5.0); TOTAL PROTEIN 6.9 g/dL (6.3-8.2)
== END 2020-07-16 19:11 | disposition left against medical advice (07) ==
LOC: ER 13:22
DX: R11.2 Nausea with vomiting, unspecified (principal); I48.91 Unspecified atrial fibrillation; I50.9 Heart failure, unspecified; I11.0 Hypertensive heart disease with heart failure; E11.9 Type 2 diabetes mellitus without complications; Z86.14 Personal history of Methicillin resistant Staphylococcus aureus infection
CPT/HCPCS: 36415; 80053; 85025; 99283